=== PATIENT | male | born 1935 | race Caucasian/White ===

== ENCOUNTER 2016-02-15 10:29 | Observation (INO) ==
[2016-02-15] MEDS ORDERED: Ipratropium/Albuterol Neb 3 ML ONE (10:31)
[2016-02-15] MEDS ORDERED: methylPREDNISolone 125 MG/2 ML VIAL IVP ONE (10:33)
[2016-02-15] MEDS ORDERED: Ipratropium/Albuterol Neb 3 ML IH ONE (10:33)
[2016-02-15] MEDS ORDERED: *HR* LORazepam 2 MG/ML VIAL IVP ONE (11:01)
--- NOTE | 2016-02-15 11:07 | Emergency Department Note ---
Disposition Clinical Impression: Atrial fibrillation with RVR COPD (chronic obstructive pulmonary disease) Qualifiers: COPD type: COPD with acute exacerbation Qualified Code(s): J44.1 - Chronic obstructive pulmonary disease with (acute) exacerbation CHF (congestive heart failure) Qualifiers: Congestive heart failure type: unspecified congestive heart failure type Congestive heart failure chronicity: acute Qualified Code(s): I50.9 - Heart failure, unspecified Disposition: Admitted As Inpatient Condition: Fair Referrals: Zafar Gutierrez DO [Primary Care Provider] - Forms: ED Satisfaction Letter General Adult HPI - General Chief complaint: ED Shortness of Breath/Dyspnea Stated complaint: JUAN Time Seen by Provider: 02/15/16 10:33 Source: patient, EMS Limitations: no limitations Nursing Notes Reviewed: Yes Vital Signs Reviewed: Yes - History of Present Illness Pain Scale: 0 - Related Data Home Medications Medication Instructions Recorded Confirmed Albuterol Neb [Proventil Neb] 2.5 mg IH AD 06/04/15 11/26/15 Albuterol Sulfate [Albuterol 2 puff IH Q6HR PRN 06/04/15 11/26/15 Inhaler] Aspirin 81 mg PO DAILY 06/04/15 11/26/15 Atorvastatin [Lipitor] 20 mg PO HS 06/04/15 11/26/15 Diazepam [Valium] 5 mg PO HS 06/04/15 11/26/15 Ezetimibe [Zetia] 10 mg PO DAILY 06/04/15 11/26/15 Finasteride [Proscar] 5 mg PO DAILY 06/04/15 11/26/15 Furosemide [Lasix] 20 mg PO DAILY 06/04/15 11/26/15 Magnesium Oxide [Mgo] 400 mg PO DAILY 06/04/15 11/26/15 Potassium Chloride [K-Tab ER] 20 meq PO DAILY 06/04/15 11/26/15 Rivaroxaban [Xarelto] 20 mg PO DAILY 06/04/15 11/26/15 Sertraline [Zoloft] 100 mg PO DAILY 06/04/15 11/26/15 Tamsulosin [Flomax] 0.4 mg PO DAILY 06/04/15 11/26/15 BuPROPion XL (24 HR) [Wellbutrin 150 mg PO DAILY 11/26/15 11/26/15 Xl] Budesonide/Formoterol 80/4.5 2 puff IH BIDR 11/26/15 11/26/15 [Symbicort 80/4.5] Diltiazem HCl [Diltiazem 24Hr Cd] 120 mg PO DAILY 11/26/15 11/26/15 Oxygen 1 each .ROUTE AD 11/26/15 11/26/15 Tiotropium [Spiriva] 1 cap IH DAILY 11/26/15 11/26/15 Previous Rx's Medication Instructions Recorded Ondansetron ODT [Zofran ODT] 4 mg SL Q6HR PRN #20 tab.rapdis 11/27/15 Allergies Allergy/AdvReac Type Severity Reaction Status Date / Time Penicillins Allergy Hives Verified 02/20/15 20:20 Past Medical History - Past Medical History Medical history: Reports: arthritis, COPD, DVT, hyperlipidemia, hypertension, myocardial infarction Surgical history: Reports: non-contributory Psychiatric history: Reports: anxiety, depression - Social History Smoking Status: Current some day smoker Smokeless Tobacco Status: No Alcohol use: Reports: none Drug use: Reports: none Physical Exam - General Limitations: no limitations General appearance: alert Course Vital Signs Temperature 97.8 F 02/15/16 10:30 Pulse Rate 151 02/15/16 10:30 Respiratory Rate 32 02/15/16 10:30 Blood Pressure 197/128 02/15/16 10:30 O2 Sat by Pulse Oximetry 97 02/15/16 10:30 Temperature 97.8 F 02/15/16 10:30 Pulse Rate 89 02/15/16 14:09 Respiratory Rate 18 02/15/16 14:09 Blood Pressure 111/78 02/15/16 14:09 O2 Sat by Pulse Oximetry 100 02/15/16 14:09 Oxygen Delivery Oxygen Delivery Bipap Medical Decision Making - MDM Narrative Medical decision making narrative: I examined this patient and my medical decision-making was reviewed with the OPENING MACHINE CLEANER/PA/Advanced Practice Nurse/Resident Physician. I agree with the documented findings, disposition and treatment plan as described except to the extent set forth below. Patient presents today by EMS from home. Increased dyspnea conversationally dyspneic to about 2 words very anxious. History of COPD no history of A. fib but is in A. fib here today. Denies any chest pain. Starting cardiopulmonary workup on him. Going to give him a small dose of Ativan and also start him on BiPAP. He is also getting 3 nebulized treatments at this time. He most likely will need admission. 1034 hrs.: Patient's EKG shows an atrial fibrillation with a rapid ventricular response of 150, PVCs 3. QRS 102, and QTC 347 no signs of acute ischemia compared this with an EKG he had done earlier this year shows no changes except that time he was paced and had no A. fib. 1212 hrs.: Patient is tolerating BiPAP much better. He sleeping now his heart rate has decreased after getting Cardizem for his atrial fibrillation. We will bring him into the hospital. Acute respiratory distress and failure, atrial flutter with RVR new-onset, he also has an unexplained elevated white count. We will go ahead and get a culture on him I do not see a source for that this time. We will need to get a urinalysis on him also. 1244 hrs.: Patient's repeat EKG shows a sinus tachycardia with a rate of 101, QRS of 102, QTC of 422. Is converted from the A. fib that he was in earlier. Chest X-Ray 02/15/16 10:33 IMPRESSION: Pulmonary edema. D/ / Cody Mitchell MD / Cody Mitchell MD Interpreting Provider: Cody Mitchell MD 1400 hrs.: Hospitalist was accepted patient for admission. Patient's agreement with admission and is doing much better at this time. Critical care time exclusive A separately billable procedures was 45 minutes. - Lab Data Result diagrams: 02/15/16 11:15 02/15/16 11:15 Lab Results 02/15/16 02/15/16 02/15/16 Range/Units 11:15 11:15 11:15 WBC 26.5 H (4.3-11.1) K/mcL RBC 4.15 L (4.19-5.50) M/mcL Hgb 13.3 (12.9-16.9) g/dL Hct 41.2 (37.5-50.1) % MCV 99.3 (83.0-100.0) fL MCH 32.0 (28.0-33.3) pg MCHC 32.3 (31.6-35.5) g/dL RDW 13.1 (11.5-14.5) % Plt Count 471 H (140-400) K/mcL MPV 9.8 (9.4-12.4) fL Seg Neutrophils % 82.0 % Band Neutrophils % 2.0 (0-4) % Lymphocytes % 16.0 % Neutrophils # 22.3 H (1.6-8.9) K/mcL Lymphocytes # 4.2 (0.6-4.6) K/mcL Platelet Estimate Increased H (Normal) Sodium 142 (136-145) mEq/L Potassium 3.5 (3.5-4.5) mEq/L Chloride 106 (98-109) mEq/L Carbon Dioxide 26 (19-29) mEq/L BUN 25 (8-26) mg/dL Creatinine 1.01 (0.72-1.25) mg/dL Est GFR ( Amer) > 60 (> 60) Est GFR (Non-Af Amer) > 60 (> 60) BUN/Creatinine Ratio 25 (6-26) Glucose 180 H (70-99) mg/dL Calculated Osmolality 303 H (280-300) Calcium 8.9 (8.6-10.8) mg/dL Troponin I 0.04 H* (0-0.03) ng/mL B-Natriuretic Peptide (0-100) pg/mL Urine Color (Yellow) Urine Clarity (Clear) Urine pH (5.0-8.0) pH Units Ur Specific Adams (1.010-1.025) Urine Protein (Neg-Trace) mg/dL Urine Glucose (UA) (Normal) mg/dL Urine Ketones (Negative) mg/dL Urine Blood (Negative) Urine Nitrite (Negative) Urine Bilirubin (Negative) Urine Urobilinogen (Normal) mg/dL Ur Leukocyte Esterase (Negative) Urine Microscopic RBC (0-3) per hpf Urine Microscopic WBC (0-3) per hpf Ur Squamous Epith Cells (None-Few) per lpf Urine Bacteria (None-Few) per hpf Hyaline Casts (None-Few) per lpf Granular Casts (None Seen) per lpf RBC Casts (None Seen) per lpf WBC Casts (None Seen) per lpf Urine Mucus (Few) Ur Culture Indicated? (NO) 02/15/16 02/15/16 Range/Units 11:15 12:42 WBC (4.3-11.1) K/mcL RBC (4.19-5.50) M/mcL Hgb (12.9-16.9) g/dL Hct (37.5-50.1) % MCV (83.0-100.0) fL MCH (28.0-33.3) pg MCHC (31.6-35.5) g/dL RDW (11.5-14.5) % Plt Count (140-400) K/mcL MPV (9.4-12.4) fL Seg Neutrophils % % Band Neutrophils % (0-4) % Lymphocytes % % Neutrophils # (1.6-8.9) K/mcL Lymphocytes # (0.6-4.6) K/mcL Platelet Estimate (Normal) Sodium (136-145) mEq/L Potassium (3.5-4.5) mEq/L Chloride (98-109) mEq/L Carbon Dioxide (19-29) mEq/L BUN (8-26) mg/dL Creatinine (0.72-1.25) mg/dL Est GFR ( Amer) (> 60) Est GFR (Non-Af Amer) (> 60) BUN/Creatinine Ratio (6-26) Glucose (70-99) mg/dL Calculated Osmolality (280-300) Calcium (8.6-10.8) mg/dL Troponin I (0-0.03) ng/mL B-Natriuretic Peptide 640 H (0-100) pg/mL Urine Color Dark Yellow (Yellow) Urine Clarity Cloudy A (Clear) Urine pH 5.0 (5.0-8.0) pH Units Ur Specific Adams 1.022 (1.010-1.025) Urine Protein >=300 H (Neg-Trace) mg/dL Urine Glucose (UA) Normal (Normal) mg/dL Urine Ketones Negative (Negative) mg/dL Urine Blood Large H (Negative) Urine Nitrite Negative (Negative) Urine Bilirubin Negative (Negative) Urine Urobilinogen Normal (Normal) mg/dL Ur Leukocyte Esterase Negative (Negative) Urine Microscopic RBC TNTC H (0-3) per hpf Urine Microscopic WBC 5-15 H (0-3) per hpf Ur Squamous Epith Cells Many H (None-Few) per lpf Urine Bacteria None Seen (None-Few) per hpf Hyaline Casts Many H (None-Few) per lpf Granular Casts Moderate H (None Seen) per lpf RBC Casts Moderate H (None Seen) per lpf WBC Casts Few H (None Seen) per lpf Urine Mucus Moderate H (Few) Ur Culture Indicated? YES A (NO)
[2016-02-15 11:43] LABS: Hematocrit 41.2 % (37.5-50.1); Hemoglobin 13.3 g/dL (12.9-16.9); Mean Corpuscular HGB Conc 32.3 g/dL (31.6-35.5); Mean Corpuscular Volume 99.3 fL (83.0-100.0); Mean Platelet Volume 9.8 fL (9.4-12.4); Platelet Count 471 K/mcL (140-400); Red Blood Count 4.15 M/mcL (4.19-5.50); Red Cell Distribution Width 13.1 % (11.5-14.5)
[2016-02-15 11:55] LABS: BUN/Creatinine Ratio 25 (6-26); Blood Urea Nitrogen 25 mg/dL (8-26); Calcium 8.9 mg/dL (8.6-10.8); Carbon Dioxide 26 mEq/L (19-29); Chloride 106 mEq/L (98-109); Glucose 180 mg/dL (70-99); Osmolality,Calculated 303 (280-300); Potassium 3.5 mEq/L (3.5-4.5); Sodium 142 mEq/L (136-145); eGFR For African Americans > 60 (> 60); eGFR For Non-African Americans > 60 (> 60)
[2016-02-15 11:59] LABS: Lymphocytes # 4.2 K/mcL (0.6-4.6); Neutrophils # 22.3 K/mcL (1.6-8.9)
[2016-02-15 12:00] LABS: Platelet Estimate Increased (Normal)
--- NOTE | 2016-02-15 12:21 | Emergency Department Note ---
Disposition Clinical Impression: Atrial fibrillation with RVR COPD (chronic obstructive pulmonary disease) Qualifiers: COPD type: COPD with acute exacerbation Qualified Code(s): J44.1 - Chronic obstructive pulmonary disease with (acute) exacerbation CHF (congestive heart failure) Qualifiers: Congestive heart failure type: unspecified congestive heart failure type Congestive heart failure chronicity: acute Qualified Code(s): I50.9 - Heart failure, unspecified Disposition: Admitted As Inpatient Condition: Fair SOB HPI - General Chief Complaint: ED Shortness of Breath/Dyspnea Stated Complaint: JUAN Time Seen by Provider: 02/15/16 10:33 Source: patient, EMS Limitations: no limitations Nursing Notes Reviewed: Yes Vital Signs Reviewed: Yes - History of Present Illness Patient brought in by EMS for evaluation of shortness of breath. She states that he has had a respiratory symptoms for approximately 2 weeks. Patient had shortness of breath onset this morning. Associated cough. No sputum. Patient has a history of COPD. patient significantly anxious with increased work of breathing use of intercostal muscles. Patient dyspneic with talking. Patient placed on nonrebreather via EMS. - Related Data Home Medications Medication Instructions Recorded Confirmed Albuterol Sulfate [Albuterol 2 puff IH Q6HR PRN 06/04/15 02/15/16 Inhaler] Aspirin 81 mg PO DAILY 06/04/15 02/15/16 Atorvastatin [Lipitor] 20 mg PO HS 06/04/15 02/15/16 Diazepam [Valium] 5 mg PO HS 06/04/15 02/15/16 Ezetimibe [Zetia] 10 mg PO DAILY 06/04/15 02/15/16 Finasteride [Proscar] 5 mg PO DAILY 06/04/15 02/15/16 Magnesium Oxide [Mgo] 400 mg PO DAILY 06/04/15 02/15/16 Potassium Chloride [K-Tab ER] 20 meq PO DAILY 06/04/15 02/15/16 Rivaroxaban [Xarelto] 20 mg PO DAILY 06/04/15 02/15/16 Budesonide/Formoterol 80/4.5 2 puff IH BIDR 11/26/15 02/15/16 [Symbicort 80/4.5] Diltiazem HCl [Diltiazem 24Hr Cd] 120 mg PO DAILY 11/26/15 02/15/16 Oxygen 1 each .ROUTE AD 11/26/15 02/15/16 Tiotropium [Spiriva] 18 mcg IH DAILY 11/26/15 02/15/16 Benzonatate [Tessalon] 100 mg PO TID 02/15/16 02/15/16 Doxycycline 100 mg PO BID 02/15/16 02/15/16 PredniSONE 40 mg PO DAILY 02/15/16 02/15/16 Allergies Allergy/AdvReac Type Severity Reaction Status Date / Time Penicillins Allergy Hives Verified 02/20/15 20:20 All systems ED: reviewed and negative except as stated. Constitutional: Reports: chills, weakness Respiratory: Reports: cough, dyspnea, wheezes Past Medical History - Past Medical History Medical history: Reports: arthritis, COPD, DVT, hyperlipidemia, hypertension, myocardial infarction Surgical history: Reports: non-contributory Psychiatric history: Reports: anxiety, depression - Social History Smoking Status: Current some day smoker Smokeless Tobacco Status: No Alcohol use: Reports: none Drug use: Reports: none Physical Exam - General Limitations: no limitations General appearance: alert - Head Head exam: atraumatic, normocephalic - Eye Eye exam: Present: normal appearance - ENT ENT exam: normal exam, normal oropharynx - Neck Neck exam: Present: normal inspection - Chest Chest inspection: Present: normal inspection - Respiratory Respiratory exam: Present: respiratory distress, wheezes (Diffusely) - Cardiovascular Cardiovascular exam: Present: tachycardia, irregular rhythm - Abdominal Exam Abdominal exam: Present: soft, Non-Tender - Extremities Exam Extremities exam: Present: normal inspection - Expanded Lower Extremity Exam Hip/Pelvis exam: Present: normal inspection - Back Exam Back exam: Present: normal inspection. Absent: tenderness - Neurological Exam Neurological exam: Present: alert, oriented X3 - Psychiatric Psychiatric exam: Present: normal affect, normal mood - Skin Skin exam: Present: warm, dry Course - Reevaluation(s) Reevaluation #1: Patient found to be in A. fib RVR. Patient initially responded with improvement in respiratory status to do an intense. Her rate converted to sinus tachycardia with administration of Cardizem. Patient received Ativan prior to use of initiation of BiPAP to decrease anxiety. Patient now resting comfortably in bed with oxygen saturation of 100%. - Consultations Consultation #1: Discussed with Dr. Gallo. Patient accepted for admission. Vital Signs Temperature 97.8 F 02/15/16 10:30 Pulse Rate 151 12/31/16 10:30 Respiratory Rate 32 02/15/16 10:30 Blood Pressure 197/128 02/15/16 10:30 O2 Sat by Pulse Oximetry 97 02/15/16 10:30 Temperature 97.6 F 02/15/16 15:58 Pulse Rate 88 02/15/16 15:58 Respiratory Rate 20 02/15/16 15:58 Blood Pressure 118/62 02/15/16 15:58 O2 Sat by Pulse Oximetry 94 L 02/15/16 15:58 Oxygen Delivery Oxygen Delivery Bipap Shortness of Breath/Dyspnea - Lab Data Result diagrams: 02/15/16 11:15 02/15/16 11:15 Lab Results 02/15/16 02/15/16 02/15/16 Range/Units 11:15 11:15 11:15 WBC 26.5 H (4.3-11.1) K/mcL RBC 4.15 L (4.19-5.50) M/mcL Hgb 13.3 (12.9-16.9) g/dL Hct 41.2 (37.5-50.1) % MCV 99.3 (83.0-100.0) fL MCH 32.0 (28.0-33.3) pg MCHC 32.3 (31.6-35.5) g/dL RDW 13.1 (11.5-14.5) % Plt Count 471 H (140-400) K/mcL MPV 9.8 (9.4-12.4) fL Seg Neutrophils % 82.0 % Band Neutrophils % 2.0 (0-4) % Lymphocytes % 16.0 % Neutrophils # 22.3 H (1.6-8.9) K/mcL Lymphocytes # 4.2 (0.6-4.6) K/mcL Platelet Estimate Increased H (Normal) Sodium 142 (136-145) mEq/L Potassium 3.5 (3.5-4.5) mEq/L Chloride 106 (98-109) mEq/L Carbon Dioxide 26 (19-29) mEq/L BUN 25 (8-26) mg/dL Creatinine 1.01 (0.72-1.25) mg/dL Est GFR ( Amer) > 60 (> 60) Est GFR (Non-Af Amer) > 60 (> 60) BUN/Creatinine Ratio 25 (6-26) Glucose 180 H (70-99) mg/dL Calculated Osmolality 303 H (280-300) Calcium 8.9 (8.6-10.8) mg/dL Troponin I 0.04 H* (0-0.03) ng/mL B-Natriuretic Peptide (0-100) pg/mL Urine Color (Yellow) Urine Clarity (Clear) Urine pH (5.0-8.0) pH Units Ur Specific Barker (1.010-1.025) Urine Protein (Neg-Trace) mg/dL Urine Glucose (UA) (Normal) mg/dL Urine Ketones (Negative) mg/dL Urine Blood (Negative) Urine Nitrite (Negative) Urine Bilirubin (Negative) Urine Urobilinogen (Normal) mg/dL Ur Leukocyte Esterase (Negative) Urine Microscopic RBC (0-3) per hpf Urine Microscopic WBC (0-3) per hpf Ur Squamous Epith Cells (None-Few) per lpf Urine Bacteria (None-Few) per hpf Hyaline Casts (None-Few) per lpf Granular Casts (None Seen) per lpf RBC Casts (None Seen) per lpf WBC Casts (None Seen) per lpf Urine Mucus (Few) Ur Culture Indicated? (NO) 02/15/16 02/15/16 Range/Units 11:15 12:42 WBC (4.3-11.1) K/mcL RBC (4.19-5.50) M/mcL Hgb (12.9-16.9) g/dL Hct (37.5-50.1) % MCV (83.0-100.0) fL MCH (28.0-33.3) pg MCHC (31.6-35.5) g/dL RDW (11.5-14.5) % Plt Count (140-400) K/mcL MPV (9.4-12.4) fL Seg Neutrophils % % Band Neutrophils % (0-4) % Lymphocytes % % Neutrophils # (1.6-8.9) K/mcL Lymphocytes # (0.6-4.6) K/mcL Platelet Estimate (Normal) Sodium (136-145) mEq/L Potassium (3.5-4.5) mEq/L Chloride (98-109) mEq/L Carbon Dioxide (19-29) mEq/L BUN (8-26) mg/dL Creatinine (0.72-1.25) mg/dL Est GFR ( Amer) (> 60) Est GFR (Non-Af Amer) (> 60) BUN/Creatinine Ratio (6-26) Glucose (70-99) mg/dL Calculated Osmolality (280-300) Calcium (8.6-10.8) mg/dL Troponin I (0-0.03) ng/mL B-Natriuretic Peptide 640 H (0-100) pg/mL Urine Color Dark Yellow (Yellow) Urine Clarity Cloudy A (Clear) Urine pH 5.0 (5.0-8.0) pH Units Ur Specific Barker 1.022 (1.010-1.025) Urine Protein >=300 H (Neg-Trace) mg/dL Urine Glucose (UA) Normal (Normal) mg/dL Urine Ketones Negative (Negative) mg/dL Urine Blood Large H (Negative) Urine Nitrite Negative (Negative) Urine Bilirubin Negative (Negative) Urine Urobilinogen Normal (Normal) mg/dL Ur Leukocyte Esterase Negative (Negative) Urine Microscopic RBC TNTC H (0-3) per hpf Urine Microscopic WBC 5-15 H (0-3) per hpf Ur Squamous Epith Cells Many H (None-Few) per lpf Urine Bacteria None Seen (None-Few) per hpf Hyaline Casts Many H (None-Few) per lpf Granular Casts Moderate H (None Seen) per lpf RBC Casts Moderate H (None Seen) per lpf WBC Casts Few H (None Seen) per lpf Urine Mucus Moderate H (Few) Ur Culture Indicated? YES A (NO)
[2016-02-15 13:38] LABS: Bilirubin,Urine Negative (Negative); Blood,Urine Large (Negative); Clarity,Urine Cloudy (Clear); Color,Urine Dark Yellow (Yellow); Glucose,Urine (UA) Normal (Normal); Ketones,Urine Negative (Negative); Leukocyte Esterase,Urine Negative (Negative); Nitrite,Urine Negative (Negative); Protein,Urine >=300 mg/dL (Neg-Trace); Specific Gravity,Urine 1.022 (1.010-1.025); Urobilinogen,Urine Normal (Normal)
[2016-02-15 13:40] LABS: Bacteria,Urine None Seen per hpf (None-Few); RBC,Urine TNTC per hpf (0-3); Squamous Epithelial Cell,Urine Many per lpf (None-Few)
[2016-02-15] MEDS ORDERED: Levofloxacin 750 MG/150 ML 750 MG/150 ML BAG IVPB ONE (13:42)
[2016-02-15 13:56] LABS: Granular Casts,Urine Moderate per lpf (None Seen); Hyaline Casts,Urine Many per lpf (None-Few); Red Blood Cell Casts,Urine Moderate per lpf (None Seen)
[2016-02-15 13:57] LABS: Mucus,Urine Moderate (Few); White Blood Cell Casts,Urine Few per lpf (None Seen)
[2016-02-15] MEDS ORDERED: Naloxone 0.4 MG/ML INJ IVP PRN (16:24)
[2016-02-15] MEDS ORDERED: Acetaminophen 325 MG TABLET PO PRN (16:24)
[2016-02-15] MEDS ORDERED: Furosemide 80 MG in 0.9 % Sodium Chloride 50 ML IVPB ONE (16:50)
[2016-02-15] MEDS ORDERED: Nitroglycerin 1 INCH/GM PACKET TP ONE (17:02)
--- NOTE | 2016-02-15 17:23 | Event Note ---
Date of Encounter: 02/15/16 Time of Encounter: 17:16 I examined this patient and my medical decision-making was reviewed with Richelle Ruiz. I agree with the documented findings, disposition and treatment plan as described except to the extent set forth below. 80 yo CM with COPD, CHF presented to the ER due to shortness of breath, cough and sputum and wheezing. Has had a cold with sore throat for 2 weeks. Exam reveals pt. in moderate respiratory distress with diffuse wheezing bilaterally and bilateral basal crepitations. Now in sinus rhythm. In ER, was in A.Fib with RVR and was on BIPAP. CXR personally reviewed - Interstitial edema seen. EKG personally reviewed - A.Fib with RVR with rate related ischemia initially. ( T-inversions in lateral leads) 2nd EKG - S.rhythm without T-inversions. 1. Acute on Chronic combined systolic and diastolic CHF - Lasix. Oxygen support. I/Os. Daily wts. BIPAP PRN. Admit as inpatient. Expect the patient to stay at least 2 midnights. Expected DC dispo is ECF vs home with home health. High risk due to risk of lethal arrhytmias. 2. Acute COPD exacerbation - Duonebs PRN. Steroids IV. Hold antibiotics for now. Likely precipitant is the recent URI. Respiratory infection panel. 3. Diarrhea - Has leukocytosis. Recent abx use as out patient. Check for C.diff. 4. CAD - ASA held now due to hematuria. Continue statin and AV reba tonya. 5. A.Fib - Paroxysmal - Hold AC now. Now in SR. Cardizem. 6. Malnutrition - Nutrition consult. 7. Acute hypoxic respiratory failure due to CHF and COPD exacerbation 8. Tobacco abuse 9. Hematuria - Could be due to Rodriguez placement. Will repeat UA tomorrow. CHANA Garvin
--- NOTE | 2016-02-15 17:35 | Internal Med History&Physical ---
Date of Encounter: 02/16/16 Time of Encounter: 16:00 Assessment and Plan (1) CHF exacerbation Current visit: Yes Status: Acute 1 she has been having experiencing increasing shortness of breath chest x-ray with pulmonary edema-we will administer Lasix today 2 oxygen- presently on 2 L maintaining SPO2 greater than 92% BiPAP as needed 3monitor intake output daily weights 4 monitor electrolytes and replace as needed 5 low sodium diet Qualifiers: Congestive heart failure type: combined Qualified Code(s): I50.43 - Acute on chronic combined systolic (congestive) and diastolic (congestive) heart failure (2) COPD exacerbation Current visit: Yes Status: Acute 1 patient presented with increased shortness of breath with sensory muscle use had cough with sputum production as well as wheezing has been experiencing upper respiratory infection. We will continue with oxygen to maintain SPO2 greater than 92% BiPAP as needed 2 we will continue with steroid 3 we will hold antibiotics for now this likely related to upper respiratory infection 4 duo nebs as needed (3) Paroxysmal a-fib Current visit: Yes Status: Acute 1 patient has a history of paroxysmal A. fib he is on Cardizem by mouth at home as well as a xarelto- we will hold before AC for now presently in sinus rhythm will wean off Cardizem drip and continue with oral medications 2 continuous cardiac monitoring (4) Diarrhea Current visit: Yes Status: Acute 1 patient has been on antibiotic treatment for upper respiratory infection he has been experiencing diarrhea will obtain C. difficile Qualifiers: Diarrhea type: unspecified type Qualified Code(s): R19.7 - Diarrhea, unspecified (5) CAD (coronary artery disease) Current visit: Yes Status: Acute 1 presently without any chest pain aspirin held due to hematuria will continue with statin and will cycle cardiac troponins Qualifiers: Coronary Disease-Associated Artery/Lesion type: unspecified vessel or lesion type [place] vs. transplanted heart: [place] heart Associated angina: without angina Qualified Code(s): I25.10 - Atherosclerotic heart disease of [place] coronary artery without angina pectoris (6) Acute respiratory failure with hypoxia Current visit: Yes Status: Acute 1 this likely related to CHF and COPD exacerbation -continuous SPO2 monitoring- oxygen to maintain SPO2 greater than 92% (7) Malnutrition Current visit: No Status: Chronic 1 patient has been experiencing weight loss due to depression he is on oral nutritional supplements at home however continues to have poor appetite and weight loss-we will consult Mahi and (8) Tobacco abuse Current visit: Yes Status: Acute 1 encouraged patient to stop smoking (9) Hematuria Current visit: Yes Status: Acute Patient had some hematuria and urinalysis could be due to for placement will hold AC and aspirin will repeat UA tomorrow (10) DVT prophylaxis Current visit: Yes Status: Acute [facility] Internal [facility] - H&P: HPI Chief complaint: SOB Admitted From: Home Plans for Post Hospital Care: Transfer [facility] History of present illness: Mr. Martin is a 80 year old male with a past medical hx of COPD, CHF afib hyperlipidemia HTN [place]. The patient has been experiencing SOB and cough for approx two weeks. He was prescribed ATB as well as cough syrup. This am he was experiencing increasing SOB and cough. He had an episode of diarrhea which he rushed to the toilet and became even more SOB. He called EMS which placed im on NRB mask and transported to the ED. According to Ed records the patient arrived in respiratory distress, with increased work of breathing and accessory muscle use. He was dyspneic during conversation. He was given Breathing Tx as well as steroids, he was placed on steroids which improve his breathing status . He was noted to be in Afib RVR He was given a cardizem bolus and started on a drip. He converted to SR. His CXR revealed some pulmonary edema. He had an elevated WBC and BC were obtained and he was given Levaquin troponin .04 BNP 640. He was admitted for further work up and evaluation. Presently the patient is on 2 L NC with sats at 94-93%. He is drowsy but arouses to verbal stimuli and answers questions appropriately. Lung sounds with crackles in bases and scattered faint wheezes. He is SR on the monitor with rate 80. He denies any CP SOB at this time. Past Med Surg Social Fam HX - Past Medical History Medical history: arthritis, COPD, DVT, hyperlipidemia, hypertension, myocardial infarction Psychiatric history: anxiety, depression - Past Surgical History Surgical History: non-contributory - Social History Smoking Status: Current some day smoker Smokeless Tobacco Status: No Alcohol use: none Drug use: none - Family History Brother Adopted: No Family Member Ethnicity: Non- Living Status: Still Living Hx Family Cardiac Disorders: Yes ([place]) Hx Family Respiratory Disorders: No Hx Family Cancer: No Hx Family GI Disorders: No Hx Family Endocrine Disorder: No Hx Family Neuromuscular Disorders: No Hx Family Neurologic Disorders: No Hx Family HEENT Disorders: No Hx Family Autoimmune Disorders: No Father Hx Family Cardiac Disorders: Yes (MYOCARDIAL INFARCTION.) Internal Medicine - H&P: Meds Albuterol Sulfate [Albuterol Inhaler] 2 puff IH Q6HR PRN 06/04/15 [History] Aspirin 81 mg PO DAILY 06/04/15 [History] Atorvastatin [Lipitor] 20 mg PO HS 06/04/15 [History] Diazepam [Valium] 5 mg PO HS 06/04/15 [History] Ezetimibe [Zetia] 10 mg PO DAILY 06/04/15 [History] Finasteride [Proscar] 5 mg PO DAILY 06/04/15 [History] Magnesium Oxide [Mgo] 400 mg PO DAILY 06/04/15 [History] Potassium Chloride [K-Tab ER] 20 meq PO DAILY 06/04/15 [History] Rivaroxaban [Xarelto] 20 mg PO DAILY 06/04/15 [History] Budesonide/Formoterol 80/4.5 [Symbicort 80/4.5] 2 puff IH BIDR 11/26/15 [ History] Diltiazem HCl [Diltiazem 24Hr Cd] 120 mg PO DAILY 11/26/15 [History] Oxygen 1 each .ROUTE AD 11/26/15 [History] Tiotropium [Spiriva] 18 mcg IH DAILY 11/26/15 [History] Benzonatate [Tessalon] 100 mg PO TID 02/15/16 [History] Doxycycline 100 mg PO BID 02/15/16 [History] PredniSONE 40 mg PO DAILY 02/15/16 [History] Allergies Penicillins Allergy (Verified 02/20/15 20:20) Hives All Systems PM: A 10-system review of systems was performed and is negative for pertinent findings except as documented above in the HPI. - Constitutional Constitutional: weight loss - Cardiovascular Cardiovascular ROS IM: dyspnea - Respiratory Respiratory: cough, change in phlegm color - Gastrointestinal Gastrointestinal: diarrhea - Musculoskeletal Musculoskeletal ROS IM: no numbness, no tingling - Neurological Neurological ROS: no confusion, no convulsions, no focal weakness, no numbness, no tingling, no tremor(s) - Constitutional Vitals: Temp Pulse Resp BP Pulse Ox 97.6 F 88 20 118/62 94 L 02/15/16 15:58 02/15/16 15:58 02/15/16 15:58 02/15/16 15:58 02/15/16 15:58 General appearance: Present: A&O X 3 - Head Head exam: Present: atraumatic, normocephalic - Respiratory Respiratory exam: Present: rales, wheezes. Absent: accessory muscle use, rhonchi - Cardiovascular Cardiovascular exam: Present: RRR, +S1, +S2. Absent: diastolic murmur, gallop, rubs, systolic murmur - GI/Abdominal GI/Abdominal exam: Present: normal bowel sounds, soft, no peritoneal signs. Absent: distended, tenderness - Extremities Exam Extremities exam: Present: warm, radial pulses palpable and symetrical. Absent : calf tenderness, cyanotic, pedal edema - Neurological Exam Neurological exam: Present: CN II-XII intact, oriented X3, no focal deficits. Absent: pronater drift, facial droop, speech deficit Internal Med - H&P Results - Labs CBC & Chem 7: 02/16/16 04:14 02/16/16 04:14 - EKG Data EKG shows normal: sinus rhythm Rate: tachycardia - EKG Data Interpretation IM: normal EKG - Diagnostic Studies Chest x-ray Additional comments: per radiology read pulmonary edema
[2016-02-15] MEDS: GuaiFENesin Liq 200 MG/10 ML UDC PO SCH (19:42)
[2016-02-15] MEDS ORDERED: Ipratropium/Albuterol Neb 3 ML IH PRN (20:00)
--- NOTE | 2016-02-15 20:15 | Event Note ---
Date of Encounter: 02/15/16 Time of Encounter: 20:15 Notified per nursing staff troponin trended up from 0.04 to .22 patient denies any chest pain EKG with no changes- suspect rt demand ischemia will continue to trend troponin and monitor
[2016-02-15] MEDS ORDERED: Furosemide 40 MG/4 ML VIAL IVP SCH (21:00)
[2016-02-15] MEDS: Budesonide/Formoterol 80/4.5 MDI IH SCH (21:06)
[2016-02-16] MEDS: GuaiFENesin Liq 200 MG/10 ML UDC PO SCH ×4 (00:48→17:15)
[2016-02-16] MEDS: MethylPREDNISolone 40 MG/ML VIAL IVP SCH ×3 (00:48→15:21)
[2016-02-16 05:12] LABS: Hematocrit 31.1 % (37.5-50.1); Mean Corpuscular HGB Conc 33.1 g/dL (31.6-35.5); Mean Corpuscular Volume 96.6 fL (83.0-100.0); Mean Platelet Volume 9.8 fL (9.4-12.4); Platelet Count 325 K/mcL (140-400); Red Blood Count 3.22 M/mcL (4.19-5.50); Red Cell Distribution Width 12.9 % (11.5-14.5)
[2016-02-16 05:13] LABS: Hemoglobin 10.3 g/dL (12.9-16.9)
[2016-02-16 05:22] LABS: BUN/Creatinine Ratio 28 (6-26); Blood Urea Nitrogen 31 mg/dL (8-26); Calcium 8.1 mg/dL (8.6-10.8); Carbon Dioxide 26 mEq/L (19-29); Chloride 102 mEq/L (98-109); Glucose 126 mg/dL (70-99); Osmolality,Calculated 292 (280-300); Sodium 137 mEq/L (136-145); eGFR For African Americans > 60 (> 60); eGFR For Non-African Americans > 60 (> 60)
[2016-02-16 05:35] LABS: Potassium 4.7 mEq/L (3.5-4.5)
[2016-02-16] MEDS: Magnesium Oxide 400 MG TABLET PO SCH (07:57)
[2016-02-16] MEDS: Diltiazem CD (24hr) 120 MG CAPSULE PO SCH (07:57)
[2016-02-16] MEDS ORDERED: predniSONE 10 MG TABLET PO SCH (09:00)
[2016-02-16] MEDS: Tiotropium 18 MCG inhalation IH SCH (10:11)
[2016-02-16] MEDS: Budesonide/Formoterol 80/4.5 MDI IH SCH ×2 (10:11→22:57)
[2016-02-16] MEDS: Furosemide 40 MG TABLET PO SCH (10:22)
[2016-02-16] MEDS: levoFLOXacin 500 MG TABLET PO SCH (10:22)
[2016-02-16 12:46] LABS: Bilirubin,Urine Negative (Negative); Blood,Urine Negative (Negative); Clarity,Urine Clear (Clear); Color,Urine Yellow (Yellow); Glucose,Urine (UA) Normal (Normal); Ketones,Urine Negative (Negative); Leukocyte Esterase,Urine Negative (Negative); Nitrite,Urine Negative (Negative); Protein,Urine Negative (Neg-Trace); Specific Gravity,Urine 1.012 (1.010-1.025); Urobilinogen,Urine Normal (Normal)
--- NOTE | 2016-02-16 15:49 | Internal Med Progress Note ---
Date of Encounter: 02/16/16 Time of Encounter: 10:10 - Assessment and plan (1) Acute respiratory failure with hypoxia Current Visit: Yes Status: Acute Assessment and plan: Improved with O2 Continue same (2) Atrial fibrillation with RVR Current Visit: Yes Status: Acute Assessment and plan: Afib with RVR resolved Now rate controlled, continue home meds Resume anticoagulation (3) CHF exacerbation Current Visit: Yes Status: Acute Assessment and plan: Acute on chronic combined CHFE Troponin leak possibly secondary to Afib with rVR and demand ischemia EKG is not ischemic Continue lasix , monitor I/O, daily weights, fluid restriction Qualifiers: Congestive heart failure type: combined Qualified Code(s): I50.43 - Acute on chronic combined systolic (congestive) and diastolic (congestive) heart failure (4) COPD exacerbation Current Visit: Yes Status: Acute Assessment and plan: Continue antibiotics, nebs, steroids Follow respiratory infection panel (5) Diarrhea Current Visit: Yes Status: Resolved Assessment and plan: Resolved per patient Qualifiers: Diarrhea type: unspecified type Qualified Code(s): R19.7 - Diarrhea, unspecified (6) CAD (coronary artery disease) Current Visit: Yes Status: Chronic Assessment and plan: Stable , all meds resumed except ASA due to hematuria Will restart ASA , UA his morning is clear Qualifiers: Coronary Disease-Associated Artery/Lesion type: unspecified vessel or lesion type [place] vs. transplanted heart: [place] heart Associated angina: without angina Qualified Code(s): I25.10 - Atherosclerotic heart disease of [place] coronary artery without angina pectoris (7) Hematuria Current Visit: Yes Status: Acute Assessment and plan: Possibly traumatic, repeat UA is clean. Urine culture no growth D/C Jennifer (8) Tobacco abuse Current Visit: Yes Status: Chronic Assessment and plan: Counselled on smoking cessation NRT - Subjective Interval history: 80 Y/O M with COPD, CHF being managed for COPD and CHF exacerbation PM is significant for combined systolic and diastolic CHF, COPD, Afib, Tobacco abuse Patient seen today at bedside Reports that his respiratory symptoms have improved He denies chest sanders, palpitations or abdominal symptoms 1. Acute on Chronic combined systolic and diastolic CHF - Lasix. Oxygen support. I/Os. Daily wts. BIPAP PRN. Admit as inpatient. Expect the patient to stay at least 2 midnights. Expected DC dispo is ECF vs home with home health. High risk due to risk of lethal arrhytmias. 2. Acute COPD exacerbation - Duonebs PRN. Steroids IV. Hold antibiotics for now. Likely precipitant is the recent URI. Respiratory infection panel. 3. Diarrhea - Has leukocytosis. Recent abx use as out patient. Check for C.diff. 4. CAD - ASA held now due to hematuria. Continue statin and AV reba tonya. 5. A.Fib - Paroxysmal - Hold AC now. Now in SR. Cardizem. 6. Malnutrition - Nutrition consult. 7. Acute hypoxic respiratory failure due to CHF and COPD exacerbation 8. Tobacco abuse 9. Hematuria - Could be due to Rodriguez placement. Will repeat UA tomorrow. - Constitutional Vitals: Temp Pulse Resp BP Pulse Ox 98.3 F 84 18 107/76 95 02/16/16 12:18 02/16/16 15:23 02/16/16 12:18 02/16/16 12:18 02/16/16 12:35 General appearance: Present: A&O X 3 Exam: VSS Sitting up in bed, cheerful, not in respiratory distress Speaks full sentences Neuro: AAOX3, no neurologic deficits HEENT: Moist oral mucosa, no cyanosis Chest: CTAB, not wheezing , no rales Heart: S1, S2, irregular, no JVD, no m/g/r Abdomen: Soft, not tender Extremities: No edema Internal Medicine: Result - Labs CBC & Chem 7: 02/16/16 04:14 02/16/16 04:14 Labs: Short CBC 02/16/16 Range/Units 04:14 WBC 13.6 H (4.3-11.1) K/mcL Hgb 10.3 L D (12.9-16.9) g/dL Hct 31.1 L (37.5-50.1) % Plt Count 325 (140-400) K/mcL BMP 02/16/16 04:14 Sodium 137 Potassium 4.7 H D Chloride 102 Carbon Dioxide 26 BUN 31 H Creatinine 1.09 Glucose 126 H Calcium 8.1 L Cardiac Enzymes 02/15/16 02/15/16 Range/Units 18:08 22:33 Troponin I 0.22 H* 0.19 H* (0-0.03) ng/mL Urine 02/16/16 Range/Units 12:30 Urine Color Yellow (Yellow) Urine Clarity Clear (Clear) Urine pH 6.0 (5.0-8.0) pH Units Ur Specific [place] 1.012 (1.010-1.025) Urine Protein Negative (Neg-Trace) mg/dL Urine Glucose (UA) Normal (Normal) mg/dL Consult Discharge Plan - Plan Referrals: Zafar Gutierrez DO [Primary Care Provider] -
[2016-02-17] MEDS: MethylPREDNISolone 40 MG/ML VIAL IVP SCH (00:05)
[2016-02-17] MEDS: GuaiFENesin Liq 200 MG/10 ML UDC PO SCH ×5 (00:05→23:56)
[2016-02-17 06:19] LABS: Basophils % 0.1 %; Hematocrit 33.9 % (37.5-50.1); Immature Granulocytes % 1.2 % (0-4); Lymphocytes # 0.6 K/mcL (0.6-4.6); Lymphocytes % 3.3 %; Mean Corpuscular HGB Conc 32.4 g/dL (31.6-35.5); Mean Corpuscular Hemoglobin 31.4 pg (28.0-33.3); Mean Corpuscular Volume 96.9 fL (83.0-100.0); Mean Platelet Volume 9.8 fL (9.4-12.4); Monocytes # 0.4 K/mcL (0.0-1.3); Monocytes % 2.3 %; Neutrophils # 16.4 K/mcL (1.6-8.9); Platelet Count 366 K/mcL (140-400); Red Cell Distribution Width 13.1 % (11.5-14.5); Segmented Neutrophils % 93.1 %
[2016-02-17 06:32] LABS: BUN/Creatinine Ratio 34 (6-26); Blood Urea Nitrogen 38 mg/dL (8-26); Calcium 8.3 mg/dL (8.6-10.8); Carbon Dioxide 29 mEq/L (19-29); Chloride 103 mEq/L (98-109); Glucose 150 mg/dL (70-99); Osmolality,Calculated 298 (280-300); Potassium 4.5 mEq/L (3.5-4.5); Sodium 138 mEq/L (136-145); eGFR For African Americans > 60 (> 60); eGFR For Non-African Americans > 60 (> 60)
[2016-02-17] MEDS: Tiotropium 18 MCG inhalation IH SCH (08:50)
[2016-02-17] MEDS: Budesonide/Formoterol 80/4.5 MDI IH SCH ×2 (09:02→20:52)
[2016-02-17] MEDS: predniSONE 20 MG TABLET PO SCH (09:13)
[2016-02-17] MEDS: levoFLOXacin 500 MG TABLET PO SCH (09:14)
[2016-02-17] MEDS: *HR* Rivaroxaban 10 MG TABLET PO SCH (09:14)
[2016-02-17] MEDS: Aspirin 81 MG TAB.CHEW PO SCH (09:14)
[2016-02-17] MEDS: Finasteride 5 MG TABLET PO SCH (09:14)
[2016-02-17] MEDS: Magnesium Oxide 400 MG TABLET PO SCH (09:14)
[2016-02-17] MEDS: Furosemide 40 MG TABLET PO SCH (09:14)
[2016-02-17] MEDS: Diltiazem CD (24hr) 120 MG CAPSULE PO SCH (09:14)
--- NOTE | 2016-02-17 09:21 | ECHO - Doppler Report ---
Echocardiogram Name: Bravo Martin Date of Study: 02/16/2016 Date: 1935 Ht: 70.0 in Medical Record#: [id number] Age: 80 Wt: 131.0 lb Gender: Male BSA: 1.74 Order #: [id number] Location: [facility] Room #: 2N12 Reading Physician: Win Palmer DO, AUSTIN ROMO FASNC Cargo Supervisor: Rachid Villela Ordering Physician: Richelle Ruiz CNP Primary Physician: Zafar Gutierrez DO Indications: Congestive heart failure Impressions: LVEF 40%. Mildly dilated left ventricle. Moderate left ventricular diastolic dysfunction. Atypical septal motion consistent with paced rhythm. Normal right ventricular structure and function. Mild mitral regurgitation. No evidence of pulmonary hypertension. A device lead was visualized in the right atrium and right ventricle. Left Ventricular Wall Motion: Rest Echo Findings The apical inferior, mid inferior, basal inferior and basal inferior lateral [place] were hypokinetic. All other wall segments showed normal motion. Findings: Study Quality * Technically adequate exam. ECG Findings * Paced rhythm. Left Ventricle * LVEF 40%. * Normal LV wall thickness. * Mildly dilated left ventricle. * Segmental left ventricular systolic dysfunction. * Moderate left ventricular diastolic dysfunction. * Atypical septal motion consistent with paced rhythm. Right Ventricle * Normal right ventricular structure and function. Left Atrium * Mildly dilated left atrium. Right Atrium * Mildly dilated right atrium. Interatrial Septum * Interatrial septum not well evaluated. Aortic Valve * Trileaflet aortic valve. * Mildly sclerotic aortic valve leaflets. * No aortic regurgitation. * No aortic stenosis. Mitral Valve * Mildly thickened mitral valve leaflets. * Mild mitral regurgitation. * No mitral stenosis. Tricuspid Valve * Normal tricuspid valve structure and function. * Trace tricuspid regurgitation. * No evidence of pulmonary hypertension. Pulmonic Valve * Pulmonic valve is not well visualized. Aorta * Normally sized aortic root. Pericardium * The pericardium appears normal. IVC * The IVC is not well evaluated. Device lead * A device lead was visualized in the right atrium and right ventricle. Pulmonary Artery * Normal visualized portions of the main pulmonary artery. History Hypertension Hypercholesteremia History of Smoking Years 40 Packs 0.5 Family History of CAD History of CAD/PTCA Myocardial Infarction Pacer/ICD Implant 05/22/14 a Previous Echo was performed. Measurements: BP: 107/ 76 2D Normal Values RVIDd: 3.42 cm <2.7 cm IVSd: .74 cm 0.6 - 1.0 cm LVIDd: 6.12 cm 3.7 - 5.6 cm LVPWd: .97 cm 0.6 - 1.1 cm LVIDs: 4.85 cm 1.5 - 3.6 cm AO: 2.40 cm < 4.0 cm LA: 4.40 cm 2.0 - 4.0cm %FS: 20.80 cm >25 % LA volume: 52 Mitral Valve Peak E:1.10 m/sec Peak A:.76 m/sec E/A Ratio:1.4 Peak E' Lat Hima:8.49 cm/s Peak E' Med Hima:4.9 cm/s E/E' Lat Ratio:13 E/E' Med Ratio:22.4 Tricuspid Valve TV Regurg Peak Grad: 7.00mmHg TV Regurg Peak Hima: 1.29m/sec Updated by Win Palmer DO, CLARISSA, GENET AVILA on 02/17/2016 9:15:40 AM electronically signed on 02/17/2016 9:16:19 AM with status of Final Wall Motion [place]: 1=Normal, 2=Hypokinesis, 3=Akinesis, 4=Dyskinesis, 5=Aneurysmal, 6=Hyperkinetic, X=Not Visualized (Blank)=Missing
--- NOTE | 2016-02-17 10:26 | Electrocardiograph Report ---
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
--- NOTE | 2016-02-17 10:44 | Electrocardiograph Report ---
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
--- NOTE | 2016-02-17 16:16 | Internal Med Progress Note ---
Date of Encounter: 02/17/16 Time of Encounter: 10:10 - Assessment and plan (1) Acute respiratory failure with hypoxia Current Visit: Yes Status: Acute Assessment and plan: Improved with O2 Continue same (2) Atrial fibrillation with RVR Current Visit: Yes Status: Acute Assessment and plan: Afib with PCM and on anticoagulation RVR resolved Now rate controlled, continue home meds, and anticoagulation (3) CHF exacerbation Current Visit: Yes Status: Acute Assessment and plan: Acute on chronic combined CHFE with PCM Troponin leak possibly secondary to Afib with rVR and demand ischemia EKG is not ischemic ECHO report noted for LVEF 40%, Mildy dilated LV, Moderate LVDD, No pulm HTN Continue lasix , monitor I/O, daily weights, fluid restriction Qualifiers: Congestive heart failure type: combined Qualified Code(s): I50.43 - Acute on chronic combined systolic (congestive) and diastolic (congestive) heart failure (4) COPD exacerbation Current Visit: Yes Status: Acute Assessment and plan: Continue antibiotics, nebs, steroids Follow respiratory infection panel (5) Diarrhea Current Visit: Yes Status: Resolved Assessment and plan: Resolved per patient Qualifiers: Diarrhea type: unspecified type Qualified Code(s): R19.7 - Diarrhea, unspecified (6) CAD (coronary artery disease) Current Visit: Yes Status: Chronic Assessment and plan: Stable, no chest pain, home meds have been resumed, continue same Qualifiers: Coronary Disease-Associated Artery/Lesion type: unspecified vessel or lesion type [place] vs. transplanted heart: [place] heart Associated angina: without angina Qualified Code(s): I25.10 - Atherosclerotic heart disease of [place] coronary artery without angina pectoris (7) Hematuria Current Visit: Yes Status: Acute Assessment and plan: Possibly traumatic, repeat UA is clean. Urine culture no growth D/C Jennifer (8) Tobacco abuse Current Visit: Yes Status: Chronic Assessment and plan: Counselled on smoking cessation NRT - Subjective Interval history: 80 Y/O M with COPD, CHF being managed for COPD and CHF exacerbation PMH is significant for combined systolic and diastolic CHF, COPD, Afib, Tobacco abuse Patient seen at bedside, reports he lives by himself and his son and family live 75 feet away from him but have been away on holiday and will not be back till tomorrow - Constitutional Vitals: Temp Pulse Resp BP Pulse Ox 97.9 F 75 20 130/66 97 02/17/16 15:49 02/17/16 15:49 02/17/16 15:49 02/17/16 15:49 02/17/16 15:49 General appearance: Present: A&O X 3, pleasant, no acute distress - Head Head exam: Present: atraumatic, normocephalic - Eye Eye exam: Present: PERRL, conjuntiva pink, sclera anicteric Pupils: Present: PERRL - Neck Neck exam general surgery: Present: supple, trachea midline. Absent: lymphadenopathy - Respiratory Respiratory exam: Present: CTAB. Absent: accessory muscle use, rales, rhonchi, wheezes - Cardiovascular Cardiovascular exam: Present: RRR, +S1, +S2. Absent: diastolic murmur, gallop, rubs, systolic murmur - GI/Abdominal GI/Abdominal exam: Present: normal bowel sounds, soft, no peritoneal signs. Absent: distended, tenderness - Extremities Exam Extremities exam: Present: warm, radial pulses palpable and symetrical. Absent : calf tenderness, cyanotic, pedal edema - Neurological Exam Neurological exam: Present: CN II-XII intact, oriented X3, no focal deficits. Absent: pronater drift, facial droop, speech deficit - Skin Skin exam: Present: dry, intact Internal Medicine: Result - Labs CBC & Chem 7: 02/17/16 05:18 02/17/16 05:18 Labs: Short CBC 02/17/16 Range/Units 05:18 WBC 17.6 H (4.3-11.1) K/mcL Hgb 11.0 L (12.9-16.9) g/dL Hct 33.9 L (37.5-50.1) % Plt Count 366 (140-400) K/mcL Neutrophils # 16.4 H (1.6-8.9) K/mcL BMP 02/17/16 05:18 Sodium 138 Potassium 4.5 Chloride 103 Carbon Dioxide 29 BUN 38 H Creatinine 1.12 Glucose 150 H Calcium 8.3 L Consult Discharge Plan - Plan Referrals: Zafar Gutierrez DO [Primary Care Provider] - 02/24/16 2:45 pm ()
[2016-02-18] MEDS: GuaiFENesin Liq 200 MG/10 ML UDC PO SCH ×2 (05:48→11:25)
[2016-02-18] MEDS: Budesonide/Formoterol 80/4.5 MDI IH SCH (07:58)
[2016-02-18] MEDS: Tiotropium 18 MCG inhalation IH SCH (07:59)
[2016-02-18] MEDS: levoFLOXacin 500 MG TABLET PO SCH (08:17)
[2016-02-18] MEDS: Furosemide 40 MG TABLET PO SCH (08:17)
[2016-02-18] MEDS: Magnesium Oxide 400 MG TABLET PO SCH (08:17)
[2016-02-18] MEDS: Finasteride 5 MG TABLET PO SCH (08:17)
[2016-02-18] MEDS: Diltiazem CD (24hr) 120 MG CAPSULE PO SCH (08:17)
[2016-02-18] MEDS: *HR* Rivaroxaban 10 MG TABLET PO SCH (08:17)
[2016-02-18] MEDS: predniSONE 20 MG TABLET PO SCH (08:17)
[2016-02-18] MEDS: Aspirin 81 MG TAB.CHEW PO SCH (08:18)
--- NOTE | 2016-02-18 09:53 | Electrocardiograph Report ---
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
[2016-02-18 11:32] VITALS: BP 117/75
--- NOTE | 2016-02-18 15:39 | Discharge Summary ---
Date of Encounter: 02/20/16 Time of Encounter: 15:30 - Discharge Diagnosis (1) Atrial fibrillation with RVR Priority: Primary Status: Acute (2) Generalized weakness Priority: Secondary Status: Acute - Discharge Medications Prescriptions: Cyanocobalamin (B-12) [Vitamin B12] 1,000 mcg PO DAILY #90 tablet Ergocalciferol (VITAMIN D2) [Drisdol (50,000 Unit)] 50,000 unit PO QWEEK #15 capsule Furosemide [Lasix] 20 mg PO DAILY PRN #30 tablet PRN Reason: other Levofloxacin [Levaquin] 500 mg PO DAILY #5 tablet Thiamine HCl [Vitamin B-1] 100 mg PO DAILY #90 tablet Home Medications: Albuterol Sulfate [Albuterol Inhaler] 2 puff IH Q6HR PRN 06/04/15 [History] Aspirin 81 mg PO DAILY 06/04/15 [History] Atorvastatin [Lipitor] 20 mg PO HS 06/04/15 [History] Diazepam [Valium] 5 mg PO HS 06/04/15 [History] Ezetimibe [Zetia] 10 mg PO DAILY 06/04/15 [History] Finasteride [Proscar] 5 mg PO DAILY 06/04/15 [History] Magnesium Oxide [Mgo] 400 mg PO DAILY 06/04/15 [History] Potassium Chloride [K-Tab ER] 20 meq PO DAILY 06/04/15 [History] Rivaroxaban [Xarelto] 20 mg PO DAILY 06/04/15 [History] Budesonide/Formoterol 80/4.5 [Symbicort 80/4.5] 2 puff IH BIDR 11/26/15 [ History] Diltiazem HCl [Diltiazem 24Hr Cd] 120 mg PO DAILY 11/26/15 [History] Oxygen 1 each .ROUTE AD 11/26/15 [History] Tiotropium [Spiriva] 18 mcg IH DAILY 11/26/15 [History] Cyanocobalamin (B-12) [Vitamin B12] 1,000 mcg PO DAILY #90 tablet 02/18/16 [Rx] Ergocalciferol (VITAMIN D2) [Drisdol (50,000 Unit)] 50,000 unit PO QWEEK #15 capsule 02/18/16 [Rx] Furosemide [Lasix] 20 mg PO DAILY PRN #30 tablet 02/18/16 [Rx] Levofloxacin [Levaquin] 500 mg PO DAILY #5 tablet 02/18/16 [Rx] PredniSONE 20 mg PO DAILY #6 02/18/16 [Rx] Thiamine HCl [Vitamin B-1] 100 mg PO DAILY #90 tablet 02/18/16 [Rx] Allergies/Adverse Reactions: Allergies Penicillins Allergy (Verified 02/20/15 20:20) Hives Procedures/tests Complete & Pending: Procedures Performed prior 72 hours Category Date Time Status ECG 12 lead ECG [ECG] Routine Y 02/16/16 05:27 Completed EV echocardiogram Routine Y 02/16/16 17:03 Completed Date of admission: 02/15/16 14:38 Primary care physician: Nasir Alva Consults: 02/15/16 16:27 Consult to Refinish Technician [CONS] Routine Reason for SW Consult: discharge planning ECF placement 02/15/16 17:11 Consult to Occupational Therapy [CONS] Routine Comment: Evaluate, develop and implement POC Consult to Physical Therapy [CONS] Routine Comment: Evaluate, develop and implement POC 02/15/16 17:59 Consult to Nutrition [CONS] Routine Comment: pt. with significant weight loss Consulting Provider: NUTRITION Reason for Dietary Consult: Other Consult to Refinish Technician [CONS] Routine Reason for SW Consult: pt. lives at home, wt. loss and medication issues Discharging clinician: Norm Whiting - Patient Status Disposition: Home, Self-Care Condition: Good Overall status at discharge: patient is progressing back to baseline - Discharge Instructions Instructions: Furosemide (By mouth), Thiamine (Vitamin B-1) (By mouth), Cyanocobalamin (Vitamin B-12) (Injection), Ergocalciferol (By mouth), Levofloxacin (By mouth), Atrial Fibrillation (DC) Follow Up With: Zafar Gutierrez DO [Primary Care Provider] - 02/24/16 2:45 pm () Additional Instructions: Daily weight and blood pressure check - Diet and Activity Activity: resume usual activities as tolerated Diet: low fat, low cholesterol, low salt diet Hospital course: Mr. Martin is a 80 year old male with a past medical hx of COPD, CHF afib hyperlipidemia HTN RI. The patient has been experiencing SOB and cough for approx two weeks. He was prescribed ATB as well as cough syrup. On the day of admission ,he was experiencing increasing SOB and cough. He had an episode of diarrhea which he rushed to the toilet and became even more SOB. He called EMS which placed him on NRB mask and transported to the ED. According to Ed records the patient arrived in respiratory distress, with increased work of breathing and accessory muscle use. He was dyspneic during conversation. He was given Breathing Tx as well as steroids, he was placed on steroids which improve his breathing status . He was noted to be in Afib RVR He was given a cardizem bolus and started on a drip. He converted to SR. His CXR revealed some pulmonary edema. He had an elevated WBC and BC were obtained and he was given Levaquin troponin .04 BNP 640. He was admitted for further work up and evaluation. Chest x-ray show bilateral evidence of pulmonary edema patient was started on IV Lasix. With her possible COPD exacerbation was started on aerosol treatment.We Continue to monitor the patient. Gradually weaning off from Cardizem drip to oral Cardizem, continue anticoagulant. I had long discussion with patient and family about compliance to medication. Patient was not taking his Cardizem lately because he ran out of prescription. Counseling about daily weight. Counseling about nutrition. Cardiac echo showing ejection fraction 40 % mildly dilated left ventricle moderately left ventricular dilatation no pulmonary hypertension. Tapering down steroid dose in addition to aerosol treatment. With his poor nutritional status patient was given vitamin supplement. Counseling about Physical therapy . I had a long discussion with the power of railroad surveyor over the phone . Discussed about the benzodiazepines she stated he is not taking this medication anymore. Patient discharged home in stable condition. The documentation in the history of HPI and plan were at least partially created by [employer] voice recognition technology by Dr. Irby. Errors in grammar, wording or other phrases may exist. If errors are found after the documentation signed, they will be addressed individually in the addendum section of this document when appropriate. - Time Spent with Patient Total time spent providing and/or coordinating discharge services: Greater than 30 minutes - Constitutional Vitals: Temp Pulse Resp BP Pulse Ox 97.5 F L 71 18 117/75 96 02/18/16 11:29 02/18/16 13:42 02/18/16 13:42 02/18/16 13:42 02/18/16 13:42 General appearance: Present: A&O X 3, pleasant, no acute distress
== END 2016-02-18 16:42 | disposition home or self-care (01) ==
LOC: 2NNU 10:29 → EMEROO 10:29 → 2NNU 14:50
PROVIDERS: ADMIT Internal Medicine; ATTEND Internal Medicine

== ENCOUNTER 2016-05-28 19:10 | Inpatient (IN) ==
--- NOTE | 2016-05-28 19:26 | Emergency Department Note ---
Disposition Clinical Impression: Common bile duct obstruction, Cancer of head of pancreas, Hyperkalemia, Anemia , Elevated transaminase measurement Disposition: Admitted As Inpatient Condition: Serious General Adult HPI - General Chief complaint: ED General Medical Stated complaint: Abnormal Labs Time Seen by Provider: 05/28/16 19:21 Source: patient Limitations: no limitations - History of Present Illness Pain Scale: 8 - Related Data Home Medications Medication Instructions Recorded Confirmed Albuterol Sulfate [Albuterol 2 puff IH Q4H PRN 06/04/15 05/28/16 Inhaler] Aspirin 81 mg PO DAILY 06/04/15 05/28/16 Atorvastatin [Lipitor] 40 mg PO HS 06/04/15 05/28/16 Finasteride [Proscar] 5 mg PO DAILY 06/04/15 05/28/16 Potassium Chloride [K-Tab ER] 20 meq PO DAILY 06/04/15 05/28/16 Rivaroxaban [Xarelto] 20 mg PO DAILY 06/04/15 05/28/16 Budesonide/Formoterol 80/4.5 2 puff IH BIDR 11/26/15 05/28/16 [Symbicort 80/4.5] Diltiazem HCl [Diltiazem 24Hr Cd] 120 mg PO DAILY 11/26/15 05/28/16 Tiotropium [Spiriva] 18 mcg IH DAILY 11/26/15 05/28/16 Furosemide [Lasix] 20 mg PO DAILY 05/28/16 05/28/16 Allergies Allergy/AdvReac Type Severity Reaction Status Date / Time Penicillins Allergy Hives Verified 02/20/15 20:20 Past Medical History - Past Medical History Medical history: Reports: arthritis, cancer, COPD, DVT, hyperlipidemia, hypertension, myocardial infarction Surgical history: Reports: non-contributory Psychiatric history: Reports: anxiety, depression - Social History Smoking Status: Former smoker Smokeless Tobacco Status: No Alcohol use: Reports: none Drug use: Reports: none Physical Exam - General Limitations: no limitations Course Vital Signs Temperature 97.9 F 05/28/16 19:16 Pulse Rate 104 05/28/16 19:16 Respiratory Rate 20 05/28/16 19:16 Blood Pressure 150/92 05/28/16 19:16 O2 Sat by Pulse Oximetry 98 05/28/16 19:16 Temperature 97.9 F 05/29/16 07:47 Pulse Rate 123 05/29/16 10:36 Respiratory Rate 18 05/29/16 10:36 Blood Pressure 146/107 05/29/16 10:36 O2 Sat by Pulse Oximetry 97 05/29/16 10:36 Oxygen Delivery Oxygen Delivery Nasal Cannula Medical Decision Making - Lab Data Result diagrams: 05/29/16 05:36 05/29/16 05:36 Lab Results 05/28/16 05/28/16 05/28/16 Range/Units 19:44 19:44 19:44 WBC 7.9 (4.3-11.1) K/mcL RBC 3.96 L (4.19-5.50) M/mcL Hgb 12.2 L (12.9-16.9) g/dL Hct 37.3 L (37.5-50.1) % MCV 94.2 (83.0-100.0) fL MCH 30.8 (28.0-33.3) pg MCHC 32.7 (31.6-35.5) g/dL RDW 16.3 H (11.5-14.5) % Plt Count 266 (140-400) K/mcL MPV 10.8 (9.4-12.4) fL Immature Gran % 0.5 (0-4) % Seg Neutrophils % 63.9 % Lymphocytes % 18.2 % Monocytes % 14.2 % Eosinophils % 2.4 % Basophils % 0.8 % Neutrophils # 5.1 (1.6-8.9) K/mcL Lymphocytes # 1.4 (0.6-4.6) K/mcL Monocytes # 1.1 (0.0-1.3) K/mcL Eosinophils # 0.2 (0.0-0.6) K/mcL Basophils # 0.1 (0.0-0.2) K/mcL PT 22.2 H (9.4-12.1) Seconds INR 2.0 APTT 42.0 H (26.0-36.0) Seconds Sodium 139 (136-145) mEq/L Potassium 4.6 H (3.5-4.5) mEq/L Chloride 104 (98-109) mEq/L Carbon Dioxide 23 (19-29) mEq/L BUN 15 (8-26) mg/dL Creatinine 1.00 (0.72-1.25) mg/dL Est GFR ( Amer) > 60 (> 60) Est GFR (Non-Af Amer) > 60 (> 60) BUN/Creatinine Ratio 15 (6-26) Glucose 90 (70-99) mg/dL Calculated Osmolality 288 (280-300) Calcium 9.0 (8.6-10.8) mg/dL Total Bilirubin 8.4 H (0.2-1.2) mg/dL AST 225 H (5-34) Units/L ALT 242 H (0-55) Units/L Alkaline Phosphatase 1359 H (38-126) Units/L Serum Total Protein 7.1 (6.0-8.3) g/dL Albumin 3.1 L (3.5-5.0) g/dL Globulin 4.0 H (2.4-3.5) g/dL Albumin/Globulin Ratio 0.8 L (1.1-2.2) Lipase 84 H (8-78) Units/L Urine Color (Yellow) Urine Clarity (Clear) Urine pH (5.0-8.0) pH Units Ur Specific Sterling (1.010-1.025) Urine Protein (Neg-Trace) mg/dL Urine Glucose (UA) (Normal) mg/dL Urine Ketones (Negative) mg/dL Urine Blood (Negative) Urine Nitrite (Negative) Urine Bilirubin (Negative) Urine Urobilinogen (Normal) mg/dL Ur Leukocyte Esterase (Negative) Urine Microscopic RBC (0-3) per hpf Urine Microscopic WBC (0-3) per hpf Ur Squamous Epith Cells (None-Few) per lpf Urine Bacteria (None-Few) per hpf Hyaline Casts (None-Few) per lpf Stool Occult Blood (Negative) 05/28/16 05/28/16 Range/Units 20:10 21:06 WBC (4.3-11.1) K/mcL RBC (4.19-5.50) M/mcL Hgb (12.9-16.9) g/dL Hct (37.5-50.1) % MCV (83.0-100.0) fL MCH (28.0-33.3) pg MCHC (31.6-35.5) g/dL RDW (11.5-14.5) % Plt Count (140-400) K/mcL MPV (9.4-12.4) fL Immature Gran % (0-4) % Seg Neutrophils % % Lymphocytes % % Monocytes % % Eosinophils % % Basophils % % Neutrophils # (1.6-8.9) K/mcL Lymphocytes # (0.6-4.6) K/mcL Monocytes # (0.0-1.3) K/mcL Eosinophils # (0.0-0.6) K/mcL Basophils # (0.0-0.2) K/mcL PT (9.4-12.1) Seconds INR APTT (26.0-36.0) Seconds Sodium (136-145) mEq/L Potassium (3.5-4.5) mEq/L Chloride (98-109) mEq/L Carbon Dioxide (19-29) mEq/L BUN (8-26) mg/dL Creatinine (0.72-1.25) mg/dL Est GFR ( Amer) (> 60) Est GFR (Non-Af Amer) (> 60) BUN/Creatinine Ratio (6-26) Glucose (70-99) mg/dL Calculated Osmolality (280-300) Calcium (8.6-10.8) mg/dL Total Bilirubin (0.2-1.2) mg/dL AST (5-34) Units/L ALT (0-55) Units/L Alkaline Phosphatase (38-126) Units/L Serum Total Protein (6.0-8.3) g/dL Albumin (3.5-5.0) g/dL Globulin (2.4-3.5) g/dL Albumin/Globulin Ratio (1.1-2.2) Lipase (8-78) Units/L Urine Color Dark Yellow (Yellow) Urine Clarity Cloudy A (Clear) Urine pH 6.0 (5.0-8.0) pH Units Ur Specific Sterling 1.012 (1.010-1.025) Urine Protein 30 H (Neg-Trace) mg/dL Urine Glucose (UA) Normal (Normal) mg/dL Urine Ketones Negative (Negative) mg/dL Urine Blood Negative (Negative) Urine Nitrite Negative (Negative) Urine Bilirubin Moderate H (Negative) Urine Urobilinogen Normal (Normal) mg/dL Ur Leukocyte Esterase Negative (Negative) Urine Microscopic RBC 0-3 (0-3) per hpf Urine Microscopic WBC 0-3 (0-3) per hpf Ur Squamous Epith Cells None Seen (None-Few) per lpf Urine Bacteria None Seen (None-Few) per hpf Hyaline Casts None Seen (None-Few) per lpf Stool Occult Blood Negative (Negative) Attestation Statement - Attestation Attestation: I examined this patient and my medical decision-making was reviewed with the BUMP GRADER OPERATOR/PA/Advanced Practice Nurse/Resident Physician. I agree with the documented findings, disposition and treatment plan as described except to the extent set forth below. [id number] time provided Patient presents the care of his family after having abnormal outpatient labs indicating elevated alkaline phosphatase and bilirubin. He complains of right upper quadrant pain. Appears in no acute distress on exam. Patient seen and evaluated in conjunction with the resident physician
[2016-05-28 19:51] LABS: Basophils # 0.1 K/mcL (0.0-0.2); Basophils % 0.8 %; Eosinophils # 0.2 K/mcL (0.0-0.6); Eosinophils % 2.4 %; Hematocrit 37.3 % (37.5-50.1); Hemoglobin 12.2 g/dL (12.9-16.9); Immature Granulocytes % 0.5 % (0-4); Lymphocytes # 1.4 K/mcL (0.6-4.6); Lymphocytes % 18.2 %; Mean Corpuscular HGB Conc 32.7 g/dL (31.6-35.5); Mean Corpuscular Hemoglobin 30.8 pg (28.0-33.3); Mean Corpuscular Volume 94.2 fL (83.0-100.0); Mean Platelet Volume 10.8 fL (9.4-12.4); Monocytes # 1.1 K/mcL (0.0-1.3); Monocytes % 14.2 %; Neutrophils # 5.1 K/mcL (1.6-8.9); Platelet Count 266 K/mcL (140-400); Red Blood Count 3.96 M/mcL (4.19-5.50); Red Cell Distribution Width 16.3 % (11.5-14.5); Segmented Neutrophils % 63.9 %
[2016-05-28 19:54] LABS: Prothrombin Time 22.2 Seconds (9.4-12.1)
[2016-05-28 20:04] LABS: Alanine Aminotransferase 242 Units/L (0-55); Albumin 3.1 g/dL (3.5-5.0); Albumin/Globulin Ratio 0.8 (1.1-2.2); Alkaline Phosphatase 1359 Units/L (38-126); Aspartate Amino Transferase 225 Units/L (5-34); BUN/Creatinine Ratio 15 (6-26); Blood Urea Nitrogen 15 mg/dL (8-26); Carbon Dioxide 23 mEq/L (19-29); Chloride 104 mEq/L (98-109); Glucose 90 mg/dL (70-99); Lipase 84 Units/L (8-78); Osmolality,Calculated 288 (280-300); Potassium 4.6 mEq/L (3.5-4.5); Sodium 139 mEq/L (136-145); Total Protein 7.1 g/dL (6.0-8.3); eGFR For African Americans > 60 (> 60); eGFR For Non-African Americans > 60 (> 60)
[2016-05-28 20:05] LABS: Bilirubin,Total 8.4 mg/dL (0.2-1.2)
[2016-05-28] MEDS ORDERED: 0.9 % Sodium Chloride 1,000 ML IVC ONE (20:20)
[2016-05-28] MEDS ORDERED: Ipratropium/Albuterol Neb 3 ML IH ONE (20:22)
--- NOTE | 2016-05-28 20:43 | Emergency Department Note ---
Disposition Clinical Impression: Common bile duct obstruction, Cancer of head of pancreas, Hyperkalemia, Elevated transaminase measurement Anemia Qualifiers: Anemia type: unspecified type Qualified Code(s): D64.9 - Anemia, unspecified Disposition: Admitted As Inpatient Condition: Serious Referrals: Unassigned,Provider [Primary Care Provider] - Forms: ED Satisfaction Letter, Work/School Release Time of Disposition: 21:22 General Adult HPI - General Chief complaint: ED General Medical Stated complaint: Abnormal Labs Time Seen by Provider: 05/28/16 19:21 Source: patient Limitations: no limitations Nursing Notes Reviewed: Yes Vital Signs Reviewed: Yes - History of Present Illness HPI Narrative: This is an 81-year-old male who presents with jaundice and scleral icterus 1 week. Patient has had diarrhea for 2 weeks with his stool turning red 6 days ago. Patient reports abdominal pain 1 week as well, and right upper quadrant. Patient had an outpatient CT scan of abdomen and pelvis which showed a enlargement of the pancreatic head concerning for pancreatic cancer. He currently denies any abdominal pain. Pain Scale: 8 - Related Data Home Medications Medication Instructions Recorded Confirmed Albuterol Sulfate [Albuterol 2 puff IH Q6HR PRN 06/04/15 02/15/16 Inhaler] Aspirin 81 mg PO DAILY 06/04/15 02/15/16 Atorvastatin [Lipitor] 20 mg PO HS 06/04/15 02/15/16 Finasteride [Proscar] 5 mg PO DAILY 06/04/15 02/15/16 Potassium Chloride [K-Tab ER] 20 meq PO DAILY 06/04/15 02/15/16 Rivaroxaban [Xarelto] 20 mg PO DAILY 06/04/15 02/15/16 Budesonide/Formoterol 80/4.5 2 puff IH BIDR 11/26/15 02/15/16 [Symbicort 80/4.5] Diltiazem HCl [Diltiazem 24Hr Cd] 120 mg PO DAILY 11/26/15 02/15/16 Tiotropium [Spiriva] 18 mcg IH DAILY 11/26/15 02/15/16 Furosemide [Lasix] 20 mg PO DAILY 05/28/16 05/28/16 Allergies Allergy/AdvReac Type Severity Reaction Status Date / Time Penicillins Allergy Hives Verified 02/20/15 20:20 All systems ED: reviewed and negative except as stated. Constitutional: Denies: fever, chills, weakness Eyes: Reports: other (Icterus) ENT ED: Denies: congestion Cardiovascular: Denies: chest pain, palpitations Respiratory: Reports: cough, wheezes. Denies: dyspnea Gastrointestinal: Reports: abdominal pain, nausea Genitourinary: Denies: urgency, dysuria Musculoskeletal: Denies: back pain, neck pain Neurological: Denies: headache, weakness Psychiatric: Denies: anxiety Endocrine: Denies: fatigue Hematological/Lymphatic: Denies: easy bleeding, easy bruising Past Medical History - Past Medical History Attestation: Yes The following information was validated with the patient. Source: patient, obtained from family Medical history: Reports: arthritis, cancer, COPD, DVT, hyperlipidemia, hypertension, myocardial infarction Surgical history: Reports: non-contributory Psychiatric history: Reports: anxiety, depression - Social History Smoking Status: Former smoker Smokeless Tobacco Status: No Alcohol use: Reports: none Drug use: Reports: none Physical Exam - General Limitations: no limitations General appearance: alert - Head Head exam: atraumatic, normocephalic, normal inspection - Eye Eye exam: Present: PERRL, EOMI, scleral icterus. Absent: conjunctival injection - ENT ENT exam: normal oropharynx, mucous membranes moist, other (Jaundice of oral mucosa) - Neck Neck exam: Present: normal inspection, full ROM, trachea midline. Absent: tenderness, lymphadenopathy - Chest Chest inspection: Present: normal inspection, symmetric chest wall rise. Absent : tenderness - Respiratory Respiratory exam: Present: normal lung sounds bilaterally, wheezes. Absent: respiratory distress, accessory muscle use - Cardiovascular Cardiovascular exam: Present: normal rhythm, tachycardia - Abdominal Exam Abdominal exam: Present: soft, Non-Tender. Absent: distention, guarding, rebound, rigidity ( ) Course - Reevaluation(s) Reevaluation #1: Assessment: Choledocholithiasis, hepatitis, ascending cholangitis pancreatic cancer, COPD exacerbation Plan: CBC, BMP, LFTs, EKG, chest x-ray, LFTs, alkaline phosphatase, lipase, 1 L IV normal saline Time: 19:24 Reevaluation #2: Patient's daughter states that patient had a CT abdomen and pelvis times one day ago ordered by Dr. Roegrs his PCP. Cancer of the head of the pancreas was identified and showed dilation of common bile duct. Most likely secondary. Patient required admission to the hospital with GI follow-up for ERCP. Patient' s alkaline phosphatase is 1359, AST is 225, ALT 242, lipase 84. Patient has chronic anemia with an hyperkalemia 4.6. Patient was started on IV normal saline. Patient also has per CT, there are numerous micronodules within the left upper lobe consistent with an infectious bronchiolitis. Patient also has wheezing on exam and was given DuoNeb therapy which resolved wheezing. Patient states she is breathing a lot better now. Patient also has enlarged prostate gland. Dr. Sampson has accepted for admission after case was discussed with him. He will set up patient's follow-up with GI. - Consultations Consultation #1: Dr. Sampson has accepted for admission 2041 hrs. Time: 20:42 Vital Signs Temperature 97.9 F 05/28/16 19:16 Pulse Rate 104 05/28/16 19:16 Respiratory Rate 20 05/28/16 19:16 Blood Pressure 150/92 05/28/16 19:16 O2 Sat by Pulse Oximetry 98 05/28/16 19:16 Temperature 97.9 F 05/28/16 19:16 Pulse Rate 104 05/28/16 19:16 Respiratory Rate 20 05/28/16 19:16 Blood Pressure 150/92 05/28/16 19:16 O2 Sat by Pulse Oximetry 98 05/28/16 19:16 Oxygen Delivery Oxygen Delivery Room Air Medical Decision Making - Medical Records Medical records reviewed: Yes I reviewed the patient's medical records. - Lab Data Lab results reviewed: Yes I reviewed the patient's lab results. Lab results narrative: Short CBC 05/28/16 Range/Units 19:44 WBC 7.9 (4.3-11.1) K/mcL Hgb 12.2 L (12.9-16.9) g/dL Hct 37.3 L (37.5-50.1) % Plt Count 266 (140-400) K/mcL Neutrophils # 5.1 (1.6-8.9) K/mcL BMP 05/28/16 Range/Units 19:44 Sodium 139 (136-145) mEq/L Potassium 4.6 H (3.5-4.5) mEq/L Chloride 104 (98-109) mEq/L Carbon Dioxide 23 (19-29) mEq/L BUN 15 (8-26) mg/dL Creatinine 1.00 (0.72-1.25) mg/dL Glucose 90 (70-99) mg/dL Calcium 9.0 (8.6-10.8) mg/dL Liver Function 05/28/16 Range/Units 19:44 Total Bilirubin 8.4 H (0.2-1.2) mg/dL AST 225 H (5-34) Units/L ALT 242 H (0-55) Units/L Alkaline Phosphatase 1359 H (38-126) Units/L Albumin 3.1 L (3.5-5.0) g/dL Result diagrams: 05/28/16 19:44 05/28/16 19:44 Lab Results 05/28/16 05/28/16 05/28/16 Range/Units 19:44 19:44 19:44 WBC 7.9 (4.3-11.1) K/mcL RBC 3.96 L (4.19-5.50) M/mcL Hgb 12.2 L (12.9-16.9) g/dL Hct 37.3 L (37.5-50.1) % MCV 94.2 (83.0-100.0) fL MCH 30.8 (28.0-33.3) pg MCHC 32.7 (31.6-35.5) g/dL RDW 16.3 H (11.5-14.5) % Plt Count 266 (140-400) K/mcL MPV 10.8 (9.4-12.4) fL Immature Gran % 0.5 (0-4) % Seg Neutrophils % 63.9 % Lymphocytes % 18.2 % Monocytes % 14.2 % Eosinophils % 2.4 % Basophils % 0.8 % Neutrophils # 5.1 (1.6-8.9) K/mcL Lymphocytes # 1.4 (0.6-4.6) K/mcL Monocytes # 1.1 (0.0-1.3) K/mcL Eosinophils # 0.2 (0.0-0.6) K/mcL Basophils # 0.1 (0.0-0.2) K/mcL PT 22.2 H (9.4-12.1) Seconds INR 2.0 APTT 42.0 H (26.0-36.0) Seconds Sodium 139 (136-145) mEq/L Potassium 4.6 H (3.5-4.5) mEq/L Chloride 104 (98-109) mEq/L Carbon Dioxide 23 (19-29) mEq/L BUN 15 (8-26) mg/dL Creatinine 1.00 (0.72-1.25) mg/dL Est GFR ( Amer) > 60 (> 60) Est GFR (Non-Af Amer) > 60 (> 60) BUN/Creatinine Ratio 15 (6-26) Glucose 90 (70-99) mg/dL Calculated Osmolality 288 (280-300) Calcium 9.0 (8.6-10.8) mg/dL Total Bilirubin 8.4 H (0.2-1.2) mg/dL AST 225 H (5-34) Units/L ALT 242 H (0-55) Units/L Alkaline Phosphatase 1359 H (38-126) Units/L Serum Total Protein 7.1 (6.0-8.3) g/dL Albumin 3.1 L (3.5-5.0) g/dL Globulin 4.0 H (2.4-3.5) g/dL Albumin/Globulin Ratio 0.8 L (1.1-2.2) Lipase 84 H (8-78) Units/L - Radiology Data Radiology results reviewed: Yes I reviewed the patient's radiology results. - EKG Data EKG #1 EKG attestation: Yes I reviewed and interpreted this EKG. EKG results narrative: EKG taken 05/28/2016 at 2004 hrs. shows a A. fib RVR at a rate of 112 bpm with no acute ST elevations or depressions in leads, no cure S Vinh QT prolongation.
[2016-05-28 21:15] LABS: Bilirubin,Urine Moderate (Negative); Blood,Urine Negative (Negative); Clarity,Urine Cloudy (Clear); Color,Urine Dark Yellow (Yellow); Glucose,Urine (UA) Normal (Normal); Ketones,Urine Negative (Negative); Leukocyte Esterase,Urine Negative (Negative); Nitrite,Urine Negative (Negative); Protein,Urine 30 mg/dL (Neg-Trace); Specific Gravity,Urine 1.012 (1.010-1.025); Urobilinogen,Urine Normal (Normal)
[2016-05-28 21:22] LABS: Bacteria,Urine None Seen per hpf (None-Few); Hyaline Casts,Urine None Seen per lpf (None-Few); RBC,Urine 0-3 per hpf (0-3); Squamous Epithelial Cell,Urine None Seen per lpf (None-Few); WBC,Urine 0-3 per hpf (0-3)
--- NOTE | 2016-05-28 22:25 | Internal Med History&Physical ---
<Javier Smiley - Last Filed: 05/28/16 22:50> Date of Encounter: 05/28/16 Time of Encounter: 21:30 Assessment and Plan (1) Obstructive jaundice Current visit: Yes Status: Acute - Prominent jaundice with total bilirubin at 8.4. - Secondary to pancreatic head mass as visualized on CT A/P from 05/27/16. - Will consult GI for ERCP, which is both therapeutic (stent at obstruction site for bile excretion) and diagnostic (EUS biopsy of the mass) in this case. NPO after midnight. - Don't feel MRCP is necessary at this time given it doesn't provide extra benefit compared to ERCP. - Supportive care with pain control using prn NSAID. Concern of reduced liver metabolism of narcotic given current significant biliary obstruction so narcotic is not first-line for pain control at this time. - Closely monitor. (2) Cancer of head of pancreas Current visit: Yes Status: Acute - CT A/P on 05/27/16 found a 1.6 x 2.7 cm pancreatic head mass with severe intra - & extra-hepatic biliary ductal dilatation. - Appreciate GI for ERCP with EUS biopsy for further evaluation. - Consider oncology consult to discuss with patient and his family regarding further evaluation and management. (3) Lung nodule Current visit: Yes Status: Acute - Chest CT on 05/27/16 found a new 1.9 x 2.3 cm ground glass nodule at right lower lobe of lung. (4) COPD (chronic obstructive pulmonary disease) Current visit: No Status: Chronic - Continue Symbicort and bronchodilators. - Supplemental oxygen as needed. Qualifiers: COPD type: unspecified COPD Qualified Code(s): J44.9 - Chronic obstructive pulmonary disease, unspecified (5) Paroxysmal a-fib Current visit: No Status: Chronic - Currently rate controlled. - Continue Cardizem and Xarelto. (6) DVT prophylaxis Current visit: No Status: Acute - Continue Xarelto. Omeprazole for GI prophylaxis. Internal Medicine - H&P: HPI Chief complaint: Jaundice & RUQ abdominal pain Admitted From: Emergency Dept Plans for Post Hospital Care: Home History of present illness: Mr. Martin is a 81 year old male with PMH of HTN, hyperlipidemia, CAD s/p PCI to RCA in 2001, COPD (not on home oxygen), history of DVT and paroxysmal A-fib s /p pacemaker and currently on Cardizem & Xarelto. Patient saw his PCP Dr. Gutierrez on 05/26 for 2-week history of RUQ abdominal pain and was noted to have jaundice. Patient got CT chest/abdomen/pelvis ordered by Dr. Gutierrez done on . It showed a 1.6 x 2.7 cm pancreatic head mass with severe intra- & extra- hepatic biliary ductal dilatation. Patient was brought to [facility] for further evaluation and management. Patient reports intermittent RUQ abdominal pain aggravated after eating and has diarrhea (initial light yellow color but more mahan-white recently) for 2 weeks. Patient denies nausea, vomiting, skin rash/ itchiness, fever, chills, easily bleeding/bruise. Patient does have some shortness of breath, mostly on exertion but states it's about the same as in the past. Regarding any cancer running in the family, patient reports mother of unknown cancer and sister has cancer affecting right neck. Patient's son also reports that patient's niece was diagnosed with pancreatic cancer at her 40s. Regarding patient's code status, patient does not want any resuscitation on cardiac arrest. Past Med Surg Social Fam HX - Past Medical History Medical history: arthritis, atrial fibrillation (Paroxysmal A-fib s/p pacemaker , on Cardizem & Xarelto), cancer, COPD, DVT, hyperlipidemia, hypertension, myocardial infarction Psychiatric history: anxiety, depression - Past Surgical History Surgical History: angioplasty/stent (PCI to RCA in 2001), herniorrhaphy, orthopedic, other (Right rotator cuff), pacemaker/AICD - Social History Smoking Status: Former smoker Smokeless Tobacco Status: No Alcohol use: none Drug use: none - Family History Brother Adopted: No Family Member Ethnicity: Non- Living Status: Still Living Hx Family Cardiac Disorders: Yes (MS) Hx Family Respiratory Disorders: No Hx Family Cancer: No Hx Family GI Disorders: No Hx Family Endocrine Disorder: No Hx Family Neuromuscular Disorders: No Hx Family Neurologic Disorders: No Hx Family HEENT Disorders: No Hx Family Autoimmune Disorders: No Father Living Status: Age at : 78 Cause of : MS Hx Family Cardiac Disorders: Yes (MYOCARDIAL INFARCTION.) Hx Family Neurologic Disorders: Yes (Stroke) Mother Living Status: Age at : 78 Hx Family Cancer: Yes Sister Hx Family Cancer: Yes Internal Medicine - H&P: Meds Albuterol Sulfate [Albuterol Inhaler] 2 puff IH Q4H PRN 06/04/15 [History] Aspirin 81 mg PO DAILY 06/04/15 [History] Atorvastatin [Lipitor] 40 mg PO HS 06/04/15 [History] Finasteride [Proscar] 5 mg PO DAILY 06/04/15 [History] Potassium Chloride [K-Tab ER] 20 meq PO DAILY 06/04/15 [History] Rivaroxaban [Xarelto] 20 mg PO DAILY 06/04/15 [History] Budesonide/Formoterol 80/4.5 [Symbicort 80/4.5] 2 puff IH BIDR 11/26/15 [ History] Diltiazem HCl [Diltiazem 24Hr Cd] 120 mg PO DAILY 11/26/15 [History] Tiotropium [Spiriva] 18 mcg IH DAILY 11/26/15 [History] Furosemide [Lasix] 20 mg PO DAILY 05/28/16 [History] Allergies Penicillins Allergy (Verified 02/20/15 20:20) Hives All Systems PM: A 10-system review of systems was performed and is negative for pertinent findings except as documented above in the HPI. - Constitutional Constitutional: weight loss (2-3 lb in past 2 days.), no anorexia, no chills, no fever(s) - EENT Eyes: no change in vision Ears: no decreased hearing Nose, mouth and throat: no dysphagia, no odynophagia - Cardiovascular Cardiovascular ROS IM: no chest pain, no lightheadedness, no syncope - Respiratory Respiratory: dyspnea on exertion, no cough, no hemoptysis - Gastrointestinal Gastrointestinal: abdominal pain (Right-sided), diarrhea, no hematochezia, no melena, no nausea, no vomiting - Genitourinary Genitourinary ROS male: no difficulty urinating, no dysuria, no hematuria - Musculoskeletal Musculoskeletal ROS IM: no arthralgias, no myalgias - Integumentary Integumentary IM: jaundice, no pruritus, no rash - Neurological Neurological ROS: no focal weakness, no numbness, no tingling - Hematologic/Lymphatic Hematologic/Lymphatic: no easy bleeding, no easy bruising - Constitutional Vitals: Temp Pulse Resp BP Pulse Ox 97.9 F 98 0 0/0 94 05/28/16 19:16 05/28/16 21:33 05/28/16 21:34 05/28/16 21:34 05/28/16 21:33 General appearance: Present: cooperative, A&O X 3, no acute distress, answers questions appropriately - Head Head exam: Present: atraumatic, normocephalic - Eye Eye exam: Present: PERRL, scleral icterus, conjuntiva pink - Neck Neck exam general surgery: Present: supple, trachea midline. Absent: lymphadenopathy - Respiratory Respiratory exam: Present: CTAB. Absent: accessory muscle use, rales, rhonchi, wheezes - Cardiovascular Cardiovascular exam: Present: RRR, +S1, +S2. Absent: diastolic murmur, gallop, rubs, systolic murmur - GI/Abdominal GI/Abdominal exam: Present: normal bowel sounds, soft, tenderness (RUQ), no peritoneal signs. Absent: distended - Extremities Exam Extremities exam: Present: warm, radial pulses palpable and symetrical. Absent : calf tenderness, cyanotic, pedal edema - Neurological Exam Neurological exam: Present: CN II-XII intact, oriented X3, no focal deficits. Absent: pronater drift, facial droop, speech deficit - Skin Skin exam: Present: dry, intact, warm Additional comments: Jaundice Internal Med - H&P Results - Labs CBC & Chem 7: 05/28/16 19:44 05/28/16 19:44 Labs: Urine 05/28/16 Range/Units 21:06 Urine Color Dark Yellow (Yellow) Urine Clarity Cloudy A (Clear) Urine pH 6.0 (5.0-8.0) pH Units Ur Specific [place] 1.012 (1.010-1.025) Urine Protein 30 H (Neg-Trace) mg/dL Urine Glucose (UA) Normal (Normal) mg/dL <Dieudonne Sampson - Last Filed: 05/28/16 23:57> Date of Encounter: 05/28/16 Assessment and Plan (1) Hyperkalemia Current visit: Yes Status: Acute Internal Medicine - H&P: HPI History of present illness: Mr. Martin is a 81 year old male All Systems PM: A 10-system review of systems was performed and is negative for pertinent findings except as documented above in the HPI. - Constitutional Vitals: Temp Pulse Resp BP Pulse Ox 98.5 F 110 16 133/80 95 05/28/16 22:58 05/28/16 22:58 05/28/16 22:58 05/28/16 22:58 05/28/16 22:58 Internal Med - H&P Results - Labs CBC & Chem 7: 05/28/16 19:44 05/28/16 19:44 Labs: Urine 05/28/16 Range/Units 21:06 Urine Color Dark Yellow (Yellow) Urine Clarity Cloudy A (Clear) Urine pH 6.0 (5.0-8.0) pH Units Ur Specific [place] 1.012 (1.010-1.025) Urine Protein 30 H (Neg-Trace) mg/dL Urine Glucose (UA) Normal (Normal) mg/dL - EKG Data -: EKG Interpreted by Myself (AFIB with RVR of 112) - Diagnostic Studies CT scan - abdomen Status: image reviewed by me - Attending Attestation I personally interviewed and examined this patient and my medical decision- making was reviewed with the Resident Physician. I agree with the documented findings, disposition and treatment plan as described.
[2016-05-28] MEDS ORDERED: Ondansetron 4 MG/2 ML VIAL IVP PRN (22:43)
[2016-05-28] MEDS ORDERED: Naloxone 0.4 MG/ML INJ IVP PRN (22:43)
[2016-05-29] MEDS: Ibuprofen 400 MG TABLET PO PRN (02:54)
[2016-05-29 06:37] LABS: Basophils # 0.1 K/mcL (0.0-0.2); Basophils % 0.8 %; Eosinophils # 0.2 K/mcL (0.0-0.6); Eosinophils % 2.2 %; Hematocrit 35.1 % (37.5-50.1); Hemoglobin 11.6 g/dL (12.9-16.9); Immature Granulocytes % 0.9 % (0-4); Lymphocytes # 1.2 K/mcL (0.6-4.6); Lymphocytes % 13.7 %; Mean Corpuscular Hemoglobin 31.1 pg (28.0-33.3); Mean Corpuscular Volume 94.1 fL (83.0-100.0); Mean Platelet Volume 11.8 fL (9.4-12.4); Monocytes # 1.2 K/mcL (0.0-1.3); Monocytes % 14.1 %; Neutrophils # 5.8 K/mcL (1.6-8.9); Platelet Count 254 K/mcL (140-400); Red Blood Count 3.73 M/mcL (4.19-5.50); Red Cell Distribution Width 16.9 % (11.5-14.5); Segmented Neutrophils % 68.3 %
[2016-05-29 06:45] LABS: INR 1.8; Prothrombin Time 19.4 Seconds (9.4-12.1)
[2016-05-29 06:56] LABS: Alanine Aminotransferase 206 Units/L (0-55); Albumin 2.8 g/dL (3.5-5.0); Albumin/Globulin Ratio 0.8 (1.1-2.2); Alkaline Phosphatase 1223 Units/L (38-126); Aspartate Amino Transferase 197 Units/L (5-34); BUN/Creatinine Ratio 16 (6-26); Blood Urea Nitrogen 13 mg/dL (8-26); Calcium 8.7 mg/dL (8.6-10.8); Carbon Dioxide 24 mEq/L (19-29); Chloride 107 mEq/L (98-109); Globulin 3.4 g/dL (2.4-3.5); Glucose 89 mg/dL (70-99); Osmolality,Calculated 288 (280-300); Potassium 4.3 mEq/L (3.5-4.5); Sodium 139 mEq/L (136-145); Total Protein 6.2 g/dL (6.0-8.3); eGFR For African Americans > 60 (> 60); eGFR For Non-African Americans > 60 (> 60)
[2016-05-29] MEDS: Budesonide/Formoterol 80/4.5 MDI IH SCH ×2 (08:05→19:58)
--- NOTE | 2016-05-29 08:53 | Anesthesia Evaluation PreOp ---
Date of Encounter: 05/29/16 Time of Encounter: 08:50 - Past History Planned Operation: ERCP Cardiac History: TX, HTN, Hyperlipidemia, Arrhythmia (paroxysmal A-Fib, tachy- florentino syndrome S/P pacemaker), Cardiac Stent, Pacemaker/ICD ([employer]) Pulmonary History: COPD (on O2 qhs), Other (right lower lobe lung nodule) MUD GRINDER History: Denies Any Significant HX Other Medical History: Other (pancreatic CA, anxiety/depression, H/O DVT) Anesthesia History: No Prior Anesthetic Complications, Past Anesthesia Alcohol Use: none Drug use: none Medications and Allergies Albuterol Sulfate [Albuterol Inhaler] 2 puff IH Q4H PRN 06/04/15 [History] Aspirin 81 mg PO DAILY 06/04/15 [History] Atorvastatin [Lipitor] 40 mg PO HS 06/04/15 [History] Finasteride [Proscar] 5 mg PO DAILY 06/04/15 [History] Potassium Chloride [K-Tab ER] 20 meq PO DAILY 06/04/15 [History] Rivaroxaban [Xarelto] 20 mg PO DAILY 06/04/15 [History] Budesonide/Formoterol 80/4.5 [Symbicort 80/4.5] 2 puff IH BIDR 11/26/15 [ History] Diltiazem HCl [Diltiazem 24Hr Cd] 120 mg PO DAILY 11/26/15 [History] Tiotropium [Spiriva] 18 mcg IH DAILY 11/26/15 [History] Furosemide [Lasix] 20 mg PO DAILY 05/28/16 [History] Allergies Penicillins Allergy (Verified 02/20/15 20:20) Hives - Meds/Allergy Pre-op Review Medications Reviewed: Yes Allergies Reviewed: Yes Beta Blockers on Current Med List: No Anesthesia Results - Labs 05/29/16 05:36 05/29/16 05:36 Laboratory Tests 05/28/16 05/29/16 19:44 05:36 PT 19.4 H INR 1.8 APTT 42.0 H - Imaging EKG: report reviewed (02/16/2016 SR, NSST abnormality) Additional studies: 02/16/2016 Echo LVEF 40% mildly dilated LV moderate LV diastolic dysfunction atypical septal motion c/w paced rhythm mild MR 05/22/2014 Echo Impressions: LVEF 45%. Mild segmental left ventricular systolic dysfunction. Mild left ventricular diastolic dysfunction. Normal right ventricular structure and function. Unable to estimate RVSP due to lack of TR jet. No significant valvular dysfunction. 05/01/2016 Stress Impression: Perfusion imaging was positive for infarct without ischemia. Pharmacologic ECG was negative for ischemia at the level of heart rate achieved. Patient had no chest pain with stress. Normal hemodynamic response. Rare PVCs noted during stress. Gated EF = 34%; hypokinesis of the inferior wall, apex and septum. The LV is dilated. LVEDV = 174 There is no evidence of TID. Anesthesia Exam Vital Signs/O2 Sat/Glucose, Most Recent Temp Pulse Resp BP Pulse Ox 97.9 F 107 16 134/88 97 05/29/16 07:47 05/29/16 07:47 05/29/16 08:06 05/29/16 07:47 05/29/16 08:06 Blood Glucose* 95 Height: 5'7''/1.7 m Weight: 132 lbs/59.874 kg NPO (# of Hours): 8 Pain Scale: 0 Pain Scale Used: Numeric (1 - 10) - HEENT Pupil (Motor): EOMI Mallampati: II Teeth: Edentulous Denture Type: Upper: Complete, Lower: Complete Oral Opening: Greater than 3 - MUD GRINDER LOC: Oriented MUD GRINDER Motor: Normal RUE, Normal LUE, Normal RLE, Normal LLE, Normal Face MUD GRINDER Sensory: Normal: RUE, LUE, RLE, LLE, Face - Cardiac Rhythm: Irregular Murmur: None - Pulmonary Breath Sounds: bilateral Clear (wheezes) Respiratory Effort: Symmetrical Anesthesia Assess/Plan ASA Score: 4 Modified [place] Scale for Level of Consciousness: Cooperative, oriented, and tranquil Anesthetic Plan: General, Precautions (Patient understands that he is at increased risk for perioperative complications including TX, CVA, post-op vent support, and . Patient wishes to proceed.) Monitoring Plan: Standard Monitors Recovery Plan: PACU
[2016-05-29] MEDS: Aspirin 81 MG TAB.CHEW PO SCH (08:54)
[2016-05-29] MEDS: Diltiazem CD (24hr) 120 MG CAPSULE PO SCH (08:54)
[2016-05-29] MEDS: Furosemide 20 MG TABLET PO SCH (08:55)
[2016-05-29] MEDS: Finasteride 5 MG TABLET PO SCH (08:55)
[2016-05-29] MEDS ORDERED: *HR* Rivaroxaban 10 MG TABLET PO SCH (09:00)
[2016-05-29] MEDS ORDERED: *HR* Succinylcholine 200 MG/10 ML VIAL IVP ONE (10:02)
[2016-05-29] MEDS ORDERED: *HR* Propofol 200 MG/20 ML VIAL IVP ONE (10:02)
[2016-05-29] MEDS ORDERED: Lidocaine -MPF 2% 5 ML VIAL INFILT ONE (10:02)
[2016-05-29] MEDS ORDERED: Ondansetron 4 MG/2 ML VIAL IVP ONE (10:02)
[2016-05-29] MEDS ORDERED: Lidocaine -MPF 4% 5 ML AMPUL TP ONE (10:02)
[2016-05-29] MEDS ORDERED: *HR* Phenylephrine 10 MG/ML VIAL IVC ONE (10:02)
[2016-05-29] MEDS ORDERED: EPHEDrine 50 MG/ML VIAL IVP ONE (10:02)
[2016-05-29] MEDS ORDERED: Esmolol 100 MG/10 ML VIAL IVP ONE (10:02)
[2016-05-29] MEDS ORDERED: Indomethacin 50 MG SUPP.RECT RC ONE (10:39)
[2016-05-29] MEDS: Ringers Solution, Lactated 1,000 ML IVC SCH ×2 (10:40→16:46)
[2016-05-29] MEDS ORDERED: Ipratropium/Albuterol Neb 3 ML IH ONE (10:42)
--- NOTE | 2016-05-29 11:05 | Gastroenterology Consult Note ---
<Alexys Rivera Jerrod - Last Filed: 05/29/16 11:01> Date of Encounter: 05/29/16 Time of Encounter: 10:00 - Assessment and plan (1) Pancreatic mass Current Visit: Yes Status: Acute Assessment and plan: Pancreatic head mass measuring 1.6 x 2.7 cm, noted on CT A/P. Plan for ERCP today for possible stent insertion. Will be unable to complete EUS with biopsy due to INR 1.8. Will need to hold Xarelto and plan for EUS with biopsy next week as outpatient. (2) Elevated transaminase measurement Current Visit: Yes Status: Acute Assessment and plan: Secondary to pancreatic mass. Plan for ERCP today for stent placement. Continue to monitor hepatic panel. (3) Obstructive jaundice Current Visit: Yes Status: Acute Assessment and plan: Secondary to pancreatic head mass. Plan for ERCP today for stent placement. Unable to complete EUS with biopsy as INR 1.8 and pt on Xarelto. Recommend holding Xarelto and completing EUS with biopsy next week. (4) Chronic anticoagulation Current Visit: Yes Status: Acute Assessment and plan: Unable to complete EUS with biopsy today as pt is on Xarelto. Will need to hold Xarelto for EUS with biopsy next week. (5) COPD (chronic obstructive pulmonary disease) Current Visit: No Status: Chronic Qualifiers: COPD type: unspecified COPD Qualified Code(s): J44.9 - Chronic obstructive pulmonary disease, unspecified - Time Spent With Patient Total time spent is greater than 50% in coordination of care (as documented) at patient's floor/unit and/or counseling patient: GI History of Present Illness - Data of Consult Patient: new to practice Consult date: 05/29/16 Requesting Physician: Lino Fleming MD - Consult Narrative Reason for consult: oobstructive jaundice secondary to pancreatic head mass History of present illness: Mr. Martin is a 81 year old male with PMHx of Afib (s/p pacemaker and on Xarelto), COPD, DVT, HLD, HTN, and IA. Patient saw his PCP Dr. Gutierrez on 05/26 for 2-week history of RUQ abdominal pain and was noted to have jaundice. Patient got CT chest/abdomen/pelvis ordered by Dr. Gutierrez done on 05/27. It showed a 1.6 x 2.7 cm pancreatic head mass with severe intra- & extra-hepatic biliary ductal dilatation. On admission TB 8.4, AST 225, ALT 242, alk phos 1359 , and INR 2. Patient was brought to [facility] [facility] for further evaluation and management. Patient reports intermittent RUQ abdominal pain aggravated after eating and has diarrhea (initial light yellow color but more mahan-white recently ) for 2 weeks. Patient denies nausea, vomiting, skin rash/itchiness, fever, chills, easily bleeding/bruise. Procedures: None NSAIDs: ASA Anticoagulation: Xarelto Past Med Surg Social Fam HX - Past Medical History Medical history: arthritis, atrial fibrillation (Paroxysmal A-fib s/p pacemaker , on Cardizem & Xarelto), cancer, COPD, DVT, hyperlipidemia, hypertension, myocardial infarction Psychiatric history: anxiety, depression - Past Surgical History Surgical History: angioplasty/stent (PCI to RCA in 2001), herniorrhaphy, orthopedic, other (Right rotator cuff), pacemaker/AICD - Social History Smoking Status: Former smoker Smokeless Tobacco Status: No Alcohol use: none Drug use: none - Family History Mother Living Status: Age at : 78 Hx Family Cancer: Yes Sister Hx Family Cancer: Yes Brother Adopted: No Family Member Ethnicity: Non- Living Status: Still Living Hx Family Cardiac Disorders: Yes (IA) Hx Family Respiratory Disorders: No Hx Family Cancer: No Hx Family GI Disorders: No Hx Family Endocrine Disorder: No Hx Family Neuromuscular Disorders: No Hx Family Neurologic Disorders: No Hx Family HEENT Disorders: No Hx Family Autoimmune Disorders: No Father Living Status: Age at : 78 Cause of : IA Hx Family Cardiac Disorders: Yes (MYOCARDIAL INFARCTION.) Hx Family Respiratory Disorders: No Hx Family Cancer: No Hx Family GI Disorders: No Hx Family Genitourinary Disorders: No Hx Family Endocrine Disorder: No Hx Family Musculoskeletal Disorders: No Hx Family Neuromuscular Disorders: No Hx Family Neurologic Disorders: Yes (Stroke) Hx Family HEENT Disorders: No Hx Family Autoimmune Disorders: No Hx Family Reproductive Disorders: No Hx Family Psychosocial Disorders: No Hx Family Medical Disorders: No - Gastrointestinal Gastrointestinal: Present: as per HPI - Constitutional Constitutional: as per HPI - EENT Eyes: as per HPI Ears: Present: as per HPI Nose, mouth and throat: Present: as per HPI - Cardiovascular Cardiovascular ROS: Present: as per HPI - Respiratory Respiratory IM: Present: as per HPI - Genitourinary Genitourinary: Absent: change in color, Urinary frequency - Neurological ROS Neurological GI: Present: as per HPI - Hematologic/Lymphatic Hematologic/Lymphatic pediatric: Present: as per HPI - Musculoskeletal Musculoskeletal ROS GI: Present: as per HPI - Integumentary Integumentary GI: Present: as per HPI - Psychiatric ROS Psychiatric GI: Present: as per HPI - Endocrine Endocrine IM: Present: as per HPI - Constitutional Vitals: Temp Pulse Resp BP Pulse Ox 97.9 F 123 18 146/107 97 05/29/16 07:47 05/29/16 10:36 05/29/16 10:36 05/29/16 10:36 05/29/16 10:36 General appearance: Present: cooperative, A&O X 3, no acute distress, answers questions appropriately - Head Head exam: Present: atraumatic, normocephalic - Eye Eye exam: Present: scleral icterus - ENT ENT exam: Present: mucous membranes dry - Neck Neck exam general surgery: Present: normal inspection, trachea midline - Respiratory Respiratory exam: Present: decreased breath sounds, CTAB, wheezes - Cardiovascular Cardiovascular exam: Present: RRR, +S1, +S2 - GI/Abdominal GI/Abdominal exam: Present: normal bowel sounds, soft, tenderness (RUQ), no peritoneal signs. Absent: distended, firm, guarding - Rectal Rectal exam: Present: deferred - Extremities Exam Extremities exam: Present: warm - Neurological Exam Neurological exam: Present: no focal deficits - Psychiatric Psychiatric exam: Present: normal affect, normal mood - Skin Skin exam: Present: dry, intact, warm. Absent: normal color Additional comments: jaundiced Results - Labs CBC & Chem 7: 05/29/16 05:36 05/29/16 05:36 Labs: Last Result Calcium 8.7 mg/dL (8.6-10.8) 05/29/16 05:36 Stool Occult Blood Negative (Negative) 05/28/16 20:10 Entire Visit Hgb 11.6 g/dL (12.9-16.9) L 05/29/16 05:36 Hct 35.1 % (37.5-50.1) L 05/29/16 05:36 PT 19.4 Seconds (9.4-12.1) H 05/29/16 05:36 Total Bilirubin 9.0 mg/dL (0.2-1.2) H 05/29/16 05:36 AST 197 Units/L (5-34) H 05/29/16 05:36 ALT 206 Units/L (0-55) H 05/29/16 05:36 Lipase 84 Units/L (8-78) H 05/28/16 19:44 - ABG ABG results: PT/INR, D-dimer PT 19.4 Seconds (9.4-12.1) H 05/29/16 05:36 Consult Discharge Plan - Plan Referrals: Zafar Gutierrez DO [Partnered Physician] - <Donny Villalobos - Last Filed: 05/29/16 17:40> Date of Encounter: 05/29/16 - Time Spent With Patient Total time spent is greater than 50% in coordination of care (as documented) at patient's floor/unit and/or counseling patient: GI History of Present Illness - Data of Consult Requesting Physician: Lino Fleming MD - Consult Narrative History of present illness: Mr. Martin is a 81 year old male - Constitutional Vitals: Temp Pulse Resp BP Pulse Ox 97.8 F 118 14 107/76 93 05/29/16 15:59 05/29/16 15:59 05/29/16 15:59 05/29/16 15:59 05/29/16 15:59 Results - Labs CBC & Chem 7: 05/29/16 05:36 05/29/16 05:36 Labs: Last Result Calcium 8.7 mg/dL (8.6-10.8) 05/29/16 05:36 Stool Occult Blood Negative (Negative) 05/28/16 20:10 Entire Visit Hgb 11.6 g/dL (12.9-16.9) L 05/29/16 05:36 Hct 35.1 % (37.5-50.1) L 05/29/16 05:36 PT 19.4 Seconds (9.4-12.1) H 05/29/16 05:36 Total Bilirubin 9.0 mg/dL (0.2-1.2) H 05/29/16 05:36 AST 197 Units/L (5-34) H 05/29/16 05:36 ALT 206 Units/L (0-55) H 05/29/16 05:36 Lipase 84 Units/L (8-78) H 05/28/16 19:44 - ABG ABG results: PT/INR, D-dimer PT 19.4 Seconds (9.4-12.1) H 05/29/16 05:36 - Attending Attestation I examined this patient and my medical decision-making was reviewed with the [employer] SALES REPRESENTATIVE/PA/Advanced Practice Nurse/Resident Physician. I agree with the documented findings, disposition and treatment plan as described except to the extent set forth below. ERCP today EUS on wednesday with FNA as INR high and pt on to
--- NOTE | 2016-05-29 15:04 | Internal Med Progress Note ---
Date of Encounter: 05/29/16 Time of Encounter: 09:15 - Assessment and plan (1) Obstructive jaundice Current Visit: Yes Status: Acute Assessment and plan: Clinically getting better. Enzymes remained elevated. GI to take patient for ERCP today. We will follow results. High risk for complications. (2) Cancer of head of pancreas Current Visit: Yes Status: Suspected Assessment and plan: Possible pancreatic head mass. Await ERCP and EUS guided biopsy for further evaluation. (3) COPD (chronic obstructive pulmonary disease) Current Visit: No Status: Chronic Assessment and plan: Currently not in acute exacerbation. Nebs as needed. Qualifiers: COPD type: unspecified COPD Qualified Code(s): J44.9 - Chronic obstructive pulmonary disease, unspecified (4) DVT prophylaxis Current Visit: No Status: Acute Assessment and plan: Xarelto held for procedure. Will restart after. (5) Lung nodule Current Visit: Yes Status: Acute Assessment and plan: We will arrange for follow up with pulmonology as outpatient. (6) Paroxysmal a-fib Current Visit: Yes Status: Chronic Assessment and plan: Rate controlled. On Cardizem. Anticoagulation held for procedure. - Subjective Interval history: Patient is currently feeling better. Has some pain in his right upper quadrant. Denies any nausea or vomiting. No palpitations or chest pain. No shortness of breath. - Constitutional Vitals: Temp Pulse Resp BP Pulse Ox 97.9 F 123 18 146/107 97 05/29/16 07:47 05/29/16 10:36 05/29/16 10:36 05/29/16 10:36 05/29/16 10:36 General appearance: Present: cooperative, A&O X 3, no acute distress, answers questions appropriately - Eye Eye exam: Present: scleral icterus - Respiratory Respiratory exam: Present: CTAB. Absent: accessory muscle use, rales, rhonchi, wheezes - Cardiovascular Cardiovascular exam: Present: RRR, +S1, +S2. Absent: diastolic murmur, gallop, rubs, systolic murmur - GI/Abdominal GI/Abdominal exam: Present: normal bowel sounds, soft, tenderness (Right upper quadrant), no peritoneal signs. Absent: distended - Extremities Exam Extremities exam: Present: warm, radial pulses palpable and symetrical. Absent : calf tenderness, cyanotic, pedal edema - Neurological Exam Neurological exam: Present: CN II-XII intact, oriented X3, no focal deficits. Absent: facial droop, speech deficit Internal Medicine: Result - Labs CBC & Chem 7: 05/29/16 05:36 05/29/16 05:36 Labs: Short CBC 05/29/16 Range/Units 05:36 WBC 8.5 (4.3-11.1) K/mcL Hgb 11.6 L (12.9-16.9) g/dL Hct 35.1 L (37.5-50.1) % Plt Count 254 (140-400) K/mcL Neutrophils # 5.8 (1.6-8.9) K/mcL BMP 05/29/16 05:36 Sodium 139 Potassium 4.3 Chloride 107 Carbon Dioxide 24 BUN 13 Creatinine 0.83 Glucose 89 Calcium 8.7 Liver Function 05/29/16 Range/Units 05:36 Total Bilirubin 9.0 H (0.2-1.2) mg/dL AST 197 H (5-34) Units/L ALT 206 H (0-55) Units/L Alkaline Phosphatase 1223 H (38-126) Units/L Albumin 2.8 L (3.5-5.0) g/dL - ABG Interpretation ABG results: PT/INR, D-dimer PT 19.4 Seconds (9.4-12.1) H 05/29/16 05:36 Consult Discharge Plan - Plan Referrals: Zafar Gutierrez DO [Partnered Physician] - - Attending Attestation This document has been at least partially created by [employer] recognition technology by Dr. Fleming. Errors in grammar, wording or other phrases may exist. If errors are found after the documentation is signed, they will be addressed individually in the addendum section of this document when appropriate.
--- NOTE | 2016-05-29 15:50 | Anesthesia Evaluation Post Op ---
Date of Encounter: 05/29/16 Time of Encounter: 15:50 - Vital Signs Vital Signs: Vital Signs/O2 Sat, Most Current Temp Pulse Resp BP Pulse Ox 97.8 F 100 16 105/68 92 05/29/16 15:19 05/29/16 15:39 05/29/16 15:39 05/29/16 15:39 05/29/16 15:39 - Lungs Lungs: Clear Ascult./Percussion - Airway Airway: Non-obstructed - Cardiovascular Irregular Rate, Baseline Rhythm - Mental Status Mental Status: Asleep with brisk response to light stimulation - Pain Pain Scale: 0 Pain Scale used: Numeric (1 - 10) - Nausea Vomiting Nausea Vomiting: Not Present - Hydration Hydration: NPO, Has not voided - Discharge PostOp Status: Transfer Patient to floor
[2016-05-29] MEDS ORDERED: MetroNIDAZOLE 500 MG/100 ML 500 MG/100 ML BAG IVPB SCH (17:35)
--- NOTE | 2016-05-29 17:36 | Electrocardiograph Report ---
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
[2016-05-29] MEDS ORDERED: 0.9 % Sodium Chloride 500 ML ONE (21:33)
[2016-05-30] MEDS: MetroNIDAZOLE 500 MG/100 ML 500 MG/100 ML BAG IVPB SCH ×3 (02:27→18:33)
[2016-05-30 04:37] LABS: Basophils % 0.2 %; Hemoglobin 10.2 g/dL (12.9-16.9); Lymphocytes # 0.5 K/mcL (0.6-4.6); Lymphocytes % 8.3 %; Mean Corpuscular HGB Conc 32.9 g/dL (31.6-35.5); Mean Corpuscular Hemoglobin 30.7 pg (28.0-33.3); Mean Corpuscular Volume 93.4 fL (83.0-100.0); Mean Platelet Volume 11.7 fL (9.4-12.4); Monocytes # 0.7 K/mcL (0.0-1.3); Monocytes % 11.5 %; Neutrophils # 4.8 K/mcL (1.6-8.9); Platelet Count 207 K/mcL (140-400); Red Blood Count 3.32 M/mcL (4.19-5.50); Red Cell Distribution Width 16.7 % (11.5-14.5)
[2016-05-30 05:04] LABS: BUN/Creatinine Ratio 22 (6-26); Blood Urea Nitrogen 29 mg/dL (8-26); Calcium 8.2 mg/dL (8.6-10.8); Carbon Dioxide 24 mEq/L (19-29); Chloride 104 mEq/L (98-109); Glucose 186 mg/dL (70-99); Osmolality,Calculated 291 (280-300); Potassium 4.5 mEq/L (3.5-4.5); Sodium 135 mEq/L (136-145); eGFR For African Americans > 60 (> 60); eGFR For Non-African Americans 51 (> 60)
[2016-05-30] MEDS: Budesonide/Formoterol 80/4.5 MDI IH SCH ×2 (07:55→20:58)
[2016-05-30] MEDS: Diltiazem CD (24hr) 120 MG CAPSULE PO SCH (09:32)
[2016-05-30] MEDS: Furosemide 20 MG TABLET PO SCH (09:32)
[2016-05-30] MEDS: Finasteride 5 MG TABLET PO SCH (09:32)
[2016-05-30] MEDS: Aspirin 81 MG TAB.CHEW PO SCH (09:32)
[2016-05-30] MEDS: 0.9 % Sodium Chloride 1,000 ML IVC SCH ×2 (09:33→23:30)
--- NOTE | 2016-05-30 10:14 | Internal Med Progress Note ---
Date of Encounter: 05/30/16 Time of Encounter: 09:35 - Assessment and plan (1) Obstructive jaundice Current Visit: Yes Status: Acute Assessment and plan: Status post-ERCP with placement of biliary stent. Continue supportive care. Plan for repeat upper GI endoscopy on Wednesday with possible placement of metallic stent. (2) Cancer of head of pancreas Current Visit: Yes Status: Suspected Assessment and plan: EUS biopsy not done yesterday due to patient being on anticoagulation with prolonged INR. Patient received vitamin K and the overnight. Plan for EUS with biopsy on Wednesday. (3) COPD (chronic obstructive pulmonary disease) Current Visit: No Status: Chronic Assessment and plan: Not in acute extubation. Continue bronchodilator nebs as needed and O2 supplementation as needed Qualifiers: COPD type: unspecified COPD Qualified Code(s): J44.9 - Chronic obstructive pulmonary disease, unspecified (4) DVT prophylaxis Current Visit: No Status: Acute (5) Lung nodule Current Visit: Yes Status: Acute Assessment and plan: We will arrange for outpatient follow-up with pulmonology for further management. (6) Paroxysmal a-fib Current Visit: Yes Status: Chronic Assessment and plan: Rate controlled. Holding anticoagulation for procedures (7) Acute kidney injury Current Visit: Yes Status: Acute Assessment and plan: Acute kidney injury. BUN and creatinine are elevated today. Will hydrate patient and follow renal function closely. Avoid nephrotoxic agents. (8) Anemia Current Visit: Yes Status: Chronic Assessment and plan: Chronic anemia. Hemoglobin 10.2 today. Will monitor closely. Qualifiers: Anemia type: unspecified type Qualified Code(s): D64.9 - Anemia, unspecified - Subjective Interval history: Patient is awake and alert. Pain in his right upper quadrant is much improved. Denies any nausea or vomiting. Tolerating clear liquid diet well. - Constitutional Vitals: Temp Pulse Resp BP Pulse Ox 97.5 F L 81 18 120/73 98 05/30/16 07:40 05/30/16 07:40 05/30/16 07:55 05/30/16 07:40 05/30/16 07:55 General appearance: Present: cooperative, A&O X 3, no acute distress, answers questions appropriately - Eye Eye exam: Present: PERRL, conjuntiva pink, sclera anicteric Pupils: Present: PERRL - Respiratory Respiratory exam: Present: CTAB. Absent: accessory muscle use, rales, rhonchi, wheezes - Cardiovascular Cardiovascular exam: Present: RRR, +S1, +S2. Absent: diastolic murmur, gallop, rubs, systolic murmur - GI/Abdominal GI/Abdominal exam: Present: normal bowel sounds, soft, no peritoneal signs. Absent: distended, tenderness - Neurological Exam Neurological exam: Present: alert, oriented X3, no focal deficits. Absent: facial droop, speech deficit - Skin Skin exam: Present: dry, intact Additional comments: Jaundice Internal Medicine: Result - Labs CBC & Chem 7: 05/30/16 03:49 05/30/16 03:49 Labs: Short CBC 05/30/16 Range/Units 03:49 WBC 6.0 (4.3-11.1) K/mcL Hgb 10.2 L (12.9-16.9) g/dL Hct 31.0 L (37.5-50.1) % Plt Count 207 (140-400) K/mcL Neutrophils # 4.8 (1.6-8.9) K/mcL BMP 05/30/16 03:49 Sodium 135 L Potassium 4.5 Chloride 104 Carbon Dioxide 24 BUN 29 H D Creatinine 1.34 H D Glucose 186 H Calcium 8.2 L - ABG Interpretation ABG results: PT/INR, D-dimer PT 19.4 Seconds (9.4-12.1) H 05/29/16 05:36 Consult Discharge Plan - Plan Referrals: Zafar Gutierrez DO [Partnered Physician] - - Attending Attestation This document has been at least partially created by [employer] recognition technology by Dr. Fleming. Errors in grammar, wording or other phrases may exist. If errors are found after the documentation is signed, they will be addressed individually in the addendum section of this document when appropriate.
[2016-05-30] MEDS: Ringers Solution, Lactated 1,000 ML IVC SCH ×2 (19:37)
[2016-05-31] MEDS: Ringers Solution, Lactated 1,000 ML IVC SCH ×3 (01:34→20:59)
[2016-05-31 03:40] LABS: Basophils % 0.2 %; Eosinophils % 0.2 %; Hematocrit 33.7 % (37.5-50.1); Immature Granulocytes % 0.6 % (0-4); Lymphocytes # 1.3 K/mcL (0.6-4.6); Lymphocytes % 9.8 %; Mean Corpuscular HGB Conc 32.6 g/dL (31.6-35.5); Mean Corpuscular Hemoglobin 31.4 pg (28.0-33.3); Mean Corpuscular Volume 96.3 fL (83.0-100.0); Mean Platelet Volume 11.7 fL (9.4-12.4); Monocytes # 1.5 K/mcL (0.0-1.3); Neutrophils # 10.4 K/mcL (1.6-8.9); Platelet Count 235 K/mcL (140-400); Red Cell Distribution Width 17.2 % (11.5-14.5); Segmented Neutrophils % 78.2 %
[2016-05-31 03:55] LABS: Alanine Aminotransferase 147 Units/L (0-55); Albumin/Globulin Ratio 0.8 (1.1-2.2); Alkaline Phosphatase 911 Units/L (38-126); Aspartate Amino Transferase 100 Units/L (5-34); BUN/Creatinine Ratio 25 (6-26); Blood Urea Nitrogen 32 mg/dL (8-26); Calcium 8.1 mg/dL (8.6-10.8); Carbon Dioxide 25 mEq/L (19-29); Chloride 106 mEq/L (98-109); Globulin 3.6 g/dL (2.4-3.5); Glucose 119 mg/dL (70-99); Osmolality,Calculated 296 (280-300); Potassium 4.8 mEq/L (3.5-4.5); Sodium 139 mEq/L (136-145); Total Protein 6.6 g/dL (6.0-8.3); eGFR For African Americans > 60 (> 60); eGFR For Non-African Americans 53 (> 60)
[2016-05-31 03:57] LABS: Bilirubin,Total 3.4 mg/dL (0.2-1.2)
[2016-05-31] MEDS: MetroNIDAZOLE 500 MG/100 ML 500 MG/100 ML BAG IVPB SCH ×3 (04:31→18:28)
[2016-05-31] MEDS: Ipratropium/Albuterol Neb 3 ML IH PRN ×3 (04:42→20:14)
[2016-05-31] MEDS: Ibuprofen 400 MG TABLET PO PRN (07:29)
[2016-05-31] MEDS ORDERED: *HR* Morphine 2 MG/ML SYRINGE IVP PRN (08:17)
[2016-05-31] MEDS: Budesonide/Formoterol 80/4.5 MDI IH SCH ×3 (09:01→20:10)
[2016-05-31] MEDS: Finasteride 5 MG TABLET PO SCH (09:11)
[2016-05-31] MEDS: Aspirin 81 MG TAB.CHEW PO SCH (09:11)
[2016-05-31] MEDS: Diltiazem CD (24hr) 120 MG CAPSULE PO SCH (09:11)
[2016-05-31] MEDS: Furosemide 20 MG TABLET PO SCH (09:11)
[2016-05-31] MEDS: 0.9 % Sodium Chloride 1,000 ML IVC SCH ×2 (10:26→22:10)
[2016-05-31] MEDS ORDERED: *HR* HYDROmorphone 2 MG/ML SYRINGE IVP PRN (10:53)
--- NOTE | 2016-05-31 12:13 | Internal Med Progress Note ---
Date of Encounter: 05/31/16 Time of Encounter: 10:35 - Assessment and plan (1) Obstructive jaundice Current Visit: Yes Status: Acute Assessment and plan: Status post placement of biliary stent. Patient's pain has worsened today. Will get CT scan of the abdomen stat. Plan for repeat upper GI endoscopy tomorrow. We will increase his narcotic pain medications to control pain better. High risk for complications. (2) Cancer of head of pancreas Current Visit: Yes Status: Suspected Assessment and plan: Plan for upper GI endoscopy and EUS tomorrow. (3) COPD (chronic obstructive pulmonary disease) Current Visit: No Status: Chronic Assessment and plan: Not in acute exacerbation. Use nebs when necessary. Qualifiers: COPD type: unspecified COPD Qualified Code(s): J44.9 - Chronic obstructive pulmonary disease, unspecified (4) DVT prophylaxis Current Visit: No Status: Acute (5) Lung nodule Current Visit: Yes Status: Acute Assessment and plan: We will arrange for follow-up with pulmonology after discharge. (6) Paroxysmal a-fib Current Visit: Yes Status: Chronic Assessment and plan: Rate controlled. Anticoagulation held for procedure tomorrow. (7) Acute kidney injury Current Visit: Yes Status: Acute Assessment and plan: Renal function slightly improved. Continue IV hydration. (8) Anemia Current Visit: Yes Status: Chronic Assessment and plan: Stable hemoglobin levels. Qualifiers: Anemia type: unspecified type Qualified Code(s): D64.9 - Anemia, unspecified - Subjective Interval history: Patient has been having severe pain in his right upper quadrant since this morning. Rated 7 out of 10. Radiating to his right back. It has not responded to pain medications that the patient has been receiving. No nausea or vomiting. - Constitutional Vitals: Temp Pulse Resp BP Pulse Ox 97.5 F L 125 22 153/94 90 05/31/16 11:03 05/31/16 11:03 05/31/16 11:03 05/31/16 11:03 05/31/16 11:03 General appearance: Present: cooperative, A&O X 3, severe distress, answers questions appropriately - Respiratory Respiratory exam: Present: CTAB. Absent: accessory muscle use, rales, rhonchi, wheezes - Cardiovascular Cardiovascular exam: Present: RRR, +S1, +S2. Absent: diastolic murmur, gallop, rubs, systolic murmur - GI/Abdominal GI/Abdominal exam: Present: normal bowel sounds, soft, tenderness (Right upper quadrant), no peritoneal signs. Absent: distended - Extremities Exam Extremities exam: Present: warm, radial pulses palpable and symetrical. Absent : calf tenderness, cyanotic, pedal edema - Back Exam Back exam: Present: CVA tenderness (R) - Neurological Exam Neurological exam: Present: alert, oriented X3, no focal deficits. Absent: facial droop, speech deficit - Skin Skin exam: Present: dry, intact Internal Medicine: Result - Labs CBC & Chem 7: 05/31/16 02:52 05/31/16 02:52 Labs: Short CBC 05/31/16 Range/Units 02:52 WBC 13.3 H D (4.3-11.1) K/mcL Hgb 11.0 L (12.9-16.9) g/dL Hct 33.7 L (37.5-50.1) % Plt Count 235 (140-400) K/mcL Neutrophils # 10.4 H (1.6-8.9) K/mcL BMP 05/31/16 02:52 Sodium 139 Potassium 4.8 H Chloride 106 Carbon Dioxide 25 BUN 32 H Creatinine 1.29 H Glucose 119 H Calcium 8.1 L Liver Function 05/31/16 Range/Units 02:52 Total Bilirubin 3.4 H D (0.2-1.2) mg/dL AST 100 H (5-34) Units/L ALT 147 H (0-55) Units/L Alkaline Phosphatase 911 H (38-126) Units/L Albumin 3.0 L (3.5-5.0) g/dL - ABG Interpretation ABG results: PT/INR, D-dimer PT 19.4 Seconds (9.4-12.1) H 05/29/16 05:36 - Impressions Impressions Abdomen/Pelvis CT 05/31/16 10:54 IMPRESSION: 1. No definite CT findings to explain the patient's right upper quadrant pain. 2. Status post interval placement of a biliary stent which begins in the cystic duct and terminates in the duodenum. Extensive pneumobilia is present. 3. Third-spacing of fluid as evidenced by moderate pleural effusions, pulmonary edema, and anasarca. 4. Severe atherosclerosis. 5. Stable ill-defined ground-glass nodular opacity in the right lower lobe measuring 2.3 x 1.9 cm. D/ / 05/31/2016 12:00:40 Sandi Watkins MD / maris Interpreting Provider: Sandi Watkins MD Consult Discharge Plan - Plan Referrals: Zafar Gutierrez DO [Primary Care Provider] - - Attending Attestation This document has been at least partially created by [employer] recognition technology by Dr. Fleming. Errors in grammar, wording or other phrases may exist. If errors are found after the documentation is signed, they will be addressed individually in the addendum section of this document when appropriate.
[2016-05-31] MEDS: *HR* Heparin 5,000 UNIT/ML VIAL SQ SCH (18:29)
[2016-05-31] MEDS ORDERED: *HR* Phytonadione 5 MG TABLET PO ONE (18:50)
[2016-06-01] MEDS: Ipratropium/Albuterol Neb 3 ML IH PRN (01:52)
[2016-06-01] MEDS: MetroNIDAZOLE 500 MG/100 ML 500 MG/100 ML BAG IVPB SCH ×3 (02:00→18:51)
[2016-06-01] MEDS: 0.9 % Sodium Chloride 1,000 ML IVC SCH (02:09)
[2016-06-01 04:57] LABS: Basophils % 0.3 %; Eosinophils # 0.1 K/mcL (0.0-0.6); Eosinophils % 0.9 %; Hematocrit 31.6 % (37.5-50.1); Hemoglobin 10.2 g/dL (12.9-16.9); Immature Granulocytes % 1.5 % (0-4); Lymphocytes # 0.7 K/mcL (0.6-4.6); Lymphocytes % 6.2 %; Mean Corpuscular HGB Conc 32.3 g/dL (31.6-35.5); Mean Corpuscular Hemoglobin 31.8 pg (28.0-33.3); Mean Corpuscular Volume 98.4 fL (83.0-100.0); Mean Platelet Volume 11.6 fL (9.4-12.4); Monocytes # 1.5 K/mcL (0.0-1.3); Monocytes % 12.7 %; Platelet Count 239 K/mcL (140-400); Red Blood Count 3.21 M/mcL (4.19-5.50); Red Cell Distribution Width 17.3 % (11.5-14.5); Segmented Neutrophils % 78.4 %
[2016-06-01 05:02] LABS: INR 1.3; Prothrombin Time 13.6 Seconds (9.4-12.1)
[2016-06-01 05:17] LABS: BUN/Creatinine Ratio 26 (6-26); Blood Urea Nitrogen 28 mg/dL (8-26); Calcium 8.2 mg/dL (8.6-10.8); Carbon Dioxide 26 mEq/L (19-29); Chloride 107 mEq/L (98-109); Glucose 99 mg/dL (70-99); Osmolality,Calculated 296 (280-300); Sodium 140 mEq/L (136-145); eGFR For African Americans > 60 (> 60); eGFR For Non-African Americans > 60 (> 60)
[2016-06-01] MEDS ORDERED: Ipratropium/Albuterol Neb 3 ML IH STA (06:00)
[2016-06-01] MEDS ORDERED: methylPREDNISolone 125 MG/2 ML VIAL IM STA (06:02)
[2016-06-01] MEDS ORDERED: Bumetanide 1 MG/4 ML VIAL IVP STA (06:02)
[2016-06-01] MEDS ORDERED: *HR* Metoprolol 5 MG/5 ML VIAL IVP STA (06:05)
[2016-06-01 06:31] LABS: ABG Base Excess 0.4 mEq/L (-2.0 to 3.0); ABG Oxygen Saturation 91 % (95-98); ABG PCO2 45 mmHg (35-45); ABG PH 7.37 pH Units (7.32-7.45); ABG PO2 63 mmHg (85-104); ABG TCO2 27.4 mEq/L (20-26)
[2016-06-01 06:32] LABS: Blood Gas FiO2 36 %
[2016-06-01 06:43] LABS: Ionized Calcium 1.06 mmol/L (1.15-1.35)
[2016-06-01 06:52] LABS: Magnesium 1.1 mg/dL (1.6-2.6); Phosphorous 2.7 mg/dL (2.3-4.7)
[2016-06-01] MEDS ORDERED: Magnesium Sulfate 2 GM in D5% in Water 100 ML IVPB STA (07:05)
[2016-06-01] MEDS ORDERED: Calcium Gluconate 1,000 MG in D5% in Water 100 ML IVPB ONE (07:07)
[2016-06-01] MEDS ORDERED: 0.9 % Sodium Chloride 250 ML IVC ONE (07:08)
[2016-06-01] MEDS: Diltiazem CD (24hr) 120 MG CAPSULE PO SCH (07:11)
[2016-06-01] MEDS ORDERED: *HR* Metoprolol 5 MG/5 ML VIAL IVP PRN (08:00)
[2016-06-01] MEDS: Furosemide 20 MG TABLET PO SCH (08:36)
[2016-06-01] MEDS: Finasteride 5 MG TABLET PO SCH (08:36)
[2016-06-01] MEDS: Aspirin 81 MG TAB.CHEW PO SCH (08:36)
--- NOTE | 2016-06-01 10:27 | Internal Med Progress Note ---
Date of Encounter: 06/01/16 Time of Encounter: 09:15 - Assessment and plan (1) Acute respiratory failure with hypoxia Current Visit: Yes Status: Acute Assessment and plan: Likely due to IV fluids overload. We will stop IV fluids. Patient received Bumex IV. Started back on Lasix. We will follow renal function closely. High- risk for complications. (2) Obstructive jaundice Current Visit: Yes Status: Acute Assessment and plan: Status post-ERCP and biliary stent placement. Plan for upper GI endoscopy and EUS guided biopsy later today. Currently nothing by mouth. On IV ciprofloxacin and Flagyl per GI recommendations. Patient also received FFP and vitamin K for his prolonged INR. INR today is 1.3. (3) Cancer of head of pancreas Current Visit: Yes Status: Suspected Assessment and plan: EUS guided biopsy later today. (4) COPD (chronic obstructive pulmonary disease) Current Visit: No Status: Chronic Assessment and plan: Continue bronchodilator nebs. Qualifiers: COPD type: unspecified COPD Qualified Code(s): J44.9 - Chronic obstructive pulmonary disease, unspecified (5) DVT prophylaxis Current Visit: No Status: Acute (6) Lung nodule Current Visit: Yes Status: Acute Assessment and plan: We will arrange for follow-up with pulmonology after discharge for further evaluation. (7) Paroxysmal a-fib Current Visit: Yes Status: Acute Assessment and plan: A. fib with RVR today. Patient received IV metoprolol earlier today with no significant improvement. Will also give IV Cardizem and continue oral Cardizem. Continue to monitor with telemetry. If heart rate remains high, we will start him on IV Cardizem drip. Currently anticoagulation is on hold due to planned procedure today. (8) Acute kidney injury Current Visit: Yes Status: Acute Assessment and plan: This has resolved. We will stop IV fluids. (9) Anemia Current Visit: Yes Status: Chronic Assessment and plan: Hemoglobin levels remain stable. We will continue to follow. Qualifiers: Anemia type: unspecified type Qualified Code(s): D64.9 - Anemia, unspecified - Subjective Interval history: Patient developed respiratory distress earlier today. His IV fluids were stopped and he was given 1 dose of Bumex. He is having improvement in his symptoms since then. He still has abdominal pain in the right upper quadrant which is being controlled with narcotic pain medications. He is also having palpitations and rapid A. fib. - Constitutional Vitals: Temp Pulse Resp BP Pulse Ox 98.5 F 97 20 130/84 97 06/01/16 09:43 06/01/16 09:43 06/01/16 09:43 06/01/16 09:43 06/01/16 09:43 General appearance: Present: cooperative, A&O X 3, answers questions appropriately Exam: Moderate distress - Respiratory Respiratory exam: Absent: accessory muscle use, rales, rhonchi, wheezes Additional comments: Basal crackles - Cardiovascular Cardiovascular exam: Present: irregular rhythm, +S1, +S2, tachycardia. Absent: diastolic murmur, gallop, rubs, systolic murmur - GI/Abdominal GI/Abdominal exam: Present: normal bowel sounds, soft, no peritoneal signs. Absent: distended, tenderness - Extremities Exam Extremities exam: Present: warm, radial pulses palpable and symetrical. Absent : calf tenderness, cyanotic, pedal edema - Neurological Exam Neurological exam: Present: alert, oriented X3, no focal deficits. Absent: facial droop, speech deficit - Skin Skin exam: Present: dry, intact Internal Medicine: Result - Labs CBC & Chem 7: 06/01/16 04:25 06/01/16 04:25 Labs: Short CBC 06/01/16 Range/Units 04:25 WBC 11.4 H (4.3-11.1) K/mcL Hgb 10.2 L (12.9-16.9) g/dL Hct 31.6 L (37.5-50.1) % Plt Count 239 (140-400) K/mcL Neutrophils # 9.0 H (1.6-8.9) K/mcL BMP 06/01/16 04:25 Sodium 140 Potassium 5.0 H Chloride 107 Carbon Dioxide 26 BUN 28 H Creatinine 1.07 Glucose 99 Calcium 8.2 L Cardiac Enzymes 06/01/16 Range/Units 06:16 Troponin I 0.04 H* (0-0.03) ng/mL - ABG Interpretation ABG results: ABG ABG pH 7.37 pH Units (7.32-7.45) 06/01/16 06:25 ABG pCO2 45 mmHg (35-45) 06/01/16 06:25 ABG pO2 63 mmHg (85-104) L 06/01/16 06:25 ABG O2 Saturation 91 % (95-98) L 06/01/16 06:25 PT/INR, D-dimer PT 13.6 Seconds (9.4-12.1) H 06/01/16 04:25 - Impressions Impressions Abdomen/Pelvis CT 05/31/16 10:54 IMPRESSION: 1. No definite CT findings to explain the patient's right upper quadrant pain. 2. Status post interval placement of a biliary stent which begins in the cystic duct and terminates in the duodenum. Extensive pneumobilia is present. 3. Third-spacing of fluid as evidenced by moderate pleural effusions, pulmonary edema, and anasarca. 4. Severe atherosclerosis. 5. Stable ill-defined ground-glass nodular opacity in the right lower lobe measuring 2.3 x 1.9 cm. D/ / 05/31/2016 12:00:40 Sandi Watkins MD / maris Interpreting Provider: Sandi Watkins MD Consult Discharge Plan - Plan Referrals: Zafar Gutierrez DO [Primary Care Provider] - - Attending Attestation This document has been at least partially created by [employer] recognition technology by Dr. Fleming. Errors in grammar, wording or other phrases may exist. If errors are found after the documentation is signed, they will be addressed individually in the addendum section of this document when appropriate.
[2016-06-01] MEDS: Budesonide/Formoterol 80/4.5 MDI IH SCH ×2 (10:46→21:11)
[2016-06-01] MEDS: *HR* Heparin 5,000 UNIT/ML VIAL SQ SCH (17:25)
--- NOTE | 2016-06-01 20:23 | Anesthesia Evaluation PreOp ---
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 Other Medical History: Other (Pancreatic Cancer/Depression) Anesthesia History: No Prior Anesthetic Complications Alcohol Use: none Drug use: none Medications and Allergies Albuterol Sulfate [Albuterol Inhaler] 2 puff IH Q4H PRN 06/04/15 [History] Aspirin 81 mg PO DAILY 06/04/15 [History] Atorvastatin [Lipitor] 40 mg PO HS 06/04/15 [History] Finasteride [Proscar] 5 mg PO DAILY 06/04/15 [History] Potassium Chloride [K-Tab ER] 20 meq PO DAILY 06/04/15 [History] Rivaroxaban [Xarelto] 20 mg PO DAILY 06/04/15 [History] Budesonide/Formoterol 80/4.5 [Symbicort 80/4.5] 2 puff IH BIDR 11/26/15 [ History] Diltiazem HCl [Diltiazem 24Hr Cd] 120 mg PO DAILY 11/26/15 [History] Tiotropium [Spiriva] 18 mcg IH DAILY 11/26/15 [History] Furosemide [Lasix] 20 mg PO DAILY 05/28/16 [History] Allergies Penicillins Allergy (Verified 02/20/15 20:20) Hives - Meds/Allergy Pre-op Review Medications Reviewed: Yes Allergies Reviewed: Yes Beta Blockers on Current Med List: Yes (Given Metoprolol IV 06-01 0800) Anesthesia Results - Labs 06/01/16 04:25 06/01/16 04:25 Laboratory Tests 05/28/16 06/01/16 06/01/16 19:44 04:25 04:25 Hgb 10.2 L Hct 31.6 L Plt Count 239 PT 13.6 H INR 1.3 APTT 42.0 H Sodium Potassium BUN Creatinine POC Glucose 06/01/16 06/01/16 04:25 17:35 Hgb Hct Plt Count PT INR APTT Sodium 140 Potassium 5.0 H BUN 28 H Creatinine 1.07 POC Glucose 154 H - Imaging EKG: report reviewed (05-28 AFib RVR...will order for 06-02) Additional studies: ECHO LVEF 40% Moderate Left Vent Diastolic Dysfunction Anesthesia Exam Vital Signs/O2 Sat/Glucose, Most Current Temp Pulse Resp BP Pulse Ox 06/01/16 20:19 98.0 F 85 15 111/55 97 06/01/16 17:39 98.2 F 96 18 121/68 96 Height: 5'7 Weight: 145 lbs NPO (# of Hours): MN Pain Scale: 0 - HEENT Pupil (Motor): Pupils equal, EOMI Mallampati: II Denture Type: Upper: Complete Oral Opening: Greater than 3 - FACE AND F[employer] PACKER LOC: Oriented FACE [employer] PACKER Motor: Normal RUE, Normal LUE, Normal RLE, Normal LLE, Normal Face F[employer] PACKER Sensory: Normal: RUE, LUE, RLE, LLE, Face - Cardiac Rhythm: Regular Murmur: None JVD: No Carotid Bruit: No - Pulmonary Breath Sounds: bilateral Clear Respiratory Effort: Symmetrical Anesthesia Assess/Plan ASA Score: 4 Modified Berne Scale for Level of Consciousness: Cooperative, oriented, and tranquil Anesthetic Plan: General Monitoring Plan: Standard Monitors Recovery Plan: PACU (Discussed moderate to high risk for GA, possible ICU, agrees to proceed)
[2016-06-01] MEDS ORDERED: Diltiazem CD (24hr) 120 MG CAPSULE PO SCH (21:00)
[2016-06-02] MEDS: MetroNIDAZOLE 500 MG/100 ML 500 MG/100 ML BAG IVPB SCH ×2 (03:36→11:37)
[2016-06-02] MEDS: *HR* Heparin 5,000 UNIT/ML VIAL SQ SCH ×2 (05:41→20:18)
[2016-06-02 06:06] LABS: Basophils % 0.1 %; Hematocrit 29.7 % (37.5-50.1); Hemoglobin 9.9 g/dL (12.9-16.9); Immature Platelets 8.8 % (1.1-6.1); Lymphocytes # 0.5 K/mcL (0.6-4.6); Lymphocytes % 5.8 %; Mean Corpuscular HGB Conc 33.3 g/dL (31.6-35.5); Mean Corpuscular Hemoglobin 31.7 pg (28.0-33.3); Mean Corpuscular Volume 95.2 fL (83.0-100.0); Monocytes # 0.5 K/mcL (0.0-1.3); Monocytes % 5.6 %; Neutrophils # 7.3 K/mcL (1.6-8.9); Platelet Count 223 K/mcL (140-400); Red Blood Count 3.12 M/mcL (4.19-5.50); Segmented Neutrophils % 87.5 %
[2016-06-02 06:23] LABS: BUN/Creatinine Ratio 29 (6-26); Blood Urea Nitrogen 29 mg/dL (8-26); Calcium 8.3 mg/dL (8.6-10.8); Carbon Dioxide 28 mEq/L (19-29); Chloride 105 mEq/L (98-109); Glucose 132 mg/dL (70-99); Osmolality,Calculated 298 (280-300); Potassium 4.2 mEq/L (3.5-4.5); Sodium 140 mEq/L (136-145); eGFR For African Americans > 60 (> 60); eGFR For Non-African Americans > 60 (> 60)
--- NOTE | 2016-06-02 06:39 | Electrocardiograph Report ---
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
[2016-06-02 08:44] LABS: Magnesium 1.4 mg/dL (1.6-2.6)
[2016-06-02] MEDS: Diltiazem CD (24hr) 120 MG CAPSULE PO SCH (08:48)
[2016-06-02] MEDS: Finasteride 5 MG TABLET PO SCH (08:52)
[2016-06-02] MEDS: Aspirin 81 MG TAB.CHEW PO SCH (08:53)
[2016-06-02] MEDS: Furosemide 20 MG TABLET PO SCH (08:54)
[2016-06-02] MEDS: Budesonide/Formoterol 80/4.5 MDI IH SCH ×2 (10:01→20:34)
[2016-06-02] MEDS ORDERED: Magnesium Sulfate 2 GM in D5% in Water 100 ML IVPB ONE (10:38)
[2016-06-02 11:31] LABS: Albumin 2.9 g/dL (3.5-5.0); Albumin/Globulin Ratio 0.9 (1.1-2.2); Bilirubin,Direct 1.9 mg/dL (0.0-0.5); Bilirubin,Indirect 0.6 mg/dL (0.0-1.2); Bilirubin,Total 2.5 mg/dL (0.2-1.2); Globulin 3.3 g/dL (2.4-3.5); Total Protein 6.2 g/dL (6.0-8.3)
--- NOTE | 2016-06-02 14:43 | Internal Med Progress Note ---
<Jordan Duffy - Last Filed: 06/02/16 17:54> Date of Encounter: 06/02/16 Time of Encounter: 14:41 - Assessment and plan (1) Pancreatic mass Current Visit: Yes Status: Acute Assessment and plan: Patietn with 1.6 X 2.7 Cm pancreatic head mass. MRI not performed as he is having a Biopsy. Patient to have biopsy today. He will need to follow up with oncology as an outpatient. CA19-9 markedly high Most likely this is pancreatic cancer. We will await biopsy results and have him follow up with oncology. Also has suspicious lung nodule. Metastasis? versus other etiologies. (2) Obstructive jaundice Current Visit: Yes Status: Acute Assessment and plan: S/P ERCP and Stent Bilirubin and LFTS trending down. (3) Acute on chronic respiratory failure with hypoxemia Current Visit: Yes Status: Acute Assessment and plan: improving. Possibly from fluid overload per medical documentation. Euvolemic on todays exam. Will attempt to wean O2 down. PAtient has a history of smoking and occupational exposures. Wears O2 at home. Dose not know dosage. (4) COPD (chronic obstructive pulmonary disease) Current Visit: Yes Status: Acute Assessment and plan: Currently not in exacerbation. Qualifiers: Qualified Code(s): J44.9 - Chronic obstructive pulmonary disease, unspecified (5) Hypomagnesemia Current Visit: Yes Status: Acute Assessment and plan: replace (6) Paroxysmal a-fib Current Visit: Yes Status: Acute Assessment and plan: currently rate controlled. Can resume Xarelto after procedure. (7) Lung nodule Current Visit: Yes Status: Acute Assessment and plan: will need to be followed as outpatient. (8) Acute kidney injury Current Visit: Yes Status: Acute Assessment and plan: resolved (9) Systolic heart failure Current Visit: Yes Status: Acute Assessment and plan: echo from 02/16/16 reveals an EF of 40 % currently euvolemic. Would likely benefit from a beta tonya and ACEi. continue home dose of lasix. Qualifiers: Qualified Code(s): I50.20 - Unspecified systolic (congestive) heart failure (10) DVT prophylaxis Current Visit: Yes Status: Acute Assessment and plan: on SQ heparin. - Subjective Interval history: No major events over night. today the patient states that he is feeling better today. He denies any N/V/D or abdominal pain. He denies anyh increased dyspnea. He denies cough, wheeze, fever, chills and malaise. - Constitutional Vitals: Temp Pulse Resp BP Pulse Ox 97.6 F 91 16 126/80 98 06/02/16 14:32 06/02/16 14:32 06/02/16 14:32 06/02/16 14:32 06/02/16 14:32 General appearance: Present: cooperative, A&O X 3, answers questions appropriately - Head Head exam: Present: atraumatic, normocephalic - Eye Eye exam: Present: PERRL, conjuntiva pink, sclera anicteric Pupils: Present: PERRL - Neck Neck exam general surgery: Present: supple, trachea midline. Absent: lymphadenopathy - Respiratory Respiratory exam: Absent: accessory muscle use, rales, rhonchi, wheezes Additional comments: dry crcackles at the bases. - Cardiovascular Cardiovascular exam: Present: RRR, +S1, +S2. Absent: diastolic murmur, gallop, rubs, systolic murmur Additional comments: has a device in the left upper chest wall. - GI/Abdominal GI/Abdominal exam: Present: distended (mild), normal bowel sounds, soft, no peritoneal signs. Absent: tenderness - Extremities Exam Extremities exam: Present: warm, radial pulses palpable and symetrical. Absent : calf tenderness, cyanotic, pedal edema Internal Medicine: Result - Labs CBC & Chem 7: 06/02/16 05:15 06/02/16 05:15 Labs: Short CBC 06/02/16 Range/Units 05:15 WBC 8.3 (4.3-11.1) K/mcL Hgb 9.9 L (12.9-16.9) g/dL Hct 29.7 L (37.5-50.1) % Plt Count 223 (140-400) K/mcL Neutrophils # 7.3 (1.6-8.9) K/mcL BMP 06/02/16 05:15 Sodium 140 Potassium 4.2 Chloride 105 Carbon Dioxide 28 BUN 29 H Creatinine 1.00 Glucose 132 H Calcium 8.3 L Liver Function 06/02/16 Range/Units 11:08 Total Bilirubin 2.5 H (0.2-1.2) mg/dL Direct Bilirubin 1.9 H (0.0-0.5) mg/dL AST 43 H (5-34) Units/L ALT 88 H (0-55) Units/L Alkaline Phosphatase 570 H (38-126) Units/L Albumin 2.9 L (3.5-5.0) g/dL - ABG Interpretation ABG results: ABG ABG pH 7.37 pH Units (7.32-7.45) 06/01/16 06:25 ABG pCO2 45 mmHg (35-45) 06/01/16 06:25 ABG pO2 63 mmHg (85-104) L 06/01/16 06:25 ABG O2 Saturation 91 % (95-98) L 06/01/16 06:25 PT/INR, D-dimer PT 13.6 Seconds (9.4-12.1) H 06/01/16 04:25 Consult Discharge Plan - Plan Referrals: Zafar Gutierrez DO [Primary Care Provider] - <Tawnya Blakely E - Last Filed: 06/02/16 18:30> Date of Encounter: 06/02/16 - Constitutional Vitals: Temp Pulse Resp BP Pulse Ox 97.6 F 91 16 126/80 98 06/02/16 14:32 06/02/16 14:32 06/02/16 14:32 06/02/16 14:32 06/02/16 14:32 Internal Medicine: Result - Labs CBC & Chem 7: 06/02/16 05:15 06/02/16 05:15 Labs: Short CBC 06/02/16 Range/Units 05:15 WBC 8.3 (4.3-11.1) K/mcL Hgb 9.9 L (12.9-16.9) g/dL Hct 29.7 L (37.5-50.1) % Plt Count 223 (140-400) K/mcL Neutrophils # 7.3 (1.6-8.9) K/mcL BMP 06/02/16 05:15 Sodium 140 Potassium 4.2 Chloride 105 Carbon Dioxide 28 BUN 29 H Creatinine 1.00 Glucose 132 H Calcium 8.3 L Liver Function 06/02/16 Range/Units 11:08 Total Bilirubin 2.5 H (0.2-1.2) mg/dL Direct Bilirubin 1.9 H (0.0-0.5) mg/dL AST 43 H (5-34) Units/L ALT 88 H (0-55) Units/L Alkaline Phosphatase 570 H (38-126) Units/L Albumin 2.9 L (3.5-5.0) g/dL - ABG Interpretation ABG results: ABG ABG pH 7.37 pH Units (7.32-7.45) 06/01/16 06:25 ABG pCO2 45 mmHg (35-45) 06/01/16 06:25 ABG pO2 63 mmHg (85-104) L 06/01/16 06:25 ABG O2 Saturation 91 % (95-98) L 06/01/16 06:25 PT/INR, D-dimer PT 13.6 Seconds (9.4-12.1) H 06/01/16 04:25 - Attending Attestation I examined this patient and reviewed laboratory, imaging and all diagnostic data. My medical decision-making was reviewed with Dr Duffy - Resident Physician. I agree with the documented findings, disposition and treatment plan as described above
[2016-06-02] MEDS ORDERED: Lidocaine -MPF 2% 2 ML VIAL ONE (15:06)
[2016-06-02] MEDS ORDERED: *HR* Propofol 200 MG/20 ML VIAL IVP ONE (15:06)
[2016-06-02] MEDS ORDERED: *HR* FentaNYL (PF) 100 MCG/2 ML VIAL ONE (15:06)
[2016-06-02] MEDS ORDERED: *HR* Succinylcholine 200 MG/10 ML VIAL IVP ONE (15:07)
[2016-06-02] MEDS ORDERED: *HR* Phenylephrine 10 MG/ML VIAL ONE (15:07)
--- NOTE | 2016-06-02 15:27 | Electrocardiograph Report ---
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
[2016-06-02] MEDS ORDERED: *HR* Vasopressin 20 UNIT/ML VIAL ONE (16:45)
[2016-06-02] MEDS ORDERED: *HR* Metoprolol 5 MG/5 ML VIAL IVP ONE (17:30)
[2016-06-02] MEDS ORDERED: Indomethacin 50 MG SUPP.RECT RC ONE ×2 (18:01→18:45)
--- NOTE | 2016-06-02 19:19 | Anesthesia Evaluation Post Op ---
Date of Encounter: 06/02/16 Time of Encounter: 07:25 - Vital Signs Vital Signs: Vital Signs/O2 Sat/Glucose, Most Current Temp Pulse Resp BP Pulse Ox 06/02/16 19:08 83 18 132/89 99 06/02/16 18:58 87 18 119/88 93 06/02/16 18:48 97.2 F L 90 18 117/79 96 - Lungs Lungs: Clear Ascult./Percussion - Airway Airway: Non-obstructed - Cardiovascular Baseline Rhythm - Mental Status Mental Status: Alert & Oriented, Answers Appropriately - Pain Pain Scale: 1 - Nausea Vomiting Nausea Vomiting: Not Present - Hydration Hydration: NPO, Has not voided - Discharge PostOp Status: Transfer Patient to floor
[2016-06-03] MEDS: *HR* Heparin 5,000 UNIT/ML VIAL SQ SCH ×2 (05:57→17:45)
[2016-06-03 06:33] LABS: Basophils % 0.1 %; Hemoglobin 11.4 g/dL (12.9-16.9); Immature Granulocytes % 1.1 % (0-4); Lymphocytes % 6.3 %; Mean Corpuscular HGB Conc 32.6 g/dL (31.6-35.5); Mean Corpuscular Hemoglobin 31.2 pg (28.0-33.3); Mean Corpuscular Volume 95.9 fL (83.0-100.0); Mean Platelet Volume 11.2 fL (9.4-12.4); Monocytes # 1.4 K/mcL (0.0-1.3); Monocytes % 8.8 %; Neutrophils # 13.3 K/mcL (1.6-8.9); Platelet Count 291 K/mcL (140-400); Red Blood Count 3.65 M/mcL (4.19-5.50); Red Cell Distribution Width 17.2 % (11.5-14.5); Segmented Neutrophils % 83.7 %
[2016-06-03 06:47] LABS: BUN/Creatinine Ratio 33 (6-26); Blood Urea Nitrogen 34 mg/dL (8-26); Calcium 8.9 mg/dL (8.6-10.8); Carbon Dioxide 30 mEq/L (19-29); Chloride 104 mEq/L (98-109); Glucose 117 mg/dL (70-99); Magnesium 1.8 mg/dL (1.6-2.6); Osmolality,Calculated 299 (280-300); Potassium 4.7 mEq/L (3.5-4.5); Sodium 140 mEq/L (136-145); eGFR For African Americans > 60 (> 60); eGFR For Non-African Americans > 60 (> 60)
[2016-06-03] MEDS: Budesonide/Formoterol 80/4.5 MDI IH SCH (08:00)
[2016-06-03] MEDS: Diltiazem CD (24hr) 120 MG CAPSULE PO SCH (09:37)
[2016-06-03] MEDS: Aspirin 81 MG TAB.CHEW PO SCH (09:37)
[2016-06-03] MEDS: Finasteride 5 MG TABLET PO SCH (09:38)
[2016-06-03] MEDS: Furosemide 20 MG TABLET PO SCH (09:38)
[2016-06-03] MEDS ORDERED: *HR* Metoprolol 5 MG/5 ML VIAL IVP PRN (11:42)
[2016-06-03] MEDS ORDERED: Furosemide 40 MG/4 ML VIAL IVP ONE (11:42)
[2016-06-03] MEDS ORDERED: *HR* Metoprolol 5 MG/5 ML VIAL IVP STA (12:11)
[2016-06-03 12:44] LABS: Basophils % 0.1 %; Hematocrit 35.7 % (37.5-50.1); Hemoglobin 11.3 g/dL (12.9-16.9); Lymphocytes # 0.6 K/mcL (0.6-4.6); Lymphocytes % 4.6 %; Mean Corpuscular HGB Conc 31.7 g/dL (31.6-35.5); Mean Corpuscular Volume 97.8 fL (83.0-100.0); Mean Platelet Volume 11.5 fL (9.4-12.4); Monocytes # 1.3 K/mcL (0.0-1.3); Monocytes % 9.6 %; Neutrophils # 11.5 K/mcL (1.6-8.9); Platelet Count 277 K/mcL (140-400); Red Blood Count 3.65 M/mcL (4.19-5.50); Red Cell Distribution Width 17.1 % (11.5-14.5); Segmented Neutrophils % 84.7 %
--- NOTE | 2016-06-03 13:20 | Internal Med Progress Note ---
<Jordan Duffy - Last Filed: 06/03/16 13:16> Date of Encounter: 06/03/16 Time of Encounter: 10:00 - Assessment and plan (1) Pancreatic mass Current Visit: Yes Status: Acute Assessment and plan: Patient with 1.6 X 2.7 Cm pancreatic head mass. MRI not performed as he is having a Biopsy. Patient to have biopsy today. He will need to follow up with oncology as an outpatient. CA19-9 markedly high Most likely this is pancreatic cancer. We will await biopsy results and have him follow up with oncology. Also has suspicious lung nodule. Metastasis? versus other etiologies. 06/03/16 Patient is S/P ERCP with dilation of stricture and placement of a temporary stent. He also had brushing that was sent to pathology. His LFTs and Bilirubin are trending down. He will need to follow up with Dr. Villalobos to place another stent. Will need a follow up appointment with Oncology. (2) Obstructive jaundice Current Visit: Yes Status: Acute Assessment and plan: S/P ERCP and Stent Bilirubin and LFTS trending down. (3) Acute on chronic respiratory failure with hypoxemia Current Visit: Yes Status: Acute Assessment and plan: O2 increased slightly. Now on 3.5 L NC Comfortable. Will give lasix and also get a CXR as he is not on his Home dose of O2. ( uses " as needed") (4) COPD (chronic obstructive pulmonary disease) Current Visit: Yes Status: Acute Assessment and plan: Currently not in exacerbation. Qualifiers: Qualified Code(s): J44.9 - Chronic obstructive pulmonary disease, unspecified (5) Hypomagnesemia Current Visit: Yes Status: Resolved Assessment and plan: resolved (6) Paroxysmal a-fib Current Visit: Yes Status: Acute Assessment and plan: Afib with RVR this AM. Recieved IV lopressor. Now rate is 70-80s. Etiology unclear. Possibly stress from yesterdays procedure. Possibly from pumonary issues as he is on more O2 today. Continue home cardizem and will work up hypoxemia. normal TSH in September. . Can resume Xarelto but will need to be held before his repeat ERCP (7) Lung nodule Current Visit: Yes Status: Acute Assessment and plan: will need to be followed as outpatient. (8) Acute kidney injury Current Visit: Yes Status: Acute Assessment and plan: resolved (9) Systolic heart failure Current Visit: Yes Status: Acute Assessment and plan: echo from 02/16/16 reveals an EF of 40 % currently euvolemic. added Lisinopril. 1st dose this AM. tolerating well today. Will plan to start on low dose Beta tonya. This should also help with his rate control. Qualifiers: Qualified Code(s): I50.20 - Unspecified systolic (congestive) heart failure (10) DVT prophylaxis Current Visit: Yes Status: Acute Assessment and plan: on SQ heparin. - Subjective Interval history: No major events over night. However patient did develop some urinary retention overnight and had some difficulty urinating. Additionally he developed Afib with RVR this AM. He is currently stable. Today Mr. Martin states that he is feeling some better. He states the procedure yesterday went well. He denies any pain or discomfort. He denies cough or wheeze. He denies any abdominal pain. He denies chest pain or discomfort. He has no further complaints or concerns at this time. - Constitutional Vitals: Temp Pulse Resp BP Pulse Ox 97.4 F L 98 18 136/64 96 06/03/16 11:19 06/03/16 11:19 06/03/16 11:19 06/03/16 11:19 06/03/16 11:19 General appearance: Present: cooperative, A&O X 3, answers questions appropriately - Head Head exam: Present: atraumatic, normocephalic - Eye Eye exam: Present: PERRL, conjuntiva pink, sclera anicteric Pupils: Present: PERRL - Neck Neck exam general surgery: Present: supple, trachea midline. Absent: lymphadenopathy - Respiratory Respiratory exam: Present: CTAB. Absent: accessory muscle use, rales, rhonchi, wheezes Additional comments: diminished at the bases. No crackles on todays exam. - Cardiovascular Cardiovascular exam: Present: RRR, +S1, +S2. Absent: diastolic murmur, gallop, rubs, systolic murmur - GI/Abdominal GI/Abdominal exam: Present: normal bowel sounds, soft, no peritoneal signs. Absent: distended, tenderness - Extremities Exam Extremities exam: Present: warm, radial pulses palpable and symetrical. Absent : calf tenderness, cyanotic, pedal edema - Skin Skin exam: Present: dry, intact Internal Medicine: Result - Labs CBC & Chem 7: 06/03/16 12:02 06/03/16 06:14 Labs: Short CBC 06/03/16 06/03/16 Range/Units 06:14 12:02 WBC 15.9 H D 13.6 H (4.3-11.1) K/mcL Hgb 11.4 L D 11.3 L (12.9-16.9) g/dL Hct 35.0 L 35.7 L (37.5-50.1) % Plt Count 291 277 (140-400) K/mcL Neutrophils # 13.3 H 11.5 H (1.6-8.9) K/mcL BMP 06/03/16 06:14 Sodium 140 Potassium 4.7 H Chloride 104 Carbon Dioxide 30 H BUN 34 H Creatinine 1.04 Glucose 117 H Calcium 8.9 - ABG Interpretation ABG results: ABG ABG pH 7.37 pH Units (7.32-7.45) 06/01/16 06:25 ABG pCO2 45 mmHg (35-45) 06/01/16 06:25 ABG pO2 63 mmHg (85-104) L 06/01/16 06:25 ABG O2 Saturation 91 % (95-98) L 06/01/16 06:25 PT/INR, D-dimer PT 13.6 Seconds (9.4-12.1) H 06/01/16 04:25 Consult Discharge Plan - Plan Referrals: Zafar Gutierrez DO [Primary Care Provider] - <Tawnya Blakely E - Last Filed: 06/03/16 16:20> Date of Encounter: 06/03/16 - Constitutional Vitals: Temp Pulse Resp BP Pulse Ox 97.6 F 88 14 114/70 96 06/03/16 15:05 06/03/16 15:05 06/03/16 15:05 06/03/16 15:05 06/03/16 15:05 Internal Medicine: Result - Labs CBC & Chem 7: 06/03/16 12:02 06/03/16 06:14 Labs: Short CBC 06/03/16 06/03/16 Range/Units 06:14 12:02 WBC 15.9 H D 13.6 H (4.3-11.1) K/mcL Hgb 11.4 L D 11.3 L (12.9-16.9) g/dL Hct 35.0 L 35.7 L (37.5-50.1) % Plt Count 291 277 (140-400) K/mcL Neutrophils # 13.3 H 11.5 H (1.6-8.9) K/mcL BMP 06/03/16 06:14 Sodium 140 Potassium 4.7 H Chloride 104 Carbon Dioxide 30 H BUN 34 H Creatinine 1.04 Glucose 117 H Calcium 8.9 - ABG Interpretation ABG results: ABG ABG pH 7.37 pH Units (7.32-7.45) 06/01/16 06:25 ABG pCO2 45 mmHg (35-45) 06/01/16 06:25 ABG pO2 63 mmHg (85-104) L 06/01/16 06:25 ABG O2 Saturation 91 % (95-98) L 06/01/16 06:25 PT/INR, D-dimer PT 13.6 Seconds (9.4-12.1) H 06/01/16 04:25 - Impressions Impressions Cath/Invasive Procedure 06/02/16 17:45 IMPRESSION: Fluoroscopy provided for ERCP procedure. Please see the intraoperative note for complete details. D/ / Momo Yi MD / Momo Yi MD Interpreting Provider: Momo Yi MD Chest X-Ray 06/03/16 14:38 IMPRESSION: CHF with interstitial pulmonary edema and bilateral pleural effusions. Dependent left lower lobe opacification, likely atelectasis, but superimposed infiltrate is not excluded. D/ / Momo Yi MD / Momo Yi MD Interpreting Provider: Momo Yi MD - Attending Attestation I examined this patient and reviewed laboratory, imaging and all diagnostic data. My medical decision-making was reviewed with Dr Duffy - Resident Physician. I agree with the documented findings, disposition and treatment plan as described above. Addendum to diagnosis of systolic heart failure: chronic, not in acute decompensation. continue dose of lasix.
[2016-06-03] MEDS: Metoprolol XL (24 HR) Succ 25 MG TAB.ER.24H PO SCH (15:54)
[2016-06-03] MEDS ORDERED: Simethicone 80 MG TAB.CHEW PO PRN (17:50)
[2016-06-03] MEDS ORDERED: Furosemide 40 MG/4 ML VIAL IVP STA (17:52)
[2016-06-04 04:49] LABS: Basophils % 0.2 %; Eosinophils # 0.1 K/mcL (0.0-0.6); Eosinophils % 0.6 %; Hematocrit 32.9 % (37.5-50.1); Hemoglobin 10.7 g/dL (12.9-16.9); Immature Granulocytes % 1.2 % (0-4); Lymphocytes # 1.2 K/mcL (0.6-4.6); Lymphocytes % 9.5 %; Mean Corpuscular HGB Conc 32.5 g/dL (31.6-35.5); Mean Corpuscular Hemoglobin 31.3 pg (28.0-33.3); Mean Corpuscular Volume 96.2 fL (83.0-100.0); Mean Platelet Volume 11.3 fL (9.4-12.4); Monocytes # 1.7 K/mcL (0.0-1.3); Monocytes % 13.4 %; Neutrophils # 9.3 K/mcL (1.6-8.9); Platelet Count 273 K/mcL (140-400); Red Blood Count 3.42 M/mcL (4.19-5.50); Red Cell Distribution Width 16.7 % (11.5-14.5); Segmented Neutrophils % 75.1 %
[2016-06-04 05:00] LABS: BUN/Creatinine Ratio 34 (6-26); Blood Urea Nitrogen 30 mg/dL (8-26); Calcium 7.9 mg/dL (8.6-10.8); Carbon Dioxide 33 mEq/L (19-29); Chloride 100 mEq/L (98-109); Glucose 83 mg/dL (70-99); Osmolality,Calculated 295 (280-300); Potassium 3.8 mEq/L (3.5-4.5); Sodium 140 mEq/L (136-145); eGFR For African Americans > 60 (> 60); eGFR For Non-African Americans > 60 (> 60)
[2016-06-04] MEDS: *HR* Heparin 5,000 UNIT/ML VIAL SQ SCH ×2 (05:39→17:19)
[2016-06-04] MEDS: Diltiazem CD (24hr) 120 MG CAPSULE PO SCH (08:04)
[2016-06-04] MEDS: Finasteride 5 MG TABLET PO SCH (08:04)
[2016-06-04] MEDS: Aspirin 81 MG TAB.CHEW PO SCH (08:04)
[2016-06-04] MEDS: Metoprolol XL (24 HR) Succ 25 MG TAB.ER.24H PO SCH (08:05)
[2016-06-04] MEDS ORDERED: Furosemide 40 MG/4 ML VIAL IVP ONE (11:21)
--- NOTE | 2016-06-04 11:23 | Electrocardiograph Report ---
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
[2016-06-04 12:17] LABS: Magnesium 1.3 mg/dL (1.6-2.6)
--- NOTE | 2016-06-04 13:25 | Electrocardiograph Report ---
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
[2016-06-04 14:47] VITALS: BP 96/52
[2016-06-04] MEDS ORDERED: Magnesium Sulfate 2 GM in D5% in Water 100 ML IVPB ONE (14:49)
--- NOTE | 2016-06-04 15:02 | Discharge Summary ---
<TatiJordan Edgreg - Last Filed: 06/04/16 15:18> Date of Encounter: 06/04/16 Time of Encounter: 14:58 - Discharge Diagnosis (1) Pancreatic mass Priority: Primary Status: Acute Comments: 1.6 X 2.7 CM pancreatic head mass. (2) Obstructive jaundice Priority: Secondary Status: Acute (3) Acute on chronic respiratory failure with hypoxemia Status: Acute (4) COPD (chronic obstructive pulmonary disease) Status: Acute (5) Hypomagnesemia Status: Resolved (6) Paroxysmal a-fib Status: Acute (7) Lung nodule Status: Acute (8) Acute kidney injury Status: Acute (9) Systolic heart failure Status: Acute (10) DVT prophylaxis Status: Acute - Discharge Medications Prescriptions: Metoprolol XL (24 HR) Succ [Toprol Xl] 12.5 mg PO DAILY 30 Days Tamsulosin [Flomax] 0.4 mg PO DAILY 30 Days Home Medications: Albuterol Sulfate [Albuterol Inhaler] 2 puff IH Q4H PRN 06/04/15 [History] Aspirin 81 mg PO DAILY 06/04/15 [History] Atorvastatin [Lipitor] 40 mg PO HS 06/04/15 [History] Finasteride [Proscar] 5 mg PO DAILY 06/04/15 [History] Potassium Chloride [K-Tab ER] 20 meq PO DAILY 06/04/15 [History] Rivaroxaban [Xarelto] 20 mg PO DAILY 06/04/15 [History] Budesonide/Formoterol 80/4.5 [Symbicort 80/4.5] 2 puff IH BIDR 11/26/15 [ History] Diltiazem HCl [Diltiazem 24Hr Cd] 120 mg PO DAILY 11/26/15 [History] Tiotropium [Spiriva] 18 mcg IH DAILY 11/26/15 [History] Furosemide [Lasix] 20 mg PO DAILY 05/28/16 [History] Metoprolol XL (24 HR) Succ [Toprol Xl] 12.5 mg PO DAILY 30 Days 06/04/16 [Rx] Tamsulosin [Flomax] 0.4 mg PO DAILY 30 Days 06/04/16 [Rx] Allergies/Adverse Reactions: Allergies Penicillins Allergy (Verified 02/20/15 20:20) Hives Procedures/tests Complete & Pending: Procedures Performed prior 72 hours Category Date Time Status ECG 12 lead ECG [ECG] AM 0600 Y 06/02/16 06:00 Completed ECG 12 lead ECG [ECG] Routine Y 06/02/16 12:06 Completed ECG 12 lead ECG [ECG] Routine Y 06/03/16 12:03 Completed ECG 12 lead ECG [ECG] Stat Y 06/03/16 11:50 Completed Date of admission: 05/29/16 00:47 Primary care physician: Nasir Alva Consults: 06/03/16 10:58 PT [Consult to Physical Therapy] [CONS] Stat Comment: Evaluate, develop and implement POC 06/03/16 10:59 OT [Consult to Occupational Therapy] [CONS] Stat Comment: Evaluate, develop and implement POC Discharging clinician: Jordan Duffy Anticipated date of discharge: 06/04/16 - Patient Status Disposition: Home Health Service Condition: Serious Functional capacity at discharge: uses cane/walker Overall status at discharge: patient is progressing back to baseline - Ambulatory Orders Ambulatory Orders: Basic Metabolic Panel [CHEM] Time Frame: 2 Days, Facility: [facility], Location: Lab - Discharge Instructions Follow Up With: Zafar Gutierrez DO [Primary Care Provider] - Donny Villalobos MD [Partnered Physician] - (Gastroenterology will call the patient at home with date and time of appt. Thank you) - Diet and Activity Activity: as per physical therapy Diet: low fat, low cholesterol, low salt diet Hospital course: Mr. Martin is a 81 year old male who was admitted to [facility] on 05/28/16 for obstructive jaundice. He would be found to have a pancreatic mass measuring 1.6 X 2.7 CM in the pancreatic head. He would undergo ERCp and have a temporary stent placed. The patient would improve. He would have a repeat ERCP for stricture of the duct and had the stent replaced. PAtient did develop some urinary retention while he was hospitalized and was sterated on low dose flomax with resolution of his symptoms. Additionally he had an episode of Afib RVR. Toprol was added to help control his rate. Additionally he became mildly fluid overloaded and was treated with lasix. we did add toprol as he has heart failure without preserved ejection fraction with EF of 40%. May also consider adding liinopril if he tolerates this well. we will ask that he follows with his PCP. we will have him hold any new medications should he become symptomatic. However he has tolerated well here in the hospital. He has had no afib with RVR even after ambulating and working with physical therapy. He dose have a low magnesium level today. we will replace before discharge. We will ave him follow up with Griselda on Wednesday. I discussed the patient with Dr. Villalobos. He will be referring him to [facility] to be evaluated by surgery/ oncology for possible whipple. The patient has voiced back his understanding and agreement. we will disharge him home with home health. - Time Spent with Patient Total time spent providing and/or coordinating discharge services: Greater than 30 minutes (I spent approximately 40 minutes discharging this patient.) - Constitutional Vitals: Temp Pulse Resp BP Pulse Ox 98.5 F 73 18 96/52 97 06/04/16 14:44 06/04/16 14:44 06/04/16 14:44 06/04/16 14:44 06/04/16 14:44 General appearance: Present: cooperative, A&O X 3, answers questions appropriately - Head Head exam: Present: atraumatic, normal inspection, normocephalic - Eye Eye exam: Present: PERRL, conjuntiva pink, sclera anicteric Pupils: Present: PERRL - Neck Neck exam general surgery: Present: normal inspection, supple, trachea midline. Absent: lymphadenopathy, tenderness, nuchal rigidity, thyromegaly - Respiratory Respiratory exam: Present: CTAB. Absent: accessory muscle use, rales, rhonchi, wheezes - Cardiovascular Cardiovascular exam: Present: irregular rhythm (afib), RRR, +S1, +S2. Absent: diastolic murmur, gallop, rubs, systolic murmur - GI/Abdominal GI/Abdominal exam: Present: normal bowel sounds, soft, no peritoneal signs. Absent: distended, tenderness - Extremities Exam Extremities exam: Present: warm, radial pulses palpable and symetrical. Absent : calf tenderness, cyanotic, pedal edema - Skin Skin exam: Present: dry, intact <aTwnya Blakely - Last Filed: 06/04/16 18:10> Date of Encounter: 06/04/16 Procedures/tests Complete & Pending: Procedures Performed prior 72 hours Category Date Time Status ECG 12 lead ECG [ECG] AM 0600 Y 06/02/16 06:00 Completed ECG 12 lead ECG [ECG] Routine Y 06/02/16 12:06 Completed ECG 12 lead ECG [ECG] Routine Y 06/03/16 12:03 Completed ECG 12 lead ECG [ECG] Stat Y 06/03/16 11:50 Completed Date of admission: 05/29/16 00:47 Primary care physician: Nasir Alva Consults: 06/03/16 10:58 PT [Consult to Physical Therapy] [CONS] Stat Comment: Evaluate, develop and implement POC 06/03/16 10:59 OT [Consult to Occupational Therapy] [CONS] Stat Comment: Evaluate, develop and implement POC Hospital course: Mr. Martin is a 81 year old male - Time Spent with Patient Total time spent providing and/or coordinating discharge services: - Constitutional Vitals: Temp Pulse Resp BP Pulse Ox 98.5 F 73 18 96/52 97 06/04/16 14:44 06/04/16 14:44 06/04/16 14:44 06/04/16 14:44 06/04/16 15:13 - Attending Attestation I examined this patient and reviewed laboratory, imaging and all diagnostic data. My medical decision-making was reviewed with Dr Duffy - Resident Physician. I agree with the documented findings, disposition and treatment plan as described above
--- NOTE | 2016-06-04 15:18 | Physician Discharge Referral ---
Home Health/Hosp Referral Info Transfer to: Home Health Provider in Charge Post Discharge: PCP - Diagnosis (1) Pancreatic mass Status: Acute (2) Obstructive jaundice Status: Acute (3) Acute on chronic respiratory failure with hypoxemia Status: Acute (4) COPD (chronic obstructive pulmonary disease) Status: Acute (5) Hypomagnesemia Status: Resolved (6) Paroxysmal a-fib Status: Acute (7) Lung nodule Status: Acute (8) Acute kidney injury Status: Acute (9) Systolic heart failure Status: Acute (10) DVT prophylaxis Status: Acute - Respiratory Orders Oxygen / L per min (3) Smoking Cessation: Smoking cessation has been advised. For more information, call the [place] Tobacco Quit Line at 7-123-HCIH-NOW. - Diet/Nutrition Diet/Nutrition Orders: Mechanical Soft, Cardiac - Activity Activity Orders: Ambulate, Walker - Services Needed Following services are medically necessary services: Home Health Aide, Physical Therapy, Occupational Therapy Other Treatments: Needs a magnesium and BMP drawn on 06/06/16. Please have results forwarded to PCP - Transfer Medications Prescriptions: Metoprolol XL (24 HR) Succ [Toprol Xl] 12.5 mg PO DAILY 30 Days Tamsulosin [Flomax] 0.4 mg PO DAILY 30 Days Home Medications: Albuterol Sulfate [Albuterol Inhaler] 2 puff IH Q4H PRN 06/04/15 [History] Aspirin 81 mg PO DAILY 06/04/15 [History] Atorvastatin [Lipitor] 40 mg PO HS 06/04/15 [History] Finasteride [Proscar] 5 mg PO DAILY 06/04/15 [History] Potassium Chloride [K-Tab ER] 20 meq PO DAILY 06/04/15 [History] Rivaroxaban [Xarelto] 20 mg PO DAILY 06/04/15 [History] Budesonide/Formoterol 80/4.5 [Symbicort 80/4.5] 2 puff IH BIDR 11/26/15 [ History] Diltiazem HCl [Diltiazem 24Hr Cd] 120 mg PO DAILY 11/26/15 [History] Tiotropium [Spiriva] 18 mcg IH DAILY 11/26/15 [History] Furosemide [Lasix] 20 mg PO DAILY 05/28/16 [History] Metoprolol XL (24 HR) Succ [Toprol Xl] 12.5 mg PO DAILY 30 Days 06/04/16 [Rx] Tamsulosin [Flomax] 0.4 mg PO DAILY 30 Days 06/04/16 [Rx] Allergies/Adverse Reactions: Allergies Penicillins Allergy (Verified 02/20/15 20:20) Hives Certification: Further, I certify that my clinical findings support that this patient is homebound (i.e. absences from home require considerable and taxing effort and are for medical reasons or muslim services or infrequently or short duration when for other reasons) because: Homebound Reason: Leaving home requires considerable and taxing effort due to condition, Severity of cardiac or pulmonary status limits activity tolerance Attestation: My signature below is to certify that this patient is under my care and that I, or nurse practitioner, or a physician's assistant property manager working with me, has a face-to -face encounter with this patient.
--- NOTE | 2016-06-04 18:08 | Electrocardiograph Report ---
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
== END 2016-06-04 19:01 | disposition home health service (06) | DRG 435 ==
LOC: 3ANU 19:10 → EMEROO 19:10 → 3ANU 21:49 → SUATTDRO 05-29 00:47
PROVIDERS: ADMIT Internal Medicine; ATTEND Internal Medicine
PROC: ENDOEUS (2016-06-02 17:30)

== ENCOUNTER 2016-06-09 16:44 | Inpatient (IN) ==
[2016-06-09] MEDS ORDERED: Ipratropium/Albuterol Neb 3 ML IH ONE ×2 (16:49→16:50)
[2016-06-09] MEDS ORDERED: methylPREDNISolone 125 MG/2 ML VIAL IVP ONE (16:49)
--- NOTE | 2016-06-09 16:53 | Emergency Department Note ---
Disposition Clinical Impression: Acute exacerbation of chronic obstructive airways disease, Atrial fibrillation with rapid ventricular response Acute and chronic respiratory failure Qualifiers: Respiratory failure complication: hypoxia Qualified Code(s): J96.21 - Acute and chronic respiratory failure with hypoxia Disposition: Admitted As Inpatient SOB HPI - General Stated Complaint: JUAN, COPD Time Seen by Provider: 06/09/16 16:48 Source: patient Mode of arrival: ambulatory Limitations: no limitations Nursing Notes Reviewed: Yes Vital Signs Reviewed: Yes - History of Present Illness She is a 81-year-old male with end-stage COPD and congestive heart failure presents with increased shortness of breath 3 days. He will over to an appointment and his gastroenterology office and became more dyspneic on oxygen he was high 70s O2 saturation. He came in today was very labored breathing states this is worsened over the last 3 days. Pt Subjective Complaint: shortness of breath Onset (ago): day(s) (3) Severity: severe Consistency/Duration: gradually worsening Improves with: oxygen, rest Worsens with: exertion Known history of: COPD, congestive heart failure Associated symptoms: Reports: wheezing Treatment prior to arrival: none Cough present: No - Related Data Home Medications Medication Instructions Recorded Confirmed Albuterol Sulfate [Albuterol 2 puff IH Q4H PRN 06/04/15 05/28/16 Inhaler] Aspirin 81 mg PO DAILY 06/04/15 05/28/16 Atorvastatin [Lipitor] 40 mg PO HS 06/04/15 05/28/16 Finasteride [Proscar] 5 mg PO DAILY 06/04/15 05/28/16 Potassium Chloride [K-Tab ER] 20 meq PO DAILY 06/04/15 05/28/16 Rivaroxaban [Xarelto] 20 mg PO DAILY 06/04/15 05/28/16 Budesonide/Formoterol 80/4.5 2 puff IH BIDR 11/26/15 05/28/16 [Symbicort 80/4.5] Diltiazem HCl [Diltiazem 24Hr Cd] 120 mg PO DAILY 11/26/15 05/28/16 Tiotropium [Spiriva] 18 mcg IH DAILY 11/26/15 05/28/16 Furosemide [Lasix] 20 mg PO DAILY 05/28/16 05/28/16 Previous Rx's Medication Instructions Recorded Metoprolol XL (24 HR) Succ [Toprol 12.5 mg PO DAILY 30 Days 06/04/16 Xl] Tamsulosin [Flomax] 0.4 mg PO DAILY 30 Days 06/04/16 Allergies Allergy/AdvReac Type Severity Reaction Status Date / Time Penicillins Allergy Hives Verified 02/20/15 20:20 All systems ED: reviewed and negative except as stated. Constitutional: Reports: weakness. Denies: fever, chills Past Medical History - Past Medical History Source: patient, old records reviewed, obtained from family, nursing notes reviewed Medical history: Reports: arthritis, atrial fibrillation (Paroxysmal A-fib s/p pacemaker, on Cardizem & Xarelto), cancer, COPD, DVT, hyperlipidemia, hypertension, myocardial infarction Surgical history: Reports: angioplasty/stent (PCI to RCA in 2001), herniorrhaphy , orthopedic, other (Right rotator cuff), pacemaker/AICD Psychiatric history: Reports: anxiety, depression - Social History Smoking Status: Former smoker Smokeless Tobacco Status: No Alcohol use: Reports: none Drug use: Reports: none Physical Exam - General Limitations: no limitations General appearance: in distress - Head Head exam: atraumatic, normocephalic, normal inspection - Eye Eye exam: Present: normal appearance, PERRL, EOMI - Expanded Eye Exam Pupils: Left: reactive - ENT ENT exam: normal exam, normal oropharynx, mucous membranes moist - Expanded ENT Exam External ear exam: Present: normal external inspection Mouth exam: Present: normal external inspection Teeth exam: Present: normal inspection Throat exam: Present: normal inspection - Neck Neck exam: Present: normal inspection, full ROM, trachea midline - Chest Chest inspection: Present: normal inspection, symmetric chest wall rise - Respiratory Respiratory exam: Present: respiratory distress, wheezes, accessory muscle use, prolonged expiratory phase - Cardiovascular Cardiovascular exam: Present: regular rate, normal rhythm, normal heart sounds - Abdominal Exam Abdominal exam: Present: soft, Non-Tender. Absent: tenderness, distention, guarding, rebound, rigidity - Extremities Exam Extremities exam: Present: normal inspection, full ROM. Absent: tenderness, pedal edema - Expanded Upper Extremity Exam Shoulder exam: Present: normal inspection, full ROM Arm exam: Present: normal inspection, full ROM Elbow exam: Present: normal inspection, full ROM Forearm/Wrist exam: Present: normal inspection, full ROM Hand exam: Present: normal inspection, full ROM Vascular exam: Normal: capillary refill, radial pulse - Expanded Lower Extremity Exam Hip/Pelvis exam: Present: normal inspection, full ROM Upper leg exam: Present: normal inspection, full ROM Knee exam: Present: normal inspection, full ROM Lower leg exam: Present: normal inspection, full ROM Ankle exam: Present: normal inspection, full ROM Foot/toe exam: Present: normal inspection, full ROM Neurovascular/Tendon exam: Absent: motor deficit, sensory deficit, tendon deficit - Back Exam Back exam: Present: normal inspection, full ROM. Absent: tenderness - Neurological Exam Neurological exam: Present: alert, oriented X3 - Expanded Neurological Exam Patient oriented to: Present: person, place, time Coma Scale Eye Opening: Spontaneous Coma Scale Motor Response: Obeys Commands Coma Scale Verbal Response: Oriented Coma Scale Total: 15 - Psychiatric Psychiatric exam: Present: normal affect, normal mood - Skin Skin exam: Present: warm, dry, intact, normal color Course - Reevaluation(s) Reevaluation #1: Patient feeling much better he sitting in bed now eating dinner no longer tachypneic heart rate is improving for a pressures improving limited to the hospitalist service Time: 19:32 Vital Signs Temperature 98.1 F 06/09/16 16:48 Pulse Rate 127 06/09/16 16:48 Respiratory Rate 26 06/09/16 16:48 Blood Pressure 147/107 06/09/16 16:48 O2 Sat by Pulse Oximetry 100 06/09/16 16:48 Temperature 98.1 F 06/09/16 16:48 Pulse Rate 145 06/09/16 18:50 Respiratory Rate 20 06/09/16 18:37 Blood Pressure 110/87 06/09/16 18:50 O2 Sat by Pulse Oximetry 100 06/09/16 18:37 Oxygen Delivery Oxygen Delivery Nasal Cannula Shortness of Breath/Dyspnea - Differential Diagnosis Likely: acute exacerbation of chronic obstructive airways disease, congestive heart failure, pneumonia, pulmonary embolism, pneumothorax, arrhythmia - Medical Records Medical records reviewed: Yes I reviewed the patient's medical records. - Lab Data Lab results reviewed: Yes I reviewed the patient's lab results. Result diagrams: 06/09/16 17:19 06/09/16 16:51 Lab Results 06/09/16 06/09/16 06/09/16 Range/Units 16:51 16:51 16:51 WBC (4.3-11.1) K/mcL RBC (4.19-5.50) M/mcL Hgb (12.9-16.9) g/dL Hct (37.5-50.1) % MCV (83.0-100.0) fL MCH (28.0-33.3) pg MCHC (31.6-35.5) g/dL RDW (11.5-14.5) % Plt Count (140-400) K/mcL MPV (9.4-12.4) fL Immature Gran % (0-4) % Seg Neutrophils % % Lymphocytes % % Monocytes % % Eosinophils % % Basophils % % Neutrophils # (1.6-8.9) K/mcL Lymphocytes # (0.6-4.6) K/mcL Monocytes # (0.0-1.3) K/mcL Eosinophils # (0.0-0.6) K/mcL Basophils # (0.0-0.2) K/mcL Immature Plt Fraction (1.1-6.1) % PT 24.4 H (9.4-12.1) Seconds INR 2.2 APTT 39.9 H (26.0-36.0) Seconds Sodium 139 (136-145) mEq/L Potassium 4.7 H (3.5-4.5) mEq/L Chloride 99 (98-109) mEq/L Carbon Dioxide 29 (19-29) mEq/L BUN 12 (8-26) mg/dL Creatinine 0.80 (0.72-1.25) mg/dL Est GFR ( Amer) > 60 (> 60) Est GFR (Non-Af Amer) > 60 (> 60) BUN/Creatinine Ratio 15 (6-26) Glucose 98 (70-99) mg/dL Calculated Osmolality 288 (280-300) Lactic Acid (0.5-2.2) mmol/L Calcium 9.4 (8.6-10.8) mg/dL Troponin I 0.02 (0-0.03) ng/mL B-Natriuretic Peptide (0-100) pg/mL 06/09/16 06/09/16 06/09/16 Range/Units 16:51 17:18 17:19 WBC 15.0 H (4.3-11.1) K/mcL RBC 4.16 L (4.19-5.50) M/mcL Hgb 12.9 D (12.9-16.9) g/dL Hct 40.3 (37.5-50.1) % MCV 96.9 (83.0-100.0) fL MCH 31.0 (28.0-33.3) pg MCHC 32.0 (31.6-35.5) g/dL RDW 15.4 H (11.5-14.5) % Plt Count 298 (140-400) K/mcL MPV 10.0 (9.4-12.4) fL Immature Gran % 1.9 (0-4) % Seg Neutrophils % 79.7 % Lymphocytes % 7.2 % Monocytes % 9.5 % Eosinophils % 1.3 % Basophils % 0.4 % Neutrophils # 11.9 H (1.6-8.9) K/mcL Lymphocytes # 1.1 (0.6-4.6) K/mcL Monocytes # 1.4 H (0.0-1.3) K/mcL Eosinophils # 0.2 (0.0-0.6) K/mcL Basophils # 0.1 (0.0-0.2) K/mcL Immature Plt Fraction 5.4 (1.1-6.1) % PT (9.4-12.1) Seconds INR APTT (26.0-36.0) Seconds Sodium (136-145) mEq/L Potassium (3.5-4.5) mEq/L Chloride (98-109) mEq/L Carbon Dioxide (19-29) mEq/L BUN (8-26) mg/dL Creatinine (0.72-1.25) mg/dL Est GFR ( Amer) (> 60) Est GFR (Non-Af Amer) (> 60) BUN/Creatinine Ratio (6-26) Glucose (70-99) mg/dL Calculated Osmolality (280-300) Lactic Acid 1.1 (0.5-2.2) mmol/L Calcium (8.6-10.8) mg/dL Troponin I (0-0.03) ng/mL B-Natriuretic Peptide 791 H (0-100) pg/mL - Radiology Data Radiology results reviewed: Yes I reviewed the patient's radiology results. - EKG Data EKG attestation: Yes I reviewed and interpreted this EKG. Rate: Reports: tachycardia (154) Rhythm: Reports: A.Fib [place]/QRS: Reports: normal Interpretation: Reports: nonspecific ST-T wave changes Critical Care Time Critical Care Time: Yes Total Critical Care Time: 40 Attestation: Critical care performed: Time is exclusive of separately billable procedures. Time includes: direct patient care, patient reassessment, coordination of patient care, interpretation of data (laboratory data, radiology data, and respiratory data), review of patient's medical records, medical consultation and documentation of patient care. Procedures included in critical care time: Procedures excluded from critical care time:
[2016-06-09 17:17] LABS: BUN/Creatinine Ratio 15 (6-26); Blood Urea Nitrogen 12 mg/dL (8-26); Calcium 9.4 mg/dL (8.6-10.8); Carbon Dioxide 29 mEq/L (19-29); Chloride 99 mEq/L (98-109); Glucose 98 mg/dL (70-99); Osmolality,Calculated 288 (280-300); Potassium 4.7 mEq/L (3.5-4.5); Sodium 139 mEq/L (136-145); eGFR For African Americans > 60 (> 60); eGFR For Non-African Americans > 60 (> 60)
[2016-06-09 17:26] LABS: Basophils # 0.1 K/mcL (0.0-0.2); Basophils % 0.4 %; Eosinophils # 0.2 K/mcL (0.0-0.6); Eosinophils % 1.3 %; Hematocrit 40.3 % (37.5-50.1); Hemoglobin 12.9 g/dL (12.9-16.9); Immature Granulocytes % 1.9 % (0-4); Immature Platelets 5.4 % (1.1-6.1); Lymphocytes # 1.1 K/mcL (0.6-4.6); Lymphocytes % 7.2 %; Mean Corpuscular Volume 96.9 fL (83.0-100.0); Monocytes # 1.4 K/mcL (0.0-1.3); Monocytes % 9.5 %; Neutrophils # 11.9 K/mcL (1.6-8.9); Platelet Count 298 K/mcL (140-400); Red Blood Count 4.16 M/mcL (4.19-5.50); Red Cell Distribution Width 15.4 % (11.5-14.5); Segmented Neutrophils % 79.7 %
[2016-06-09 17:30] LABS: INR 2.2; Prothrombin Time 24.4 Seconds (9.4-12.1)
[2016-06-09 17:33] LABS: Activated Partial Thrombo Time 39.9 Seconds (26.0-36.0)
[2016-06-09] MEDS ORDERED: 0.9 % Sodium Chloride 500 ML IVC ONE (18:41)
[2016-06-09] MEDS ORDERED: Levofloxacin 750 MG/150 ML 750 MG/150 ML BAG IVPB ONE (19:29)
[2016-06-09] MEDS ORDERED: Naloxone 0.4 MG/ML INJ IVP PRN (19:49)
[2016-06-09] MEDS ORDERED: Albuterol 2.5 MG/3 ML NEBULIZER IH PRN (19:56)
--- NOTE | 2016-06-09 20:18 | Internal Med History&Physical ---
Date of Encounter: 06/09/16 Time of Encounter: 20:20 Assessment and Plan (1) Acute and chronic respiratory failure Current visit: Yes Status: Acute patient with a history of underlying COPD and heart failure with LVEF of 40% per echo in 02/2016 comes in with hypoxia as well as signs and symptoms concerning for heart failure decompensation with pulmonary congestion on imaging , he responded well to IV lasix in the ER, we will admit for further management , continue BB and JJ-I, daily weights and fluid restriction Qualifiers: Respiratory failure complication: hypoxia Qualified Code(s): J96.21 - Acute and chronic respiratory failure with hypoxia (2) Acute exacerbation of chronic obstructive airways disease Current visit: Yes Status: Acute mild wheezing noted, we will do PRN nebs (3) Atrial fibrillation with rapid ventricular response Current visit: Yes Status: Acute Hx of AFIB currently on cardizem drip due to RVR, at home he is on oral cardizem and xarelto, we will continue these medications and wean him off the drip (4) Hyperkalemia Current visit: Yes Status: Acute on potassium replacement therapy and this may account for this presentation, we will monitor (5) Pancreatic mass Current visit: Yes Status: Chronic he had presented earlier this month with a pancreatic head mass in the setting of obstructive jaundice and had a stent placed with relieve of obstruction, he is supposed to see oncology services this Wednesday, we will need to find out from oncology if they will be open to seeing him whilst he is on admission otherwise we will discharge him when euvolemic for outpatient followup Internal Medicine - H&P: HPI Chief complaint: shortness of breath Admitted From: Emergency Dept Plans for Post Hospital Care: Home History of present illness: Mr. Martin is a 81 year old male with a history of chronic respiratory failure from COPD/Heart failure and recent admission for obstructive jaundice from pancreatic head mass comes in with worsening shortness of breath. He reports that for the past 3 weeks he has had worsening dyspnea, but over the course of 3 days it has gotten worse. This has also been associated with dyspnea on exertion, reduced exercise tolerance, fatigue, cough, leg swelling and subjective weight gain. He was seen at his GI physicians' office today for a followup and was noted to be extremely dyspneic with his oxygen saturation in the 70's. He was thus sent to the ER of [place] for further evaluation and management. In the ER he was found to be in AFIB with RVR in the 150's requiring cardizem drip. He additionally had florid crackles with significant pulmonary congestion on imaging. He is being admitted for inpatient management. Past Med Surg Social Fam HX - Past Medical History Medical history: arthritis, atrial fibrillation (Paroxysmal A-fib s/p pacemaker , on Cardizem & Xarelto), cancer, COPD, DVT, hyperlipidemia, hypertension, myocardial infarction Psychiatric history: anxiety, depression - Past Surgical History Surgical History: angioplasty/stent (PCI to RCA in 2001), herniorrhaphy, orthopedic, other (Right rotator cuff), pacemaker/AICD - Social History Smoking Status: Former smoker Smokeless Tobacco Status: No Alcohol use: none Drug use: none - Family History Mother Living Status: Hx Family Cancer: Yes Sister Hx Family Cancer: Yes Brother Adopted: No Family Member Ethnicity: Non- Living Status: Still Living Hx Family Cardiac Disorders: Yes ([place]) Hx Family Respiratory Disorders: No Hx Family Cancer: No Hx Family GI Disorders: No Hx Family Endocrine Disorder: No Hx Family Neuromuscular Disorders: No Hx Family Neurologic Disorders: No Hx Family HEENT Disorders: No Hx Family Autoimmune Disorders: No Father Living Status: Hx Family Cardiac Disorders: Yes (MYOCARDIAL INFARCTION.) Hx Family Respiratory Disorders: No Hx Family Cancer: No Hx Family GI Disorders: No Hx Family Endocrine Disorder: No Hx Family Neuromuscular Disorders: No Hx Family Neurologic Disorders: Yes (Stroke) Hx Family HEENT Disorders: No Hx Family Autoimmune Disorders: No Internal Medicine - H&P: Meds Albuterol Sulfate [Albuterol Inhaler] 2 puff IH Q4H PRN 06/04/15 [History] Aspirin 81 mg PO DAILY 06/04/15 [History] Atorvastatin [Lipitor] 40 mg PO HS 06/04/15 [History] Finasteride [Proscar] 5 mg PO DAILY 06/04/15 [History] Potassium Chloride [K-Tab ER] 20 meq PO DAILY 06/04/15 [History] Rivaroxaban [Xarelto] 20 mg PO DAILY 06/04/15 [History] Budesonide/Formoterol 80/4.5 [Symbicort 80/4.5] 2 puff IH BIDR 11/26/15 [ History] Diltiazem HCl [Diltiazem 24Hr Cd] 120 mg PO DAILY 11/26/15 [History] Tiotropium [Spiriva] 18 mcg IH DAILY 11/26/15 [History] Furosemide [Lasix] 20 mg PO DAILY 05/28/16 [History] Metoprolol XL (24 HR) Succ [Toprol Xl] 12.5 mg PO DAILY 30 Days 06/04/16 [Rx] Tamsulosin [Flomax] 0.4 mg PO DAILY 30 Days 06/04/16 [Rx] Allergies Penicillins Allergy (Verified 02/20/15 20:20) Hives All Systems PM: A 10-system review of systems was performed and is negative for pertinent findings except as documented above in the HPI. - Constitutional Vitals: Temp Pulse Resp BP Pulse Ox 98.1 F 134 20 138/91 98 06/09/16 16:48 06/09/16 19:32 06/09/16 19:32 06/09/16 19:32 06/09/16 19:32 General appearance: Present: cooperative, A&O X 3, no acute distress, answers questions appropriately - Head Head exam: Present: atraumatic, normocephalic - Eye Eye exam: Present: PERRL, EOMI, no scleral icterus, conjuntiva pink - Neck Neck exam general surgery: Present: supple, trachea midline. Absent: lymphadenopathy - Respiratory Respiratory exam: crackles heard from the middle to the lung bases bilaterally, end expiratory wheeze also heard, - Cardiovascular Cardiovascular exam: RRR, +S1, +S2, mild bipedal pitting edema, Absent: diastolic murmur, gallop, rubs, systolic murmur - GI/Abdominal GI/Abdominal exam: Present: normal bowel sounds, soft, no tenderness, no peritoneal signs. Absent: distended - Extremities Exam Extremities exam: Present: warm, radial pulses palpable and symetrical. Absent : calf tenderness, cyanotic, - Neurological Exam Neurological exam: Present: CN II-XII intact, oriented X3, no focal deficits. Absent: pronater drift, facial droop, speech deficit - Skin Skin exam: Present: dry, intact, warm Internal Med - H&P Results - Labs CBC & Chem 7: 06/10/16 04:52 06/09/16 16:51 - EKG Data -: EKG Interpreted by Myself Rate: tachycardia - Diagnostic Studies Chest x-ray Status: image reviewed by me
[2016-06-09] MEDS: Furosemide 40 MG/4 ML VIAL IVP SCH (23:16)
[2016-06-10 05:34] LABS: Basophils % 0.2 %; Hematocrit 30.8 % (37.5-50.1); Immature Granulocytes % 2.1 % (0-4); Lymphocytes # 0.4 K/mcL (0.6-4.6); Lymphocytes % 6.7 %; Mean Corpuscular HGB Conc 32.5 g/dL (31.6-35.5); Mean Corpuscular Hemoglobin 31.4 pg (28.0-33.3); Mean Corpuscular Volume 96.9 fL (83.0-100.0); Mean Platelet Volume 10.9 fL (9.4-12.4); Monocytes # 0.1 K/mcL (0.0-1.3); Monocytes % 2.1 %; Platelet Count 214 K/mcL (140-400); Red Blood Count 3.18 M/mcL (4.19-5.50); Red Cell Distribution Width 15.4 % (11.5-14.5); Segmented Neutrophils % 88.9 %
[2016-06-10 05:44] LABS: BUN/Creatinine Ratio 22 (6-26); Calcium 8.3 mg/dL (8.6-10.8); Carbon Dioxide 29 mEq/L (19-29); Chloride 99 mEq/L (98-109); Glucose 199 mg/dL (70-99); Magnesium 1.4 mg/dL (1.6-2.6); Osmolality,Calculated 293 (280-300); Phosphorous 2.7 mg/dL (2.3-4.7); Potassium 4.4 mEq/L (3.5-4.5); Sodium 137 mEq/L (136-145); eGFR For African Americans > 60 (> 60); eGFR For Non-African Americans > 60 (> 60)
[2016-06-10 05:49] LABS: Blood Urea Nitrogen 23 mg/dL (8-26)
[2016-06-10] MEDS ORDERED: Magnesium Sulfate 2 GM in D5% in Water 100 ML IVPB ONE (07:56)
[2016-06-10] MEDS: Diltiazem CD (24hr) 120 MG CAPSULE PO SCH (09:39)
[2016-06-10] MEDS: Aspirin 81 MG TAB.CHEW PO SCH (09:40)
[2016-06-10] MEDS: Furosemide 40 MG/4 ML VIAL IVP SCH ×2 (09:40→20:49)
[2016-06-10] MEDS: Metoprolol XL (24 HR) Succ 25 MG TAB.ER.24H PO SCH (09:40)
[2016-06-10] MEDS: Finasteride 5 MG TABLET PO SCH (09:40)
[2016-06-10] MEDS: *HR* Rivaroxaban 10 MG TABLET PO SCH (09:40)
[2016-06-10] MEDS ORDERED: Albuterol 2.5 MG/3 ML NEBULIZER IH PRN (12:49)
--- NOTE | 2016-06-10 13:53 | Internal Med Progress Note ---
Date of Encounter: 06/10/16 Time of Encounter: 11:25 - Assessment and plan (1) Acute exacerbation of CHF (congestive heart failure) Current Visit: Yes Status: Acute Assessment and plan: Acute on chronic respiratory failure secondary to CHF decompensation 2D echo from 02/16/16: LVEF: 40% with moderate LV diastolic dysfunction, mildly dilated LV Responding well to diuretic therapy, will continue monitor I/Os, daily weights fluid restriction diet O2 supplementation will continue to closely monitor Qualifiers: Congestive heart failure type: diastolic Qualified Code(s): I50.33 - Acute on chronic diastolic (congestive) heart failure (2) Acute and chronic respiratory failure Current Visit: Yes Status: Acute Assessment and plan: as listed above Qualifiers: Respiratory failure complication: hypoxia Qualified Code(s): J96.21 - Acute and chronic respiratory failure with hypoxia (3) Atrial fibrillation with rapid ventricular response Current Visit: Yes Status: Acute Assessment and plan: Rate currently controlled Off cardizem gtt and tolerating PO cardizem well anticoagulated with Xarelto will continue to closely monitor (4) Pancreatic mass Current Visit: Yes Status: Chronic Assessment and plan: Outpatient follow up with Oncology after discharge (5) DVT prophylaxis Current Visit: No Status: Acute Assessment and plan: Anticoagulated with Xarelto (6) COPD (chronic obstructive pulmonary disease) Current Visit: No Status: Chronic Assessment and plan: Not in acute exacerbation will continue O2 supplementation and bronchodilator support as needed home meds continued Qualifiers: COPD type: unspecified COPD Qualified Code(s): J44.9 - Chronic obstructive pulmonary disease, unspecified (7) Hypomagnesemia Current Visit: No Status: Resolved Assessment and plan: Mg supplemented will continue to monitor electrolytes and replace as needed - Subjective Interval history: Patient seen and examined with family present at bedside. Patient reports of feeling significantly better compared to previous day. Denies any chest pain or any discomfort at this time. Reports of currently undergoing treatment plan with oncologist for pancreatic mass. - Constitutional Vitals: Temp Pulse Resp BP Pulse Ox 98.2 F 76 17 111/65 93 06/10/16 12:07 06/10/16 12:07 06/10/16 12:07 06/10/16 12:07 06/10/16 12:07 General appearance: Present: cooperative, A&O X 3, pleasant, no acute distress, answers questions appropriately - Head Head exam: Present: atraumatic, normocephalic - Eye Eye exam: Present: normal appearance, conjuntiva pink, sclera anicteric - Respiratory Respiratory exam: Absent: accessory muscle use, rales, rhonchi, wheezes Additional comments: bibasilar crackles - Cardiovascular Cardiovascular exam: Present: RRR, +S1, +S2. Absent: diastolic murmur, gallop, rubs, systolic murmur - GI/Abdominal GI/Abdominal exam: Present: normal bowel sounds, soft, no peritoneal signs. Absent: distended, tenderness - Extremities Exam Extremities exam: Present: warm, radial pulses palpable and symetrical. Absent : calf tenderness Additional comments: 1+ pitting edema in bilateral lower extremities - Neurological Exam Neurological exam: Present: alert, oriented X3 - Psychiatric Psychiatric exam: Present: normal affect, normal mood Internal Medicine: Result - Labs CBC & Chem 7: 06/10/16 04:52 06/10/16 04:52 Labs: Short CBC 06/10/16 Range/Units 04:52 WBC 5.6 D (4.3-11.1) K/mcL Hgb 10.0 L D (12.9-16.9) g/dL Hct 30.8 L (37.5-50.1) % Plt Count 214 (140-400) K/mcL Neutrophils # 5.0 (1.6-8.9) K/mcL BMP 06/10/16 04:52 Sodium 137 Potassium 4.4 Chloride 99 Carbon Dioxide 29 BUN 23 D Creatinine 1.05 Glucose 199 H Calcium 8.3 L - ABG Interpretation ABG results: PT/INR, D-dimer PT 24.4 Seconds (9.4-12.1) H 06/09/16 16:51 Consult Discharge Plan - Plan Referrals: Zafar Gutierrez DO [Primary Care Provider] - (web request sent on 06/10/16)
--- NOTE | 2016-06-10 18:22 | Electrocardiograph Report ---
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
[2016-06-10] MEDS: Budesonide/Formoterol 160/4.5 MDI IH SCH (20:27)
[2016-06-11 06:33] LABS: Basophils % 0.1 %; Hematocrit 31.8 % (37.5-50.1); Hemoglobin 10.4 g/dL (12.9-16.9); Lymphocytes # 0.9 K/mcL (0.6-4.6); Lymphocytes % 4.1 %; Mean Corpuscular HGB Conc 32.7 g/dL (31.6-35.5); Mean Corpuscular Hemoglobin 31.5 pg (28.0-33.3); Mean Corpuscular Volume 96.4 fL (83.0-100.0); Mean Platelet Volume 10.9 fL (9.4-12.4); Monocytes # 0.9 K/mcL (0.0-1.3); Monocytes % 4.3 %; Neutrophils # 18.8 K/mcL (1.6-8.9); Platelet Count 260 K/mcL (140-400); Red Cell Distribution Width 15.8 % (11.5-14.5); Segmented Neutrophils % 90.5 %
[2016-06-11 06:46] LABS: BUN/Creatinine Ratio 31 (6-26); Blood Urea Nitrogen 30 mg/dL (8-26); Calcium 8.3 mg/dL (8.6-10.8); Carbon Dioxide 29 mEq/L (19-29); Chloride 100 mEq/L (98-109); Glucose 122 mg/dL (70-99); Magnesium 1.5 mg/dL (1.6-2.6); Osmolality,Calculated 301 (280-300); Potassium 4.1 mEq/L (3.5-4.5); Sodium 142 mEq/L (136-145); eGFR For African Americans > 60 (> 60); eGFR For Non-African Americans > 60 (> 60)
[2016-06-11 06:47] LABS: Phosphorous 4.1 mg/dL (2.3-4.7)
[2016-06-11] MEDS: Budesonide/Formoterol 160/4.5 MDI IH SCH (07:44)
[2016-06-11] MEDS ORDERED: Magnesium Sulfate 1 GM in D5% in Water 100 ML IVPB ONE (08:30)
[2016-06-11] MEDS: *HR* Rivaroxaban 10 MG TABLET PO SCH (08:54)
[2016-06-11] MEDS: Metoprolol XL (24 HR) Succ 25 MG TAB.ER.24H PO SCH (08:54)
[2016-06-11] MEDS: Furosemide 40 MG/4 ML VIAL IVP SCH (08:54)
[2016-06-11] MEDS: Aspirin 81 MG TAB.CHEW PO SCH (08:54)
[2016-06-11] MEDS: Diltiazem CD (24hr) 120 MG CAPSULE PO SCH (08:55)
[2016-06-11] MEDS: Finasteride 5 MG TABLET PO SCH (08:55)
[2016-06-11] MEDS ORDERED: Tiotropium 18 MCG inhalation IH SCH (10:00)
--- NOTE | 2016-06-11 11:04 | Discharge Summary ---
Date of Encounter: 06/11/16 Time of Encounter: 10:05 - Discharge Diagnosis (1) Acute exacerbation of CHF (congestive heart failure) Priority: Primary Status: Acute Qualifiers: Congestive heart failure type: diastolic Qualified Code(s): I50.33 - Acute on chronic diastolic (congestive) heart failure (2) Acute and chronic respiratory failure Priority: Primary Status: Resolved Qualifiers: Respiratory failure complication: hypoxia Qualified Code(s): J96.21 - Acute and chronic respiratory failure with hypoxia (3) Atrial fibrillation with rapid ventricular response Priority: Primary Status: Resolved (4) Pancreatic mass Priority: Secondary Status: Chronic (5) DVT prophylaxis Priority: Secondary Status: Acute (6) COPD (chronic obstructive pulmonary disease) Priority: Secondary Status: Chronic Qualifiers: COPD type: unspecified COPD Qualified Code(s): J44.9 - Chronic obstructive pulmonary disease, unspecified (7) Hypomagnesemia Priority: Secondary Status: Resolved - Discharge Medications Prescriptions: Furosemide [Lasix] 40 mg PO BID #30 tablet Home Medications: Albuterol Sulfate [Albuterol Inhaler] 2 puff IH Q4H PRN 06/04/15 [History] Aspirin 81 mg PO DAILY 06/04/15 [History] Atorvastatin [Lipitor] 40 mg PO HS 06/04/15 [History] Finasteride [Proscar] 5 mg PO DAILY 06/04/15 [History] Potassium Chloride [K-Tab ER] 20 meq PO DAILY 06/04/15 [History] Rivaroxaban [Xarelto] 20 mg PO DAILY 06/04/15 [History] Budesonide/Formoterol 80/4.5 [Symbicort 80/4.5] 2 puff IH BIDR 11/26/15 [ History] Diltiazem HCl [Diltiazem 24Hr Cd] 120 mg PO DAILY 11/26/15 [History] Tiotropium [Spiriva] 18 mcg IH DAILY 11/26/15 [History] Metoprolol XL (24 HR) Succ [Toprol Xl] 12.5 mg PO DAILY 30 Days 06/04/16 [Rx] Tamsulosin [Flomax] 0.4 mg PO DAILY 30 Days 06/04/16 [Rx] Furosemide [Lasix] 40 mg PO BID #30 tablet 06/11/16 [Rx] Allergies/Adverse Reactions: Allergies Penicillins Allergy (Verified 02/20/15 20:20) Hives Date of admission: 06/09/16 19:49 Primary care physician: Nasir Alva Consults: 06/11/16 00:48 Consult to Publications Distribution Clerk [CONS] Routine Reason for SW Consult: possible new HH or ECF set up 06/11/16 00:49 OT [Consult to Occupational Therapy] [CONS] Routine Comment: Evaluate, develop and implement POC PT [Consult to Physical Therapy] [CONS] Routine Comment: Evaluate, develop and implement POC Discharging clinician: Courtney Kemp Anticipated date of discharge: 06/11/16 - Patient Status Disposition: Home Health Service Condition: Good Functional capacity at discharge: uses cane/walker Overall status at discharge: patient is back to baseline - Discharge Instructions Follow Up With: Zafar Gutierrez DO [Primary Care Provider] - 06/18/16 11:30 am () Forms: ED Satisfaction Letter Additional Instructions: Please follow-up with your primary care physician within one week after discharge from the hospital. 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 Please follow-up with your oncologist as per your previous scheduled appointment. Your home dose of Lasix has been increased to 40 mg twice a day. Please take this medication as prescribed. Please inform your primary care physician of this change. Your primary care physician will be able to readdress this medication during your follow-up appointment. Resume all other medications as prescribed by her primary care physician. - Diet and Activity Activity: resume usual activities as tolerated, wear oxygen at all times Diet: low salt diet Hospital course: Mr. Martin is a 81 year old male with a history of chronic respiratory failure from COPD/Heart failure and recent admission for obstructive jaundice from pancreatic head mass comes in with worsening shortness of breath. Patient was further admitted for acute respiratory failure secondary to CHF decompensation. He was started on aggressive IV diuresis to which he responded appropriately. Upon arrival he was noted to have A. fib with RVR with rate poorly controlled, which improved with improvement of his CHF exacerbation symptoms. Patient has known history of chronic leukocytosis and is currently being worked up by oncology for his pancreatic mass. He remained asymptomatic without demonstrating any acute signs of infectious etiology. He responded well to diuretic therapy and is currently in no respiratory distress. He will be discharged to home with increase in his diuretic therapy and a follow-up with his primary care physician, oncology, and cardiology. Patient demonstrates understanding of his diagnosis and agrees with the discharge care and plan - Time Spent with Patient Total time spent providing and/or coordinating discharge services: Less than 30 minutes - Constitutional Vitals: Temp Pulse Resp BP Pulse Ox 97.6 F 88 16 103/64 99 06/11/16 08:19 06/11/16 08:19 06/11/16 08:19 06/11/16 08:19 06/11/16 08:19 General appearance: Present: cooperative, A&O X 3, pleasant, no acute distress, answers questions appropriately - Head Head exam: Present: atraumatic, normocephalic - Eye Eye exam: Present: normal appearance, conjuntiva pink, sclera anicteric - Respiratory Respiratory exam: Present: CTAB. Absent: accessory muscle use, rales, rhonchi, wheezes - Cardiovascular Cardiovascular exam: Present: RRR, +S1, +S2. Absent: diastolic murmur, gallop, rubs, systolic murmur - GI/Abdominal GI/Abdominal exam: Present: normal bowel sounds, soft, no peritoneal signs. Absent: distended, tenderness - Extremities Exam Extremities exam: Present: pedal edema, warm, radial pulses palpable and symetrical. Absent: calf tenderness, cyanotic - Neurological Exam Neurological exam: Present: alert, oriented X3 - Psychiatric Psychiatric exam: Present: normal affect, normal mood
--- NOTE | 2016-06-11 11:11 | Physician Discharge Referral ---
Home Health/Hosp Referral Info Transfer to: Home Health Provider in Charge Post Discharge: PCP - Diagnosis (1) Acute exacerbation of CHF (congestive heart failure) Priority: Primary Status: Acute (2) Acute and chronic respiratory failure Priority: Primary Status: Resolved (3) Atrial fibrillation with rapid ventricular response Priority: Primary Status: Resolved (4) Pancreatic mass Priority: Secondary Status: Chronic (5) DVT prophylaxis Priority: Secondary Status: Acute (6) COPD (chronic obstructive pulmonary disease) Priority: Secondary Status: Chronic (7) Hypomagnesemia Priority: Secondary Status: Resolved - Respiratory Orders Smoking Cessation: Smoking cessation has been advised. For more information, call the [place] Tobacco Quit Line at 4-425-UCTY-NOW. - Services Needed Following services are medically necessary services: Nursing, Home Health Aide, Physical Therapy, Occupational Therapy - Transfer Medications Prescriptions: Furosemide [Lasix] 40 mg PO BID #30 tablet Home Medications: Albuterol Sulfate [Albuterol Inhaler] 2 puff IH Q4H PRN 06/04/15 [History] Aspirin 81 mg PO DAILY 06/04/15 [History] Atorvastatin [Lipitor] 40 mg PO HS 06/04/15 [History] Finasteride [Proscar] 5 mg PO DAILY 06/04/15 [History] Potassium Chloride [K-Tab ER] 20 meq PO DAILY 06/04/15 [History] Rivaroxaban [Xarelto] 20 mg PO DAILY 06/04/15 [History] Budesonide/Formoterol 80/4.5 [Symbicort 80/4.5] 2 puff IH BIDR 11/26/15 [ History] Diltiazem HCl [Diltiazem 24Hr Cd] 120 mg PO DAILY 11/26/15 [History] Tiotropium [Spiriva] 18 mcg IH DAILY 11/26/15 [History] Metoprolol XL (24 HR) Succ [Toprol Xl] 12.5 mg PO DAILY 30 Days 06/04/16 [Rx] Tamsulosin [Flomax] 0.4 mg PO DAILY 30 Days 06/04/16 [Rx] Furosemide [Lasix] 40 mg PO BID #30 tablet 06/11/16 [Rx] Allergies/Adverse Reactions: Allergies Penicillins Allergy (Verified 02/20/15 20:20) Hives Certification: Further, I certify that my clinical findings support that this patient is homebound (i.e. absences from home require considerable and taxing effort and are for medical reasons or gnosticist services or infrequently or short duration when for other reasons) because: Homebound Reason: Patient requires assistance of a person or device to safely leave home Attestation: My signature below is to certify that this patient is under my care and that I, or nurse practitioner, or a physician's restaurant assistant manager working with me, has a face-to -face encounter with this patient.
[2016-06-11 12:20] VITALS: BP 107/63
== END 2016-06-11 13:15 | disposition home health service (06) | DRG 291 ==
LOC: 2ANU 16:44 → EMEROO 16:44 → 2ANU 20:25
PROVIDERS: ADMIT Family Medicine; ATTEND Internal Medicine

== ENCOUNTER 2016-08-01 11:12 | Inpatient (IN) ==
--- NOTE | 2016-08-01 11:23 | Emergency Department Note ---
Disposition Clinical Impression: Chest pain Qualifiers: Chest pain type: unspecified Qualified Code(s): R07.9 - Chest pain, unspecified Disposition: Admitted As Inpatient Condition: Fair Referrals: NO,PCP [Non-Partnered Physician] - Forms: ED Satisfaction Letter Time of Disposition: 13:59 Chest Pain HPI - General Chief Complaint: ED Chest Pain Stated Complaint: Chest pain Time Seen by Provider: 08/01/16 11:18 Source: patient, EMS Mode of arrival: EMS Limitations: no limitations Vital Signs Reviewed: Yes Nursing Notes Reviewed: Yes - History of Present Illness HPI Narrative: 81-year-old who has a history of pancreatic cancer is undergoing radiation therapy for treatment who comes in with chest pain began yesterday. Arrives it is across his chest and into his back. 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 Duration: constant Pain Location: substernal, left chest Severity: moderate, severe Quality: aching, sharp Pain Radiation: back Improves with: nothing Worsens with: nothing Context: other (Cancer history) Treatments prior to arrival chest pain: none - Related Data Home Medications Medication Instructions Recorded Confirmed Albuterol Sulfate [Albuterol 2 puff IH Q4H PRN 06/04/15 07/23/16 Inhaler] Aspirin 81 mg PO DAILY 06/04/15 07/23/16 Atorvastatin [Lipitor] 40 mg PO HS 06/04/15 07/23/16 Finasteride [Proscar] 5 mg PO DAILY 06/04/15 07/23/16 Potassium Chloride [K-Tab ER] 20 meq PO DAILY 06/04/15 07/23/16 Rivaroxaban [Xarelto] 20 mg PO DAILY 06/04/15 07/23/16 Budesonide/Formoterol 80/4.5 2 puff IH BIDR 11/26/15 07/23/16 [Symbicort 80/4.5] Tiotropium [Spiriva] 18 mcg IH DAILY 11/26/15 07/23/16 Doxazosin [Cardura] 1 mg PO DAILY 06/12/16 07/23/16 Previous Rx's Medication Instructions Recorded Furosemide [Lasix] 40 mg PO BID #30 tablet 06/11/16 Omeprazole [PriLOSEC] 20 mg PO DAILY #90 cap 06/19/16 Oxycodone HCl/Acetaminophen 1 each PO Q4-6H PRN #90 tablet 06/19/16 [Percocet 5-325 mg Tablet] Ondansetron [Zofran] 8 mg PO TID PRN #60 tablet 07/08/16 Allergies Allergy/AdvReac Type Severity Reaction Status Date / Time Penicillins Allergy Hives Verified 06/12/16 17:57 All systems ED: reviewed and negative except as stated. Constitutional: Denies: fever, chills, weakness, weight change Eyes: Denies: eye pain, eye discharge, vision change ENT ED: Denies: ear pain, throat pain, dental pain, hearing loss, epistaxis, congestion, dysphagia Cardiovascular: Reports: chest pain. Denies: palpitations, dyspnea on exertion , edema, syncope Respiratory: Denies: cough, dyspnea, wheezes, hemoptysis, stridor Gastrointestinal: Denies: abdominal pain, nausea, vomiting, diarrhea, constipation, hematemesis, melena, hematochezia Genitourinary: Denies: urgency, dysuria, frequency, hematuria Musculoskeletal: Denies: back pain, neck pain, arthralgia, myalgia Integumentary: Denies: rash, abrasion, lesions Neurological: Denies: headache, weakness, numbness, paresthesias, confusion, abnormal gait, vertigo Psychiatric: Denies: anxiety, depression, suicidal thoughts, homicidal thoughts , auditory hallucinations, visual hallucinations Endocrine: Denies: fatigue Hematological/Lymphatic: Denies: easy bleeding, easy bruising Allergic/Immunologic: Denies: facial swelling, urticaria Chest Pain PMH - Past Medical History Medical history: Reports: arthritis, atrial fibrillation (Paroxysmal A-fib s/p pacemaker, on Cardizem & Xarelto), cancer, COPD, DVT, hyperlipidemia, hypertension, myocardial infarction Surgical history: Reports: angioplasty/stent (PCI to RCA in 2001), herniorrhaphy , orthopedic, other (Right rotator cuff), pacemaker/AICD Psychiatric history: Reports: anxiety, depression - Social History Smoking Status: Former smoker Alcohol use: Reports: none Drug use: Reports: none Physical Exam - General Limitations: no limitations General appearance: alert, in no apparent distress - Head Head exam: atraumatic, normocephalic, normal inspection - Eye Eye exam: Present: normal appearance, PERRL, EOMI - ENT ENT exam: normal exam, normal oropharynx, mucous membranes moist - Neck Neck exam: Present: normal inspection, full ROM, trachea midline - Chest Chest inspection: Present: normal inspection, symmetric chest wall rise - Respiratory Respiratory exam: Present: normal lung sounds bilaterally - Cardiovascular Cardiovascular exam: Present: regular rate, normal rhythm, normal heart sounds - Abdominal Exam Abdominal exam: Present: soft, Non-Tender. Absent: tenderness, distention, guarding, rebound, rigidity - Extremities Exam Extremities exam: Present: normal inspection, full ROM. Absent: tenderness, pedal edema - Expanded Lower Extremity Exam Neurovascular/Tendon exam: Absent: motor deficit, sensory deficit, tendon deficit Gait: not tested/not observed - Back Exam Back exam: Present: normal inspection, full ROM. Absent: tenderness - Neurological Exam Neurological exam: Present: alert, oriented X3 - Psychiatric Psychiatric exam: Present: normal affect, normal mood - Skin Skin exam: Present: warm, dry, intact, normal color Course - Reevaluation(s) Reevaluation #1: 81-year-old comes in complaining of chest pain has a history of pancreatic cancer. Workup was negative for cardiac and pulmonary embolism. Does have multiple risk factors we'll admit for rule out. Time: 14:57 Vital Signs Temperature 97.3 F L 08/01/16 11:15 Pulse Rate 97 08/01/16 11:15 Respiratory Rate 18 08/01/16 11:15 Blood Pressure 148/105 08/01/16 11:15 O2 Sat by Pulse Oximetry 96 08/01/16 11:15 Temperature 97.3 F L 08/01/16 11:15 Pulse Rate 79 08/01/16 12:25 Respiratory Rate 18 08/01/16 12:25 Blood Pressure 116/70 08/01/16 12:25 O2 Sat by Pulse Oximetry 97 08/01/16 12:25 Oxygen Delivery Oxygen Delivery Nasal Cannula Chest Pain - Lab Data Result diagrams: 08/01/16 11:42 08/01/16 11:42 Lab Results 08/01/16 08/01/16 08/01/16 Range/Units 11:42 11:42 11:42 WBC 9.7 (4.3-11.1) K/mcL RBC 4.27 (4.19-5.50) M/mcL Hgb 13.1 (12.9-16.9) g/dL Hct 40.0 (37.5-50.1) % MCV 93.7 (83.0-100.0) fL MCH 30.7 (28.0-33.3) pg MCHC 32.8 (31.6-35.5) g/dL RDW 13.9 (11.5-14.5) % Plt Count 194 (140-400) K/mcL MPV 9.9 (9.4-12.4) fL Immature Gran % 0.7 (0-4) % Seg Neutrophils % 87.3 % Lymphocytes % 4.6 % Monocytes % 6.7 % Eosinophils % 0.5 % Basophils % 0.2 % Neutrophils # 8.5 (1.6-8.9) K/mcL Lymphocytes # 0.5 L (0.6-4.6) K/mcL Monocytes # 0.7 (0.0-1.3) K/mcL Eosinophils # 0.1 (0.0-0.6) K/mcL Basophils # 0.0 (0.0-0.2) K/mcL PT 21.5 H (9.4-12.1) Seconds INR 2.0 APTT 39.3 H (26.0-36.0) Seconds D-Dimer 782 H (0-500) ng/mLFEU Sodium (136-145) mEq/L Potassium (3.5-4.5) mEq/L Chloride (98-109) mEq/L Carbon Dioxide (19-29) mEq/L BUN (8-26) mg/dL Creatinine (0.72-1.25) mg/dL Est GFR ( Amer) (> 60) Est GFR (Non-Af Amer) (> 60) BUN/Creatinine Ratio (6-26) Glucose (70-99) mg/dL Calculated Osmolality (280-300) Calcium (8.6-10.8) mg/dL Troponin I (0-0.03) ng/mL B-Natriuretic Peptide 511 H (0-100) pg/mL 08/01/16 08/01/16 Range/Units 11:42 11:42 WBC (4.3-11.1) K/mcL RBC (4.19-5.50) M/mcL Hgb (12.9-16.9) g/dL Hct (37.5-50.1) % MCV (83.0-100.0) fL MCH (28.0-33.3) pg MCHC (31.6-35.5) g/dL RDW (11.5-14.5) % Plt Count (140-400) K/mcL MPV (9.4-12.4) fL Immature Gran % (0-4) % Seg Neutrophils % % Lymphocytes % % Monocytes % % Eosinophils % % Basophils % % Neutrophils # (1.6-8.9) K/mcL Lymphocytes # (0.6-4.6) K/mcL Monocytes # (0.0-1.3) K/mcL Eosinophils # (0.0-0.6) K/mcL Basophils # (0.0-0.2) K/mcL PT (9.4-12.1) Seconds INR APTT (26.0-36.0) Seconds D-Dimer (0-500) ng/mLFEU Sodium 137 (136-145) mEq/L Potassium 3.8 (3.5-4.5) mEq/L Chloride 94 L (98-109) mEq/L Carbon Dioxide 31 H (19-29) mEq/L BUN 18 (8-26) mg/dL Creatinine 1.07 (0.72-1.25) mg/dL Est GFR ( Amer) > 60 (> 60) Est GFR (Non-Af Amer) > 60 (> 60) BUN/Creatinine Ratio 17 (6-26) Glucose 168 H (70-99) mg/dL Calculated Osmolality 290 (280-300) Calcium 9.2 (8.6-10.8) mg/dL Troponin I 0.03 (0-0.03) ng/mL B-Natriuretic Peptide (0-100) pg/mL Heart Score - Score History: Moderately Suspicious EKG: Non Specific repolarisation Disturbance Age: Greater than 65 Risk Factors: Equal/Greater than 3 risk factor or history of atherosclerotic disease Troponin: Less than normal limit HEART Score Total: 6
[2016-08-01 11:51] LABS: Basophils % 0.2 %; Eosinophils # 0.1 K/mcL (0.0-0.6); Eosinophils % 0.5 %; Hemoglobin 13.1 g/dL (12.9-16.9); Immature Granulocytes % 0.7 % (0-4); Lymphocytes # 0.5 K/mcL (0.6-4.6); Lymphocytes % 4.6 %; Mean Corpuscular HGB Conc 32.8 g/dL (31.6-35.5); Mean Corpuscular Hemoglobin 30.7 pg (28.0-33.3); Mean Corpuscular Volume 93.7 fL (83.0-100.0); Mean Platelet Volume 9.9 fL (9.4-12.4); Monocytes # 0.7 K/mcL (0.0-1.3); Monocytes % 6.7 %; Neutrophils # 8.5 K/mcL (1.6-8.9); Platelet Count 194 K/mcL (140-400); Red Blood Count 4.27 M/mcL (4.19-5.50); Red Cell Distribution Width 13.9 % (11.5-14.5); Segmented Neutrophils % 87.3 %
[2016-08-01] MEDS ORDERED: Cefepime HCl 2,000 MG in D5% in Water (Mini-Bag+) 100 ML IVPB SCH (11:55)
[2016-08-01 11:57] LABS: Prothrombin Time 21.5 Seconds (9.4-12.1)
[2016-08-01 11:59] LABS: Activated Partial Thrombo Time 39.3 Seconds (26.0-36.0)
[2016-08-01 12:04] LABS: BUN/Creatinine Ratio 17 (6-26); Blood Urea Nitrogen 18 mg/dL (8-26); Calcium 9.2 mg/dL (8.6-10.8); Carbon Dioxide 31 mEq/L (19-29); Chloride 94 mEq/L (98-109); Glucose 168 mg/dL (70-99); Osmolality,Calculated 290 (280-300); Potassium 3.8 mEq/L (3.5-4.5); Sodium 137 mEq/L (136-145); eGFR For African Americans > 60 (> 60); eGFR For Non-African Americans > 60 (> 60)
[2016-08-01] MEDS ORDERED: *HR* Morphine 2 MG/ML SYRINGE IVP ONE (14:12)
[2016-08-01] MEDS ORDERED: Ondansetron 4 MG/2 ML VIAL IVP ONE (14:12)
[2016-08-01] MEDS ORDERED: *HR* OxyCODONE/APAP 5/325 TABLET PO PRN (16:29)
[2016-08-01] MEDS ORDERED: Ondansetron ODT 4 MG TAB.RAPDIS PO PRN (16:29)
[2016-08-01] MEDS ORDERED: Naloxone 0.4 MG/ML INJ IVP PRN (16:33)
[2016-08-01] MEDS ORDERED: *HR* Morphine 2 MG/ML SYRINGE IVP PRN (16:33)
--- NOTE | 2016-08-01 16:45 | Internal Med History&Physical ---
Date of Encounter: 08/01/16 Time of Encounter: 17:30 Assessment and Plan (1) Atrial fibrillation with rapid ventricular response Current visit: Yes Status: Acute 1 patient presented today with chest pain initial EKG showed atrial fibrillation with a controlled rate of 90. Upon assessment patient was in A. fib RVR with heart rate 130s to 180s he denies any chest pain or shortness of breath at that time. Blood pressure/stable. Patient given 500 fluid bolus as well as metoprolol Cardizem IV push and digoxin IV push. Rate back down to 80s atrial fib for pressure stable. . Patient seems a little intravascularly dry. We will be cautious with IV fluids due to history of CHF. Patient was shivering We will obtain a urinalysis to rule out any infectious process that may be contributory blood cultures have been obtained continue to monitor CBC closely monitor intake and output daily weight patient does have a pacemaker 2 consult to cardiology I did speak with Dr. Clayton of [facility] patient's condition he is aware and will see patient 3 we will continue patient's home dose of Cardizem. We will give 2.5 of metoprolol IV every 6 hours for heart rate greater than 160 when necessary 4 continuous cardiac monitoring 5 he is on xarelto which we will continue (2) Chest pain Current visit: Yes Status: Acute 1 patient is complaining of chest pain today which shortness of breath and nausea. He does have a history of atrial fibrillation as well as coronary artery disease stent placement 2001, hypertension hyperlipidemia. He did go into a episode of A. fib RVR, he was hemodynamically stable during that this could also be contributed factor to his chest pain first cardio troponin was negative we will continue to cycle cardiac troponins 2. Consult to cardiology 3 continue with aspirin 4 we will obtain echocardiogram Qualifiers: Chest pain type: unspecified Qualified Code(s): R07.9 - Chest pain, unspecified (3) CHF (congestive heart failure) Current visit: No Status: Chronic 1 last echo was in February 2016. At times EF was 40% with moderate diastolic dysfunction. Presently patient is in A. fib RVR-patient given 500 fluid bolus which did improve rate we will be cautious with IV fluid and hold Lasix tonight 2 monitor intake and output daily weights 3 low-sodium diet Qualifiers: Congestive heart failure type: unspecified congestive heart failure type Congestive heart failure chronicity: acute Qualified Code(s): I50.9 - Heart failure, unspecified (4) Cancer of head of pancreas Current visit: No Status: Suspected (5) COPD (chronic obstructive pulmonary disease) Current visit: No Status: Chronic 1 is that he appears to be stable we will continue with oxygen as needed as well as bronchodilators as needed Qualifiers: COPD type: unspecified COPD Qualified Code(s): J44.9 - Chronic obstructive pulmonary disease, unspecified (6) Pancreatic cancer Current visit: No Status: Chronic 1 A she is being treated as outpatient per oncology he has received 5 rounds of radiation and completed his last dose this past Wednesday we will have patient follow-up with oncology as outpatient and console as needed Qualifiers: Pancreatic malignancy location: head of pancreas Qualified Code(s): C25.0 - Malignant neoplasm of head of pancreas (7) DVT prophylaxis Current visit: No Status: Acute 1 patient is on Xarelto Internal Medicine - H&P: HPI Chief complaint: Chest pain Admitted From: Emergency Dept Plans for Post Hospital Care: Home History of present illness: Mr. Martin is a 81 year old male past medical history of coronary artery disease stent placement 2002 hypertension CHF pancreatic cancer receiving radiation treatment chronic atrial fibrillation COPD. According to the patient he awoke this a.m. experiencing midsternal sharp constant chest pain radiating to his mid back. He admits to associated symptoms of shortness of breath nausea diaphoresis. There were no aggravating factors he was transported to ER for evaluation. Upon arrival to the ER patient's EKG did demonstrate atrial fibrillation controlled rate 90. He was given morphine which did relieve his chest pain CTA was performed which showed no pulmonary emboli or cardiovascular concerns. Blood cultures were obtained lab work revealed BNP of 511 leukocytosis. He is admitted for further work up evaluation. Upon assessment noted patient's atrial fibrillation on the monitor with a rate of 130s patient denies any chest pain shortness of breath. Lung sounds with crackles in the bases bilaterally heart sounds irregular S1-S2 with no rubs Clink gallops murmurs noted abdomen soft nontender no pedal edema noted. Upon arrival to patient's heart rate continues to be 130s to 140s ordered 500 mL bolus of normal saline as well as 2.5 of metoprolol IV push. Approximately 45 minutes later rapid response was called. Dr. Thomason and myself responded. At bedside patient's heart rate this time was 180 atrial fibrillation he continues to be chest pain-free. Patient had not received his fluid bolus / medication.Patient appeared intravascularly dry Immediately gave 500 .9 normal saline as well as 2.[address] Thomason order 20 diltiazem IV push. Heart rate coming down to 120s. Given .25 of digoxin IV push. Heart rate down to 90s blood pressure stable systolic 111. Patient was shivering concern for infectious process blood cultures have been obtained urinalysis will be obtained Patient's transfer to [address] [place] [address] for close observation, will administer when necessary metoprolol and heart rate not controlled will place on low dose Cardizem drip I did speak with Dr. Clayton cardiology informed him of consult he will see patient and he is aware of condition. Presently patient rate in the 80s blood pressure 116/80 Past Med Surg Social Fam HX - Past Medical History Medical history: arthritis, atrial fibrillation (Paroxysmal A-fib s/p pacemaker , on Cardizem & Xarelto), cancer, COPD, DVT, hyperlipidemia, hypertension, myocardial infarction Psychiatric history: anxiety, depression - Past Surgical History Surgical History: angioplasty/stent (PCI to RCA in 2001), herniorrhaphy, orthopedic, other (Right rotator cuff), pacemaker/AICD - Social History Smoking Status: Former smoker Smokeless Tobacco Status: No Alcohol use: none Drug use: none - Family History Mother Living Status: Hx Family Cancer: Yes Sister Adopted: No Living Status: Hx Family Cardiac Disorders: Yes (sister, father) Hx Family Respiratory Disorders: No Hx Family Cancer: Yes Hx Family GI Disorders: No Hx Family Endocrine Disorder: No Hx Family Neuromuscular Disorders: No Hx Family Neurologic Disorders: No Hx Family HEENT Disorders: No Hx Family Autoimmune Disorders: No Brother Adopted: No Family Member Ethnicity: Non- Living Status: Still Living Hx Family Cardiac Disorders: Yes ([place]) Hx Family Respiratory Disorders: No Hx Family Cancer: No Hx Family GI Disorders: No Hx Family Endocrine Disorder: No Hx Family Neuromuscular Disorders: No Hx Family Neurologic Disorders: No Hx Family HEENT Disorders: No Hx Family Autoimmune Disorders: No Father Living Status: Hx Family Cardiac Disorders: Yes (MYOCARDIAL INFARCTION.) Hx Family Respiratory Disorders: No Hx Family Cancer: No Hx Family GI Disorders: No Hx Family Endocrine Disorder: No Hx Family Neuromuscular Disorders: No Hx Family Neurologic Disorders: Yes (Stroke) Hx Family HEENT Disorders: No Hx Family Autoimmune Disorders: No Internal Medicine - H&P: Meds Albuterol Sulfate [Albuterol Inhaler] 2 puff IH Q4H PRN 06/04/15 [History] Aspirin 81 mg PO DAILY 06/04/15 [History] Atorvastatin [Lipitor] 20 mg PO HS 06/04/15 [History] Potassium Chloride [K-Tab ER] 20 meq PO DAILY 06/04/15 [History] Budesonide/Formoterol 80/4.5 [Symbicort 80/4.5] 2 puff IH BIDR 11/26/15 [ History] Tiotropium [Spiriva] 18 mcg IH DAILY 11/26/15 [History] Furosemide [Lasix] 40 mg PO BID #30 tablet 06/11/16 [Rx] Omeprazole [PriLOSEC] 20 mg PO DAILY #90 cap 06/19/16 [Rx] Oxycodone HCl/Acetaminophen [Percocet 5-325 mg Tablet] 1 each PO Q4-6H PRN #90 tablet 06/19/16 [Rx] Ondansetron [Zofran] 8 mg PO TID PRN #60 tablet 07/08/16 [Rx] Diltiazem CD (24hr) [Cardizem CD] 120 mg PO DAILY 08/01/16 [History] Rivaroxaban [Xarelto] 20 mg PO DAILY 08/01/16 [History] Allergies Penicillins Allergy (Verified 08/01/16 15:27) Hives All Systems PM: A 10-system review of systems was performed and is negative for pertinent findings except as documented above in the HPI. - Constitutional Constitutional: weight loss, no chills, no fever(s), no night sweats - EENT Eyes: no change in vision, no discharge, no pain, no photophobia Nose, mouth and throat: no dysphagia, no nasal discharge, no neck pain, no sore throat - Cardiovascular Cardiovascular ROS IM: chest pain, dyspnea, no diaphoresis, no lightheadedness, no palpitations, no syncope - Respiratory Respiratory: no cough, no dyspnea, no wheezing, no excessive phlegm production - Gastrointestinal Gastrointestinal: nausea, no abdominal pain, no diarrhea, no hematemesis, no hematochezia, no melena, no vomiting - Musculoskeletal Musculoskeletal ROS IM: no numbness, no tingling - Integumentary Integumentary IM: no rash, no unusual bruising - Neurological Neurological ROS: no confusion, no convulsions, no focal weakness, no numbness, no tingling, no tremor(s) - Hematologic/Lymphatic Hematologic/Lymphatic: no easy bruising - Constitutional Vitals: Temp Pulse Resp BP Pulse Ox 97.4 F L 79 16 117/68 97 08/01/16 16:30 08/01/16 12:25 08/01/16 16:30 08/01/16 16:30 08/01/16 12:25 General appearance: Present: A&O X 3, underweight, answers questions appropriately - Head Head exam: Present: atraumatic, normocephalic - Eye Eye exam: Present: PERRL, conjuntiva pink, sclera anicteric - Neck Neck exam general surgery: Present: supple, trachea midline. Absent: lymphadenopathy - Respiratory Respiratory exam: Present: rales. Absent: accessory muscle use, rhonchi, wheezes - Cardiovascular Cardiovascular exam: Present: irregular rhythm, +S1, +S2. Absent: diastolic murmur, gallop, rubs, systolic murmur - GI/Abdominal GI/Abdominal exam: Present: normal bowel sounds, soft, no peritoneal signs. Absent: distended, tenderness - Extremities Exam Extremities exam: Present: warm, radial pulses palpable and symetrical. Absent : calf tenderness, cyanotic, pedal edema - Neurological Exam Neurological exam: Present: CN II-XII intact, oriented X3, no focal deficits. Absent: pronater drift, facial droop, speech deficit - Skin Skin exam: Present: dry, intact Internal Med - H&P Results - Labs CBC & Chem 7: 08/01/16 11:42 08/01/16 11:42 - EKG Data EKG comments: 08/01/16 18:17 Atrial fibrillation - Diagnostic Studies Other Images Additional comments: Chest CTA 08/01/16 11:20 IMPRESSION: 1. Negative CT angiogram for acute pulmonary embolism. 2. No acute cardiopulmonary process identified. 3. Multiple foci of gas within the liver likely related to pneumobilia given the history of pancreatic cancer. 4. Severe cardiomegaly. D/ / 08/01/2016 13:45:20 Desean Bettencourt MD / maris Interpreting Provider: Desean Bettencourt MD
[2016-08-01] MEDS ORDERED: *HR* Metoprolol 5 MG/5 ML VIAL IVP ONE (16:57)
[2016-08-01] MEDS ORDERED: 0.9 % Sodium Chloride 1,000 ML IVC SCH (17:00)
[2016-08-01] MEDS ORDERED: *HR* Digoxin 0.5 MG/2 ML AMPUL IVP ONE ×2 (17:42→21:06)
[2016-08-01] MEDS ORDERED: *HR* Metoprolol 5 MG/5 ML VIAL IVP PRN (17:44)
--- NOTE | 2016-08-01 18:26 | Event Note ---
Date of Encounter: 08/01/16 Time of Encounter: 18:15 I examined this patient and my medical decision-making was reviewed with the Advanced Practice Nurse. I agree with the documented findings, disposition and treatment plan as described except to the extent set forth below. Patient presented to the hospital with chest pain. Initially appeared in no acute distress. Heart was irregular and tachycardic S1 and S2 with no murmurs. Lungs are clear. Plan: Place patient in observation. Trend troponin. Rule out ACS. Consider stress testing in the morning. Update: Patient became more and more tachycardic and heart rate went as high as 160 and sustained above 140. A rapid response was called and I have re- evaluated the patient the bedside. Heart rhythm is A. fib in the 150s on the monitor. He denies chest pain. He is shivering complaining of being cold. I ordered and administered 2.5 mg of IV metoprolol. His heart rate did not improve. We started IV fluids as the patient appears to be intravascularly dry. This failed to control his heart rate. Next we administered 15 mg of diltiazem which brought the heart rate down and the 95-120 range. The patient does have a history of systolic and diastolic heart failure with an ejection fraction of 40% and therefore I would be reluctant to start him on diltiazem drip. We will give digoxin loading dose and continue monitoring on telemetry. If this fails to achieve rate control we will consider low-dose diltiazem drip. Sepsis is also a consideration although there is no source of infection at this time. Given the rigors I will send screening blood cultures. We will monitor temperature curve. Monitor WBC trend. Hold antibiotics. Trend troponin to rule out ACS. We will transfer the patient to a telemetry unit. His CODE STATUS is DNR CCA DNI The patient is hemodynamically unstable and there is high probability of emergent and significant clinical decompensation with potential impairment of organ function including cardiovascular system. I spent 40 minutes of critical care time which involved decision making of high complexity to assess, manipulate, and support vital organ system, in order to prevent further life threatening deterioration of the patient's condition. The critical care time was spent in the patient's room and involved obtaining updated history and examining the patient, reviewing EKGs, imaging studies and laboratory data, ordering medications and laboratory studies, and reevaluating for clinical response. The patient's condition has been worsening after he was placed in observation. I expect that he will require hospitalization for at least 3 days for heart rate control and cardio vascular workup and treatment of this condition. I will change his status to inpatient admission.
[2016-08-01] MEDS: Budesonide/Formoterol 80/4.5 MDI IH SCH (20:01)
[2016-08-01 20:45] LABS: Bilirubin,Urine Negative (Negative); Blood,Urine Negative (Negative); Clarity,Urine Clear (Clear); Color,Urine Yellow (Yellow); Glucose,Urine (UA) Normal (Normal); Ketones,Urine Negative (Negative); Leukocyte Esterase,Urine Negative (Negative); Nitrite,Urine Negative (Negative); PH,Urine 6.5 pH Units (5.0-8.0); Protein,Urine Negative (Neg-Trace); Specific Gravity,Urine 1.024 (1.010-1.025); Urobilinogen,Urine Normal (Normal)
[2016-08-01] MEDS ORDERED: Furosemide 20 MG TABLET PO SCH (21:00)
[2016-08-01] MEDS ORDERED: 0.9 % Sodium Chloride 500 ML IVC ONE (21:07)
[2016-08-01] MEDS ORDERED: Dextrose Gel 15 GM PO PRN ×2 (21:42)
[2016-08-01] MEDS ORDERED: D5% in Water 1,000 ML IVC PRN (21:42)
[2016-08-01] MEDS ORDERED: *HR* Dextrose 50 % in Water (Syg) 50 ML SYRINGE IVP PRN (21:42)
[2016-08-01 23:43] LABS: Enterococcus by PCR Not Detected (Not Detect); Staphylococcus aureus by PCR Not Detected (Not Detect); blaKPC Carbapenem-Resist Gene Not Detected (Not Detect); mecA Methicillin-Resist Gene Not Detected (Not Detect); vanA/B Vancomycin-Resist Genes Not Detected (Not Detect)
[2016-08-01 23:44] LABS: Acinetobacter baumannii by PCR Not Detected (Not Detect); Candida albicans by PCR Not Detected (Not Detect); Candida glabrata by PCR Not Detected (Not Detect); Candida krusei by PCR Not Detected (Not Detect); Candida parapsilosis by PCR Not Detected (Not Detect); Candida tropicalis by PCR Not Detected (Not Detect); Escherichia coli by PCR ***DETECTED*** (Not Detect); Klebsiella oxytoca by PCR Not Detected (Not Detect); Klebsiella pneumoniae by PCR Not Detected (Not Detect); Pseudomonas aeruginosa by PCR Not Detected (Not Detect); Serratia marcescens by PCR Not Detected (Not Detect); Streptococcus agalactiae(B)PCR Not Detected (Not Detect); Streptococcus by PCR Not Detected (Not Detect); Streptococcus pneumoniae PCR Not Detected (Not Detect); Streptococcus pyogenes (A) PCR Not Detected (Not Detect)
[2016-08-02] MEDS: Cefepime HCl 2,000 MG in D5% in Water (Mini-Bag+) 100 ML IVPB SCH ×3 (00:05→18:10)
[2016-08-02] MEDS: 0.9 % Sodium Chloride 1,000 ML IVC SCH ×2 (00:05→15:18)
[2016-08-02 00:46] LABS: Hematocrit 32.1 % (37.5-50.1); Mean Corpuscular HGB Conc 32.4 g/dL (31.6-35.5); Mean Corpuscular Hemoglobin 30.6 pg (28.0-33.3); Mean Corpuscular Volume 94.4 fL (83.0-100.0); Mean Platelet Volume 9.8 fL (9.4-12.4); Platelet Count 154 K/mcL (140-400); Red Cell Distribution Width 14.1 % (11.5-14.5)
[2016-08-02 00:47] LABS: Hemoglobin 10.4 g/dL (12.9-16.9)
[2016-08-02 01:02] LABS: Calcium 7.9 mg/dL (8.6-10.8); Chol/HDL Ratio 2.6 (0-4.9); Potassium 3.8 mEq/L (3.5-4.5)
[2016-08-02 01:39] LABS: Lymphocytes # 1.1 K/mcL (0.6-4.6); Monocytes # 1.5 K/mcL (0.0-1.3); Neutrophils # 15.7 K/mcL (1.6-8.9); Platelet Estimate Normal (Normal); Reactive Lymphocytes Present (Not Present)
[2016-08-02 01:40] LABS: Macrocytosis Present (Not Present)
[2016-08-02] MEDS ORDERED: Insulin LISPRO 300 UNITS/3 ML VIAL SQ SCH ×2 (07:30→21:00)
--- NOTE | 2016-08-02 07:34 | Cardiology Consult Note ---
Date of Encounter: 08/02/16 Time of Encounter: 07:29 Assessment and Plan (1) Atrial fibrillation with RVR Current Visit: No Status: Acute Mr. Martin has a history of PAF on Xarelto. He presents with chest pain and symptoms concerning for sepsis. Found to have atrial fibrillation with RVR. He was given IV digoxin due to hypotension and known cardiomyopathy. He was also given IV hydration. Heart rate improved and is now 70s to 80s. Atrial fibrillation with occasional ventricular pacing. Occasional PVC and a few couplets and 4 gm seen. I will discuss converting IV digoxin to oral vs starting low dose beta-tonya with known cardiomyoapthy and PVC. B/p improving this morning. Magnesium 1.4- replace. Continue xarelto. (2) CAD (coronary artery disease) Current Visit: No Status: Chronic History of remote [place] and PCI to the RCA. Continue aspirin, statin. No bb d/t hypotension. Chest pain likely related to afib. Mild troponin 0.05 demand ischemia in the setting of afib with RVR, fever, and CLOVIS. Continue medical management. Qualifiers: Coronary Disease-Associated Artery/Lesion type: unspecified vessel or lesion type [place] vs. transplanted heart: [place] heart Associated angina: without angina Qualified Code(s): I25.10 - Atherosclerotic heart disease of [place] coronary artery without angina pectoris Discussion w patient/family: The assessment and plan as outlined above was discussed with the patient and/or family members who expressed understanding and agreement. All questions were answered. Thank you for involving us in the care of your patient. Please call with any questions. History of Present Illness Consult date: 07/26/16 Requesting physician: Michael Thomason Consult reason: afib with RVR Chief complaint: Chest pain History of present illness: Mr. 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 He was found to have atrial fibrillation with RVR in the setting of hypotension. He was given IV digoxin. Cardiology was consulted for further evaluation. He is also noted to have chills, T max 102.5, and leukocytosis and mild CLOVIS today. There are gram negative rods in his blood. He is being treated for sepsis and bacteremia. CTA of the chest was negative for PE. He does have severe cardiomegaly. Previous cardiac testing: TTE: EF 40%, mildly dilated LV. Moderate diastolic dysfunction. Atypical septal motion consistent with paced ryhthm, normal RV size and function, mild mitral regurgitation, no pulmonary hypertension. Stress test 2014: Positive for infarct with no ischemia. Gated EF 34% . Past Med Surg Social Fam HX - Past Medical History Medical history: arthritis, atrial fibrillation, cancer, CHF, COPD, DVT, hyperlipidemia, hypertension, myocardial infarction Psychiatric history: anxiety, depression - Past Surgical History Surgical History: angioplasty/stent, herniorrhaphy, orthopedic, other, pacemaker /AICD - Social History Smoking Status: Current every day smoker Packs per day: 0.5 Smokeless Tobacco Status: No Alcohol use: none Drug use: none - Family History Mother Living Status: Hx Family Cancer: Yes Sister Adopted: No Living Status: Hx Family Cardiac Disorders: Yes (sister, father) Hx Family Respiratory Disorders: No Hx Family Cancer: Yes Hx Family GI Disorders: No Hx Family Endocrine Disorder: No Hx Family Neuromuscular Disorders: No Hx Family Neurologic Disorders: No Hx Family HEENT Disorders: No Hx Family Autoimmune Disorders: No Brother Adopted: No Family Member Ethnicity: Non- Living Status: Still Living Hx Family Cardiac Disorders: Yes ([place]) Hx Family Respiratory Disorders: No Hx Family Cancer: No Hx Family GI Disorders: No Hx Family Endocrine Disorder: No Hx Family Neuromuscular Disorders: No Hx Family Neurologic Disorders: No Hx Family HEENT Disorders: No Hx Family Autoimmune Disorders: No Father Living Status: Hx Family Cardiac Disorders: Yes (MYOCARDIAL INFARCTION.) Hx Family Respiratory Disorders: No Hx Family Cancer: No Hx Family GI Disorders: No Hx Family Endocrine Disorder: No Hx Family Neuromuscular Disorders: No Hx Family Neurologic Disorders: Yes (Stroke) Hx Family HEENT Disorders: No Hx Family Autoimmune Disorders: No Medications and Allergies Albuterol Sulfate [Albuterol Inhaler] 2 puff IH Q4H PRN 06/04/15 [History] Aspirin 81 mg PO DAILY 06/04/15 [History] Atorvastatin [Lipitor] 20 mg PO HS 06/04/15 [History] Potassium Chloride [K-Tab ER] 20 meq PO DAILY 06/04/15 [History] Budesonide/Formoterol 80/4.5 [Symbicort 80/4.5] 2 puff IH BIDR 11/26/15 [ History] Tiotropium [Spiriva] 18 mcg IH DAILY 11/26/15 [History] Furosemide [Lasix] 40 mg PO BID #30 tablet 06/11/16 [Rx] Omeprazole [PriLOSEC] 20 mg PO DAILY #90 cap 06/19/16 [Rx] Oxycodone HCl/Acetaminophen [Percocet 5-325 mg Tablet] 1 each PO Q4-6H PRN #90 tablet 06/19/16 [Rx] Ondansetron [Zofran] 8 mg PO TID PRN #60 tablet 07/08/16 [Rx] Diltiazem CD (24hr) [Cardizem CD] 120 mg PO DAILY 08/01/16 [History] Rivaroxaban [Xarelto] 20 mg PO DAILY 08/01/16 [History] Allergies Penicillins Allergy (Verified 08/01/16 15:27) Hives All Systems Review: A 10-system review of systems was performed and is negative for pertinent findings except as documented above in the HPI. Physical Examination General: Conversant, No Apparent Distress HEENT: Atraumatic, Normocephaly, Mucus Membranes Moist Neck: No JVD, Normal carotid pulses Cardiac: Other (Irregularly irregular.) Lungs: Normal Breath Sounds, No Wheeze, Rales, Rhonchi Neuro: Alert and responsive, No focal deficits noted Abdomen: Soft, Non-Tender Skin: No rashes noted on visualized skin Musculoskeletal: No Chest Wall Tenderness Extremities: No Clubbing, No Cyanosis, No Edema, Normal Pulses Results 08/02/16 00:35 08/02/16 00:35 Lab Results 08/02/16 08/02/16 08/02/16 00:35 00:35 00:35 WBC 18.2 H D Hgb 10.4 L D Hct 32.1 L Plt Count 154 Sodium 137 Potassium 3.8 Chloride 100 Carbon Dioxide 28 BUN 20 Creatinine 1.38 H Glucose 141 H Calcium 7.9 L Magnesium 1.0 L Troponin I 0.05 H* - EKG Interpretation EKG results cardiology: personally reviewed (atrial fibrillation with RVR, HR 176.) Consult Discharge Plan - Plan Referrals: Zafar Gutierrez DO [Primary Care Provider] -
--- NOTE | 2016-08-02 07:57 | Internal Med Progress Note ---
Date of Encounter: 08/02/16 Time of Encounter: 08:00 - Assessment and plan (1) Sepsis Current Visit: Yes Status: Acute Assessment and plan: Blood culture with GNR, PCTR E.coli and enteroccocus Patient presented with Afib with RVR, fever, Leukocytosis this morning Likely source urine CXR is without infiltrates, no abdominal symptoms Started on Cefepime, continue same Follow final cultures INR is therapeutic No CLOVIS Lactate is normal Low normal BP, stable with gentle hydration Qualifiers: Sepsis type: Escherichia coli Qualified Code(s): A41.51 - Sepsis due to Escherichia coli [E. coli] (2) Gram-negative bacteremia Current Visit: Yes Status: Acute Assessment and plan: As above (3) COPD (chronic obstructive pulmonary disease) Current Visit: Yes Status: Chronic Assessment and plan: No symptoms/signs of exacerbation Continue nebs prn Home meds Qualifiers: COPD type: unspecified COPD Qualified Code(s): J44.9 - Chronic obstructive pulmonary disease, unspecified (4) CHF (congestive heart failure) Current Visit: Yes Status: Chronic Assessment and plan: EF 40%, known CMP Continue home meds On IVF, with caution Qualifiers: Congestive heart failure type: unspecified congestive heart failure type Congestive heart failure chronicity: acute Qualified Code(s): I50.9 - Heart failure, unspecified (5) Atrial fibrillation with RVR Current Visit: Yes Status: Acute Assessment and plan: Received IV cardizem, digoixn due to borderline BP HR controlled this am Digoxin has been held Continue BB cardiology following On Xarelto for anticoagulation (6) Cancer of head of pancreas Current Visit: No Status: Suspected (7) Chest pain Current Visit: Yes Status: Acute Assessment and plan: Possibly from Afib Qualifiers: Chest pain type: unspecified Qualified Code(s): R07.9 - Chest pain, unspecified - Subjective Interval history: 81 Y/O M with PMH of CAD s/p stents, COPD, HTN CHFrEF, pancreatic cancer receiving radiation treatment, chronic atrial fibrillationon anticoagulation Patient was admitted and being managed for afib with RVR and chest pain Hospital stay within a few hours of admission complicated by uncontrolled HR with hypotension, and rigors Blood culture is growing GNR -PCR detected Enterococcus and E.Coli, awaiting sensitivity and final culture Patient has been started on Cefepime in the meantime He required Digoxin for HR control due to his borderline low blood pressure, his diuretics/BB/CCB has been held Cardiology has been consulted He is febrile, T max 102.5 08/02/15 1630 He is seen and evaluated at bedside this morning - Constitutional Vitals: Temp Pulse Resp BP Pulse Ox 98.4 F 71 19 92/52 99 08/02/16 03:10 08/02/16 03:10 08/02/16 03:10 08/02/16 03:10 08/02/16 03:10 General appearance: Present: A&O X 3, pleasant, no acute distress, underweight, answers questions appropriately - Head Head exam: Present: atraumatic, normocephalic - Eye Eye exam: Present: PERRL, conjuntiva pink, sclera anicteric Pupils: Present: PERRL - Neck Neck exam general surgery: Present: supple, trachea midline. Absent: lymphadenopathy - Respiratory Respiratory exam: Present: CTAB. Absent: accessory muscle use, rales, rhonchi, wheezes Additional comments: PCM in-situ - Cardiovascular Cardiovascular exam: Present: RRR, +S1, +S2. Absent: diastolic murmur, gallop, rubs, systolic murmur - GI/Abdominal GI/Abdominal exam: Present: normal bowel sounds, soft, no peritoneal signs. Absent: distended, tenderness - Extremities Exam Extremities exam: Present: warm, radial pulses palpable and symetrical. Absent : calf tenderness, cyanotic, pedal edema - Neurological Exam Neurological exam: Present: alert, CN II-XII intact, oriented X3, no focal deficits. Absent: pronater drift, facial droop, speech deficit - Skin Skin exam: Present: dry, intact Internal Medicine: Result - Labs CBC & Chem 7: 08/02/16 00:35 08/02/16 00:35 Labs: Short CBC 08/02/16 Range/Units 00:35 WBC 18.2 H D (4.3-11.1) K/mcL Hgb 10.4 L D (12.9-16.9) g/dL Hct 32.1 L (37.5-50.1) % Plt Count 154 (140-400) K/mcL Neutrophils # 15.7 H (1.6-8.9) K/mcL BMP 08/02/16 00:35 Sodium 137 Potassium 3.8 Chloride 100 Carbon Dioxide 28 BUN 20 Creatinine 1.38 H Glucose 141 H Calcium 7.9 L Cardiac Enzymes 08/02/16 Range/Units 00:35 Troponin I 0.05 H* (0-0.03) ng/mL Urine 08/01/16 Range/Units 20:36 Urine Color Yellow (Yellow) Urine Clarity Clear (Clear) Urine pH 6.5 (5.0-8.0) pH Units Ur Specific [place] 1.024 (1.010-1.025) Urine Protein Negative (Neg-Trace) mg/dL Urine Glucose (UA) Normal (Normal) mg/dL - ABG Interpretation ABG results: PT/INR, D-dimer PT 21.5 Seconds (9.4-12.1) H 08/01/16 11:42 D-Dimer 782 ng/mLFEU (0-500) H 08/01/16 11:42 Consult Discharge Plan - Plan Referrals: Zafar Gutierrez DO [Primary Care Provider] -
[2016-08-02] MEDS: Aspirin 81 MG TAB.CHEW PO SCH (08:25)
[2016-08-02] MEDS: *HR* Rivaroxaban 15 MG TABLET PO SCH (08:25)
[2016-08-02] MEDS ORDERED: NON-FORMULARY MEDICATION 1 EACH EACH (Rivaroxaban [Xarelto] 20 MG) PO SCH (09:00)
[2016-08-02] MEDS ORDERED: *HR* Digoxin 0.5 MG/2 ML AMPUL IVP SCH (09:00)
[2016-08-02] MEDS ORDERED: Diltiazem CD (24hr) 120 MG CAPSULE PO SCH (09:00)
[2016-08-02] MEDS ORDERED: Magnesium Sulfate 2 GM in D5% in Water 100 ML IVPB ONE (09:08)
[2016-08-02] MEDS: Tiotropium 18 MCG inhalation IH SCH (11:34)
[2016-08-02] MEDS: Budesonide/Formoterol 80/4.5 MDI IH SCH ×2 (11:35→20:32)
[2016-08-02] MEDS: Metoprolol XL (24 HR) Succ 25 MG TAB.ER.24H PO SCH (15:17)
[2016-08-03] MEDS: Acetaminophen 325 MG TABLET PO PRN (00:10)
[2016-08-03 05:08] LABS: Basophils % 0.3 %; Eosinophils # 0.1 K/mcL (0.0-0.6); Eosinophils % 0.9 %; Hematocrit 32.5 % (37.5-50.1); Hemoglobin 10.7 g/dL (12.9-16.9); INR 2.2; Immature Granulocytes % 0.5 % (0-4); Lymphocytes # 0.9 K/mcL (0.6-4.6); Lymphocytes % 8.6 %; Mean Corpuscular HGB Conc 32.9 g/dL (31.6-35.5); Mean Corpuscular Hemoglobin 31.1 pg (28.0-33.3); Mean Corpuscular Volume 94.5 fL (83.0-100.0); Mean Platelet Volume 10.6 fL (9.4-12.4); Monocytes % 8.9 %; Platelet Count 134 K/mcL (140-400); Prothrombin Time 24.5 Seconds (9.4-12.1); Red Blood Count 3.44 M/mcL (4.19-5.50); Red Cell Distribution Width 14.4 % (11.5-14.5); Segmented Neutrophils % 80.8 %
[2016-08-03 05:17] LABS: Neutrophils # 8.8 K/mcL (1.6-8.9)
[2016-08-03 05:22] LABS: Alanine Aminotransferase 208 Units/L (0-55); Albumin 2.5 g/dL (3.5-5.0); Albumin/Globulin Ratio 0.8 (1.1-2.2); Alkaline Phosphatase 385 Units/L (38-126); Aspartate Amino Transferase 178 Units/L (5-34); BUN/Creatinine Ratio 20 (6-26); Bilirubin,Direct 1.3 mg/dL (0.0-0.5); Bilirubin,Indirect 0.5 mg/dL (0.0-1.2); Bilirubin,Total 1.8 mg/dL (0.2-1.2); Blood Urea Nitrogen 19 mg/dL (8-26); Calcium 8.3 mg/dL (8.6-10.8); Carbon Dioxide 27 mEq/L (19-29); Chloride 104 mEq/L (98-109); Globulin 3.2 g/dL (2.4-3.5); Glucose 99 mg/dL (70-99); Magnesium 1.4 mg/dL (1.6-2.6); Osmolality,Calculated 284 (280-300); Sodium 136 mEq/L (136-145); Total Protein 5.7 g/dL (6.0-8.3); eGFR For African Americans > 60 (> 60); eGFR For Non-African Americans > 60 (> 60)
[2016-08-03 05:36] LABS: Platelet Estimate Decreased (Normal)
[2016-08-03] MEDS: Cefepime HCl 2,000 MG in D5% in Water (Mini-Bag+) 100 ML IVPB SCH ×2 (05:53→17:56)
[2016-08-03] MEDS: 0.9 % Sodium Chloride 1,000 ML IVC SCH (05:54)
[2016-08-03] MEDS: *HR* Rivaroxaban 15 MG TABLET PO SCH (08:36)
[2016-08-03] MEDS: Aspirin 81 MG TAB.CHEW PO SCH (08:36)
[2016-08-03] MEDS: Metoprolol XL (24 HR) Succ 25 MG TAB.ER.24H PO SCH (08:37)
--- NOTE | 2016-08-03 08:58 | Internal Med Progress Note ---
Date of Encounter: 08/03/16 Time of Encounter: 08:56 - Assessment and plan (1) Sepsis Current Visit: Yes Status: Acute Assessment and plan: Blood culture with E.coli Patient presented with Afib with RVR, fever, Leukocytosis has improved this morning CXR is without infiltrates, no abdominal symptoms Started on Cefepime, continue same Follow final cultures sensitivity Rpt blood cultures am INR is therapeutic No CLOVIS Lactate is normal BP WNL Qualifiers: Sepsis type: Escherichia coli Qualified Code(s): A41.51 - Sepsis due to Escherichia coli [E. coli] (2) Gram-negative bacteremia Current Visit: Yes Status: Acute Assessment and plan: As above (3) COPD (chronic obstructive pulmonary disease) Current Visit: Yes Status: Chronic Assessment and plan: Audibly wheezing this a.m with dry cough Improved with one dose of duoneb Continue duoneb prn No indication for steroids at this time Home meds Qualifiers: COPD type: unspecified COPD Qualified Code(s): J44.9 - Chronic obstructive pulmonary disease, unspecified (4) CHF (congestive heart failure) Current Visit: Yes Status: Chronic Assessment and plan: EF 40%, known CMP TTE in this admission reviewed EF 35-40%, not significantly changed from previous, global systolic dysfunction. Normal RV size and function. Moderately dilated LA. Mild MR. 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 (7) Chest pain Current Visit: Yes Status: Acute Assessment and plan: Possibly from Afib Qualifiers: Chest pain type: unspecified Qualified Code(s): R07.9 - Chest pain, unspecified - Subjective Interval history: 81 Y/O M with PMH of CAD s/p stents, COPD, HTN CHFrEF, pancreatic cancer receiving radiation treatment, chronic atrial fibrillation on anticoagulation Patient was admitted and being managed for afib with RVR and chest pain Hospital stay within a few hours of admission complicated by uncontrolled HR with hypotension, and rigors Blood culture is growing GNR -PCR detected Enterococcus and E.Coli, awaiting sensitivity and final culture Day 2 on cefepime He is seen and evaluated at bedside this morning,complains of poor appetite, cough , dry, and generalized weakness His HR has improved, he has been afebrile in the past 24 hrs He is audibly wheezing, will obtain CXR Will start on duonebs and D/C IVF repeat blood cultures 08/04 scheduled - Constitutional Vitals: Temp Pulse Resp BP Pulse Ox 98.5 F 77 18 135/84 95 08/03/16 07:09 08/03/16 07:09 08/03/16 07:09 08/03/16 07:09 08/03/16 07:09 General appearance: Present: A&O X 3, pleasant, no acute distress, underweight, answers questions appropriately - Head Head exam: Present: atraumatic, normocephalic - Eye Eye exam: Present: PERRL, conjuntiva pink, sclera anicteric Pupils: Present: PERRL - Neck Neck exam general surgery: Present: supple, trachea midline. Absent: lymphadenopathy - Respiratory Respiratory exam: Present: CTAB, wheezes. Absent: accessory muscle use, rales, rhonchi - Cardiovascular Cardiovascular exam: Present: RRR, +S1, +S2. Absent: diastolic murmur, gallop, rubs, systolic murmur - GI/Abdominal GI/Abdominal exam: Present: normal bowel sounds, soft, no peritoneal signs. Absent: distended, tenderness - Extremities Exam Extremities exam: Present: warm, radial pulses palpable and symetrical. Absent : calf tenderness, cyanotic, pedal edema - Neurological Exam Neurological exam: Present: alert, CN II-XII intact, oriented X3, no focal deficits. Absent: pronater drift, facial droop, speech deficit - Skin Skin exam: Present: dry, intact Internal Medicine: Result - Labs CBC & Chem 7: 08/03/16 04:48 08/03/16 04:48 Labs: Short CBC 08/03/16 Range/Units 04:48 WBC 10.9 (4.3-11.1) K/mcL Hgb 10.7 L (12.9-16.9) g/dL Hct 32.5 L (37.5-50.1) % Plt Count 134 L (140-400) K/mcL Neutrophils # 8.8 (1.6-8.9) K/mcL BMP 08/03/16 04:48 Sodium 136 Potassium 4.0 Chloride 104 Carbon Dioxide 27 BUN 19 Creatinine 0.97 Glucose 99 Calcium 8.3 L Liver Function 08/03/16 Range/Units 04:48 Total Bilirubin 1.8 H (0.2-1.2) mg/dL Direct Bilirubin 1.3 H (0.0-0.5) mg/dL AST 178 H (5-34) Units/L ALT 208 H (0-55) Units/L Alkaline Phosphatase 385 H (38-126) Units/L Albumin 2.5 L (3.5-5.0) g/dL - ABG Interpretation ABG results: PT/INR, D-dimer PT 24.5 Seconds (9.4-12.1) H 08/03/16 04:48 D-Dimer 782 ng/mLFEU (0-500) H 08/01/16 11:42 Consult Discharge Plan - Plan Referrals: Zafar Gutierrez DO [Primary Care Provider] - 08/11/16 1:45 pm
[2016-08-03] MEDS ORDERED: Ipratropium/Albuterol Neb 3 ML IH PRN (09:07)
[2016-08-03] MEDS: Ipratropium/Albuterol Neb 3 ML IH ONE ×2 (12:19→12:22)
[2016-08-03] MEDS: Budesonide/Formoterol 80/4.5 MDI IH SCH ×2 (12:19→20:31)
[2016-08-03] MEDS ORDERED: Furosemide 20 MG/2 ML VIAL IVP ONE (12:21)
[2016-08-03] MEDS ORDERED: *HR* OxyCODONE/APAP 5/325 TABLET PO PRN (15:22)
--- NOTE | 2016-08-03 15:30 | Cardiology Progress Note ---
Date of Encounter: 08/03/16 Time of Encounter: 15:27 Assessment and Plan (1) Atrial fibrillation with RVR Current Visit: Yes Status: Acute Mr. Martin has a history of PAF on Xarelto. He presents with chest pain and symptoms concerning for sepsis. Found to have atrial fibrillation with RVR. He was given IV digoxin due to hypotension and known cardiomyopathy. He was also given IV hydration. Heart rate improved to the 70s to 80s. IV digoxin was discontinued. Telemetry review shows avg HR 100 bpm over last 12 hours. B/p continues to improve. Increase toprol XL as tolerated. TTE reviewed EF 35-40%, not significantly changed from previous, global systolic dysfunction. Normal RV size and function. Moderately dilated LA. Mild MR. (2) CAD (coronary artery disease) Current Visit: Yes Status: Chronic History of remote CA and PCI to the RCA. Continue aspirin, statin. No bb d/t hypotension. Chest pain likely related to afib. Mild troponin 0.05 demand ischemia in the setting of afib with RVR, fever, and CLOVIS. Continue medical management. Qualifiers: Coronary Disease-Associated Artery/Lesion type: unspecified vessel or lesion type [place] vs. transplanted heart: [place] heart Associated angina: without angina Qualified Code(s): I25.10 - Atherosclerotic heart disease of [place] coronary artery without angina pectoris (3) CHF (congestive heart failure) Current Visit: Yes Status: Chronic H/o CHF. EF 35-40% on TTE this admission. Not significantly changed, previously 40%. Fluid overload on exam. SOB with rales noted in posterior bases. IV fluid discontinued. Will give low dose lasix. Strict I&O. Low sodium diet. We ill continue to monitor with you. Qualifiers: Congestive heart failure type: systolic Congestive heart failure chronicity : acute Qualified Code(s): I50.21 - Acute systolic (congestive) heart failure Discussion w patient/family: The assessment and plan as outlined above was discussed with the patient and/or family members who expressed understanding and agreement. All questions were answered. Thank you for involving us in the care of your patient. Please call with any questions. Subjective Principal diagnosis: atrial fibrillation with RVR Interval history: C/o SOB and cough today. Mild orthopnea. Objective General: Conversant, No Apparent Distress HEENT: Atraumatic, Normocephaly, Mucus Membranes Moist Neck: No JVD, Normal carotid pulses Cardiac: Other (Irregularly irregular.) Lungs: Other (Persistent moist cough noted. Rales in bases. ) Neuro: Alert and responsive, No focal deficits noted Abdomen: Soft, Non-Tender Skin: No rashes noted on visualized skin Musculoskeletal: No Chest Wall Tenderness Extremities: No Clubbing, No Cyanosis, No Edema, Normal Pulses Results 08/03/16 04:48 08/03/16 04:48 Lab Results 08/03/16 08/03/16 08/03/16 04:48 04:48 04:48 WBC 10.9 Hgb 10.7 L Hct 32.5 L Plt Count 134 L INR 2.2 Sodium 136 Potassium 4.0 Chloride 104 Carbon Dioxide 27 BUN 19 Creatinine 0.97 Glucose 99 Calcium 8.3 L Magnesium 1.4 L Total Bilirubin 1.8 H AST 178 H ALT 208 H Alkaline Phosphatase 385 H - Imaging and Cardiology Echo: report reviewed - EKG Interpretation EKG results cardiology: other Consult Discharge Plan - Plan Referrals: Zafar Gutierrez DO [Primary Care Provider] - 08/11/16 1:45 pm
--- NOTE | 2016-08-03 16:39 | Electrocardiograph Report ---
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
--- NOTE | 2016-08-03 16:43 | Electrocardiograph Report ---
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
[2016-08-03] MEDS: Tiotropium 18 MCG inhalation IH SCH (16:44)
[2016-08-03] MEDS ORDERED: Furosemide 40 MG TABLET PO SCH (17:00)
[2016-08-03] MEDS ORDERED: Magnesium Sulfate 2 GM in D5% in Water 100 ML IVPB ONE (17:25)
[2016-08-03] MEDS: Furosemide 40 MG TABLET PO SCH (17:56)
[2016-08-04] MEDS: Cefepime HCl 2,000 MG in D5% in Water (Mini-Bag+) 100 ML IVPB SCH (07:42)
[2016-08-04 07:48] LABS: Basophils % 0.4 %; Eosinophils # 0.1 K/mcL (0.0-0.6); Eosinophils % 0.7 %; Hematocrit 32.2 % (37.5-50.1); Hemoglobin 10.6 g/dL (12.9-16.9); Immature Granulocytes % 0.7 % (0-4); Lymphocytes # 0.9 K/mcL (0.6-4.6); Lymphocytes % 10.8 %; Mean Corpuscular HGB Conc 32.9 g/dL (31.6-35.5); Mean Corpuscular Hemoglobin 30.3 pg (28.0-33.3); Mean Platelet Volume 11.1 fL (9.4-12.4); Monocytes # 0.9 K/mcL (0.0-1.3); Monocytes % 11.3 %; Neutrophils # 6.3 K/mcL (1.6-8.9); Platelet Count 140 K/mcL (140-400); Red Cell Distribution Width 14.3 % (11.5-14.5); Segmented Neutrophils % 76.1 %
[2016-08-04 07:56] LABS: INR 1.4; Prothrombin Time 14.7 Seconds (9.4-12.1)
[2016-08-04 08:06] LABS: BUN/Creatinine Ratio 20 (6-26); Blood Urea Nitrogen 15 mg/dL (8-26); Calcium 8.2 mg/dL (8.6-10.8); Carbon Dioxide 30 mEq/L (19-29); Chloride 100 mEq/L (98-109); Glucose 108 mg/dL (70-99); Osmolality,Calculated 285 (280-300); Potassium 3.6 mEq/L (3.5-4.5); Sodium 137 mEq/L (136-145); eGFR For African Americans > 60 (> 60); eGFR For Non-African Americans > 60 (> 60)
[2016-08-04] MEDS: *HR* Rivaroxaban 15 MG TABLET PO SCH (08:17)
[2016-08-04] MEDS: Aspirin 81 MG TAB.CHEW PO SCH (08:17)
[2016-08-04] MEDS: Furosemide 40 MG TABLET PO SCH ×2 (08:17→16:07)
[2016-08-04] MEDS ORDERED: *HR* Metoprolol 5 MG/5 ML VIAL IVP PRN (08:59)
[2016-08-04] MEDS ORDERED: Metoprolol XL (24 HR) Succ 25 MG TAB.ER.24H PO SCH (09:00)
--- NOTE | 2016-08-04 09:08 | Internal Med Progress Note ---
Date of Encounter: 08/04/16 Time of Encounter: 09:06 - Subjective Interval history: Patient seen and examined at bedside.Resting in bed and reports of being mildly short of breath. Reports of being on home oxygen at night and as needed during the day which he wasn't on at this time. O2 supplementation provided and he reports of improvement in his breathing status. Rate better controlled, however continues to fluctuate between 120s and 90s. BP improved and tolerating current BB dose well. No overnight issues reported. - Assessment and plan (1) Sepsis Current Visit: Yes Status: Acute Assessment and plan: Resolved Blood culture with E.coli Patient presented with Afib with RVR, fever,leukocytosis Leukocytosis resolved, clinically improving Will continue Cefepime at this time and await for repeat cultures to finalize Will obtain PT eval Will de-escalate abx therapy as per repeat culture results Qualifiers: Sepsis type: Escherichia coli Qualified Code(s): A41.51 - Sepsis due to Escherichia coli [E. coli] (2) Gram-negative bacteremia Current Visit: Yes Status: Acute Assessment and plan: As above (3) COPD (chronic obstructive pulmonary disease) Current Visit: Yes Status: Chronic Assessment and plan: Reported history of COPD and on Home oxygen will continue home medications (Symbicort) continue Duonebs prn O2 supplementation monitor O2 saturation, goal O2 sat: 89-92% Qualifiers: COPD type: unspecified COPD Qualified Code(s): J44.9 - Chronic obstructive pulmonary disease, unspecified (4) CHF (congestive heart failure) Current Visit: Yes Status: Chronic Assessment and plan: EF 40%, known CMP TTE in this admission reviewed EF 35-40%, not significantly changed from previous, global systolic dysfunction. Normal RV size and function. Moderately dilated LA. Mild MR. Continue home meds Pt responded well to one time additional dose of IV lasix yesterday (08/03/16) Will continue home dose of Lasix 40mg PO BID Clinically improving Qualifiers: Congestive heart failure type: systolic Congestive heart failure chronicity : acute Qualified Code(s): I50.21 - Acute systolic (congestive) heart failure (5) Atrial fibrillation with RVR Current Visit: Yes Status: Acute Assessment and plan: Rate better controlled however continues to have fluctuations with HR varying between 90s-120s BP within acceptable range and tolerating current BB dose well Will closely monitor BP and HR if remains tachycardic, will increase BB dose if BP allows Lopressor 5mg IV q6h PRN HR>100 with SBP>120 Anticoagulated with Xarelto Cardiology input appreciated (6) Cancer of head of pancreas Current Visit: Yes Status: Chronic Assessment and plan: Improvement Director eval for poor appetite (7) Chest pain Current Visit: Yes Status: Resolved Assessment and plan: Resolved at this time Qualifiers: Chest pain type: unspecified Qualified Code(s): R07.9 - Chest pain, unspecified (8) DVT prophylaxis Current Visit: Yes Status: Acute Anticoagulated with Xarelto out of bed to chair and increase activity as tolerated PT eval - Constitutional Vitals: Temp Pulse Resp BP Pulse Ox 98.3 F 103 20 153/95 95 08/04/16 06:29 08/04/16 06:29 08/04/16 06:29 08/04/16 06:29 08/04/16 06:29 General appearance: Present: A&O X 3, pleasant, no acute distress, answers questions appropriately - Head Head exam: Present: atraumatic, normocephalic - Eye Eye exam: Present: normal appearance, conjuntiva pink, sclera anicteric - Respiratory Respiratory exam: Present: wheezes (mild expiratory wheezing bilaterally ). Absent: rales, respiratory distress - Cardiovascular Cardiovascular exam: Present: irregular rhythm, +S1, +S2 - GI/Abdominal GI/Abdominal exam: Present: normal bowel sounds, soft, no peritoneal signs. Absent: distended, tenderness - Extremities Exam Extremities exam: Present: warm, radial pulses palpable and symetrical. Absent : calf tenderness, cyanotic, pedal edema - Neurological Exam Neurological exam: Present: alert, oriented X3 - Psychiatric Psychiatric exam: Present: normal affect, normal mood Internal Medicine: Result - Labs CBC & Chem 7: 08/04/16 06:41 08/04/16 06:41 Labs: Short CBC 08/04/16 Range/Units 06:41 WBC 8.2 (4.3-11.1) K/mcL Hgb 10.6 L (12.9-16.9) g/dL Hct 32.2 L (37.5-50.1) % Plt Count 140 (140-400) K/mcL Neutrophils # 6.3 (1.6-8.9) K/mcL BMP 06/20/17 06:41 Sodium 137 Potassium 3.6 Chloride 100 Carbon Dioxide 30 H BUN 15 Creatinine 0.76 Glucose 108 H Calcium 8.2 L - ABG Interpretation ABG results: PT/INR, D-dimer PT 14.7 Seconds (9.4-12.1) H 08/04/16 06:41 D-Dimer 782 ng/mLFEU (0-500) H 08/01/16 11:42 - Impressions Impressions Chest X-Ray 08/03/16 09:05 IMPRESSION: Stable mild cardiomegaly. Mild pulmonary vascular congestion. D/ / Dominic Diaz MD / Dominic Diaz MD Interpreting Provider: Dominic Diaz MD Consult Discharge Plan - Plan Referrals: Zafar Gutierrez DO [Primary Care Provider] - 08/11/16 1:45 pm
[2016-08-04] MEDS: Budesonide/Formoterol 80/4.5 MDI IH SCH ×2 (11:46→21:12)
[2016-08-04] MEDS ORDERED: Metoprolol XL (24 HR) Succ 25 MG TAB.ER.24H PO ONE (12:00)
--- NOTE | 2016-08-04 14:31 | Cardiology Progress Note ---
Date of Encounter: 08/04/16 Time of Encounter: 11:30 Assessment and Plan (1) Atrial fibrillation with RVR Current Visit: Yes Status: Acute Mr. Martin has a history of PAF on Xarelto. He presents with chest pain and symptoms concerning for sepsis. Found to have atrial fibrillation with RVR. He was given IV digoxin due to hypotension and known cardiomyopathy. He was also given IV hydration. Heart rate improved to the 70s to 80s. IV digoxin was discontinued. Telemetry review shows avg HR 112 bpm over last 12 hours. HR 120's this morning. B/p continues to improve. TTE reviewed EF 35-40%, not significantly changed from previous, global systolic dysfunction. Normal RV size and function. Moderately dilated LA. Mild MR. Increase toprol XL as tolerated. Increased to 50 mg daily today. (2) CAD (coronary artery disease) Current Visit: Yes Status: Chronic History of remote CT and PCI to the RCA. Continue aspirin, statin. No bb d/t hypotension. Chest pain likely related to afib. Mild troponin 0.05 demand ischemia in the setting of afib with RVR, fever, and CLOVIS. Continue medical management. Qualifiers: Coronary Disease-Associated Artery/Lesion type: unspecified vessel or lesion type [place] vs. transplanted heart: [place] heart Associated angina: without angina Qualified Code(s): I25.10 - Atherosclerotic heart disease of [place] coronary artery without angina pectoris (3) CHF (congestive heart failure) Current Visit: Yes Status: Chronic H/o CHF. EF 35-40% on TTE this admission. Not significantly changed, previously 40%. Fluid overload on exam yesterday and given IV diuretic. Symptoms improved. Continue maintenance lasix. Strict I&O. Low sodium diet. Qualifiers: Congestive heart failure type: systolic Congestive heart failure chronicity : acute Qualified Code(s): I50.21 - Acute systolic (congestive) heart failure Discussion w patient/family: The assessment and plan as outlined above was discussed with the patient and/or family members who expressed understanding and agreement. All questions were answered. Thank you for involving us in the care of your patient. Please call with any questions. Subjective Principal diagnosis: atrial fibrillation with RVR Interval history: Cough resolved, SOB improved. Denies chest pain or palpitations. Objective Vital Signs, Last 4 Hours Temp Pulse Resp BP Pulse Ox 08/04/16 11:47 16 95 08/04/16 10:54 99.0 F 98 17 125/94 99 General: Conversant, No Apparent Distress HEENT: Atraumatic, Normocephaly, Mucus Membranes Moist Neck: No JVD, Normal carotid pulses Cardiac: Other (irregularly irregular) Lungs: Other (Rales noted in RLL. Improved from previous ) Neuro: Alert and responsive, No focal deficits noted Abdomen: Soft, Non-Tender Skin: No rashes noted on visualized skin Musculoskeletal: No Chest Wall Tenderness Extremities: No Clubbing, No Cyanosis, No Edema, Normal Pulses Results 08/04/16 06:41 08/04/16 06:41 Lab Results 08/04/16 08/04/16 08/04/16 06:41 06:41 06:41 WBC 8.2 Hgb 10.6 L Hct 32.2 L Plt Count 140 INR 1.4 Sodium 137 Potassium 3.6 Chloride 100 Carbon Dioxide 30 H BUN 15 Creatinine 0.76 Glucose 108 H Calcium 8.2 L Consult Discharge Plan - Plan Referrals: Zafar Gutierrez DO [Primary Care Provider] - 08/11/16 1:45 pm
[2016-08-04] MEDS: Ipratropium/Albuterol Neb 3 ML IH SCH ×2 (17:11→21:12)
[2016-08-05] MEDS: Acetaminophen 325 MG TABLET PO PRN (04:14)
[2016-08-05] MEDS: Ipratropium/Albuterol Neb 3 ML IH SCH ×3 (04:26→16:58)
[2016-08-05 07:16] VITALS: BP 116/77
[2016-08-05 07:16] LABS: Basophils # 0.1 K/mcL (0.0-0.2); Basophils % 0.5 %; Eosinophils % 0.2 %; Hematocrit 35.4 % (37.5-50.1); Hemoglobin 11.9 g/dL (12.9-16.9); Immature Granulocytes % 1.5 % (0-4); Lymphocytes # 0.8 K/mcL (0.6-4.6); Mean Corpuscular HGB Conc 33.6 g/dL (31.6-35.5); Mean Corpuscular Hemoglobin 30.6 pg (28.0-33.3); Monocytes # 1.4 K/mcL (0.0-1.3); Monocytes % 14.1 %; Neutrophils # 7.4 K/mcL (1.6-8.9); Platelet Count 163 K/mcL (140-400); Red Blood Count 3.89 M/mcL (4.19-5.50); Red Cell Distribution Width 14.3 % (11.5-14.5); Segmented Neutrophils % 75.7 %
[2016-08-05 07:20] LABS: BUN/Creatinine Ratio 17 (6-26); Blood Urea Nitrogen 13 mg/dL (8-26); Calcium 8.6 mg/dL (8.6-10.8); Carbon Dioxide 33 mEq/L (19-29); Chloride 96 mEq/L (98-109); Glucose 95 mg/dL (70-99); Magnesium 1.1 mg/dL (1.6-2.6); Osmolality,Calculated 286 (280-300); Phosphorous 2.8 mg/dL (2.3-4.7); Potassium 3.5 mEq/L (3.5-4.5); Sodium 138 mEq/L (136-145); eGFR For African Americans > 60 (> 60); eGFR For Non-African Americans > 60 (> 60)
[2016-08-05] MEDS ORDERED: Magnesium Sulfate 2 GM in D5% in Water 100 ML IVPB ONE (07:36)
[2016-08-05] MEDS ORDERED: Magnesium Sulfate 1 GM in D5% in Water 100 ML IVPB ONE (07:36)
[2016-08-05] MEDS: Furosemide 40 MG TABLET PO SCH (08:01)
[2016-08-05] MEDS: Aspirin 81 MG TAB.CHEW PO SCH (08:02)
[2016-08-05] MEDS ORDERED: Metoprolol XL (24 HR) Succ 25 MG TAB.ER.24H PO SCH (09:00)
[2016-08-05] MEDS: Budesonide/Formoterol 80/4.5 MDI IH SCH (09:24)
--- NOTE | 2016-08-05 09:31 | Discharge Summary ---
Date of Encounter: 08/05/16 Time of Encounter: 09:30 - Discharge Diagnosis (1) Atrial fibrillation with RVR Priority: Primary Status: Acute (2) CAD (coronary artery disease) Priority: Secondary Status: Chronic Qualifiers: Coronary Disease-Associated Artery/Lesion type: unspecified vessel or lesion type [place] vs. transplanted heart: [place] heart Associated angina: without angina Qualified Code(s): I25.10 - Atherosclerotic heart disease of [place] coronary artery without angina pectoris (3) Cancer of head of pancreas Priority: Secondary Status: Chronic (4) CHF (congestive heart failure) Priority: Secondary Status: Chronic Qualifiers: Congestive heart failure type: systolic Congestive heart failure chronicity : acute Qualified Code(s): I50.21 - Acute systolic (congestive) heart failure (5) COPD (chronic obstructive pulmonary disease) Priority: Secondary Status: Chronic Qualifiers: COPD type: unspecified COPD Qualified Code(s): J44.9 - Chronic obstructive pulmonary disease, unspecified (6) DVT prophylaxis Priority: Secondary Status: Acute (7) Gram-negative bacteremia Priority: Primary Status: Acute (8) Hypomagnesemia Priority: Secondary Status: Acute (9) Sepsis Priority: Primary Status: Resolved Qualifiers: Sepsis type: Escherichia coli Qualified Code(s): A41.51 - Sepsis due to Escherichia coli [E. coli] - Discharge Medications Prescriptions: cefTRIAXone [Rocephin] 2,000 mg IVPB DAILY #7 vial Metoprolol XL (24 HR) Succ [Toprol Xl] 50 mg PO DAILY #30 tab.er.24h Oxycodone HCl/Acetaminophen [Percocet 5-325 mg Tablet] 1 each PO Q4-6H PRN #20 tablet PRN Reason: Pain Home Medications: Albuterol Sulfate [Albuterol Inhaler] 2 puff IH Q4H PRN 06/04/15 [History] Aspirin 81 mg PO DAILY 06/04/15 [History] Atorvastatin [Lipitor] 20 mg PO HS 06/04/15 [History] Potassium Chloride [K-Tab ER] 20 meq PO DAILY 06/04/15 [History] Budesonide/Formoterol 80/4.5 [Symbicort 80/4.5] 2 puff IH BIDR 11/26/15 [ History] Tiotropium [Spiriva] 18 mcg IH DAILY 11/26/15 [History] Furosemide [Lasix] 40 mg PO BID #30 tablet 06/11/16 [Rx] Omeprazole [PriLOSEC] 20 mg PO DAILY #90 cap 06/19/16 [Rx] Ondansetron [Zofran] 8 mg PO TID PRN #60 tablet 07/08/16 [Rx] Rivaroxaban [Xarelto] 20 mg PO DAILY 08/01/16 [History] Acetaminophen [Tylenol] 650 mg PO Q6HR PRN #0 tablet 08/05/16 [Rx] Metoprolol XL (24 HR) Succ [Toprol Xl] 50 mg PO DAILY #30 tab.er.24h 08/05/16 [ Rx] Oxycodone HCl/Acetaminophen [Percocet 5-325 mg Tablet] 1 each PO Q4-6H PRN #20 tablet 08/05/16 [Rx] cefTRIAXone [Rocephin] 2,000 mg IVPB DAILY #7 vial 08/05/16 [Rx] Allergies/Adverse Reactions: Allergies Penicillins Allergy (Verified 08/01/16 15:27) Hives Date of admission: 08/01/16 19:16 Primary care physician: Nasir Alva Consults: 08/03/16 08:40 Consult to Physical Therapy [CONS] Routine Comment: Evaluate, develop and implement POC Reason for Consult: Safe discharge to home 08/03/16 09:06 consult to delivery stock clerk [Consult to Nutrition] [CONS] Routine Comment: Consulting Provider: NUTRITION Reason for Dietary Consult: Other PO Supplementation 08/04/16 08:45 OT [Consult to Occupational Therapy] [CONS] Routine Comment: Evaluate, develop and implement POC Reason for Consult: Discharge planning, family requesting rehab Discharging clinician: Courtney Kemp Anticipated date of discharge: 08/05/16 - Patient Status Disposition: Transfer SNF Condition: Fair Functional capacity at discharge: uses cane/walker Overall status at discharge: patient is back to baseline - Discharge Instructions Follow Up With: Zafar Gutierrez DO [Primary Care Provider] - 08/11/16 1:45 pm Additional Instructions: Please follow up with your primary care physician and gas welder within one week after your discharge from the hospital. Please continue IV antibiotics as prescribed. Your home dose of Diltiazem has been discontinued and Metoprolol XL 50mg once a day has been added to your home medications. Please take this medication as prescribed. Closely monitor your blood pressure. Hold this medication if your SBP<100. Please continue all your other home medications as prescribed by your primary care physician. - Diet and Activity Activity: as per physical therapy, wear oxygen at all times, wear oxygen at night Diet: low salt diet Hospital course: Mr. Martin is a 81 year old male with PMH of CAD s/p stent placement, HTN, CHF , pancreatic ca, Afib on Xarelto, COPD on LTOT who was admitted for management of afib with RVR and sepsis. Patient was found to have UTI and bacteremia. He was started on empiric IV abx and IV dig and BB therapy for rate controlled. Pt responded appropriately to therapy with resolution of sepsis and appropriate rate control. He was followed by cardiology throughout the course of admission. He was further evaluated by physical therapy and ECF was recommended. Patient is currently hemodynamically stable with rate adequately controlled. His home medications have been adjusted. He will be discharged to ECF with follow up with cardiology and PCP. Patient demonstrates understanding of his diagnosis and agrees with the discharge care and plan. - Time Spent with Patient Total time spent providing and/or coordinating discharge services: Greater than 30 minutes - Constitutional Vitals: Temp Pulse Resp BP Pulse Ox 98.1 F 108 18 116/77 95 08/05/16 07:14 08/05/16 07:14 08/05/16 07:14 08/05/16 07:14 08/05/16 07:14 General appearance: Present: cooperative, A&O X 3, pleasant, no acute distress, answers questions appropriately - Head Head exam: Present: atraumatic, normocephalic - Eye Eye exam: Present: normal appearance, conjuntiva pink, sclera anicteric - Respiratory Respiratory exam: Absent: respiratory distress, wheezes - Cardiovascular Cardiovascular exam: Present: irregular rhythm, +S1, +S2 - GI/Abdominal GI/Abdominal exam: Present: normal bowel sounds, soft, no peritoneal signs. Absent: distended, tenderness - Extremities Exam Extremities exam: Present: warm, radial pulses palpable and symetrical. Absent : calf tenderness, pedal edema - Neurological Exam Neurological exam: Present: alert, oriented X3 - Psychiatric Psychiatric exam: Present: normal affect, normal mood
--- NOTE | 2016-08-05 09:47 | Physician Discharge Referral ---
ExtendedCare Referral Info Transfer To: F Provider in Charge after Transfer: PCP - Diagnosis (1) Atrial fibrillation with RVR Priority: Primary Status: Acute (2) CAD (coronary artery disease) Priority: Secondary Status: Chronic (3) Cancer of head of pancreas Priority: Secondary Status: Chronic (4) CHF (congestive heart failure) Priority: Secondary Status: Chronic (5) COPD (chronic obstructive pulmonary disease) Priority: Secondary Status: Chronic (6) DVT prophylaxis Priority: Secondary Status: Acute (7) Gram-negative bacteremia Priority: Primary Status: Acute (8) Hypomagnesemia Priority: Secondary Status: Acute (9) Sepsis Priority: Primary Status: Resolved - Transfer Medications Prescriptions: cefTRIAXone [Rocephin] 2,000 mg IVPB DAILY #7 vial Metoprolol XL (24 HR) Succ [Toprol Xl] 50 mg PO DAILY #30 tab.er.24h Oxycodone HCl/Acetaminophen [Percocet 5-325 mg Tablet] 1 each PO Q4-6H PRN #20 tablet PRN Reason: Pain Home Medications: Albuterol Sulfate [Albuterol Inhaler] 2 puff IH Q4H PRN 06/04/15 [History] Aspirin 81 mg PO DAILY 06/04/15 [History] Atorvastatin [Lipitor] 20 mg PO HS 06/04/15 [History] Potassium Chloride [K-Tab ER] 20 meq PO DAILY 06/04/15 [History] Budesonide/Formoterol 80/4.5 [Symbicort 80/4.5] 2 puff IH BIDR 11/26/15 [ History] Tiotropium [Spiriva] 18 mcg IH DAILY 11/26/15 [History] Furosemide [Lasix] 40 mg PO BID #30 tablet 06/11/16 [Rx] Omeprazole [PriLOSEC] 20 mg PO DAILY #90 cap 06/19/16 [Rx] Ondansetron [Zofran] 8 mg PO TID PRN #60 tablet 07/08/16 [Rx] Rivaroxaban [Xarelto] 20 mg PO DAILY 08/01/16 [History] Acetaminophen [Tylenol] 650 mg PO Q6HR PRN #0 tablet 08/05/16 [Rx] Metoprolol XL (24 HR) Succ [Toprol Xl] 50 mg PO DAILY #30 tab.er.24h 08/05/16 [ Rx] Oxycodone HCl/Acetaminophen [Percocet 5-325 mg Tablet] 1 each PO Q4-6H PRN #20 tablet 08/05/16 [Rx] cefTRIAXone [Rocephin] 2,000 mg IVPB DAILY #7 vial 08/05/16 [Rx] Allergies/Adverse Reactions: Allergies Penicillins Allergy (Verified 08/01/16 15:27) Hives - Respiratory Orders Smoking Cessation: Smoking cessation has been advised. For more information, call the [place] Quit Line at 1-201-NPKZ-NOW. - Rehabiliation Orders Other: Please follow up with your primary care physician and veterans' coordinator within one week after your discharge from the hospital. Please continue IV antibiotics as prescribed. Your home dose of Diltiazem has been discontinued and Metoprolol XL 50mg once a day has been added to your home medications. Please take this medication as prescribed. Closely monitor your blood pressure. Hold this medication if your SBP<100. Please continue all your other home medications as prescribed by your primary care physician. Wear oxygen at all times. CERTIFICATION: I certify that the transfer of the above named patient to an Extended Care Facility is necessary for the continuing treatment of the diagnosis listed. The above information is true and accurate reflection of patient's current condition. Confidential - Redisclosure prohibited without a patient's written consent.
[2016-08-05] MEDS ORDERED: *HR* Rivaroxaban 10 MG TABLET PO SCH (18:00)
== END 2016-08-05 15:48 | DRG 871 ==
LOC: 3BNU 11:12 → EMEROO 11:12 → SUATTDRO 15:18 → 3BNU 16:22 → 2NNU 19:48
PROVIDERS: ADMIT Internal Medicine; ATTEND Internal Medicine

== ENCOUNTER 2016-09-04 15:32 | Inpatient (IN) ==
[2016-09-04] MEDS ORDERED: 0.9 % Sodium Chloride 1,000 ML IVC ONE ×2 (15:40→15:47)
[2016-09-04] MEDS ORDERED: 0.9 % Sodium Chloride 500 ML IVC ONE ×2 (15:47→16:58)
[2016-09-04 15:49] LABS: Basophils % 0.1 %; Hematocrit 38.2 % (37.5-50.1); Hemoglobin 12.7 g/dL (12.9-16.9); Immature Granulocytes % 0.7 % (0-4); Lymphocytes # 0.3 K/mcL (0.6-4.6); Lymphocytes % 1.7 %; Mean Corpuscular HGB Conc 33.2 g/dL (31.6-35.5); Mean Corpuscular Hemoglobin 31.3 pg (28.0-33.3); Mean Corpuscular Volume 94.1 fL (83.0-100.0); Mean Platelet Volume 9.5 fL (9.4-12.4); Monocytes # 1.3 K/mcL (0.0-1.3); Monocytes % 7.3 %; Neutrophils # 16.5 K/mcL (1.6-8.9); Platelet Count 173 K/mcL (140-400); Red Blood Count 4.06 M/mcL (4.19-5.50); Red Cell Distribution Width 15.7 % (11.5-14.5); Segmented Neutrophils % 90.2 %
--- NOTE | 2016-09-04 15:49 | Emergency Department Note ---
Disposition Clinical Impression: Atrial fibrillation with RVR, Elevated troponin, COPD exacerbation, Severe sepsis, Pancreatic adenocarcinoma, Hyperbilirubinemia, Common bile duct obstruction, Cancer of head of pancreas, Lactic acidosis Pancreatitis Qualifiers: Chronicity: chronic Pancreatitis type: unspecified pancreatitis type Qualified Code(s): K86.1 - Other chronic pancreatitis Disposition: Admitted As Inpatient Condition: Serious Time of Disposition: 17:07 Headache HPI - General Chief Complaint: ED Headache Stated Complaint: HEADACHE Time Seen by Provider: 09/04/16 15:34 Source: family, EMS Nursing Notes Reviewed: Yes Vital Signs Reviewed: Yes - History of Present Illness HPI Narrative: 81-year-old male with a history of pancreatitis new-onset atrial fibrillation last 2 months, has been anticoagulated on Xarelto presents with headache, abdominal pain, patient rates his pain 8 out of 10, is aching. Patient states that he has a headache because down to the back of his head bilaterally. Patient reports nausea and vomiting. He has a history of pancreatic cancer at the head of his pancreas and was admitted a few weeks ago for the same. He follows with Dr. Blanco his hematology radiologist. Patient denies chest pain productive cough, reports some weight loss, several pounds over the last few weeks. Patient is not altered, able to give good history, but does have some slurred speech per the family although this is not appreciated on exam. He denies focal deficits. Pt Subjective Complaint: headache Onset (ago): hour(s) Onset description: gradual Pain Severity: mild Pain Scale: 5 Quality: aching Associated symptoms: Reports: chest pain, nausea, vomiting. Denies: photophobia , syncope, vision changes - Related Data Home Medications Medication Instructions Recorded Confirmed Albuterol Sulfate [Albuterol 2 puff IH Q4H PRN 06/04/15 09/04/16 Inhaler] Aspirin 81 mg PO DAILY 06/04/15 09/04/16 Atorvastatin [Lipitor] 20 mg PO HS 06/04/15 09/04/16 Potassium Chloride [K-Tab ER] 20 meq PO DAILY 06/04/15 09/04/16 Budesonide/Formoterol 80/4.5 2 puff IH BIDR 11/26/15 09/04/16 [Symbicort 80/4.5] Tiotropium [Spiriva] 18 mcg IH DAILY 11/26/15 09/04/16 Rivaroxaban [Xarelto] 20 mg PO DAILY 08/01/16 09/04/16 Diltiazem HCl [Diltiazem ER] 120 mg PO DAILY 09/04/16 09/04/16 Furosemide [Lasix] 40 mg PO DAILY 09/04/16 09/04/16 Megestrol Acetate [Megace Es] 2,500 mg PO DAILY 09/04/16 09/04/16 PredniSONE [Deltasone] See Taper PO AD 09/04/16 09/04/16 Previous Rx's Medication Instructions Recorded Omeprazole [PriLOSEC] 20 mg PO DAILY #90 cap 06/19/16 Ondansetron [Zofran] 8 mg PO TID PRN #60 tablet 07/08/16 Metoprolol XL (24 HR) Succ [Toprol 50 mg PO DAILY #30 tab.er.24h 08/05/16 Xl] Oxycodone HCl/Acetaminophen 1 each PO Q4-6H PRN #20 tablet 08/05/16 [Percocet 5-325 mg Tablet] Sucralfate [Carafate] 1 gm PO QID #120 tablet 09/01/16 Allergies Allergy/AdvReac Type Severity Reaction Status Date / Time Penicillins Allergy Hives Verified 09/04/16 17:38 Review of Systems: 10 Point ROS was performed and negative except as per below or as documented in HPI. Constitutional: Denies: fever Eyes: Denies: eye pain ENT: Denies: nasal congestion CV: Denies: chest pain Resp: Denies: cough, hemoptysis GI: +for abdominal pain Denies: hematochezia Denies: dysuria, hematuria MSK: Denies: back pain, neck pain, extremity pain Skin: Denies: new rashes Neuro: Denies: paresthesias or weakness All systems ED: reviewed and negative except as stated. Headache PMH - Past Medical History Medical history: Reports: arthritis, atrial fibrillation, cancer, CHF, COPD, DVT , hyperlipidemia, hypertension, myocardial infarction Male Surgical History: Reports: angioplasty/stent, herniorrhaphy, orthopedic, other, pacemaker/AICD Psychiatric history: Reports: anxiety, depression - Social History Smoking Status: Current every day smoker Alcohol use: Reports: none Drug use: Reports: none Physical Exam Constitutional: hypotension with a systolic blood pressure 80, his heart rate is 150, irregular. cachectic Eyes: PERRLA, sclera icteric ENT & Mouth: temporal wasting, normal external ears bilaterally, dry MM Neck: normal inspection, neck is supple Resp: CTA bilaterally, no resp distress CV: Irregularly irregular rhythm. no m/g/r GI: no guarding or rigidity, no palpable masses but moderate tenderness to palpation epigastrium. Back: normal inspection, no tenderness to palpation Neuro: A&O3, CNII-XII grossly intact, AMRY MSK: no gross deformities, normal ROM UE and LE Skin: Cachectic, dry mucous membranes Course Course Narrative: 81-year-old male with hypotension, anticoagulated atrial fibrillation rapid heart rate of 156 bpm, complaining of headache, had some slurred speech when on my evaluation, his NIH is 0, I am concerned about hemorrhagic stroke however he has no focal deficits, we will discontinue the stroke alert was previously called, will give IV fluids to try to fluid resuscitate given hypotension, checking a manual blood pressure right now, lab work ordered including CBC BMP coags troponin, EKG shows no evidence of ischemia, patient is at this point serious condition. Patient is a DNR CCA DO NOT INTUBATE per his family does his primary decision maker and power of studio associate at bedside, - Reevaluation(s) Reevaluation #1: Initially ordered 1000 L bolus but DC'd, and I ordered 1500 because the patient was hypotensive, his systolic blood pressure was 80, recieve 1500 mL of fluid, on lab review at 1630, patient has evidence of severe sepsis, given hypotension , lactic acidosis, elevated white blood cell count, tachycardia, he meets criteria for severe sepsis, concern for septic shock, he has been given 1500 mL' s E additional 500 mL, his 30 mL/kg bolus is 1750cc. His blood pressure is now improved 110/80, greater than map of 65. Time: 16:30 Reevaluation #2: Severe Sepsis/Septic Shock Re-Evaluation: I reassessed the patient's volume status and tissue perfusion, performing a full cardiopulmonary exam, skin examination, peripheral pulses evaluation, I assessed his vital signs and capillary refill, and based on my findings found that the patient was responsive to their 30mL/kg crystalloid bolus, and is no longer hypotense. Time: 17:02 Vital Signs Temperature 98.4 F 09/04/16 15:34 Pulse Rate 155 07/21/17 15:34 Respiratory Rate 22 09/04/16 15:34 Blood Pressure 78/55 09/04/16 15:34 O2 Sat by Pulse Oximetry 95 09/04/16 15:34 Temperature 98.4 F 09/04/16 15:34 Pulse Rate 129 09/04/16 17:31 Respiratory Rate 22 09/04/16 17:31 Blood Pressure 113/82 09/04/16 17:31 O2 Sat by Pulse Oximetry 98 09/04/16 17:31 Oxygen Delivery Oxygen Delivery Nasal Cannula Headache - MDM Narrative Medical decision making narrative: 81-year-old male with a creatinine cancer, lactic acidosis, concern for severe sepsis source likely UTI, admitted after IV antibiotics and fluid bolus for severe sepsis patient was fluid responsive, also urology came to bedside to do a bedside catheter has the texture having trouble with Rodriguez catheter insertion. Patient has worsening hyperbilirubinemia, elevated troponin, signs of pancreatitis with elevated lipase, white count was 18 which is a big change from previous WBC, started on empiric bank and cefepime due to penicillin allergy, patient is in critical condition, I did admit to the hospitalist Zafar Quinones CNP, for cirtical care monitoring abx and treatment, no meds were given for A. fib as the patient's heart rate came down from 150 to 120s, his hemodynamics improved but he was tenuous with his hypotension - Differential Diagnosis Differential Diagnosis: Likely: migraine - Medical Records Medical records reviewed: Yes I reviewed the patient's medical records. - Lab Data Lab results reviewed: Yes I reviewed the patient's lab results. Result diagrams: 09/04/16 15:41 09/04/16 15:41 Lab Results 09/04/16 09/04/16 09/04/16 Range/Units 15:41 15:41 15:41 WBC 18.3 H D (4.3-11.1) K/mcL RBC 4.06 L (4.19-5.50) M/mcL Hgb 12.7 L (12.9-16.9) g/dL Hct 38.2 (37.5-50.1) % MCV 94.1 (83.0-100.0) fL MCH 31.3 (28.0-33.3) pg MCHC 33.2 (31.6-35.5) g/dL RDW 15.7 H (11.5-14.5) % Plt Count 173 (140-400) K/mcL MPV 9.5 (9.4-12.4) fL Immature Gran % 0.7 (0-4) % Seg Neutrophils % 90.2 % Lymphocytes % 1.7 % Monocytes % 7.3 % Eosinophils % 0.0 % Basophils % 0.1 % Neutrophils # 16.5 H (1.6-8.9) K/mcL Lymphocytes # 0.3 L (0.6-4.6) K/mcL Monocytes # 1.3 (0.0-1.3) K/mcL Eosinophils # 0.0 (0.0-0.6) K/mcL Basophils # 0.0 (0.0-0.2) K/mcL PT 30.5 H (9.4-12.1) Seconds INR 2.7 APTT 31.4 (26.0-36.0) Seconds Sodium 139 (136-145) mEq/L Potassium 3.3 L (3.5-4.5) mEq/L Chloride 97 L (98-109) mEq/L Carbon Dioxide 32 H (19-29) mEq/L BUN 40 H (8-26) mg/dL Creatinine 1.92 H (0.72-1.25) mg/dL Est GFR ( Amer) 41 L (> 60) Est GFR (Non-Af Amer) 34 L (> 60) BUN/Creatinine Ratio 21 (6-26) Glucose 93 (70-99) mg/dL POC Glucose (58-89) Calculated Osmolality 297 (280-300) Lactic Acid (0.5-2.2) mmol/L Calcium 8.7 (8.6-10.8) mg/dL Phosphorus 1.7 L (2.3-4.7) mg/dL Magnesium 0.9 L (1.6-2.6) mg/dL Total Bilirubin 3.4 H (0.2-1.2) mg/dL Direct Bilirubin 2.7 H (0.0-0.5) mg/dL Indirect Bilirubin 0.7 (0.0-1.2) mg/dL AST 368 H (5-34) Units/L ALT 272 H (0-55) Units/L Alkaline Phosphatase 709 H (38-126) Units/L Troponin I (0-0.03) ng/mL Serum Total Protein 6.9 (6.0-8.3) g/dL Albumin 3.1 L (3.5-5.0) g/dL Globulin 3.8 H (2.4-3.5) g/dL Albumin/Globulin Ratio 0.8 L (1.1-2.2) Lipase 116 H (8-78) Units/L 09/04/16 09/04/16 09/04/16 Range/Units 15:41 15:41 15:53 WBC (4.3-11.1) K/mcL RBC (4.19-5.50) M/mcL Hgb (12.9-16.9) g/dL Hct (37.5-50.1) % MCV (83.0-100.0) fL MCH (28.0-33.3) pg MCHC (31.6-35.5) g/dL RDW (11.5-14.5) % Plt Count (140-400) K/mcL MPV (9.4-12.4) fL Immature Gran % (0-4) % Seg Neutrophils % % Lymphocytes % % Monocytes % % Eosinophils % % Basophils % % Neutrophils # (1.6-8.9) K/mcL Lymphocytes # (0.6-4.6) K/mcL Monocytes # (0.0-1.3) K/mcL Eosinophils # (0.0-0.6) K/mcL Basophils # (0.0-0.2) K/mcL PT (9.4-12.1) Seconds INR APTT (26.0-36.0) Seconds Sodium (136-145) mEq/L Potassium (3.5-4.5) mEq/L Chloride (98-109) mEq/L Carbon Dioxide (19-29) mEq/L BUN (8-26) mg/dL Creatinine (0.72-1.25) mg/dL Est GFR ( Amer) (> 60) Est GFR (Non-Af Amer) (> 60) BUN/Creatinine Ratio (6-26) Glucose (70-99) mg/dL POC Glucose 86 (58-89) Calculated Osmolality (280-300) Lactic Acid 2.8 H (0.5-2.2) mmol/L Calcium (8.6-10.8) mg/dL Phosphorus (2.3-4.7) mg/dL Magnesium (1.6-2.6) mg/dL Total Bilirubin (0.2-1.2) mg/dL Direct Bilirubin (0.0-0.5) mg/dL Indirect Bilirubin (0.0-1.2) mg/dL AST (5-34) Units/L ALT (0-55) Units/L Alkaline Phosphatase (38-126) Units/L Troponin I 0.04 H* (0-0.03) ng/mL Serum Total Protein (6.0-8.3) g/dL Albumin (3.5-5.0) g/dL Globulin (2.4-3.5) g/dL Albumin/Globulin Ratio (1.1-2.2) Lipase (8-78) Units/L - Radiology Data Radiology results reviewed: Yes I reviewed the patient's radiology results. Chest X-Ray 09/04/16 15:35 IMPRESSION: 1. No convincing evidence of acute cardiopulmonary abnormality. 2. Hyperinflation the lungs bilaterally, which can be seen with COPD. D/ / Colt Gaffney MD / Colt Gaffney MD Interpreting Provider: Colt Gaffney MD Abdomen/Pelvis CT 09/04/16 15:59 IMPRESSION: 1. Biliary stent in place with mild increased distention of the intrahepatic and extrahepatic biliary tree. The common bile duct now measures 13 mm compared with 10 mm on the previous study. 2. Otherwise no acute findings within the abdomen or pelvis. Some mild nonspecific small bowel distension with no evidence of obstruction or focal inflammatory process. 3. No evidence of obstructive uropathy. D/ / Momo Yi MD / Momo Yi MD Interpreting Provider: Momo Yi MD Head CT 09/04/16 15:59 IMPRESSION: 1. No acute intracranial abnormality. D/ / Aravind Solorzano MD / Aravind Solorzano MD Interpreting Provider: Aravind Solorzano MD - EKG Data EKG attestation: Yes I reviewed and interpreted this EKG. Rate: tachycardia Rhythm: A.Fib (1 56 bpm QRS [address] segment elevations or depressions.) - Core Measures AMI Core Measures Followed: No Measure Exclusions: not indicated NIH Stroke Scale - Level of Consciousness LOC: Alert - LOC Questions LOC Questions: Answers both correctly - LOC Commands LOC Commands: Performs both correctly - Best Gaze Best Gaze: Normal - Visual Visual: No visual loss - Facial Palsy Facial Palsy: Normal - Motor Arms Motor Arm-Left: No drift for 10 seconds Motor Arm-Right: No drift for 10 seconds - Motor Legs Motor Leg-Left: No drift for 5 seconds Motor Leg-Right: No drift for 5 seconds - Limb Ataxia Limb Ataxia: Absent of affected limb too weak to perform exam - Sensory Sensory: Normal - Best Language Best Language: No aphasia - Dysarthria Dysarthria: Normal - Extinction and Inattention Extinction and Inattention: Normal - NIHSS Total Score NIHSS Total Score: 0
[2016-09-04 15:54] LABS: INR 2.7; Prothrombin Time 30.5 Seconds (9.4-12.1)
[2016-09-04 15:57] LABS: Activated Partial Thrombo Time 31.4 Seconds (26.0-36.0)
[2016-09-04 16:02] LABS: Calcium 8.7 mg/dL (8.6-10.8); Potassium 3.3 mEq/L (3.5-4.5)
--- NOTE | 2016-09-04 16:04 | Emergency Department Note ---
START Narrative - START START: I examined this patient and my medical decision-making was reviewed with the PROJECT COACH/PA/Advanced Practice Nurse/Resident Physician. I agree with the documented findings, disposition and treatment plan as described except to the extent set forth below. ED attending note: Patient seen with emergency medicine resident Dr. WITT. Please see a copy of his note for details of the H&P, evaluation, management and disposition of this patient. We independently had [id number] contact with the patient Briefly: A 81-year-old male by EMS for headache. Patient also has fever. Bilirubin and weak. Diagnosed with pancreatic cancer. Was supposed to get a follow-up abdominal pelvic CT today. Is being accomplished right now. Patient complaining of weakness and low-grade fever. Patient is a tachycardic was borderline hypotensive is getting IV fluid and cultures. Patient is comfort care arrest. Patient has been provided 45 minutes of critical care service with admission anticipated. Disposition pending.
[2016-09-04 16:26] LABS: Albumin 3.1 g/dL (3.5-5.0); Albumin/Globulin Ratio 0.8 (1.1-2.2); Bilirubin,Direct 2.7 mg/dL (0.0-0.5); Bilirubin,Indirect 0.7 mg/dL (0.0-1.2); Bilirubin,Total 3.4 mg/dL (0.2-1.2); Globulin 3.8 g/dL (2.4-3.5); Magnesium 0.9 mg/dL (1.6-2.6); Phosphorous 1.7 mg/dL (2.3-4.7); Total Protein 6.9 g/dL (6.0-8.3)
[2016-09-04] MEDS ORDERED: Vancomycin 1,000 MG in D5% in Water 250 ML IVPB ONE (16:54)
[2016-09-04] MEDS ORDERED: Cefepime HCl 2,000 MG in D5% in Water (Mini-Bag+) 100 ML IVPB STA (16:58)
[2016-09-04 17:41] LABS: Bilirubin,Urine Small (Negative); Blood,Urine Moderate (Negative); Clarity,Urine Cloudy (Clear); Color,Urine Dark Yellow (Yellow); Glucose,Urine (UA) Normal (Normal); Ketones,Urine Trace mg/dL (Negative); Leukocyte Esterase,Urine Trace (Negative); Nitrite,Urine Negative (Negative); PH,Urine 5.5 pH Units (5.0-8.0); Protein,Urine Trace mg/dL (Neg-Trace); Specific Gravity,Urine 1.017 (1.010-1.025); Urobilinogen,Urine Normal (Normal)
[2016-09-04 17:43] LABS: Bacteria,Urine None Seen per hpf (None-Few); Hyaline Casts,Urine Few per lpf (None-Few); Squamous Epithelial Cell,Urine Many per lpf (None-Few)
--- NOTE | 2016-09-04 18:07 | Urology - Consult Note ---
Date of Encounter: 09/04/16 Time of Encounter: 18:04 - Assessment and Plan (1) Urinary retention Current Visit: Yes Status: Acute Assessment and plan: Patient states that he was voiding okay prior to this admission. Patient was prepped and draped in normal sterile fashion. At this point I attempted to place an 18-Algerian coude catheter which would not advance beyond the bladder neck/prostate. Upon removing this catheter urine was seen coming from the tip of the catheter. I then attempted to place a 14-Algerian catheter which would not advance as well. I then was able to easily place a Glidewire into the patient's bladder. Over the Glidewire I proceeded to dilate the patient's bladder neck/prostatic stricture to 18-Algerian. I then was able to place a 16-Algerian catheter over the Glidewire into the patient's bladder. Approximately 400 mL's of urine was returned. Okay to remove catheter per primary team. Patient should follow up with urology in 3-4 weeks for longer term management of stricture. Urology CN:HPI Consult date: 09/04/16 Reason for consult Urology: Difficult Rodriguez Requesting physician: Osei Roe History of present illness: Bravo is an 81-year-old male with a admission secondary to cardiac issues and acute renal insufficiency. Patient had multiple attempts at catheter placement which were unsuccessful. Patient states that he has always had to have urology place his catheters. He is unsure of the reason why. Past Med Surg Social Fam HX - Past Medical History Medical history: arthritis, atrial fibrillation, cancer, CHF, COPD, DVT, hyperlipidemia, hypertension, myocardial infarction Psychiatric history: anxiety, depression - Past Surgical History Surgical History: angioplasty/stent, herniorrhaphy, orthopedic, other, pacemaker /AICD - Social History Smoking Status: Current every day smoker Smokeless Tobacco Status: No Alcohol use: none Drug use: none - Family History Mother Living Status: Hx Family Cancer: Yes Sister Adopted: No Living Status: Hx Family Cardiac Disorders: Yes (sister, father) Hx Family Respiratory Disorders: No Hx Family Cancer: Yes Hx Family GI Disorders: No Hx Family Endocrine Disorder: No Hx Family Neuromuscular Disorders: No Hx Family Neurologic Disorders: No Hx Family HEENT Disorders: No Hx Family Autoimmune Disorders: No Brother Adopted: No Family Member Ethnicity: Non- Living Status: Still Living Hx Family Cardiac Disorders: Yes ([place]) Hx Family Respiratory Disorders: No Hx Family Cancer: No Hx Family GI Disorders: No Hx Family Endocrine Disorder: No Hx Family Neuromuscular Disorders: No Hx Family Neurologic Disorders: No Hx Family HEENT Disorders: No Hx Family Autoimmune Disorders: No Father Living Status: Hx Family Cardiac Disorders: Yes (MYOCARDIAL INFARCTION.) Hx Family Respiratory Disorders: No Hx Family Cancer: No Hx Family GI Disorders: No Hx Family Endocrine Disorder: No Hx Family Neuromuscular Disorders: No Hx Family Neurologic Disorders: Yes (Stroke) Hx Family HEENT Disorders: No Hx Family Autoimmune Disorders: No Medications and Allergies Albuterol Sulfate [Albuterol Inhaler] 2 puff IH Q4H PRN 06/04/15 [History] Aspirin 81 mg PO DAILY 06/04/15 [History] Atorvastatin [Lipitor] 20 mg PO HS 06/04/15 [History] Potassium Chloride [K-Tab ER] 20 meq PO DAILY 06/04/15 [History] Budesonide/Formoterol 80/4.5 [Symbicort 80/4.5] 2 puff IH BIDR 11/26/15 [ History] Tiotropium [Spiriva] 18 mcg IH DAILY 11/26/15 [History] Omeprazole [PriLOSEC] 20 mg PO DAILY #90 cap 06/19/16 [Rx] Ondansetron [Zofran] 8 mg PO TID PRN #60 tablet 07/08/16 [Rx] Rivaroxaban [Xarelto] 20 mg PO DAILY 08/01/16 [History] Metoprolol XL (24 HR) Succ [Toprol Xl] 50 mg PO DAILY #30 tab.er.24h 08/05/16 [ Rx] Oxycodone HCl/Acetaminophen [Percocet 5-325 mg Tablet] 1 each PO Q4-6H PRN #20 tablet 08/05/16 [Rx] Sucralfate [Carafate] 1 gm PO QID #120 tablet 09/01/16 [Rx] Diltiazem HCl [Diltiazem ER] 120 mg PO DAILY 09/04/16 [History] Furosemide [Lasix] 40 mg PO DAILY 09/04/16 [History] Megestrol Acetate [Megace Es] 2,500 mg PO DAILY 09/04/16 [History] PredniSONE [Deltasone] See Taper PO AD 09/04/16 [History] Allergies Penicillins Allergy (Verified 09/04/16 17:38) Hives Review of Systems ROS unobtainable: due to mental status Exam Initial Vital Signs Temp Pulse Resp BP Pulse Ox 98.4 F 155 22 78/55 95 09/04/16 15:34 09/04/16 15:34 09/04/16 15:34 09/04/16 15:34 09/04/16 15:34 - General physical appearance Present: well developed - ENT Present: decreased hearing - Neck Present: no masses - Respiratory Present: normal respiratory effort - Cardiovascular Cardiovascular exam IM: tachycardia - Abdomen Abdomen: Present: soft - Genitourinary other (Uncircumcised phallus normal genitalia) Urology Results - Labs 09/04/16 15:41 09/04/16 15:41 Abnormal lab results WBC 18.3 K/mcL (4.3-11.1) H D 09/04/16 15:41 RBC 4.06 M/mcL (4.19-5.50) L 09/04/16 15:41 Hgb 12.7 g/dL (12.9-16.9) L 09/04/16 15:41 RDW 15.7 % (11.5-14.5) H 09/04/16 15:41 Neutrophils # 16.5 K/mcL (1.6-8.9) H 09/04/16 15:41 Lymphocytes # 0.3 K/mcL (0.6-4.6) L 09/04/16 15:41 PT 30.5 Seconds (9.4-12.1) H 09/04/16 15:41 Potassium 3.3 mEq/L (3.5-4.5) L 09/04/16 15:41 Chloride 97 mEq/L (98-109) L 09/04/16 15:41 Carbon Dioxide 32 mEq/L (19-29) H 09/04/16 15:41 BUN 40 mg/dL (8-26) H 09/04/16 15:41 Creatinine 1.92 mg/dL (0.72-1.25) H 09/04/16 15:41 Est GFR ( Amer) 41 (> 60) L 09/04/16 15:41 Est GFR (Non-Af Amer) 34 (> 60) L 09/04/16 15:41 Lactic Acid 2.8 mmol/L (0.5-2.2) H 09/04/16 15:41 Phosphorus 1.7 mg/dL (2.3-4.7) L 09/04/16 15:41 Magnesium 0.9 mg/dL (1.6-2.6) L 09/04/16 15:41 Total Bilirubin 3.4 mg/dL (0.2-1.2) H 09/04/16 15:41 Direct Bilirubin 2.7 mg/dL (0.0-0.5) H 09/04/16 15:41 AST 368 Units/L (5-34) H 09/04/16 15:41 ALT 272 Units/L (0-55) H 09/04/16 15:41 Alkaline Phosphatase 709 Units/L (38-126) H 09/04/16 15:41 Troponin I 0.04 ng/mL (0-0.03) H* 09/04/16 15:41 Albumin 3.1 g/dL (3.5-5.0) L 09/04/16 15:41 Globulin 3.8 g/dL (2.4-3.5) H 09/04/16 15:41 Albumin/Globulin Ratio 0.8 (1.1-2.2) L 09/04/16 15:41 Lipase 116 Units/L (8-78) H 09/04/16 15:41 Urine Clarity Cloudy (Clear) A 09/04/16 17:34 Urine Ketones Trace mg/dL (Negative) H 09/04/16 17:34 Urine Blood Moderate (Negative) H 09/04/16 17:34 Urine Bilirubin Small (Negative) H 09/04/16 17:34 Ur Leukocyte Esterase Trace (Negative) H 09/04/16 17:34 Urine Microscopic RBC 3-5 per hpf (0-3) H 09/04/16 17:34 Urine Microscopic WBC 5-15 per hpf (0-3) H 09/04/16 17:34 Ur Squamous Epith Cells Many per lpf (None-Few) H 09/04/16 17:34 Ur Culture Indicated? YES (NO) A 09/04/16 17:34 All other labs normal. Consult Discharge Plan - Plan Referrals: Zafar Gutierrez DO [Primary Care Provider] -
--- NOTE | 2016-09-04 19:50 | Internal Med History&Physical ---
Date of Encounter: 09/04/16 Time of Encounter: 19:50 Assessment and Plan (1) Sepsis Current visit: Yes Status: Acute patient comes in with acute urinary retention requiring urology to place a baum , he is also tachycardic with leucosytosis, meeting SIRS criteria with urine as the possible source vs biliary source, we will treat with empiric Abx whilst following the microbiology reports, IVF, follow lactic acid till it normalizes Qualifiers: Sepsis type: Escherichia coli Qualified Code(s): A41.51 - Sepsis due to Escherichia coli [E. coli] (2) Urinary retention Current visit: Yes Status: Acute may be related to UTI, currently relived with baum in place, will defer to urology (3) UTI (urinary tract infection) Current visit: Yes Status: Acute UA is suggestive of UTI though dirty, we will follow microbiology report Qualifiers: Urinary tract infection type: acute cystitis Hematuria presence: with hematuria Qualified Code(s): N30.01 - Acute cystitis with hematuria (4) Atrial fibrillation with RVR Current visit: Yes Status: Acute hx of paroxysmal AFIB now in RVR in the setting of pain and sepsis, w will treat underlying source and monitor heart rate, will continue rate control - oral medications will hold off on any drips until BP is stable-continue systemic anticoagulation (5) Pancreatic cancer Current visit: Yes Status: Chronic he is currently under the care of an oncologist, he is s/p stent placement for biliary drainage, the drain per CT abdomen reports seems to be having problems, will need GI evaluation, there is no clinical evidence currently of blockage Qualifiers: Pancreatic malignancy location: head of pancreas Qualified Code(s): C25.0 - Malignant neoplasm of head of pancreas (6) COPD (chronic obstructive pulmonary disease) Current visit: Yes Status: Chronic stable, will do PRB nebs Qualifiers: COPD type: emphysema Emphysema type: centrilobular Qualified Code(s): J43.2 - Centrilobular emphysema Internal Medicine - H&P: HPI Chief complaint: headache and abdominal pain Admitted From: Emergency Dept Plans for Post Hospital Care: Home History of present illness: Mr. Martin is a 81 year old male with a history of obstructive jaundice from pancreatic cancer s/p biliary stent was brought in for headache, abdominal pain and malaise. Patient has been unwell for a while with weight loss and general malaise. Today his home nurse came to see him and upon checking his vital noted that his BP was 70/50mmHg and was concerned about this finding in addition to his other symptoms so she asked them to come to the ER. In the ER he was found to be unable to urinate so urology had to be consulted to place a baum to relieve the acute urinary retention. He was also tachycardic-AFIB with RVR in the 150's, with leucocytosis, lactate of 2.8 and with the source thought to be the urine so he is being admitted for further workup. He denies fever, chills but has had nausea. Past Med Surg Social Fam HX - Past Medical History Medical history: arthritis, atrial fibrillation, cancer, CHF, COPD, DVT, hyperlipidemia, hypertension, myocardial infarction, other ((Paroxysmal A-fib s/ p pacemaker, on Cardizem & Xarelto), cancer, COPD, DVT, hyperlipidemia, hypertension, myocardial infarction) Psychiatric history: anxiety, depression - Past Surgical History Surgical History: angioplasty/stent, herniorrhaphy, orthopedic, other, pacemaker /AICD - Social History Smoking Status: Current every day smoker Smokeless Tobacco Status: No Alcohol use: none Drug use: none - Family History Mother Living Status: Hx Family Cancer: Yes Sister Adopted: No Living Status: Hx Family Cardiac Disorders: Yes (sister, father) Hx Family Respiratory Disorders: No Hx Family Cancer: Yes Hx Family GI Disorders: No Hx Family Endocrine Disorder: No Hx Family Neuromuscular Disorders: No Hx Family Neurologic Disorders: No Hx Family HEENT Disorders: No Hx Family Autoimmune Disorders: No Brother Adopted: No Family Member Ethnicity: Non- Living Status: Still Living Hx Family Cardiac Disorders: Yes ([place]) Hx Family Respiratory Disorders: No Hx Family Cancer: No Hx Family GI Disorders: No Hx Family Endocrine Disorder: No Hx Family Neuromuscular Disorders: No Hx Family Neurologic Disorders: No Hx Family HEENT Disorders: No Hx Family Autoimmune Disorders: No Father Living Status: Hx Family Cardiac Disorders: Yes (MYOCARDIAL INFARCTION.) Hx Family Respiratory Disorders: No Hx Family Cancer: No Hx Family GI Disorders: No Hx Family Endocrine Disorder: No Hx Family Neuromuscular Disorders: No Hx Family Neurologic Disorders: Yes (Stroke) Hx Family HEENT Disorders: No Hx Family Autoimmune Disorders: No Internal Medicine - H&P: Meds Albuterol Sulfate [Albuterol Inhaler] 2 puff IH Q4H PRN 06/04/15 [History] Aspirin 81 mg PO DAILY 06/04/15 [History] Atorvastatin [Lipitor] 20 mg PO HS 06/04/15 [History] Potassium Chloride [K-Tab ER] 20 meq PO DAILY 06/04/15 [History] Budesonide/Formoterol 80/4.5 [Symbicort 80/4.5] 2 puff IH BIDR 11/26/15 [ History] Tiotropium [Spiriva] 18 mcg IH DAILY 11/26/15 [History] Omeprazole [PriLOSEC] 20 mg PO DAILY #90 cap 06/19/16 [Rx] Ondansetron [Zofran] 8 mg PO TID PRN #60 tablet 07/08/16 [Rx] Rivaroxaban [Xarelto] 20 mg PO DAILY 08/01/16 [History] Metoprolol XL (24 HR) Succ [Toprol Xl] 50 mg PO DAILY #30 tab.er.24h 08/05/16 [ Rx] Oxycodone HCl/Acetaminophen [Percocet 5-325 mg Tablet] 1 each PO Q4-6H PRN #20 tablet 08/05/16 [Rx] Sucralfate [Carafate] 1 gm PO QID #120 tablet 09/01/16 [Rx] Diltiazem HCl [Diltiazem ER] 120 mg PO DAILY 09/04/16 [History] Furosemide [Lasix] 40 mg PO DAILY 09/04/16 [History] Megestrol Acetate [Megace Es] 2,500 mg PO DAILY 09/04/16 [History] PredniSONE [Deltasone] See Taper PO AD 09/04/16 [History] Allergies Penicillins Allergy (Verified 09/04/16 17:38) Hives All Systems PM: A 10-system review of systems was performed and is negative for pertinent findings except as documented above in the HPI. - Constitutional Vitals: Temp Pulse Resp BP Pulse Ox 98.4 F 129 22 116/80 98 09/04/16 15:34 09/04/16 17:31 09/04/16 17:39 09/04/16 17:39 09/04/16 17:31 General appearance: Frail looking elderly male, cachectic looking, lying in bed , not in obvious distress - Head Head exam: Present: atraumatic, normocephalic - Eye Eye exam: Present: PERRL, EOMI, no scleral icterus, conjuntiva pink, moist mucous membranes - Neck Neck exam: Present: supple, trachea midline. Absent: lymphadenopathy - Respiratory Respiratory exam: diminished lung sounds, no crackles or wheeze - Cardiovascular Cardiovascular exam: AICD noted in the left upper chest, tachycardic irregularly irregular heart sounds, - GI/Abdominal GI/Abdominal exam: normal bowel sounds, soft, tenderness in the epigastric area with no guarding, no peritoneal signs. Absent: distended - Extremities Exam Extremities exam: Present: warm, radial pulses palpable and symetrical. Absent : calf tenderness, cyanotic, - Neurological Exam Neurological exam: Present: CN II-XII intact, oriented X3, no focal deficits. Absent: pronater drift, facial droop, speech deficit - Skin Skin exam: areas of ecchymoses noted Internal Med - H&P Results - Labs CBC & Chem 7: 09/05/16 01:54 09/05/16 01:54 Labs: Urine 09/04/16 Range/Units 17:34 Urine Color Dark Yellow (Yellow) Urine Clarity Cloudy A (Clear) Urine pH 5.5 (5.0-8.0) pH Units Ur Specific Viola 1.017 (1.010-1.025) Urine Protein Trace (Neg-Trace) mg/dL Urine Glucose (UA) Normal (Normal) mg/dL - EKG Data -: EKG Interpreted by Myself Rate: tachycardia (AFIB RVR) - Diagnostic Studies Chest x-ray Status: image reviewed by me CT scan - abdomen Status: image reviewed by me CT scan - head Status: image reviewed by me
[2016-09-04] MEDS ORDERED: Naloxone 0.4 MG/ML INJ IVP PRN (19:53)
[2016-09-04] MEDS ORDERED: Acetaminophen 325 MG TABLET PO PRN (19:56)
[2016-09-04] MEDS ORDERED: Albuterol 2.5 MG/3 ML NEBULIZER IH PRN (19:57)
[2016-09-04] MEDS ORDERED: Ringers Solution, Lactated 1,000 ML IVC SCH (20:00)
[2016-09-04] MEDS: predniSONE 20 MG TABLET PO SCH (21:50)
[2016-09-04] MEDS: Metoprolol XL (24 HR) Succ 50 MG TAB.ER.24H PO SCH (21:50)
[2016-09-04] MEDS: *HR* Rivaroxaban 10 MG TABLET PO SCH (21:50)
[2016-09-05] MEDS: Piperacillin/Tazobactam 3.375 GM in D5% in Water (Mini-Bag+) 100 ML IVPB SCH ×4 (00:19→23:25)
[2016-09-05 02:14] LABS: Basophils % 0.1 %; Hematocrit 29.2 % (37.5-50.1); Hemoglobin 9.8 g/dL (12.9-16.9); Immature Granulocytes % 0.5 % (0-4); Lymphocytes # 0.6 K/mcL (0.6-4.6); Lymphocytes % 3.9 %; Mean Corpuscular HGB Conc 33.6 g/dL (31.6-35.5); Mean Corpuscular Volume 95.4 fL (83.0-100.0); Mean Platelet Volume 10.7 fL (9.4-12.4); Monocytes # 1.1 K/mcL (0.0-1.3); Monocytes % 6.7 %; Neutrophils # 14.2 K/mcL (1.6-8.9); Platelet Count 127 K/mcL (140-400); Red Blood Count 3.06 M/mcL (4.19-5.50); Red Cell Distribution Width 16.1 % (11.5-14.5); Segmented Neutrophils % 88.8 %
[2016-09-05 02:27] LABS: Albumin/Globulin Ratio 0.8 (1.1-2.2); Calcium 7.6 mg/dL (8.6-10.8); Globulin 3.1 g/dL (2.4-3.5); Potassium 3.6 mEq/L (3.5-4.5)
[2016-09-05 02:28] LABS: Albumin 2.4 g/dL (3.5-5.0); Bilirubin,Total 2.8 mg/dL (0.2-1.2); Phosphorous 3.3 mg/dL (2.3-4.7); Total Protein 5.5 g/dL (6.0-8.3)
[2016-09-05] MEDS ORDERED: 0.9 % Sodium Chloride 1,000 ML IVC ONE (03:18)
[2016-09-05 03:26] LABS: Anisocytosis 1+ (Not Present); Platelet Estimate Slight Decrease (Normal)
[2016-09-05] MEDS ORDERED: 0.9 % Sodium Chloride 1,000 ML IVC SCH ×2 (03:30→11:57)
[2016-09-05] MEDS ORDERED: Vancomycin 1,000 MG in D5% in Water 250 ML IVPB SCH (06:00)
[2016-09-05] MEDS: predniSONE 20 MG TABLET PO SCH (08:05)
[2016-09-05] MEDS: Diltiazem CD (24hr) 120 MG CAPSULE PO SCH (08:05)
[2016-09-05] MEDS: Metoprolol XL (24 HR) Succ 50 MG TAB.ER.24H PO SCH (08:05)
[2016-09-05] MEDS: *HR* Rivaroxaban 10 MG TABLET PO SCH (08:05)
[2016-09-05] MEDS: Aspirin 81 MG TAB.CHEW PO SCH (08:06)
[2016-09-05 09:11] LABS: Acinetobacter baumannii by PCR Not Detected (Not Detect); Candida albicans by PCR Not Detected (Not Detect); Candida glabrata by PCR Not Detected (Not Detect); Candida krusei by PCR Not Detected (Not Detect); Candida parapsilosis by PCR Not Detected (Not Detect); Candida tropicalis by PCR Not Detected (Not Detect); Enterococcus by PCR Not Detected (Not Detect); Escherichia coli by PCR ***DETECTED*** (Not Detect); Klebsiella oxytoca by PCR Not Detected (Not Detect); Klebsiella pneumoniae by PCR Not Detected (Not Detect); Pseudomonas aeruginosa by PCR Not Detected (Not Detect); Serratia marcescens by PCR Not Detected (Not Detect); Staphylococcus aureus by PCR Not Detected (Not Detect); Streptococcus agalactiae(B)PCR Not Detected (Not Detect); Streptococcus by PCR Not Detected (Not Detect); Streptococcus pneumoniae PCR Not Detected (Not Detect); Streptococcus pyogenes (A) PCR Not Detected (Not Detect); blaKPC Carbapenem-Resist Gene Not Detected (Not Detect); mecA Methicillin-Resist Gene Not Detected (Not Detect); vanA/B Vancomycin-Resist Genes Not Detected (Not Detect)
--- NOTE | 2016-09-05 09:15 | Urology Progress Note ---
Date of Encounter: 09/05/16 Time of Encounter: 09:14 - Assessment and Plan (1) Urinary retention Current Visit: Yes Status: Acute Assessment and plan: ok to dc cath when deemed appropriate per primary team. f/u with me in 2-3 weeks after discharge. Progress Note Narrative: patient seen. sleeping this am. good yet dark urine in tubing. serum creatinine improved. Objective Initial Vital Signs Temp Pulse Resp BP Pulse Ox 98.4 F 155 22 78/55 95 09/04/16 15:34 09/04/16 15:34 09/04/16 15:34 09/04/16 15:34 09/04/16 15:34 - General physical appearance Present: well developed - Abdomen Present: soft - Genitourinary Present: other (urine dark but clear in tubing) - Labs 09/05/16 01:54 09/05/16 01:54 Diabetes panel 09/05/16 Range/Units 01:54 Sodium 138 (136-145) mEq/L Potassium 3.6 (3.5-4.5) mEq/L Chloride 102 (98-109) mEq/L Carbon Dioxide 28 (19-29) mEq/L BUN 36 H (8-26) mg/dL Creatinine 1.43 H (0.72-1.25) mg/dL Glucose 157 H (70-99) mg/dL Calcium 7.6 L (8.6-10.8) mg/dL AST 241 H (5-34) Units/L ALT 199 H (0-55) Units/L Alkaline Phosphatase 526 H (38-126) Units/L Albumin 2.4 L D (3.5-5.0) g/dL Calcium panel 09/05/16 Range/Units 01:54 Calcium 7.6 L (8.6-10.8) mg/dL Phosphorus 3.3 D (2.3-4.7) mg/dL Albumin 2.4 L D (3.5-5.0) g/dL Pituitary panel 09/05/16 Range/Units 01:54 Sodium 138 (136-145) mEq/L Potassium 3.6 (3.5-4.5) mEq/L Chloride 102 (98-109) mEq/L Carbon Dioxide 28 (19-29) mEq/L BUN 36 H (8-26) mg/dL Creatinine 1.43 H (0.72-1.25) mg/dL Glucose 157 H (70-99) mg/dL Calcium 7.6 L (8.6-10.8) mg/dL Adrenal panel 09/05/16 Range/Units 01:54 Sodium 138 (136-145) mEq/L Potassium 3.6 (3.5-4.5) mEq/L Chloride 102 (98-109) mEq/L Carbon Dioxide 28 (19-29) mEq/L BUN 36 H (8-26) mg/dL Creatinine 1.43 H (0.72-1.25) mg/dL Glucose 157 H (70-99) mg/dL Calcium 7.6 L (8.6-10.8) mg/dL Total Bilirubin 2.8 H (0.2-1.2) mg/dL AST 241 H (5-34) Units/L ALT 199 H (0-55) Units/L Alkaline Phosphatase 526 H (38-126) Units/L Albumin 2.4 L D (3.5-5.0) g/dL Consult Discharge Plan - Plan Referrals: Zafar Gutierrez DO [Primary Care Provider] -
--- NOTE | 2016-09-05 10:16 | Internal Med Progress Note ---
<Javier Smiley - Last Filed: 09/05/16 12:44> Date of Encounter: 09/05/16 Time of Encounter: 09:30 - Assessment and plan (1) Septic shock Current Visit: Yes Status: Acute Assessment and plan: - 3 SIRS criteria (tachycardia, tachypnea and leukocytosis on admission) with lactic acid as high as 3.0 and hypotension as low as 72/48. - Most likely secondary to UTI (given urinary symptoms) and/or GI source (given pancreatic cancer s/p biliary stent placement and recent radiation therapy) - Blood cultures preliminarily grew GNR, likely E. coli per PCR. - Resolved as leukocytosis & tachycardia improves and tachypnea, lactic acid and blood pressure normalized. - Continue IV fluid. - Continue Zosyn (since 09/05). Will discontinue vancomycin. Further de- escalation based on clinical course and culture result. (2) UTI (urinary tract infection) Current Visit: Yes Status: Acute Assessment and plan: - Patient recalls having burning sensation on urination prior to admission. - UA found positive leukocytes esterase. Urine culture pending. - Blood cultures preliminarily grew GNR, likely E. coli per PCR. - Continue Zosyn (since 09/05). Qualifiers: Urinary tract infection type: acute cystitis Hematuria presence: with hematuria Qualified Code(s): N30.01 - Acute cystitis with hematuria (3) Atrial fibrillation with RVR Current Visit: Yes Status: Acute Assessment and plan: - Noted to have A-fib RVR at rate of 150s in ED. - Likely secondary to septic shock in the setting of known history of paroxysmal A-fib. - Currently rate controlled. Continue Cardizem PO. - Continue Xarelto for anticoagulation. - Continue to monitor. (4) Urinary retention Current Visit: Yes Status: Acute Assessment and plan: - S/p urinary catheter placed by urologist in ED. - Per urology, patient has bladder neck/prostatic stricture. The catheter can be removed later if it's appropriate. - Patient should follow up with Dr. Arora of [facility] in 2-3 weeks after discharge regarding further management of stricture. (5) Pancreatic cancer Current Visit: Yes Status: Chronic Assessment and plan: - S/p biliary stent placement and radiation therapy (on 07/21/16) - Currently on prednisone taper prescribed by radiation oncologist for any radiation therapy associated inflammation. Qualifiers: Pancreatic malignancy location: head of pancreas Qualified Code(s): C25.0 - Malignant neoplasm of head of pancreas (6) CHF (congestive heart failure) Current Visit: No Status: Chronic Assessment and plan: - Echo from 08/02/16 showed LVEF 35-40% and prior echo from 02/16/16 showed moderate LV diastolic dysfunction. - Lasix was held given patient's hypotension and CLOVIS on initial presentation. - Strict I/O and daily weight. Qualifiers: Congestive heart failure type: systolic Congestive heart failure chronicity : acute Qualified Code(s): I50.21 - Acute systolic (congestive) heart failure (7) COPD (chronic obstructive pulmonary disease) Current Visit: Yes Status: Chronic Assessment and plan: - Continue bronchodilators. Qualifiers: COPD type: emphysema Emphysema type: centrilobular Qualified Code(s): J43.2 - Centrilobular emphysema - Subjective Interval history: Patient was seen and examined this morning. Patient reports abdominal pain significant improves compared to yesterday and no more lightheadedness. Patient recalls having some burning sensation on urination before. Patient denies fever , chills, nausea, vomiting, diarrhea, shortness of breath, cough, chest pain. - Constitutional Vitals: Temp Pulse Resp BP Pulse Ox 97.9 F 110 17 130/84 92 09/05/16 08:09 09/05/16 08:09 09/05/16 08:09 09/05/16 08:09 09/05/16 08:09 General appearance: Present: cooperative, A&O X 3, no acute distress, answers questions appropriately - Head Head exam: Present: atraumatic, normocephalic - Eye Eye exam: Present: EOMI, PERRL, conjuntiva pink, sclera anicteric - Neck Neck exam general surgery: Present: supple, trachea midline. Absent: lymphadenopathy - Respiratory Respiratory exam: Present: decreased breath sounds. Absent: accessory muscle use, rales, rhonchi, wheezes - Cardiovascular Cardiovascular exam: Present: RRR, +S1, +S2. Absent: diastolic murmur, gallop, rubs, systolic murmur - GI/Abdominal GI/Abdominal exam: Present: normal bowel sounds, soft, no peritoneal signs. Absent: distended, tenderness - Extremities Exam Extremities exam: Present: warm, radial pulses palpable and symetrical. Absent : calf tenderness, cyanotic, pedal edema - Neurological Exam Neurological exam: Present: oriented X3, no focal deficits. Absent: pronater drift, facial droop, speech deficit - Skin Skin exam: Present: dry, intact, warm Internal Medicine: Result - Labs CBC & Chem 7: 09/05/16 01:54 09/05/16 01:54 Labs: Short CBC 09/05/16 Range/Units 01:54 WBC 16.0 H (4.3-11.1) K/mcL Hgb 9.8 L D (12.9-16.9) g/dL Hct 29.2 L (37.5-50.1) % Plt Count 127 L (140-400) K/mcL Neutrophils # 14.2 H (1.6-8.9) K/mcL BMP 09/05/16 01:54 Sodium 138 Potassium 3.6 Chloride 102 Carbon Dioxide 28 BUN 36 H Creatinine 1.43 H Glucose 157 H Calcium 7.6 L Liver Function 09/05/16 Range/Units 01:54 Total Bilirubin 2.8 H (0.2-1.2) mg/dL AST 241 H (5-34) Units/L ALT 199 H (0-55) Units/L Alkaline Phosphatase 526 H (38-126) Units/L Albumin 2.4 L D (3.5-5.0) g/dL - ABG Interpretation ABG results: PT/INR, D-dimer PT 30.5 Seconds (9.4-12.1) H 09/04/16 15:41 Consult Discharge Plan - Plan Referrals: Sukumar Arora MD [Partnered Physician] - (Follow up in 2-3 weeks ) Zafar Gutierrez DO [Primary Care Provider] - <Jean Montalvo H - Last Filed: 09/05/16 12:46> Date of Encounter: 09/05/16 - Constitutional Vitals: Temp Pulse Resp BP Pulse Ox 97.9 F 110 17 130/84 92 09/05/16 08:09 09/05/16 08:09 09/05/16 08:09 09/05/16 08:09 09/05/16 08:09 Internal Medicine: Result - Labs CBC & Chem 7: 09/05/16 01:54 09/05/16 01:54 Labs: Short CBC 09/05/16 Range/Units 01:54 WBC 16.0 H (4.3-11.1) K/mcL Hgb 9.8 L D (12.9-16.9) g/dL Hct 29.2 L (37.5-50.1) % Plt Count 127 L (140-400) K/mcL Neutrophils # 14.2 H (1.6-8.9) K/mcL BMP 09/05/16 01:54 Sodium 138 Potassium 3.6 Chloride 102 Carbon Dioxide 28 BUN 36 H Creatinine 1.43 H Glucose 157 H Calcium 7.6 L Liver Function 09/05/16 Range/Units 01:54 Total Bilirubin 2.8 H (0.2-1.2) mg/dL AST 241 H (5-34) Units/L ALT 199 H (0-55) Units/L Alkaline Phosphatase 526 H (38-126) Units/L Albumin 2.4 L D (3.5-5.0) g/dL - ABG Interpretation ABG results: PT/INR, D-dimer PT 30.5 Seconds (9.4-12.1) H 09/04/16 15:41 - Attending Attestation septic shock 2ry to E coli bacteremia and UTI continue Zosyn day 2 I examined this patient and my medical decision-making was reviewed with the Resident Physician. I agree with the documented findings, disposition and treatment plan as described except to the extent set forth below.
[2016-09-05] MEDS: MEGESTROL ACETATE PO SCH (11:04)
[2016-09-05] MEDS ORDERED: Magnesium Sulfate 2 GM in D5% in Water 100 ML IVPB ONE (12:13)
[2016-09-06 01:25] LABS: Hematocrit 34.5 % (37.5-50.1); Hemoglobin 10.9 g/dL (12.9-16.9); Immature Granulocytes % 1.1 % (0-4); Lymphocytes # 0.5 K/mcL (0.6-4.6); Lymphocytes % 3.3 %; Mean Corpuscular HGB Conc 31.6 g/dL (31.6-35.5); Mean Corpuscular Hemoglobin 30.6 pg (28.0-33.3); Mean Corpuscular Volume 96.9 fL (83.0-100.0); Mean Platelet Volume 10.7 fL (9.4-12.4); Monocytes % 5.9 %; Neutrophils # 14.8 K/mcL (1.6-8.9); Platelet Count 175 K/mcL (140-400); Red Blood Count 3.56 M/mcL (4.19-5.50); Red Cell Distribution Width 15.9 % (11.5-14.5); Segmented Neutrophils % 89.7 %
[2016-09-06 01:38] LABS: Alanine Aminotransferase 215 Units/L (0-55); Albumin 2.6 g/dL (3.5-5.0); Albumin/Globulin Ratio 0.7 (1.1-2.2); Alkaline Phosphatase 612 Units/L (38-126); Aspartate Amino Transferase 224 Units/L (5-34); BUN/Creatinine Ratio 23 (6-26); Bilirubin,Total 2.6 mg/dL (0.2-1.2); Calcium 8.2 mg/dL (8.6-10.8); Carbon Dioxide 29 mEq/L (19-29); Chloride 104 mEq/L (98-109); Globulin 3.9 g/dL (2.4-3.5); Glucose 130 mg/dL (70-99); Magnesium 1.7 mg/dL (1.6-2.6); Osmolality,Calculated 290 (280-300); Potassium 3.9 mEq/L (3.5-4.5); Sodium 137 mEq/L (136-145); Total Protein 6.5 g/dL (6.0-8.3); eGFR For African Americans > 60 (> 60); eGFR For Non-African Americans > 60 (> 60)
[2016-09-06 01:52] LABS: Blood Urea Nitrogen 25 mg/dL (8-26)
[2016-09-06] MEDS ORDERED: methylPREDNISolone 125 MG/2 ML VIAL IVP ONE (06:37)
[2016-09-06] MEDS ORDERED: Ipratropium/Albuterol Neb 3 ML IH ONE (06:39)
[2016-09-06] MEDS ORDERED: MethylPREDNISolone 40 MG/ML VIAL ONE (06:47)
--- NOTE | 2016-09-06 07:50 | Internal Med Progress Note ---
<Javier Smiley - Last Filed: 09/06/16 09:10> Date of Encounter: 09/06/16 Time of Encounter: 07:30 - Assessment and plan (1) Acute and chronic respiratory failure Current Visit: No Status: Acute Assessment and plan: - Acute onset of dyspnea this morning with hypercapnia and hypoxia per ABG ( pCO2 50 and pO2 74 with increased need of supplemental oxygen). - Likely secondary to pulmonary edema (as seen on CXR) related to fluid resuscitation and/or possible COPD exacerbation. - IV fluid has been discontinued and will give IV Lasix. - Also started IV Solu-Medrol and add scheduled Duoneb. - Will start BiPAP. - Continue to monitor closely. Qualifiers: Respiratory failure complication: hypoxia and hypercapnia Qualified Code(s) : J96.21 - Acute and chronic respiratory failure with hypoxia; J96.22 - Acute and chronic respiratory failure with hypercapnia (2) Septic shock Current Visit: Yes Status: Acute Assessment and plan: - 3 SIRS criteria (tachycardia, tachypnea and leukocytosis) with lactic acid as high as 3.0 and hypotension as low as 72/48 on admission. - Most likely secondary to GI source (given pancreatic cancer s/p biliary stent placement and recent radiation therapy). - Blood cultures preliminarily grew GNR, likely E. coli per PCR. - Urine culture: no growth. - Resolved as leukocytosis & tachycardia improves and lactic acid and blood pressure normalized. - Continue Zosyn (since 09/05). Further de-escalation based on clinical course and culture result. (3) Atrial fibrillation with RVR Current Visit: Yes Status: Acute Assessment and plan: - Noted to have A-fib RVR at rate of 150s in ED. - Likely secondary to septic shock in the setting of known history of paroxysmal A-fib. - Noted to have rapid heart rate as high as 180s this morning, likely secondary to current respiratory distress. - Will give prn IV Lopressor for heart rate control. - Continue PO Cardizem and Toprol XL - Continue Xarelto for anticoagulation. - Continue to monitor. (4) Urinary retention Current Visit: Yes Status: Acute Assessment and plan: - S/p urinary catheter placed by urologist in ED. - Per urology, patient has bladder neck/prostatic stricture. The catheter can be removed later if it's appropriate. - Patient should follow up with Dr. Arora of [facility] in 2-3 weeks after discharge regarding further management of stricture. (5) Pancreatic cancer Current Visit: Yes Status: Chronic Assessment and plan: - S/p biliary stent placement and radiation therapy (on 07/21/16) - Currently on prednisone taper prescribed by radiation oncologist for any radiation therapy associated inflammation. Qualifiers: Pancreatic malignancy location: head of pancreas Qualified Code(s): C25.0 - Malignant neoplasm of head of pancreas (6) CHF (congestive heart failure) Current Visit: No Status: Chronic Assessment and plan: - Echo from 08/02/16 showed LVEF 35-40% and prior echo from 02/16/16 showed moderate LV diastolic dysfunction. - Strict I/O and daily weight. Qualifiers: Congestive heart failure type: systolic Congestive heart failure chronicity : acute Qualified Code(s): I50.21 - Acute systolic (congestive) heart failure (7) COPD (chronic obstructive pulmonary disease) Current Visit: Yes Status: Chronic Assessment and plan: - Start IV Solu-Medrol and add scheduled Duoneb. Qualifiers: COPD type: emphysema Emphysema type: centrilobular Qualified Code(s): J43.2 - Centrilobular emphysema - Time Spent With Patient 25 - 35 minutes - Subjective Interval history: Patient developed sudden onset of dyspnea starting 2 am with increased need of oxygen. Patient was seen and examined this morning at bedside. Patient is sitting up at bedside with tachypnea. Patient reports minimal cough. Patient denies chest pain, fever, chills, nausea, vomiting, diarrhea. - Constitutional Vitals: Temp Pulse Resp BP Pulse Ox 97.5 F L 110 32 166/88 96 09/06/16 06:50 09/06/16 06:50 09/06/16 06:50 09/06/16 06:50 09/06/16 06:50 General appearance: Present: cooperative, A&O X 3, no acute distress, answers questions appropriately - Head Head exam: Present: atraumatic, normocephalic - Eye Eye exam: Present: EOMI, conjuntiva pink, sclera anicteric - Neck Neck exam general surgery: Present: supple, trachea midline - Respiratory Respiratory exam: Present: rales (Some right basilar crackles), wheezes (Diffuse ). Absent: accessory muscle use, rhonchi - Cardiovascular Cardiovascular exam: Present: +S1, +S2, tachycardia - GI/Abdominal GI/Abdominal exam: Present: normal bowel sounds, soft, no peritoneal signs. Absent: distended, tenderness - Extremities Exam Extremities exam: Present: warm, radial pulses palpable and symetrical. Absent : calf tenderness, cyanotic, pedal edema - Neurological Exam Neurological exam: Present: oriented X3, no focal deficits. Absent: pronater drift, facial droop, speech deficit - Skin Skin exam: Present: dry, intact, warm Internal Medicine: Result - Labs CBC & Chem 7: 09/06/16 01:03 09/06/16 01:03 Labs: Short CBC 09/06/16 Range/Units 01:03 WBC 16.5 H (4.3-11.1) K/mcL Hgb 10.9 L (12.9-16.9) g/dL Hct 34.5 L (37.5-50.1) % Plt Count 175 (140-400) K/mcL Neutrophils # 14.8 H (1.6-8.9) K/mcL BMP 09/06/16 01:03 Sodium 137 Potassium 3.9 Chloride 104 Carbon Dioxide 29 BUN 25 D Creatinine 1.07 Glucose 130 H Calcium 8.2 L Liver Function 09/06/16 Range/Units 01:03 Total Bilirubin 2.6 H (0.2-1.2) mg/dL AST 224 H (5-34) Units/L ALT 215 H (0-55) Units/L Alkaline Phosphatase 612 H (38-126) Units/L Albumin 2.6 L (3.5-5.0) g/dL - ABG Interpretation ABG results: PT/INR, D-dimer PT 30.5 Seconds (9.4-12.1) H 09/04/16 15:41 Consult Discharge Plan - Plan Referrals: Sukumar Arora MD [Partnered Physician] - (Follow up in 2-3 weeks ) Zafar Gutierrez DO [Primary Care Provider] - (web request 09/05/16) <Jean Montalvo H - Last Filed: 09/06/16 09:43> Date of Encounter: 09/06/16 - Constitutional Vitals: Temp Pulse Resp BP Pulse Ox 97.5 F L 110 32 166/88 96 09/06/16 06:50 09/06/16 06:50 09/06/16 06:50 09/06/16 06:50 09/06/16 06:50 Internal Medicine: Result - Labs CBC & Chem 7: 09/06/16 01:03 09/06/16 01:03 Labs: Short CBC 09/06/16 Range/Units 01:03 WBC 16.5 H (4.3-11.1) K/mcL Hgb 10.9 L (12.9-16.9) g/dL Hct 34.5 L (37.5-50.1) % Plt Count 175 (140-400) K/mcL Neutrophils # 14.8 H (1.6-8.9) K/mcL BMP 09/06/16 01:03 Sodium 137 Potassium 3.9 Chloride 104 Carbon Dioxide 29 BUN 25 D Creatinine 1.07 Glucose 130 H Calcium 8.2 L Liver Function 09/06/16 Range/Units 01:03 Total Bilirubin 2.6 H (0.2-1.2) mg/dL AST 224 H (5-34) Units/L ALT 215 H (0-55) Units/L Alkaline Phosphatase 612 H (38-126) Units/L Albumin 2.6 L (3.5-5.0) g/dL - ABG Interpretation ABG results: ABG ABG pH 7.28 pH Units (7.32-7.45) L 09/06/16 08:11 ABG pCO2 50 mmHg (35-45) H 09/06/16 08:11 ABG pO2 74 mmHg (85-104) L 09/06/16 08:11 ABG O2 Saturation 93 % (95-98) L 09/06/16 08:11 PT/INR, D-dimer PT 30.5 Seconds (9.4-12.1) H 09/04/16 15:41 - Impressions Impressions Chest X-Ray 09/06/16 07:46 IMPRESSION: Congestive heart failure. D/ / 09/06/2016 08:15:23 Emmanuel Dsouza MD / [facility] Interpreting Provider: Emmanuel Dsouza MD - Attending Attestation -Acute on chronic hypoxic hypercapnic respiratory failure secondary to combination of acute pulmonary edema/acute systolic and diastolic CHF and acute COPD exacerbation/possibly related to septic shock due to gram-negative/ Escherichia coli bacteremia/UTI Increased dose of Lasix, continue Solu-Medrol, ordered BiPAP Continue Zosyn -Atrial fibrillation with rapid ventricular response likely related to hypoxia Continue metoprolol and Cardizem, consider starting Cardizem drip, may transfer to 2 N if not improving I examined this patient and my medical decision-making was reviewed with the Resident Physician. I agree with the documented findings, disposition and treatment plan as described except to the extent set forth below.
[2016-09-06] MEDS ORDERED: Furosemide 40 MG/4 ML VIAL IVP ONE ×2 (08:15→09:29)
[2016-09-06 08:20] LABS: ABG Base Excess -3.7 mEq/L (-2.0 to 3.0); ABG HCO3 23.5 mEQ/L (21-27); ABG Oxygen Saturation 93 % (95-98); ABG PCO2 50 mmHg (35-45); ABG PH 7.28 pH Units (7.32-7.45); ABG PO2 74 mmHg (85-104)
[2016-09-06 08:21] LABS: Blood Gas FiO2 36 %
[2016-09-06] MEDS: Piperacillin/Tazobactam 3.375 GM in D5% in Water (Mini-Bag+) 100 ML IVPB SCH ×2 (08:25→16:27)
[2016-09-06] MEDS: MEGESTROL ACETATE PO SCH (08:26)
[2016-09-06] MEDS: *HR* Rivaroxaban 10 MG TABLET PO SCH ×2 (08:26→13:30)
[2016-09-06] MEDS: predniSONE 20 MG TABLET PO SCH ×2 (08:26→13:30)
[2016-09-06] MEDS: Metoprolol XL (24 HR) Succ 50 MG TAB.ER.24H PO SCH (08:26)
[2016-09-06] MEDS: Aspirin 81 MG TAB.CHEW PO SCH ×2 (08:26→13:29)
[2016-09-06] MEDS: Diltiazem CD (24hr) 120 MG CAPSULE PO SCH (08:26)
[2016-09-06] MEDS ORDERED: *HR* Metoprolol 5 MG/5 ML VIAL IVP ONE (08:46)
[2016-09-06] MEDS: *HR* Metoprolol 5 MG/5 ML VIAL IVP SCH ×3 (08:48→09:20)
[2016-09-06] MEDS ORDERED: Furosemide 40 MG/4 ML VIAL ONE (09:27)
[2016-09-06] MEDS ORDERED: Furosemide 20 MG/2 ML VIAL IVP ONE (09:28)
[2016-09-06] MEDS ORDERED: Ipratropium/Albuterol Neb 3 ML IH SCH (10:00)
[2016-09-06 14:29] LABS: Creatine Kinase 52 Units/L (30-200)
[2016-09-06 14:39] LABS: Bilirubin,Urine Negative (Negative); Blood,Urine Large (Negative); Clarity,Urine Cloudy (Clear); Color,Urine Yellow (Yellow); Glucose,Urine (UA) Normal (Normal); Ketones,Urine Negative (Negative); Leukocyte Esterase,Urine Small (Negative); Nitrite,Urine Negative (Negative); Protein,Urine Negative (Neg-Trace); Urobilinogen,Urine Normal (Normal)
[2016-09-06 14:42] LABS: Hyaline Casts,Urine None Seen per lpf (None-Few); RBC,Urine TNTC per hpf (0-3); Squamous Epithelial Cell,Urine Moderate per lpf (None-Few)
[2016-09-06 14:52] LABS: Bacteria,Urine Few per hpf (None-Few)
[2016-09-06] MEDS: Ipratropium/Albuterol Neb 3 ML IH SCH ×2 (16:09→21:17)
[2016-09-06] MEDS: Furosemide 40 MG/4 ML VIAL IVP SCH (16:25)
[2016-09-06] MEDS: MethylPREDNISolone 40 MG/ML VIAL IVP SCH (16:26)
[2016-09-06] MEDS ORDERED: Furosemide 40 MG/4 ML VIAL IVP SCH (21:00)
[2016-09-06] MEDS ORDERED: Levofloxacin 750 MG/150 ML 750 MG/150 ML BAG IVPB SCH (22:00)
[2016-09-06] MEDS ORDERED: *HR* LORazepam 2 MG/ML VIAL IVP ONE (23:00)
[2016-09-07] MEDS: Piperacillin/Tazobactam 3.375 GM in D5% in Water (Mini-Bag+) 100 ML IVPB SCH ×3 (00:24→16:16)
[2016-09-07] MEDS: MethylPREDNISolone 40 MG/ML VIAL IVP SCH ×3 (00:24→16:15)
[2016-09-07] MEDS ORDERED: *HR* LORazepam 2 MG/ML VIAL IVP ONE (01:41)
[2016-09-07] MEDS ORDERED: *HR* LORazepam 2 MG/ML VIAL ONE (01:46)
[2016-09-07] MEDS ORDERED: *HR* Morphine 2 MG/ML SYRINGE IVP ONE (02:09)
[2016-09-07] MEDS: Ipratropium/Albuterol Neb 3 ML IH SCH ×4 (03:59→21:00)
[2016-09-07 04:40] LABS: Hematocrit 36.5 % (37.5-50.1); Hemoglobin 11.4 g/dL (12.9-16.9); Immature Platelets 8.3 % (1.1-6.1); Mean Corpuscular HGB Conc 31.2 g/dL (31.6-35.5); Mean Corpuscular Hemoglobin 31.3 pg (28.0-33.3); Mean Corpuscular Volume 100.3 fL (83.0-100.0); Mean Platelet Volume 11.3 fL (9.4-12.4); Platelet Count 154 K/mcL (140-400); Red Blood Count 3.64 M/mcL (4.19-5.50)
[2016-09-07 04:58] LABS: Albumin 2.6 g/dL (3.5-5.0); Albumin/Globulin Ratio 0.7 (1.1-2.2); Bilirubin,Total 1.6 mg/dL (0.2-1.2); Calcium 8.3 mg/dL (8.6-10.8); Globulin 3.7 g/dL (2.4-3.5); Potassium 4.4 mEq/L (3.5-4.5); Total Protein 6.3 g/dL (6.0-8.3)
[2016-09-07 05:12] LABS: Lymphocytes # 0.4 K/mcL (0.6-4.6); Monocytes # 1.2 K/mcL (0.0-1.3); Platelet Estimate Normal (Normal)
[2016-09-07 07:00] LABS: blaKPC Carbapenem-Resist Gene Not Detected (Not Detect)
[2016-09-07 07:01] LABS: Acinetobacter baumannii by PCR Not Detected (Not Detect); Candida albicans by PCR Not Detected (Not Detect); Candida glabrata by PCR Not Detected (Not Detect); Candida krusei by PCR Not Detected (Not Detect); Candida parapsilosis by PCR Not Detected (Not Detect); Candida tropicalis by PCR Not Detected (Not Detect); Enterococcus by PCR Not Detected (Not Detect); Escherichia coli by PCR Not Detected (Not Detect); Klebsiella oxytoca by PCR Not Detected (Not Detect); Klebsiella pneumoniae by PCR Not Detected (Not Detect); Pseudomonas aeruginosa by PCR Not Detected (Not Detect); Serratia marcescens by PCR Not Detected (Not Detect); Staphylococcus aureus by PCR Not Detected (Not Detect); Streptococcus agalactiae(B)PCR Not Detected (Not Detect); Streptococcus by PCR Not Detected (Not Detect); Streptococcus pneumoniae PCR Not Detected (Not Detect); Streptococcus pyogenes (A) PCR Not Detected (Not Detect)
--- NOTE | 2016-09-07 08:19 | Internal Med Progress Note ---
<Javier Smiley - Last Filed: 09/07/16 09:22> Date of Encounter: 09/07/16 Time of Encounter: 08:00 - Assessment and plan (1) Acute and chronic respiratory failure Current Visit: No Status: Acute Assessment and plan: - Acute onset of dyspnea this morning with hypercapnia and hypoxia per ABG ( pCO2 50 and pO2 74 with increased need of supplemental oxygen). - Likely multifactorial: pneumonia (as seen on CTA chest), pulmonary edema (as seen on CXR) related to fluid resuscitation, COPD exacerbation. - CTA chest on 09/06/16 found no evidence of pulmonary embolus but diffuse bilateral airspace disease concerning for pneumonia. - Continue IV Lasix - Continue IV Solu-Medrol and scheduled Duoneb. - Continue Zosyn. Levofloxacin has been added for atypical pneumonia coverage while waiting for Legionella urine antigen result. - Continue BiPAP. - Continue to monitor closely. Qualifiers: Respiratory failure complication: hypoxia and hypercapnia Qualified Code(s) : J96.21 - Acute and chronic respiratory failure with hypoxia; J96.22 - Acute and chronic respiratory failure with hypercapnia (2) Pneumonia Current Visit: Yes Status: Acute Assessment and plan: - Gram negative pneumonia - CTA chest on 09/06/16 showed diffuse bilateral airspace disease concerning for pneumonia. - Will check Legionella urine antigen. - Continue Zosyn (since 09/05) and Levofloxacin (since 09/06). Qualifiers: Pneumonia type: due to other aerobic Gram-negative bacteria Laterality: bilateral Lung location: unspecified part of lung Qualified Code(s): J15.6 - Pneumonia due to other aerobic Gram-negative bacteria (3) Gram-negative bacteremia Current Visit: No Status: Acute Assessment and plan: - Blood cultures grew sanders-sensitive E. coli and Enterobacter cloacae. - Most likely secondary to GI source (given pancreatic cancer s/p biliary stent placement and recent radiation therapy). - Continue Zosyn (since 09/05) and Levofloxacin (since 09/06). (4) Septic shock Current Visit: Yes Status: Resolved Assessment and plan: - 3 SIRS criteria (tachycardia, tachypnea and leukocytosis) with lactic acid as high as 3.0 and hypotension as low as 72/48 on admission. - Most likely secondary to GI source (given pancreatic cancer s/p biliary stent placement and recent radiation therapy). - Blood cultures grew sanders-sensitive E. coli and Enterobacter cloacae. - Urine culture: no growth. - Resolved as leukocytosis & tachycardia improves and lactic acid and blood pressure normalized. - Continue Zosyn (since 09/05) and Levofloxacin (since 09/06). (5) Atrial fibrillation with RVR Current Visit: Yes Status: Acute Assessment and plan: - Noted to have A-fib RVR at rate of 150s in ED. - Likely secondary to septic shock in the setting of known history of paroxysmal A-fib. - Currently rate-controlled. - Continue PO Cardizem and Toprol XL. Also on IV Lopressor prn. - Continue Xarelto for anticoagulation. - Continue to monitor. (6) Urinary retention Current Visit: Yes Status: Acute Assessment and plan: - S/p urinary catheter placed by urologist in ED. - Per urology, patient has bladder neck/prostatic stricture. The catheter can be removed later if it's appropriate. - Patient should follow up with Dr. Arora of [facility] in 2-3 weeks after discharge regarding further management of stricture. (7) Pancreatic cancer Current Visit: Yes Status: Chronic Assessment and plan: - S/p biliary stent placement and radiation therapy (on 07/21/16) - Currently on prednisone taper prescribed by radiation oncologist for any radiation therapy associated inflammation. Qualifiers: Pancreatic malignancy location: head of pancreas Qualified Code(s): C25.0 - Malignant neoplasm of head of pancreas (8) CHF (congestive heart failure) Current Visit: No Status: Chronic Assessment and plan: - Echo from 08/02/16 showed LVEF 35-40% and prior echo from 02/16/16 showed moderate LV diastolic dysfunction. - Strict I/O and daily weight. Qualifiers: Congestive heart failure type: systolic Congestive heart failure chronicity : acute Qualified Code(s): I50.21 - Acute systolic (congestive) heart failure (9) COPD (chronic obstructive pulmonary disease) Current Visit: Yes Status: Chronic Assessment and plan: - Continue IV Solu-Medrol and scheduled Duoneb. Qualifiers: COPD type: emphysema Emphysema type: centrilobular Qualified Code(s): J43.2 - Centrilobular emphysema - Subjective Interval history: CTA chest was done last night to rule out PE. It found no evidence of pulmonary embolus but diffuse bilateral airspace disease concerning for pneumonia. Legionella urine antigen was send and levofloxacin was started. Patient was seen and examined this morning. Patient is currently on BiPAP. Patient reports some breathing improvement compared to yesterday. Patient has minimal non-productive cough. Patient denies chest pain, fever, chills, nausea, vomiting, diarrhea. - Constitutional Vitals: Temp Pulse Resp BP Pulse Ox 97.4 F L 90 25 153/80 100 09/07/16 07:45 09/07/16 07:45 09/07/16 08:11 09/07/16 07:45 09/07/16 08:11 General appearance: Present: cooperative, A&O X 3, no acute distress, answers questions appropriately - Head Head exam: Present: atraumatic, normocephalic - Eye Eye exam: Present: PERRL, conjuntiva pink, sclera anicteric Pupils: Present: PERRL - Neck Neck exam general surgery: Present: supple, trachea midline - Respiratory Respiratory exam: Present: rales (Some bibasilar crackles). Absent: accessory muscle use, rhonchi, wheezes - Cardiovascular Cardiovascular exam: Present: irregular rhythm, +S1, +S2. Absent: diastolic murmur, gallop, rubs, systolic murmur - GI/Abdominal GI/Abdominal exam: Present: normal bowel sounds, soft, no peritoneal signs. Absent: distended, tenderness - Extremities Exam Extremities exam: Present: radial pulses palpable and symetrical. Absent: calf tenderness, cyanotic, pedal edema - Neurological Exam Neurological exam: Present: oriented X3, no focal deficits. Absent: pronater drift, facial droop, speech deficit - Skin Skin exam: Present: dry, intact Internal Medicine: Result - Labs CBC & Chem 7: 09/07/16 03:50 09/07/16 03:50 Labs: Short CBC 09/07/16 Range/Units 03:50 WBC 20.6 H (4.3-11.1) K/mcL Hgb 11.4 L (12.9-16.9) g/dL Hct 36.5 L (37.5-50.1) % Plt Count 154 (140-400) K/mcL Neutrophils # 19.0 H (1.6-8.9) K/mcL BMP 09/06/16 09/07/16 01:03 03:50 Sodium 137 138 Potassium 3.9 4.4 Chloride 104 101 Carbon Dioxide 29 26 BUN 25 D 39 H D Creatinine 1.07 1.38 H Glucose 130 H 121 H Calcium 8.2 L 8.3 L Liver Function 09/06/16 09/07/16 Range/Units 01:03 03:50 Total Bilirubin 2.6 H 1.6 H (0.2-1.2) mg/dL AST 224 H 118 H (5-34) Units/L ALT 215 H 182 H (0-55) Units/L Alkaline Phosphatase 612 H 502 H (38-126) Units/L Albumin 2.6 L 2.6 L (3.5-5.0) g/dL Urine 09/06/16 Range/Units 14:30 Urine Color Yellow (Yellow) Urine Clarity Cloudy A (Clear) Urine pH 5.0 (5.0-8.0) pH Units Ur Specific Mclean 1.010 (1.010-1.025) Urine Protein Negative (Neg-Trace) mg/dL Urine Glucose (UA) Normal (Normal) mg/dL - ABG Interpretation ABG results: ABG ABG pH 7.28 pH Units (7.32-7.45) L 09/06/16 08:11 ABG pCO2 50 mmHg (35-45) H 09/06/16 08:11 ABG pO2 74 mmHg (85-104) L 09/06/16 08:11 ABG O2 Saturation 93 % (95-98) L 09/06/16 08:11 PT/INR, D-dimer PT 30.5 Seconds (9.4-12.1) H 09/04/16 15:41 - Impressions Impressions Chest X-Ray 09/06/16 07:46 IMPRESSION: Congestive heart failure. D/ / 09/06/2016 08:15:23 Emmanuel Dsouza MD / [facility] Interpreting Provider: Emmanuel Dsouza MD Chest CTA 09/06/16 21:05 IMPRESSION: There is no evidence of pulmonary embolus Diffuse bilateral airspace disease is noted. This is concerning for pneumonia. Lymph nodes in the mediastinum are increased, likely reactive. D/ / Jordan Nieves / Jordan Nieves Interpreting Provider: Jordan Nieves Consult Discharge Plan - Plan Referrals: Sukumar Arora MD [Partnered Physician] - (Follow up in 2-3 weeks ) Zafar Gutierrez DO [Primary Care Provider] - (web request 09/05/16) <Jean Montalvo H - Last Filed: 09/07/16 09:31> Date of Encounter: 09/07/16 - Constitutional Vitals: Temp Pulse Resp BP Pulse Ox 97.4 F L 90 25 153/80 100 09/07/16 07:45 09/07/16 07:45 09/07/16 08:11 09/07/16 07:45 09/07/16 08:11 Internal Medicine: Result - Labs CBC & Chem 7: 09/07/16 03:50 09/07/16 03:50 Labs: Short CBC 09/07/16 Range/Units 03:50 WBC 20.6 H (4.3-11.1) K/mcL Hgb 11.4 L (12.9-16.9) g/dL Hct 36.5 L (37.5-50.1) % Plt Count 154 (140-400) K/mcL Neutrophils # 19.0 H (1.6-8.9) K/mcL BMP 09/06/16 09/07/16 01:03 03:50 Sodium 137 138 Potassium 3.9 4.4 Chloride 104 101 Carbon Dioxide 29 26 BUN 25 D 39 H D Creatinine 1.07 1.38 H Glucose 130 H 121 H Calcium 8.2 L 8.3 L Liver Function 09/06/16 09/07/16 Range/Units 01:03 03:50 Total Bilirubin 2.6 H 1.6 H (0.2-1.2) mg/dL AST 224 H 118 H (5-34) Units/L ALT 215 H 182 H (0-55) Units/L Alkaline Phosphatase 612 H 502 H (38-126) Units/L Albumin 2.6 L 2.6 L (3.5-5.0) g/dL Urine 09/06/16 Range/Units 14:30 Urine Color Yellow (Yellow) Urine Clarity Cloudy A (Clear) Urine pH 5.0 (5.0-8.0) pH Units Ur Specific Mclean 1.010 (1.010-1.025) Urine Protein Negative (Neg-Trace) mg/dL Urine Glucose (UA) Normal (Normal) mg/dL - ABG Interpretation ABG results: ABG ABG pH 7.28 pH Units (7.32-7.45) L 09/06/16 08:11 ABG pCO2 50 mmHg (35-45) H 09/06/16 08:11 ABG pO2 74 mmHg (85-104) L 09/06/16 08:11 ABG O2 Saturation 93 % (95-98) L 09/06/16 08:11 PT/INR, D-dimer PT 30.5 Seconds (9.4-12.1) H 09/04/16 15:41 - Impressions Impressions Chest CTA 09/06/16 21:05 IMPRESSION: There is no evidence of pulmonary embolus Diffuse bilateral airspace disease is noted. This is concerning for pneumonia. Lymph nodes in the mediastinum are increased, likely reactive. D/ / Jordan Nieves / Jordan Nieves Interpreting Provider: Jordan Nieves - Attending Attestation -Acute on chronic hypoxic hypercapnic respiratory failure secondary to combination of acute pulmonary edema/acute systolic and diastolic CHF and acute COPD exacerbation/possibly related to septic shock due to gram-negative/ Escherichia coli/ Enterobacter bacteremia/pneumonia/UTI Lasix, continue Solu-Medrol, BiPAP Continue Zosyn and Levaquin -Atrial fibrillation with rapid ventricular response likely related to hypoxia Continue metoprolol and Cardizem, consider starting Cardizem drip, may transfer to 2 N if not improving I examined this patient and my medical decision-making was reviewed with the Resident Physician. I agree with the documented findings, disposition and treatment plan as described except to the extent set forth below.
[2016-09-07] MEDS: *HR* Rivaroxaban 10 MG TABLET PO SCH (09:28)
[2016-09-07] MEDS: Diltiazem CD (24hr) 120 MG CAPSULE PO SCH (09:28)
[2016-09-07] MEDS: Metoprolol XL (24 HR) Succ 50 MG TAB.ER.24H PO SCH (09:28)
[2016-09-07] MEDS: Aspirin 81 MG TAB.CHEW PO SCH (09:28)
[2016-09-07] MEDS: Furosemide 40 MG/4 ML VIAL IVP SCH ×2 (09:29→16:15)
[2016-09-07] MEDS: MEGESTROL ACETATE PO SCH (10:45)
--- NOTE | 2016-09-07 12:47 | Electrocardiograph Report ---
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
[2016-09-07] MEDS ORDERED: *HR* Metoprolol 5 MG/5 ML VIAL IVP PRN (13:34)
[2016-09-08] MEDS: Piperacillin/Tazobactam 3.375 GM in D5% in Water (Mini-Bag+) 100 ML IVPB SCH ×2 (01:44→07:44)
[2016-09-08] MEDS: MethylPREDNISolone 40 MG/ML VIAL IVP SCH ×3 (01:44→15:58)
[2016-09-08] MEDS: Ipratropium/Albuterol Neb 3 ML IH SCH ×4 (04:27→21:07)
[2016-09-08] MEDS: Aspirin 81 MG TAB.CHEW PO SCH (07:43)
[2016-09-08] MEDS: Metoprolol XL (24 HR) Succ 50 MG TAB.ER.24H PO SCH (07:43)
[2016-09-08] MEDS: Diltiazem CD (24hr) 120 MG CAPSULE PO SCH (07:43)
[2016-09-08] MEDS: Furosemide 40 MG/4 ML VIAL IVP SCH ×2 (07:44→15:57)
--- NOTE | 2016-09-08 08:41 | Internal Med Progress Note ---
<Javier Smiley - Last Filed: 09/08/16 15:28> Date of Encounter: 09/08/16 Time of Encounter: 08:00 - Assessment and plan (1) Acute and chronic respiratory failure Current Visit: No Status: Acute Assessment and plan: - Acute onset of dyspnea this morning with hypercapnia and hypoxia per ABG ( pCO2 50 and pO2 74 with increased need of supplemental oxygen). - Likely multifactorial: pneumonia (as seen on CTA chest), pulmonary edema related to fluid resuscitation, COPD exacerbation. - CTA chest on 09/06/16 found no evidence of pulmonary embolus but diffuse bilateral airspace disease concerning for pneumonia. - Improves as patient weaned off from BiPAP to 6L oxygen now. - Continue IV Lasix - Continue IV Solu-Medrol and scheduled Duoneb. - Continue Levofloxacin (since 09/06). - Continue supplemental oxygen and will try to titrate toward patient's home oxygen (2-3L). - Continue to monitor closely. Qualifiers: Respiratory failure complication: hypoxia and hypercapnia Qualified Code(s) : J96.21 - Acute and chronic respiratory failure with hypoxia; J96.22 - Acute and chronic respiratory failure with hypercapnia (2) Pneumonia Current Visit: Yes Status: Acute Assessment and plan: - Gram negative pneumonia - CTA chest on 09/06/16 showed diffuse bilateral airspace disease concerning for pneumonia. - Negative Legionella urine antigen. - Continue Levofloxacin (since 09/06) and discontinue Zosyn. Qualifiers: Pneumonia type: due to other aerobic Gram-negative bacteria Laterality: bilateral Lung location: unspecified part of lung Qualified Code(s): J15.6 - Pneumonia due to other aerobic Gram-negative bacteria (3) Gram-negative bacteremia Current Visit: No Status: Acute Assessment and plan: - Blood cultures from 09/04/16 grew sanders-sensitive E. coli and Enterobacter cloacae. - Most likely secondary to GI source (given pancreatic cancer s/p biliary stent placement and recent radiation therapy). - Repeated blood cultures on 09/07/16 pending. - Continue Levofloxacin (since 09/06) and discontinue Zosyn. (4) Septic shock Current Visit: Yes Status: Resolved Assessment and plan: - 3 SIRS criteria (tachycardia, tachypnea and leukocytosis) with lactic acid as high as 3.0 and hypotension as low as 72/48 on admission. - Most likely secondary to GI source (given pancreatic cancer s/p biliary stent placement and recent radiation therapy). - Blood cultures grew sanders-sensitive E. coli and Enterobacter cloacae. - Urine culture: no growth. - Resolved as leukocytosis & tachycardia improves and lactic acid and blood pressure normalized. - Continue levofloxacin (since 09/06). (5) Atrial fibrillation with RVR Current Visit: Yes Status: Acute Assessment and plan: - Noted to have A-fib RVR at rate of 150s in ED. - Likely secondary to septic shock in the setting of known history of paroxysmal A-fib. - Currently rate-controlled. - Continue PO Cardizem and Toprol XL. Also on IV Lopressor prn. - Continue Xarelto for anticoagulation. - Continue to monitor. (6) Urinary retention Current Visit: Yes Status: Acute Assessment and plan: - S/p urinary catheter placed by urologist in ED. - Per urology, patient has bladder neck/prostatic stricture. The catheter can be removed later if it's appropriate. - Patient should follow up with Dr. Arora of [place] [facility] in 2-3 weeks after discharge regarding further management of stricture. (7) Pancreatic cancer Current Visit: Yes Status: Chronic Assessment and plan: - S/p biliary stent placement and radiation therapy (on 07/21/16) - Was on prednisone taper prescribed by radiation oncologist for any radiation therapy associated inflammation. Qualifiers: Pancreatic malignancy location: head of pancreas Qualified Code(s): C25.0 - Malignant neoplasm of head of pancreas (8) CHF (congestive heart failure) Current Visit: No Status: Chronic Assessment and plan: - Echo from 08/02/16 showed LVEF 35-40% and prior echo from 02/16/16 showed moderate LV diastolic dysfunction. - Strict I/O and daily weight. Qualifiers: Congestive heart failure type: systolic Congestive heart failure chronicity : acute Qualified Code(s): I50.21 - Acute systolic (congestive) heart failure (9) COPD (chronic obstructive pulmonary disease) Current Visit: Yes Status: Chronic Assessment and plan: - Continue IV Solu-Medrol and scheduled Duoneb. Qualifiers: COPD type: emphysema Emphysema type: centrilobular Qualified Code(s): J43.2 - Centrilobular emphysema - Subjective Interval history: No significant event noted overnight. Patient was seen and examined this morning. Patient is currently on 6L NC. Patient reports breathing better and denies cough, chest pain, fever, chills, nausea, vomiting. - Constitutional Vitals: Temp Pulse Resp BP Pulse Ox 97.5 F L 82 14 132/79 93 09/08/16 07:09 09/08/16 07:09 09/08/16 07:09 09/08/16 07:09 09/08/16 07:09 General appearance: Present: cooperative, A&O X 3, no acute distress, answers questions appropriately - Head Head exam: Present: atraumatic, normocephalic - Eye Eye exam: Present: PERRL, conjuntiva pink, sclera anicteric - Neck Neck exam general surgery: Present: supple, trachea midline. Absent: lymphadenopathy - Respiratory Respiratory exam: Present: CTAB. Absent: accessory muscle use, rales, rhonchi, wheezes - Cardiovascular Cardiovascular exam: Present: irregular rhythm, +S1, +S2. Absent: diastolic murmur, gallop, rubs, systolic murmur - GI/Abdominal GI/Abdominal exam: Present: normal bowel sounds, soft, no peritoneal signs. Absent: distended, tenderness - Extremities Exam Extremities exam: Present: warm, radial pulses palpable and symetrical. Absent : calf tenderness, cyanotic, pedal edema - Neurological Exam Neurological exam: Present: oriented X3, no focal deficits. Absent: pronater drift, facial droop, speech deficit - Skin Skin exam: Present: dry, intact Internal Medicine: Result - Labs CBC & Chem 7: 09/08/16 08:47 09/08/16 08:47 - ABG Interpretation ABG results: ABG ABG pH 7.28 pH Units (7.32-7.45) L 09/06/16 08:11 ABG pCO2 50 mmHg (35-45) H 09/06/16 08:11 ABG pO2 74 mmHg (85-104) L 09/06/16 08:11 ABG O2 Saturation 93 % (95-98) L 09/06/16 08:11 PT/INR, D-dimer PT 30.5 Seconds (9.4-12.1) H 09/04/16 15:41 Consult Discharge Plan - Plan Referrals: Sukumar Arora MD [Partnered Physician] - (Follow up in 2-3 weeks ) Zafar Gutierrez DO [Primary Care Provider] - (web request 09/05/16) <Berry Nazario - Last Filed: 09/08/16 16:43> Date of Encounter: 09/08/16 - Assessment and plan (1) Acute and chronic respiratory failure Current Visit: No Status: Acute Qualifiers: Respiratory failure complication: hypoxia and hypercapnia Qualified Code(s) : J96.21 - Acute and chronic respiratory failure with hypoxia; J96.22 - Acute and chronic respiratory failure with hypercapnia (2) Pneumonia Current Visit: Yes Status: Acute Qualifiers: Pneumonia type: due to other aerobic Gram-negative bacteria Laterality: bilateral Lung location: unspecified part of lung Qualified Code(s): J15.6 - Pneumonia due to other aerobic Gram-negative bacteria (3) Septic shock Current Visit: Yes Status: Resolved (4) Gram-negative bacteremia Current Visit: No Status: Acute (5) Paroxysmal a-fib Current Visit: Yes Status: Chronic (6) Pancreatic cancer Current Visit: Yes Status: Chronic Qualifiers: Pancreatic malignancy location: head of pancreas Qualified Code(s): C25.0 - Malignant neoplasm of head of pancreas - Constitutional Vitals: Temp Pulse Resp BP Pulse Ox 97.6 F 105 15 121/62 90 09/08/16 16:30 09/08/16 16:30 09/08/16 16:30 09/08/16 16:30 09/08/16 16:30 Internal Medicine: Result - Labs CBC & Chem 7: 09/08/16 08:47 09/08/16 08:47 Labs: Short CBC 09/08/16 Range/Units 08:47 WBC 14.4 H (4.3-11.1) K/mcL Hgb 10.8 L (12.9-16.9) g/dL Hct 32.3 L (37.5-50.1) % Plt Count 147 (140-400) K/mcL Neutrophils # 13.5 H (1.6-8.9) K/mcL BMP 09/08/16 08:47 Sodium 140 Potassium 2.9 L D Chloride 96 L Carbon Dioxide 35 H BUN 32 H Creatinine 1.07 Glucose 197 H Calcium 8.1 L - ABG Interpretation ABG results: ABG ABG pH 7.28 pH Units (7.32-7.45) L 09/06/16 08:11 ABG pCO2 50 mmHg (35-45) H 09/06/16 08:11 ABG pO2 74 mmHg (85-104) L 09/06/16 08:11 ABG O2 Saturation 93 % (95-98) L 09/06/16 08:11 PT/INR, D-dimer PT 30.5 Seconds (9.4-12.1) H 09/04/16 15:41 - Attending Attestation I examined this patient and my medical decision-making was reviewed with the Resident Physician on 09/08/16. I agree with the documented findings, disposition and treatment plan as described except to the extent set forth below. Mr. Martin is currently admitted for acute resp failure due to pneumonia as well as bacteremia due to E coli and Enterobacter. He remains high risk due to potential for worsening respiratory status and infection. Mr. Martin says he is doing somewhat better today. Did not need bipap last night. No fever or chills. Weaning down oxygen. Pain controlled. No GI symptoms. Exam Alert. Comfortable Mucus membranes moist Heart reg Lungs diminished but clear Abd soft and nontender currently No edema I/P 1. Resp failure 2. Pneumonia bilaterally 3. Bacteremia - repeat cx pending. Most likely GI source (? recent stent in biliary tree). Further diagnoses and plan as above.
[2016-09-08 09:18] LABS: Basophils % 0.1 %; Hematocrit 32.3 % (37.5-50.1); Hemoglobin 10.8 g/dL (12.9-16.9); Immature Granulocytes % 0.8 % (0-4); Lymphocytes # 0.4 K/mcL (0.6-4.6); Lymphocytes % 2.6 %; Mean Corpuscular HGB Conc 33.4 g/dL (31.6-35.5); Mean Corpuscular Hemoglobin 31.6 pg (28.0-33.3); Mean Corpuscular Volume 94.4 fL (83.0-100.0); Mean Platelet Volume 11.3 fL (9.4-12.4); Monocytes # 0.4 K/mcL (0.0-1.3); Monocytes % 2.7 %; Neutrophils # 13.5 K/mcL (1.6-8.9); Platelet Count 147 K/mcL (140-400); Red Blood Count 3.42 M/mcL (4.19-5.50); Red Cell Distribution Width 15.9 % (11.5-14.5); Segmented Neutrophils % 93.8 %
[2016-09-08 09:25] LABS: BUN/Creatinine Ratio 30 (6-26); Blood Urea Nitrogen 32 mg/dL (8-26); Calcium 8.1 mg/dL (8.6-10.8); Carbon Dioxide 35 mEq/L (19-29); Chloride 96 mEq/L (98-109); Glucose 197 mg/dL (70-99); Osmolality,Calculated 302 (280-300); Sodium 140 mEq/L (136-145); eGFR For African Americans > 60 (> 60); eGFR For Non-African Americans > 60 (> 60)
[2016-09-08 09:38] LABS: Potassium 2.9 mEq/L (3.5-4.5)
[2016-09-08 11:09] LABS: Magnesium 1.1 mg/dL (1.6-2.6)
[2016-09-08] MEDS ORDERED: Magnesium Sulfate 2 GM in D5% in Water 100 ML IVPB ONE (16:08)
[2016-09-08] MEDS ORDERED: *HR* Rivaroxaban 15 MG TABLET PO SCH (17:00)
[2016-09-08] MEDS ORDERED: levoFLOXacin 750 MG TABLET PO SCH (20:00)
[2016-09-09] MEDS: MethylPREDNISolone 40 MG/ML VIAL IVP SCH ×2 (03:21→08:50)
[2016-09-09] MEDS: Ipratropium/Albuterol Neb 3 ML IH SCH ×4 (03:34→23:01)
[2016-09-09 06:53] LABS: Hematocrit 30.4 % (37.5-50.1); Mean Corpuscular HGB Conc 32.9 g/dL (31.6-35.5); Mean Corpuscular Hemoglobin 30.8 pg (28.0-33.3); Mean Corpuscular Volume 93.5 fL (83.0-100.0); Mean Platelet Volume 10.8 fL (9.4-12.4); Platelet Count 156 K/mcL (140-400); Red Blood Count 3.25 M/mcL (4.19-5.50); Red Cell Distribution Width 15.8 % (11.5-14.5)
[2016-09-09 07:06] LABS: BUN/Creatinine Ratio 34 (6-26); Blood Urea Nitrogen 28 mg/dL (8-26); Calcium 8.2 mg/dL (8.6-10.8); Chloride 94 mEq/L (98-109); Glucose 154 mg/dL (70-99); Magnesium 1.2 mg/dL (1.6-2.6); Osmolality,Calculated 301 (280-300); Potassium 3.4 mEq/L (3.5-4.5); Sodium 141 mEq/L (136-145); eGFR For African Americans > 60 (> 60); eGFR For Non-African Americans > 60 (> 60)
[2016-09-09 07:08] LABS: Carbon Dioxide 41 mEq/L (19-29)
[2016-09-09] MEDS ORDERED: Potassium Chloride Elixir 20 MEQ/15 ML UDC PO ONE (08:46)
[2016-09-09] MEDS ORDERED: Magnesium Sulfate 2 GM in D5% in Water 100 ML IVPB ONE (08:46)
[2016-09-09] MEDS: Metoprolol XL (24 HR) Succ 50 MG TAB.ER.24H PO SCH (08:49)
[2016-09-09] MEDS: Aspirin 81 MG TAB.CHEW PO SCH (08:49)
[2016-09-09] MEDS: Diltiazem CD (24hr) 120 MG CAPSULE PO SCH (08:49)
[2016-09-09] MEDS: Furosemide 40 MG/4 ML VIAL IVP SCH (08:50)
--- NOTE | 2016-09-09 09:40 | Internal Med Progress Note ---
<Javier Smiley - Last Filed: 09/09/16 09:44> Date of Encounter: 09/09/16 Time of Encounter: 09:00 - Assessment and plan (1) Acute and chronic respiratory failure Current Visit: No Status: Acute Assessment and plan: - Acute onset of dyspnea this morning with hypercapnia and hypoxia per ABG ( pCO2 50 and pO2 74 with increased need of supplemental oxygen). - Likely multifactorial: pneumonia (as seen on CTA chest), pulmonary edema related to fluid resuscitation, COPD exacerbation. - CTA chest on 09/06/16 found no evidence of pulmonary embolus but diffuse bilateral airspace disease concerning for pneumonia. - Improves as patient weaned off from BiPAP to 6L oxygen now. - Hold IV Lasix given possible contraction alkalosis. - Continue bronchodilators. Will switch from IV Solu-Medrol to prednisone 40 mg PO daily. - Continue Levofloxacin (since 09/06). - Continue supplemental oxygen. - Continue to monitor closely. Qualifiers: Respiratory failure complication: hypoxia and hypercapnia Qualified Code(s) : J96.21 - Acute and chronic respiratory failure with hypoxia; J96.22 - Acute and chronic respiratory failure with hypercapnia (2) Pneumonia Current Visit: Yes Status: Acute Assessment and plan: - Gram negative pneumonia - CTA chest on 09/06/16 showed diffuse bilateral airspace disease concerning for pneumonia. - Negative Legionella urine antigen. - Continue Levofloxacin (since 09/06). Qualifiers: Pneumonia type: due to other aerobic Gram-negative bacteria Laterality: bilateral Lung location: unspecified part of lung Qualified Code(s): J15.6 - Pneumonia due to other aerobic Gram-negative bacteria (3) Gram-negative bacteremia Current Visit: No Status: Acute Assessment and plan: - Blood cultures from 09/04/16 grew sanders-sensitive E. coli and Enterobacter cloacae. - Most likely secondary to GI source (given pancreatic cancer s/p biliary stent placement and recent radiation therapy). - Repeated blood cultures on 09/07/16 NGTD. - Continue Levofloxacin (since 09/06). (4) Hypomagnesemia Current Visit: No Status: Acute Assessment and plan: - Mg as low as 0.9 on admission. - Mg 1.2 today. - Replenish with MgSO4. - Continue to monitor. (5) Hypokalemia Current Visit: Yes Status: Acute Assessment and plan: - K as low as 2.9 on 09/08/16. - K 3.4 today. - Replenish with KCl. - Continue to monitor. (6) Septic shock Current Visit: Yes Status: Resolved Assessment and plan: - 3 SIRS criteria (tachycardia, tachypnea and leukocytosis) with lactic acid as high as 3.0 and hypotension as low as 72/48 on admission. - Most likely secondary to GI source (given pancreatic cancer s/p biliary stent placement and recent radiation therapy). - Blood cultures grew sanders-sensitive E. coli and Enterobacter cloacae. - Urine culture: no growth. - Resolved as leukocytosis & tachycardia improves and lactic acid and blood pressure normalized. - Continue levofloxacin (since 09/06). (7) Atrial fibrillation with RVR Current Visit: Yes Status: Acute Assessment and plan: - Noted to have A-fib RVR at rate of 150s in ED. - Likely secondary to septic shock in the setting of known history of paroxysmal A-fib. - Currently rate-controlled. - Continue PO Cardizem and Toprol XL. Also on IV Lopressor prn. - Continue Xarelto for anticoagulation. - Continue to monitor. (8) Urinary retention Current Visit: Yes Status: Acute Assessment and plan: - S/p urinary catheter placed by urologist in ED. - Per urology, patient has bladder neck/prostatic stricture. The catheter can be removed later if it's appropriate. - Patient should follow up with Dr. Arora of [place] [facility] in 2-3 weeks after discharge regarding further management of stricture. (9) Pancreatic cancer Current Visit: Yes Status: Chronic Assessment and plan: - S/p biliary stent placement and radiation therapy (on 07/21/16) - Was on prednisone taper prescribed by radiation oncologist for any radiation therapy associated inflammation. Qualifiers: Pancreatic malignancy location: head of pancreas Qualified Code(s): C25.0 - Malignant neoplasm of head of pancreas (10) CHF (congestive heart failure) Current Visit: No Status: Chronic Assessment and plan: - Echo from 08/02/16 showed LVEF 35-40% and prior echo from 02/16/16 showed moderate LV diastolic dysfunction. - Strict I/O and daily weight. Qualifiers: Congestive heart failure type: systolic Congestive heart failure chronicity : acute Qualified Code(s): I50.21 - Acute systolic (congestive) heart failure (11) COPD (chronic obstructive pulmonary disease) Current Visit: Yes Status: Chronic Assessment and plan: - Continue steroid and bronchodilators. Qualifiers: COPD type: emphysema Emphysema type: centrilobular Qualified Code(s): J43.2 - Centrilobular emphysema - Subjective Interval history: No significant event noted overnight. Patient was seen and examined this morning. Patient is currently on 2L NC with O2 sat near 100%. Patient reports breathing well and denies cough, chest pain, fever, chills, nausea, vomiting, diarrhea. - Constitutional Vitals: Temp Pulse Resp BP Pulse Ox 98.1 F 60 18 128/81 96 09/09/16 07:09/09/16 07:17 09/09/16 07:17 09/09/16 07:09/09/16 07:17 General appearance: Present: cooperative, A&O X 3, no acute distress, answers questions appropriately - Head Head exam: Present: atraumatic, normocephalic - Eye Eye exam: Present: EOMI, PERRL, conjuntiva pink, sclera anicteric - Neck Neck exam general surgery: Present: supple, trachea midline. Absent: lymphadenopathy - Respiratory Respiratory exam: Present: rales (Mild right basilar crackles). Absent: accessory muscle use, rhonchi, wheezes - Cardiovascular Cardiovascular exam: Present: RRR, +S1, +S2. Absent: diastolic murmur, gallop, rubs, systolic murmur - GI/Abdominal GI/Abdominal exam: Present: normal bowel sounds, soft, no peritoneal signs. Absent: distended, tenderness - Extremities Exam Extremities exam: Present: warm, radial pulses palpable and symetrical. Absent : calf tenderness, cyanotic, pedal edema - Neurological Exam Neurological exam: Present: oriented X3, no focal deficits. Absent: pronater drift, facial droop, speech deficit - Skin Skin exam: Present: dry, intact, warm Internal Medicine: Result - Labs CBC & Chem 7: 09/09/16 06:26 09/09/16 06:26 Labs: Short CBC 09/09/16 Range/Units 06:26 WBC 13.3 H (4.3-11.1) K/mcL Hgb 10.0 L (12.9-16.9) g/dL Hct 30.4 L (37.5-50.1) % Plt Count 156 (140-400) K/mcL BMP 09/08/16 09/09/16 08:47 06:26 Sodium 140 141 Potassium 2.9 L D 3.4 L Chloride 96 L 94 L Carbon Dioxide 35 H 41 H* BUN 32 H 28 H Creatinine 1.07 0.82 Glucose 197 H 154 H Calcium 8.1 L 8.2 L - ABG Interpretation ABG results: ABG ABG pH 7.28 pH Units (7.32-7.45) L 09/06/16 08:11 ABG pCO2 50 mmHg (35-45) H 09/06/16 08:11 ABG pO2 74 mmHg (85-104) L 09/06/16 08:11 ABG O2 Saturation 93 % (95-98) L 09/06/16 08:11 PT/INR, D-dimer PT 30.5 Seconds (9.4-12.1) H 09/04/16 15:41 Consult Discharge Plan - Plan Referrals: Sukumar Arora MD [Partnered Physician] - (Follow up in 2-3 weeks ) Zafar Gutierrez DO [Primary Care Provider] - (web request 09/05/16) <Berry Nazario - Last Filed: 09/09/16 17:53> Date of Encounter: 09/09/16 - Assessment and plan (1) Alkalosis, metabolic Current Visit: Yes Status: Acute Assessment and plan: Change diuretic and steroids. (2) Acute and chronic respiratory failure Current Visit: No Status: Acute Qualifiers: Respiratory failure complication: hypoxia and hypercapnia Qualified Code(s) : J96.21 - Acute and chronic respiratory failure with hypoxia; J96.22 - Acute and chronic respiratory failure with hypercapnia (3) Pneumonia Current Visit: Yes Status: Acute Qualifiers: Pneumonia type: due to other aerobic Gram-negative bacteria Laterality: bilateral Lung location: unspecified part of lung Qualified Code(s): J15.6 - Pneumonia due to other aerobic Gram-negative bacteria (4) Septic shock Current Visit: Yes Status: Resolved (5) Gram-negative bacteremia Current Visit: No Status: Acute (6) Paroxysmal a-fib Current Visit: Yes Status: Chronic (7) Pancreatic cancer Current Visit: Yes Status: Chronic Qualifiers: Pancreatic malignancy location: head of pancreas Qualified Code(s): C25.0 - Malignant neoplasm of head of pancreas (8) Hypomagnesemia Current Visit: Yes Status: Acute - Constitutional Vitals: Temp Pulse Resp BP Pulse Ox 97.5 F L 67 16 130/65 98 09/09/16 15:51 09/09/16 15:51 09/09/16 15:59 09/09/16 15:51 09/09/16 15:59 Internal Medicine: Result - Labs CBC & Chem 7: 09/09/16 06:26 09/09/16 06:26 Labs: Short CBC 09/09/16 Range/Units 06:26 WBC 13.3 H (4.3-11.1) K/mcL Hgb 10.0 L (12.9-16.9) g/dL Hct 30.4 L (37.5-50.1) % Plt Count 156 (140-400) K/mcL BMP 09/09/16 06:26 Sodium 141 Potassium 3.4 L Chloride 94 L Carbon Dioxide 41 H* BUN 28 H Creatinine 0.82 Glucose 154 H Calcium 8.2 L - ABG Interpretation ABG results: ABG ABG pH 7.28 pH Units (7.32-7.45) L 09/06/16 08:11 ABG pCO2 50 mmHg (35-45) H 09/06/16 08:11 ABG pO2 74 mmHg (85-104) L 09/06/16 08:11 ABG O2 Saturation 93 % (95-98) L 09/06/16 08:11 PT/INR, D-dimer PT 30.5 Seconds (9.4-12.1) H 09/04/16 15:41 - Attending Attestation I examined this patient and my medical decision-making was reviewed with the Resident Physician on 09/09/16. I agree with the documented findings, disposition and treatment plan as described except to the extent set forth below. Mr. Martin is currently admitted for acute respiratory failure related to pneumonia. He remains moderate risk due to potential for worsening respiratory status. Mr. Martin is eating lunch. He is feeling better. Not wearing bipap at night and does not wear at home. Has been getting diuretic. No pain. No fever or chills. No GI symptoms. Exam Alert. Comfortable Mucus membranes dry Heart reg Lungs diminished but clear Abd soft No edema I/P 1. Resp failure 2. Alkalosis - change diuretic. 3. Bacteremia - repeat cx neg thus far. Further diagnoses and plan as above. Anticipate d/c to SNF tomorrow.
[2016-09-09] MEDS ORDERED: *HR* Rivaroxaban 10 MG TABLET PO SCH (17:00)
[2016-09-10 02:06] LABS: Hematocrit 31.2 % (37.5-50.1); Hemoglobin 10.2 g/dL (12.9-16.9); Mean Corpuscular HGB Conc 32.7 g/dL (31.6-35.5); Mean Corpuscular Hemoglobin 30.7 pg (28.0-33.3); Mean Platelet Volume 10.8 fL (9.4-12.4); Platelet Count 179 K/mcL (140-400); Red Blood Count 3.32 M/mcL (4.19-5.50); Red Cell Distribution Width 15.9 % (11.5-14.5)
[2016-09-10 02:28] LABS: BUN/Creatinine Ratio 34 (6-26); Blood Urea Nitrogen 26 mg/dL (8-26); Calcium 8.4 mg/dL (8.6-10.8); Chloride 95 mEq/L (98-109); Glucose 191 mg/dL (70-99); Magnesium 1.6 mg/dL (1.6-2.6); Osmolality,Calculated 306 (280-300); Potassium 3.4 mEq/L (3.5-4.5); Sodium 143 mEq/L (136-145); eGFR For African Americans > 60 (> 60); eGFR For Non-African Americans > 60 (> 60)
[2016-09-10 02:31] LABS: Carbon Dioxide 42 mEq/L (19-29)
[2016-09-10] MEDS: Ipratropium/Albuterol Neb 3 ML IH SCH ×3 (04:11→15:56)
[2016-09-10] MEDS ORDERED: predniSONE 20 MG TABLET PO SCH (09:00)
[2016-09-10 09:39] LABS: ABG Base Excess 20.4 mEq/L (-2.0 to 3.0); ABG Oxygen Saturation 93 % (95-98); ABG PCO2 55 mmHg (35-45); ABG PH 7.53 pH Units (7.32-7.45); ABG PO2 58 mmHg (85-104); ABG TCO2 47.7 mEq/L (20-26)
[2016-09-10 09:40] LABS: Blood Gas FiO2 21 %
[2016-09-10] MEDS: Metoprolol XL (24 HR) Succ 50 MG TAB.ER.24H PO SCH (09:50)
[2016-09-10] MEDS: Aspirin 81 MG TAB.CHEW PO SCH (09:51)
[2016-09-10] MEDS: Diltiazem CD (24hr) 120 MG CAPSULE PO SCH (09:51)
[2016-09-10] MEDS ORDERED: 0.9 % Sodium Chloride 500 ML IVC ONE (10:39)
--- NOTE | 2016-09-10 10:50 | Discharge Summary ---
<Javier Smiley - Last Filed: 09/10/16 14:50> Date of Encounter: 09/10/16 Time of Encounter: 09:45 - Discharge Diagnosis (1) Acute and chronic respiratory failure Priority: Primary Status: Acute Qualifiers: Respiratory failure complication: hypoxia and hypercapnia Qualified Code(s) : J96.21 - Acute and chronic respiratory failure with hypoxia; J96.22 - Acute and chronic respiratory failure with hypercapnia (2) Pneumonia Priority: Primary Status: Acute Qualifiers: Pneumonia type: due to other aerobic Gram-negative bacteria Laterality: bilateral Lung location: unspecified part of lung Qualified Code(s): J15.6 - Pneumonia due to other aerobic Gram-negative bacteria (3) Gram-negative bacteremia Priority: Primary Status: Acute (4) Hypomagnesemia Priority: Secondary Status: Acute (5) Hypokalemia Priority: Secondary Status: Acute (6) Atrial fibrillation with RVR Priority: Secondary Status: Acute (7) Urinary retention Priority: Secondary Status: Acute (8) Pancreatic cancer Priority: Secondary Status: Chronic Qualifiers: Pancreatic malignancy location: head of pancreas Qualified Code(s): C25.0 - Malignant neoplasm of head of pancreas (9) CHF (congestive heart failure) Priority: Secondary Status: Chronic Qualifiers: Congestive heart failure type: systolic Congestive heart failure chronicity : acute Qualified Code(s): I50.21 - Acute systolic (congestive) heart failure (10) COPD (chronic obstructive pulmonary disease) Priority: Secondary Status: Chronic Qualifiers: COPD type: emphysema Emphysema type: centrilobular Qualified Code(s): J43.2 - Centrilobular emphysema (11) Severe sepsis Priority: Primary Status: Resolved - Discharge Medications Prescriptions: levoFLOXacin [Levaquin] 750 mg PO DAILY #2 tab Oxycodone HCl/Acetaminophen [Percocet 5-325 mg Tablet] 1 each PO Q4-6H PRN #20 tablet PRN Reason: Pain predniSONE [PredniSONE] See Taper PO DAILY #30 tablet Home Medications: Albuterol Sulfate [Albuterol Inhaler] 2 puff IH Q4H PRN 06/04/15 [History] Aspirin 81 mg PO DAILY 06/04/15 [History] Atorvastatin [Lipitor] 20 mg PO HS 06/04/15 [History] Potassium Chloride [K-Tab ER] 20 meq PO DAILY 06/04/15 [History] Budesonide/Formoterol 80/4.5 [Symbicort 80/4.5] 2 puff IH BIDR 11/26/15 [ History] Tiotropium [Spiriva] 18 mcg IH DAILY 11/26/15 [History] Omeprazole [PriLOSEC] 20 mg PO DAILY #90 cap 06/19/16 [Rx] Ondansetron [Zofran] 8 mg PO TID PRN #60 tablet 07/08/16 [Rx] Rivaroxaban [Xarelto] 20 mg PO DAILY 08/01/16 [History] Metoprolol XL (24 HR) Succ [Toprol Xl] 50 mg PO DAILY #30 tab.er.24h 08/05/16 [ Rx] Sucralfate [Carafate] 1 gm PO QID #120 tablet 09/01/16 [Rx] Diltiazem HCl [Diltiazem ER] 120 mg PO DAILY 09/04/16 [History] Megestrol Acetate [Megace Es] 2,500 mg PO DAILY 09/04/16 [History] Furosemide [Lasix] 40 mg PO DAILY #0 09/10/16 [Rx] Oxycodone HCl/Acetaminophen [Percocet 5-325 mg Tablet] 1 each PO Q4-6H PRN #20 tablet 09/10/16 [Rx] levoFLOXacin [Levaquin] 750 mg PO DAILY #2 tab 09/10/16 [Rx] predniSONE [PredniSONE] See Taper PO DAILY #30 tablet 09/10/16 [Rx] Allergies/Adverse Reactions: Allergies Penicillins Allergy (Verified 09/04/16 17:38) Hives Date of admission: 09/04/16 19:53 Primary care physician: Nasir Alva Consults: 09/07/16 15:18 Consult to [employer] Order Filler [CONS] Routine Reason for SW Consult: Poss rehab at discharge 09/08/16 08:45 Consult to Physical Therapy [CONS] Routine Comment: Evaluate, develop and implement POC Reason for Consult: discharge planning OT [Consult to Occupational Therapy] [CONS] Routine Comment: Evaluate, develop and implement POC Reason for Consult: discharge planning Discharging clinician: Javier Smiley Anticipated date of discharge: 09/10/16 - Patient Status Disposition: Transfer SNF Condition: Fair Functional capacity at discharge: uses cane/walker Overall status at discharge: patient is progressing back to baseline - Discharge Instructions Instructions: Chronic Obstructive Pulmonary Disease (DC), Sepsis (DC), Pneumonia (DC) Follow Up With: Sukumar Arora MD [Partnered Physician] - 09/29/16 10:15 am (Follow up as schedule... ) Zafar Gutierrez DO [Primary Care Provider] - (web request 09/05/16) Additional Instructions: Please take 2 more days of levofloxacin (750 mg daily) to finish 7-day course of antibiotic therapy for your pneumonia. Please take prednisone taper (40 mg daily for 3 days, then 30 mg daily for 3 days, followed by 20 mg daily for 3 days, and finally 10 mg daily for 3 days). Please hold your Lasix for 2 days. Please follow up with your primary care physician Dr. Gutierrez with a week regarding your hospitalization. Please have outpatient follow up with Dr. Arora of [facility] at 10:15 am on 09/29/16 - Diet and Activity Activity: as per physical therapy Diet: regular diet Hospital course: Mr. Martin is a 81 year old male with PMH of COPD, HFrEF (LVEF 35-40%, moderate LV diastolic dysfunction), paroxysmal A-fib (s/p pacemaker on Cardizem , metoprolol & Xarelto) and pancreatic cancer s/p biliary stent placement and recent radiation therapy. Patient was sent to [facility] after home health found patient having BP of 70/50 mmHg along with complaint of headache, abdominal pain and malaise. Patient was noted to have A-fib RVR (155), tachypnea (24), hypotension (72/48), leukocytosis (18.3), lactic acidosis (3.0) and elevated SCr (1.92) in ED. Patient was admitted on 09/04/16 for severe sepsis secondary to possible UTI (given reported urinary symptoms). IV fluid resuscitation, vancomycin and cefepime were given and antibiotic was then switched to IV Zosyn. Urology was consulted for difficulty baum placement in ED. Baum was placed and urologist recommends outpatient follow-up for further management of stricture. Blood cultures from 09/04/16 grew sanders-sensitive E. coli and Enterobacter cloacae. With negative urine culture, it's believed that the gram- negative bacteremia is most likely secondary to GI source given his pancreatic cancer s/p biliary stent placement and recent radiation therapy. Patient's resolved as leukocytosis & tachycardia improves and lactic acid and blood pressure normalized. But patient then developed acute onset of dyspnea on 09/06 AM with hypercapnia and hypoxia per ABG (pH 7.28, pCO2 50 and pO2 74 with increased need of supplemental oxygen) requiring BiPAP use. Patient's IV fluid was discontinued and IV Lasix & Solu-Medrol were started. CTA chest on 09/06/16 found no evidence of pulmonary embolus but diffuse bilateral airspace disease concerning for pneumonia so levofloxacin was added. Patient's respiratory status significantly improved as patient weaned off from BiPAP and eventually back to 2L [place], which is his home baseline. IV Lasix was held on 09/09/16 for contraction alkalosis (HCO3 41) and ABG on 09/10/16 (pH 7.53, pCO2 55) further confirmed that as it showed hypercapnia as partial respiratory compensation for metabolic alkalosis. Given patient improves clinically and remains hemodynamically stable, patient can be discharged to [facility] as PT/OT recommends SNF placement after discharge. Patient will need to take 2 more days of levofloxacin (750 mg daily) to finish 7-day course of antibiotic therapy for pneumonia and prednisone taper (40 mg daily for 3 days, then 30 mg daily for 3 days, followed by 20 mg daily for 3 days, and finally 10 mg daily for 3 days) for COPD. Patient is instructed to hold his Lasix for 2 days. Patient will need follow-up with his primary care physician Dr. Gutierrez with a week regarding your hospitalization and outpatient follow up with Dr. Arora of [facility] at 10:15 am on 09/29/16 regarding his stricture. Patient verbalized his understanding and agreed with the discharge plan. All questions answered. - Time Spent with Patient Total time spent providing and/or coordinating discharge services: Greater than 30 minutes (43 minutes) - Constitutional Vitals: Temp Pulse Resp BP Pulse Ox 97.8 F 90 18 138/70 89 09/10/16 08:05 09/10/16 08:05 09/10/16 08:05 09/10/16 08:05 09/10/16 09:54 General appearance: Present: cooperative, A&O X 3, no acute distress, answers questions appropriately - Head Head exam: Present: atraumatic, normocephalic - Eye Eye exam: Present: EOMI, PERRL, conjuntiva pink, sclera anicteric - Neck Neck exam general surgery: Present: supple, trachea midline. Absent: lymphadenopathy - Respiratory Respiratory exam: Present: wheezes (Mild). Absent: accessory muscle use, rales , rhonchi - Cardiovascular Cardiovascular exam: Present: RRR, +S1, +S2. Absent: diastolic murmur, gallop, rubs, systolic murmur - GI/Abdominal GI/Abdominal exam: Present: normal bowel sounds, soft, no peritoneal signs. Absent: distended, tenderness - Extremities Exam Extremities exam: Present: warm, radial pulses palpable and symetrical. Absent : calf tenderness, cyanotic, pedal edema - Neurological Exam Neurological exam: Present: CN II-XII intact, oriented X3, no focal deficits. Absent: pronater drift, facial droop, speech deficit - Skin Skin exam: Present: dry, intact, warm <AravindBerry A - Last Filed: 09/10/16 16:24> Date of Encounter: 09/10/16 - Discharge Diagnosis (1) Acute and chronic respiratory failure Priority: Primary Status: Acute Qualifiers: Respiratory failure complication: hypoxia and hypercapnia Qualified Code(s) : J96.21 - Acute and chronic respiratory failure with hypoxia; J96.22 - Acute and chronic respiratory failure with hypercapnia (2) Alkalosis, metabolic Priority: Secondary Status: Acute (3) Pneumonia Priority: Primary Status: Acute Qualifiers: Pneumonia type: due to other aerobic Gram-negative bacteria Laterality: bilateral Lung location: unspecified part of lung Qualified Code(s): J15.6 - Pneumonia due to other aerobic Gram-negative bacteria (4) Septic shock Priority: Secondary Status: Resolved (5) Gram-negative bacteremia Status: Acute (6) Paroxysmal a-fib Priority: Secondary Status: Chronic (7) Pancreatic cancer Status: Chronic Qualifiers: Pancreatic malignancy location: head of pancreas Qualified Code(s): C25.0 - Malignant neoplasm of head of pancreas (8) Hypomagnesemia Priority: Secondary Status: Resolved Date of admission: 09/04/16 19:53 Primary care physician: Nasir Alva Consults: 09/07/16 15:18 Consult to [employer] Order Filler [CONS] Routine Reason for SW Consult: Poss rehab at discharge 09/08/16 08:45 Consult to Physical Therapy [CONS] Routine Comment: Evaluate, develop and implement POC Reason for Consult: discharge planning OT [Consult to Occupational Therapy] [CONS] Routine Comment: Evaluate, develop and implement POC Reason for Consult: discharge planning Hospital course: Mr. Martin is a 81 year old male - Time Spent with Patient Total time spent providing and/or coordinating discharge services: 38min - Constitutional Vitals: Temp Pulse Resp BP Pulse Ox 97.3 F L 83 14 135/79 100 09/10/16 11:15 09/10/16 11:15 09/10/16 11:15 09/10/16 11:15 09/10/16 11:15 - Attending Attestation I examined this patient and my medical decision-making was reviewed with the Resident Physician on 09/10/16. I agree with the documented findings, disposition and treatment plan as described except to the extent set forth below. Mr. Martin was admitted for resp failure related to pneumonia. He has slowly improved and was ready for discharge to rehab. His bicarb was elevated today and his ABG is consistent with metabolic alkalosis. He is afebrile with stable vitals and ready for discharge. He did receive a small amount of fluid prior to discharge. Exam Alert. Comfortable Mucus membranes moist Heart reg Lungs clear at this time No edema Plan D/C to SNF today. Follow up with PCP
[2016-09-10] MEDS ORDERED: levoFLOXacin 750 MG TABLET PO SCH (11:00)
--- NOTE | 2016-09-10 11:16 | Physician Discharge Referral ---
ExtendedCare Referral Info Transfer To[facility] Provider in Charge after Transfer: PCP Institutional Level of Care: Skilled - Diagnosis (1) Acute and chronic respiratory failure Priority: Primary Status: Acute (2) Pneumonia Priority: Primary Status: Acute (3) Gram-negative bacteremia Priority: Primary Status: Acute (4) Hypomagnesemia Priority: Secondary Status: Acute (5) Hypokalemia Priority: Secondary Status: Acute (6) Septic shock Priority: Primary Status: Resolved (7) Atrial fibrillation with RVR Priority: Secondary Status: Acute (8) Urinary retention Priority: Secondary Status: Acute (9) Pancreatic cancer Priority: Secondary Status: Chronic (10) CHF (congestive heart failure) Priority: Secondary Status: Chronic (11) COPD (chronic obstructive pulmonary disease) Priority: Secondary Status: Chronic - Transfer Medications Prescriptions: levoFLOXacin [Levaquin] 750 mg PO DAILY #2 tab Oxycodone HCl/Acetaminophen [Percocet 5-325 mg Tablet] 1 each PO Q4-6H PRN #20 tablet PRN Reason: Pain predniSONE [PredniSONE] See Taper PO DAILY #30 tablet Home Medications: Albuterol Sulfate [Albuterol Inhaler] 2 puff IH Q4H PRN 06/04/15 [History] Aspirin 81 mg PO DAILY 06/04/15 [History] Atorvastatin [Lipitor] 20 mg PO HS 06/04/15 [History] Potassium Chloride [K-Tab ER] 20 meq PO DAILY 06/04/15 [History] Budesonide/Formoterol 80/4.5 [Symbicort 80/4.5] 2 puff IH BIDR 11/26/15 [ History] Tiotropium [Spiriva] 18 mcg IH DAILY 11/26/15 [History] Omeprazole [PriLOSEC] 20 mg PO DAILY #90 cap 06/19/16 [Rx] Ondansetron [Zofran] 8 mg PO TID PRN #60 tablet 07/08/16 [Rx] Rivaroxaban [Xarelto] 20 mg PO DAILY 08/01/16 [History] Metoprolol XL (24 HR) Succ [Toprol Xl] 50 mg PO DAILY #30 tab.er.24h 08/05/16 [ Rx] Sucralfate [Carafate] 1 gm PO QID #120 tablet 09/01/16 [Rx] Diltiazem HCl [Diltiazem ER] 120 mg PO DAILY 09/04/16 [History] Megestrol Acetate [Megace Es] 2,500 mg PO DAILY 09/04/16 [History] Furosemide [Lasix] 40 mg PO DAILY #0 09/10/16 [Rx] Oxycodone HCl/Acetaminophen [Percocet 5-325 mg Tablet] 1 each PO Q4-6H PRN #20 tablet 09/10/16 [Rx] levoFLOXacin [Levaquin] 750 mg PO DAILY #2 tab 09/10/16 [Rx] predniSONE [PredniSONE] See Taper PO DAILY #30 tablet 09/10/16 [Rx] Allergies/Adverse Reactions: Allergies Penicillins Allergy (Verified 09/04/16 17:38) Hives - Respiratory Orders Oxygen / L per min (2-3 L) Smoking Cessation: Smoking cessation has been advised. For more information, call the [place] Tobacco Quit Line at 9-376-GRXE-NOW. - Mobility Orders Ambulate (with walker) - Rehabiliation Orders Rehab Potential: Good Rehab Orders: Evaluation for Physical Therapy, Evaluation for Occupational Therapy - Diet Orders Regular CERTIFICATION: I certify that the transfer of the above named patient to an Extended Care Facility is necessary for the continuing treatment of the diagnosis listed. The above information is true and accurate reflection of patient's current condition. Confidential - Redisclosure prohibited without a patient's written consent.
[2016-09-10 11:18] VITALS: BP 135/79
== END 2016-09-10 16:16 | DRG 871 ==
LOC: EMEROO 15:32 → 2ANU 15:32 → SUATTDRO 19:53
PROVIDERS: ADMIT Internal Medicine; ATTEND Internal Medicine